=== PATIENT | male | born 1945 | race American Indian/Alaskan Native ===

== ENCOUNTER 2016-11-29 10:53 | Inpatient (IN) | payer MEDICARE, OTHER, BC ==
--- NOTE | 2016-11-29 11:44 | C.PDOC ---
History Of Present Illness 71 y/o male with chf and recently diagnosed left dvt, on coumadin, brought to ED from [facility]. pt has been there the last 4-5 days s/p discharge from [facility]. pt sts he vomited once this morning, and vomitus had drops of blood in it. denies abdominal pain, denies blood in stool. no fever or chills. Time Seen by Provider: 11/29/16 11:15 Chief Complaint (Nursing): GI Problem History Per: Patient Onset/Duration Of Symptoms: Days (4-5) Current Symptoms Are (Timing): Still Present Associated Symptoms: Vomiting Modifying Factors: None Recent travel outside of the [place]: No Past Medical History Reviewed: Historical Data, Nursing Documentation, Vital Signs Vital Signs: Last Vital Signs Temp 98.3 F 12/06/16 15:10 Pulse 65 12/06/16 16:00 Resp 18 12/06/16 15:10 BP 159/83 H 12/06/16 15:10 Pulse Ox 97 12/06/16 15:10 - Medical History PMH: Atrial Fibrillation, CHF, Deep Vein Thrombosis, HTN, Hyperlipidemia, Pulmonary Embolism Surgical History: No Surg Hx Family History: States: Unknown Family Hx - Social History Hx Alcohol Use: No Hx Substance Use: No - Immunization History Hx Tetanus Toxoid Vaccination: No Hx Influenza Vaccination: No Hx Pneumococcal Vaccination: No Review Of Systems Constitutional: Negative for: Fever, Chills Cardiovascular: Negative for: Chest Pain, Palpitations Respiratory: Negative for: Cough, Shortness of Breath Gastrointestinal: Positive for: Vomiting. Negative for: Nausea, Abdominal Pain Neurological: Negative for: Weakness, Numbness Physical Exam - Physical Exam Appears: Non-toxic, No Acute Distress Skin: Normal Color, Warm, Dry Head: Atraumatic, Normacephalic Chest: Symmetrical, No Deformity, No Tenderness Cardiovascular: Rhythm Regular, No Murmur Respiratory: No Accessory Muscle Use, Rales (right base), No Stridor, No Wheezing Gastrointestinal/Abdominal: Bowel Sounds, Soft, Tenderness (ruq), No Guarding, No Rebound Extremity: Other (left lower extremity with +1-2 pitting edema) ED Course And Treatment - Laboratory Results Result Diagrams: 12/06/16 06:44 12/06/16 06:44 O2 Sat by Pulse Oximetry: 100 - Other Rad CXR X-Ray: Viewed By Me, Read By Radiologist Interpretation: HISTORY: crackles right base. COMPARISON: No prior. FINDINGS : LUNGS: Moderate venous congestion. Patchy right basilar airspace opacity. Right hilar prominence. PLEURA: As above. CARDIOVASCULAR: Cardiomegaly. OSSEOUS STRUCTURES: No significant abnormalities. VISUALIZED UPPER ABDOMEN: Normal. OTHER FINDINGS: None. IMPRESSION: Moderate venous congestion. Patchy right basilar airspace opacity. Right hilar prominence. Medical Decision Making Medical Decision Making: discussed with Dr Guevara will admit for obs of gi bleeding and tx of pna. Disposition Discussed With : Mando Yen Doctor Will See Patient In The: Hospital - Disposition Disposition: HOSPITALIZED Disposition Time: 14:19 Condition: SERIOUS - Clinical Impression Clinical Impression: Gastrointestinal hemorrhage, Pneumonia Decision To Admit - Pt Status Changed To: Hospital Disposition Of: Inpatient - Admit Certification Admit to Inpatient:: After my assessment, the patient will require hospitalization for at least two midnights. This is because of the severity of symptoms shown, intensity of services needed, and/or the medical risk in this patient being treated as an outpatient. - InPatient: Physician Admission Certification: I certify that this patient requires 2 or more midnights of care for the following reason:: requires tx for pna - . Bed Request Type: Regular Admitting Physician: Mando Yen Patient Diagnosis: Gastrointestinal hemorrhage, Pneumonia
[2016-11-29 12:28] LABS: BASO % 0.2 % (0.0-2.0); EOS % 0.2 % (0.0-4.0); HEMATOCRIT 25.8 % (35.0-51.0); LYMPH # 0.7 K/uL (1.0-4.3); MEAN CELL VOLUME 77.7 fL (80.0-94.0); MEAN CORPUSCULAR HEMOGLOBIN 25.1 pg (27.0-31.0); MEAN CORPUSCULAR HGB CONC 32.4 g/dL (33.0-37.0); MEAN PLATELET VOLUME 8.5 fL (7.2-11.7); MONO # 0.4 K/uL (0.0-0.8); MONO % 5.9 % (0.0-10.0); WHITE BLOOD COUNT 7.1 K/uL (4.8-10.8)
[2016-11-29 12:34] LABS: CHLORIDE 104 mmol/L (98-107); INR 2.7; POTASSIUM 4.6 mmol/L (3.6-5.2); SODIUM 142 mmol/L (132-148)
[2016-11-29 12:36] LABS: ALB/GLOB RATIO 0.8 (1.0-2.1); AST/SGOT 640 U/L (17-59); BILIRUBIN,TOTAL 1.6 mg/dL (0.2-1.3); BLOOD UREA NITROGEN 24 mg/dL (9-20); CARBON DIOXIDE 27 mmol/L (22-30); GFR AFRICAN-AMERICAN > 60; TOTAL PROTEIN 7.1 g/dL (6.3-8.3)
[2016-11-29 12:37] LABS: ALKALINE PHOSPHATASE 276 U/L (38-126); ALT/SGPT 304 U/L (21-72); CALCIUM 8.8 mg/dl (8.6-10.4); GLUCOSE,RANDOM 100 mg/dL (75-110)
--- NOTE | 2016-11-29 13:29 | RAD ---
HISTORY: crackles right base COMPARISON: No prior. FINDINGS: LUNGS: Moderate venous congestion. Patchy right basilar airspace opacity. Right hilar prominence. PLEURA: As above. CARDIOVASCULAR: Cardiomegaly. OSSEOUS STRUCTURES: No significant abnormalities. VISUALIZED UPPER ABDOMEN: Normal. OTHER FINDINGS: None. IMPRESSION: Moderate venous congestion. Patchy right basilar airspace opacity. Right hilar prominence.
[2016-11-29] MEDS ORDERED: Cefepime 1 GM in Sodium Chloride 0.9% 50 ML IVPB ONE (14:16)
--- NOTE | 2016-11-29 15:25 | CT ---
PROCEDURE: CT HEAD WITHOUT CONTRAST. HISTORY: confused. on coumadin COMPARISON: None available. TECHNIQUE: Axial computed tomography images were obtained through the head/brain without intravenous contrast. Radiation dose: Total exam DLP = 1936.32 mGy-cm. This CT exam was performed using one or more of the following dose reduction techniques: Automated exposure control, adjustment of the mA and/or kV according to patient size, and/or use of iterative reconstruction technique. FINDINGS: Streak artifact obscures evaluation of the skullbase. HEMORRHAGE: No intracranial hemorrhage. BRAIN: Diffuse atrophy with prominence of the ventricles and sulci noted. No mass effect or edema. Intracranial atherosclerotic calcifications. Bilateral basal ganglia calcifications. Sub cm bilateral basal ganglia and thalamic hypodensities presumably lacunar infarctions. Scattered periventricular and subcortical white matter hypodensities, which are nonspecific, but often seen with chronic microvascular ischemic disease. Please note that MRI with diffusion imaging is more sensitive in the detection of acute ischemic event. VENTRICLES: No hydrocephalus. CALVARIUM: Unremarkable. PARANASAL SINUSES: Unremarkable as visualized. No significant inflammatory changes. MASTOID AIR CELLS: Unremarkable as visualized. No inflammatory changes. OTHER FINDINGS: None. IMPRESSION: Generalized atrophy. Nonspecific white matter changes. Sub cm bilateral basal ganglia and thalamic hypodensities presumably lacunar infarctions.
[2016-11-29] MEDS ORDERED: Cefepime IV 1 gm in Dextrose 50 ML IVPB ONE (16:00)
[2016-11-29] MEDS ORDERED: Sodium Chloride 0.9% 1,000 ML IV SCH (17:15)
[2016-11-29 17:33] LABS: RBC URINE 1 /hpf (0-3); URINE BILIRUBIN NEGATIVE (NEGATIVE); URINE BLOOD NEGATIVE (NEGATIVE); URINE COLOR Amber (YELLOW); URINE GLUCOSE (UA) NORMAL (Normal); URINE KETONE NEGATIVE (NEGATIVE); URINE LEUKOCYTE ESTERASE NEG Leu/uL (Negative); URINE PROTEIN NEGATIVE (NEGATIVE); WBC URINE 1 /hpf (0-5)
[2016-11-29] MEDS ORDERED: Albuterol-Ipratrop 3 mg / 0.5 (3 ml) UD IH PRN (18:03)
[2016-11-29] MEDS: Piperacillin/Tazobact 3.375 GM in Sodium Chloride 100 ML IVPB SCH (20:46)
[2016-11-29] MEDS: (Novolog) Insulin Aspart, Recombinant 100 u/ml 10 ml vial SC SCH (22:34)
[2016-11-30] MEDS: Sodium Chloride 0.9% 1,000 ML IV SCH ×3 (00:35→17:19)
[2016-11-30] MEDS: Piperacillin/Tazobact 3.375 GM in Sodium Chloride 100 ML IVPB SCH ×3 (01:50→19:00)
[2016-11-30 08:01] LABS: INR 3.3
[2016-11-30 08:15] LABS: BASO % 0.6 % (0.0-2.0); EOS # 0.1 K/uL (0.0-0.7); EOS % 1.3 % (0.0-4.0); HEMATOCRIT 26.4 % (35.0-51.0); LYMPH # 1.4 K/uL (1.0-4.3); LYMPH % 28.4 % (20.0-40.0); MEAN CELL VOLUME 77.5 fL (80.0-94.0); MEAN CORPUSCULAR HEMOGLOBIN 24.9 pg (27.0-31.0); MEAN CORPUSCULAR HGB CONC 32.2 g/dL (33.0-37.0); MEAN PLATELET VOLUME 8.9 fL (7.2-11.7); MONO # 0.4 K/uL (0.0-0.8); MONO % 7.8 % (0.0-10.0); NRBC % 0.1 % (0.0-2.0); RED CELL DISTRIBUTION WIDTH 15.8 % (11.5-14.5); WHITE BLOOD COUNT 4.8 K/uL (4.8-10.8)
[2016-11-30 08:25] LABS: IRON 44 ug/dL (49-181)
[2016-11-30] MEDS: (Novolog) Insulin Aspart, Recombinant 100 u/ml 10 ml vial SC SCH ×4 (08:41→22:19)
[2016-11-30 09:19] LABS: CHLORIDE 106 mmol/L (98-107)
[2016-11-30 09:20] LABS: SODIUM 148 mmol/L (132-148)
[2016-11-30 09:22] LABS: CARBON DIOXIDE 26 mmol/L (22-30); GFR AFRICAN-AMERICAN > 60
[2016-11-30 09:23] LABS: ALB/GLOB RATIO 0.8 (1.0-2.1); ALKALINE PHOSPHATASE 536 U/L (38-126); ALT/SGPT 669 U/L (21-72); BILIRUBIN,TOTAL 2.2 mg/dL (0.2-1.3); BLOOD UREA NITROGEN 17 mg/dL (9-20); CALCIUM 8.4 mg/dl (8.6-10.4); GLUCOSE,RANDOM 79 mg/dL (75-110); TOTAL PROTEIN 6.7 g/dL (6.3-8.3)
--- NOTE | 2016-11-30 09:34 | CP.PCM.CON ---
<Jackson Farr - Last Filed: 11/30/16 10:02> History of Present Illness - History of Present Illness History of Present Illness: PGY4 GI Fellow Consult Note Patient is a 71yo male with PMHx significant for systolic CHF (EF 32%), LLE DVT on coumadin, prior acute respiratory failure requiring mechanical ventilation, HTN, Dyslipidemia, osteoarthritis who presented from rehab facility with suspected hematemesis. The patient has an unclear, not formally diagnosed, cognitive disorder and is unable to recall recent events and is currently only AAOx1 (name), thus he is a poor historian. He was recently admitted to [facility] in October for SOB and chest pain and was treated for HCAP, required mechanical ventilation and had a prolonged ICU stay due to respiratory failure. Moreover, he has previously been diagnosed and treated for CHF, a wide complex tachycardia concerning for sustained VTach and a LLE DVT for which he was given coumadin. The patient developed nausea and vomiting yesterday which was witnessed by staff at rehab facility. There was concern for hematemesis and patient was transferred to our facility for further evaluation and treatment. The patient has not had any further episodes of nausea or vomiting since admission. He currently denies any complaints, in particular, no nausea, vomiting, diarrhea, hematochezia, melena, weight loss, dysphagia, dyspnea, chest pain, dizziness. It should be noted that a CT head was performed on admission which revealed lacunar infarcts which were not noted last month on either CT or MRI brain. An EEG at that time was diffusely abnormal. PMHx: See HPI PSHx: B/L cataract surgery FHx: Father - CAD; Sister - leukemia Social: Former smoker ~35yrs, Denies any EtOH or illicit drug use Endo: No documented history in our EMR, though patient believes he previously had colonoscopy *Of note, patient has a second chart in EMR under name Abimael Bill Jr. Review of Systems - Review of Systems Systems not reviewed;Unavailable: Altered Mental Status Past Patient History - Past Medical History & Family History Past Medical History?: Yes - Past Social History Smoking Status: Former Smoker - CARDIAC Hx Atrial Fibrillation: Yes Hx Congestive Heart Failure: Yes Hx Hypertension: Yes - PULMONARY Hx Pulmonary Embolism: Yes - NEUROLOGICAL Hx Neurological Disorder: No - HEENT Hx HEENT Problems: No - RENAL Hx Chronic Kidney Disease: No - ENDOCRINE/METABOLIC Hx Diabetes Mellitus Type 2: Yes - HEMATOLOGICAL/ONCOLOGICAL Hx Blood Disorders: No - INTEGUMENTARY Hx Dermatological Problems: No - MUSCULOSKELETAL/RHEUMATOLOGICAL Hx Falls: No - GASTROINTESTINAL Hx Gastrointestinal Disorders: No - GENITOURINARY/GYNECOLOGICAL Hx Incontinence: Yes - PSYCHIATRIC Hx Substance Use: No - SURGICAL HISTORY Hx Surgeries: No - ANESTHESIA Hx Anesthesia: Yes (Dental Procedure) Hx Anesthesia Reactions: No Meds Allergies/Adverse Reactions: Allergies Allergy/AdvReac Type Severity Reaction Status Date / Time No Known Allergies Allergy Verified 11/29/16 11:02 - Medications Medications: Current Medications Albuterol/Ipratropium (Duoneb 3 Mg/0.5 Mg (3 Ml) Ud) 3 ml IH RQ4 PRN PRN Reason: Wheezing Clonidine HCl (Catapres) 0.1 mg PO BID [facility] Cyanocobalamin (Vitamin B12 1000 Mcg Tab) 1,000 mcg PO DAILY [facility] Piperacillin Sod/Tazobactam (Sod 3.375 gm/ Sodium Chloride) 100 mls @ 200 mls/ hr IVPB Q8H [facility] Last Admin: 11/30/16 01:50 Dose: 200 mls/hr Sodium Chloride (Sodium Chloride 0.9%) 1,000 mls @ 60 mls/hr IV .[id number] [facility] Last Admin: 11/30/16 06:00 Dose: 60 mls/hr Insulin Aspart (Novolog) 0 unit SC ACHS [facility] PRN Reason: Protocol Last Admin: 11/30/16 08:41 Dose: Not Given Lorazepam (Ativan) 0.5 mg PO Q8 PRN PRN Reason: Agitation Pneumococcal Polyvalent Vaccine (Pneumovax 23 Vaccine) 0.5 ml IM .ONCE ONE Stop: 12/02/16 10:01 Physical Exam - Constitutional Appears: Non-toxic, No Acute Distress - Eye Exam Eye Exam: EOMI, PERRL - ENT Exam ENT Exam: Mucous Membranes Moist - Respiratory Exam Respiratory Exam: Clear to Auscultation Bilateral. absent: Rales, Rhonchi, Wheezes - Cardiovascular Exam Cardiovascular Exam: RRR, +S1, +S2 - GI/Abdominal Exam GI & Abdominal Exam: Normal Bowel Sounds, Soft. absent: Diminished Bowel Sounds , Distended, Firm, Rigid, Tenderness - Extremities Exam Extremities exam: Positive for: normal inspection. Negative for: pedal edema - Neurological Exam Neurological exam: Altered Additional comments: Oriented to name only - Psychiatric Exam Psychiatric exam: Normal Affect, Normal Mood - Skin Skin Exam: Dry, Warm Results - Vital Signs Recent Vital Signs: Last Vital Signs Temp 98.1 F 11/30/16 07:38 Pulse 80 11/30/16 07:38 Resp 20 11/30/16 07:38 BP 155/85 H 11/30/16 07:38 Pulse Ox 95 11/30/16 07:38 - Labs Result Diagrams: 11/30/16 07:52 11/30/16 07:52 Labs: Laboratory Results - last 24 hr 11/29/16 11/29/16 11/29/16 17:25 18:14 21:46 WBC RBC Hgb Hct MCV MCH MCHC RDW Plt Count MPV Neut % (Auto) Lymph % (Auto) Daggett % (Auto) Eos % (Auto) Baso % (Auto) Neut # Lymph # Daggett # Eos # Baso # PT INR APTT Sodium Potassium Chloride Carbon Dioxide Anion Gap BUN Creatinine Est GFR ( Amer) Est GFR (Non-Af Amer) POC Glucose (mg/dL) 91 91 Random Glucose Calcium Iron TIBC % Saturation Total Bilirubin Direct Bilirubin ALT Alkaline Phosphatase Total Protein Albumin Globulin Albumin/Globulin Ratio Urine Color Shirley Urine Clarity Clear Urine pH 7.0 Ur Specific [place] 1.013 Urine Protein Negative Urine Glucose (UA) Normal Urine Ketones Negative Urine Blood Negative Urine Nitrate Negative Urine Bilirubin Negative Urine Urobilinogen 4.0 Ur Leukocyte Esterase Neg Urine WBC (Auto) 1 Urine RBC (Auto) 1 11/30/16 11/30/16 11/30/16 02:58 07:21 07:52 WBC 4.8 RBC 3.41 L Hgb 8.5 L Hct 26.4 L MCV 77.5 L MCH 24.9 L MCHC 32.2 L RDW 15.8 H Plt Count 350 MPV 8.9 Neut % (Auto) 61.9 Lymph % (Auto) 28.4 Daggett % (Auto) 7.8 Eos % (Auto) 1.3 Baso % (Auto) 0.6 Neut # 3.0 Lymph # 1.4 Daggett # 0.4 Eos # 0.1 Baso # 0.0 PT 39.2 H* D INR 3.3 APTT Sodium 148 Potassium 4.0 Chloride 106 Carbon Dioxide 26 Anion Gap 19 BUN 17 Creatinine 1.1 Est GFR ( Amer) > 60 Est GFR (Non-Af Amer) > 60 POC Glucose (mg/dL) 89 92 Random Glucose 79 Calcium 8.4 L Iron 44 L TIBC 236 L % Saturation 19 L Total Bilirubin 2.2 H Direct Bilirubin 2.0 H ALT 669 H D Alkaline Phosphatase 536 H D Total Protein 6.7 Albumin 3.0 L Globulin 3.7 Albumin/Globulin Ratio 0.8 L Urine Color Urine Clarity Urine pH Ur Specific [place] Urine Protein Urine Glucose (UA) Urine Ketones Urine Blood Urine Nitrate Urine Bilirubin Urine Urobilinogen Ur Leukocyte Esterase Urine WBC (Auto) Urine RBC (Auto) 11/30/16 07:59 WBC RBC Hgb Hct MCV MCH MCHC RDW Plt Count MPV Neut % (Auto) Lymph % (Auto) Daggett % (Auto) Eos % (Auto) Baso % (Auto) Neut # Lymph # Daggett # Eos # Baso # PT INR APTT 39 H Sodium Potassium Chloride Carbon Dioxide Anion Gap BUN Creatinine Est GFR ( Amer) Est GFR (Non-Af Amer) POC Glucose (mg/dL) Random Glucose Calcium Iron TIBC % Saturation Total Bilirubin Direct Bilirubin ALT Alkaline Phosphatase Total Protein Albumin Globulin Albumin/Globulin Ratio Urine Color Urine Clarity Urine pH Ur Specific [place] Urine Protein Urine Glucose (UA) Urine Ketones Urine Blood Urine Nitrate Urine Bilirubin Urine Urobilinogen Ur Leukocyte Esterase Urine WBC (Auto) Urine RBC (Auto) Assessment & Plan - Assessment and Plan (Free Text) Assessment: Patient is a 71yo male with PMHx significant for systolic CHF (EF 32%), LLE DVT on coumadin, prior acute respiratory failure requiring mechanical ventilation, HTN, Dyslipidemia, osteoarthritis who presented from rehab facility with suspected hematemesis. -Suspected hematemesis -Abnormal LFTs with direct hyperbilirubinemia -Microcytic anemia -Questionable acute to subacute CVA with lacunar infarcts noted on this admission, not previously noted on imaging -Unspecified cognitive disorder, possibly vascular or alzheimer dementia -Recent history of sustained VTach vs other wide complex tachyarrythmia -CHF with EF 32% Plan: -No evidence of acute GI bleeding since admission, no further episodes of emesis -Does have abnormal LFTs with direct hyperbilirubinemia; awaiting U/S abdomen, may warrant MRCP pending findings -Currently on coumadin which would preclude endoscopic evaluation at this time, non-emergent at this time -Given recent head CT findings and absence of these on prior examinations, consider further evaluation - patient may require antiplatelet therapy (ASA/ Plavix) which too would preclude endoscopic evaluation -Continue Protonix 40mg IV QAMAC -Monitor CBC, CMP, INR -Check Hepatitis serologies -FERNANDO previously positive at 1:320 -Check AMA, SMA -Would benefit from iron supplementation given ongoing anemia, iron deficiency - Date & Time Date: 11/30/16 Time: 06:15 <Sue Ordonez - Last Filed: 11/30/16 17:16> Meds - Medications Medications: Current Medications Albuterol/Ipratropium (Duoneb 3 Mg/0.5 Mg (3 Ml) Ud) 3 ml IH RQ4 PRN PRN Reason: Wheezing Clonidine HCl (Catapres) 0.2 mg PO BID [facility] Cyanocobalamin (Vitamin B12 1000 Mcg Tab) 1,000 mcg PO DAILY [facility] Last Admin: 11/30/16 10:23 Dose: 1,000 mcg Piperacillin Sod/Tazobactam (Sod 3.375 gm/ Sodium Chloride) 100 mls @ 200 mls/ hr IVPB Q8H [facility] Last Admin: 11/30/16 10:26 Dose: 200 mls/hr Sodium Chloride (Sodium Chloride 0.9%) 1,000 mls @ 60 mls/hr IV .[id number] [facility] Last Admin: 11/30/16 06:00 Dose: 60 mls/hr Insulin Aspart (Novolog) 0 unit SC ACHS [facility] PRN Reason: Protocol Last Admin: 11/30/16 12:36 Dose: Not Given Lorazepam (Ativan) 0.5 mg PO Q8 PRN PRN Reason: Agitation Morphine Sulfate (Morphine) 0.5 mg IVP Q6 PRN PRN Reason: Pain, moderate (4-7) Last Admin: 11/30/16 13:22 Dose: 0.5 mg Pneumococcal Polyvalent Vaccine (Pneumovax 23 Vaccine) 0.5 ml IM .ONCE ONE Stop: 12/02/16 10:01 Results - Vital Signs Recent Vital Signs: Last Vital Signs Temp 98.3 F 11/30/16 15:42 Pulse 94 H 11/30/16 15:42 Resp 20 11/30/16 15:42 BP 160/112 H 11/30/16 15:42 Pulse Ox 95 11/30/16 15:42 - Labs Result Diagrams: 11/30/16 07:52 11/30/16 07:52 Labs: Laboratory Results - last 24 hr 11/29/16 11/29/16 11/29/16 17:25 18:14 21:46 WBC RBC Hgb Hct MCV MCH MCHC RDW Plt Count MPV Neut % (Auto) Lymph % (Auto) Daggett % (Auto) Eos % (Auto) Baso % (Auto) Neut # Lymph # Daggett # Eos # Baso # PT INR APTT Sodium Potassium Chloride Carbon Dioxide Anion Gap BUN Creatinine Est GFR ( Amer) Est GFR (Non-Af Amer) POC Glucose (mg/dL) 91 91 Random Glucose Calcium Iron TIBC % Saturation Total Bilirubin Direct Bilirubin AST ALT Alkaline Phosphatase Total Protein Albumin Globulin Albumin/Globulin Ratio Urine Color Shirley Urine Clarity Clear Urine pH 7.0 Ur Specific [place] 1.013 Urine Protein Negative Urine Glucose (UA) Normal Urine Ketones Negative Urine Blood Negative Urine Nitrate Negative Urine Bilirubin Negative Urine Urobilinogen 4.0 Ur Leukocyte Esterase Neg Urine WBC (Auto) 1 Urine RBC (Auto) 1 Hepatitis A IgM Ab Hep Bs Antigen Hep B Core IgM Ab Hepatitis C Antibody 11/30/16 11/30/16 11/30/16 02:58 07:21 07:52 WBC 4.8 RBC 3.41 L Hgb 8.5 L Hct 26.4 L MCV 77.5 L MCH 24.9 L MCHC 32.2 L RDW 15.8 H Plt Count 350 MPV 8.9 Neut % (Auto) 61.9 Lymph % (Auto) 28.4 Daggett % (Auto) 7.8 Eos % (Auto) 1.3 Baso % (Auto) 0.6 Neut # 3.0 Lymph # 1.4 Daggett # 0.4 Eos # 0.1 Baso # 0.0 PT 39.2 H* D INR 3.3 APTT Sodium 148 Potassium 4.0 Chloride 106 Carbon Dioxide 26 Anion Gap 19 BUN 17 Creatinine 1.1 Est GFR ( Amer) > 60 Est GFR (Non-Af Amer) > 60 POC Glucose (mg/dL) 89 92 Random Glucose 79 Calcium 8.4 L Iron 44 L TIBC 236 L % Saturation 19 L Total Bilirubin 2.2 H Direct Bilirubin 2.0 H AST 857 H D ALT 669 H D Alkaline Phosphatase 536 H D Total Protein 6.7 Albumin 3.0 L Globulin 3.7 Albumin/Globulin Ratio 0.8 L Urine Color Urine Clarity Urine pH Ur Specific [place] Urine Protein Urine Glucose (UA) Urine Ketones Urine Blood Urine Nitrate Urine Bilirubin Urine Urobilinogen Ur Leukocyte Esterase Urine WBC (Auto) Urine RBC (Auto) Hepatitis A IgM Ab Hep Bs Antigen Hep B Core IgM Ab Hepatitis C Antibody 11/30/16 11/30/16 11/30/16 07:59 11:55 14:23 WBC RBC Hgb Hct MCV MCH MCHC RDW Plt Count MPV Neut % (Auto) Lymph % (Auto) [place] % (Auto) Eos % (Auto) Baso % (Auto) Neut # Lymph # [place]gett # Eos # Baso # PT INR APTT 39 H Sodium Potassium Chloride Carbon Dioxide Anion Gap BUN Creatinine Est GFR ( Amer) Est GFR (Non-Af Amer) POC Glucose (mg/dL) 109 Random Glucose Calcium Iron TIBC % Saturation Total Bilirubin Direct Bilirubin AST ALT Alkaline Phosphatase Total Protein Albumin Globulin Albumin/Globulin Ratio Urine Color Urine Clarity Urine pH Ur Specific [place] Urine Protein Urine Glucose (UA) Urine Ketones Urine Blood Urine Nitrate Urine Bilirubin Urine Urobilinogen Ur Leukocyte Esterase Urine WBC (Auto) Urine RBC (Auto) Hepatitis A IgM Ab Negative Hep Bs Antigen Negative Hep B Core IgM Ab Negative Hepatitis C Antibody Negative 11/30/16 16:32 WBC RBC Hgb Hct MCV MCH MCHC RDW Plt Count MPV Neut % (Auto) Lymph % (Auto) [place] % (Auto) Eos % (Auto) Baso % (Auto) Neut # Lymph # [place]gett # Eos # Baso # PT INR APTT Sodium Potassium Chloride Carbon Dioxide Anion Gap BUN Creatinine Est GFR ( Amer) Est GFR (Non-Af Amer) POC Glucose (mg/dL) 98 Random Glucose Calcium Iron TIBC % Saturation Total Bilirubin Direct Bilirubin AST ALT Alkaline Phosphatase Total Protein Albumin Globulin Albumin/Globulin Ratio Urine Color Urine Clarity Urine pH Ur Specific [place] Urine Protein Urine Glucose (UA) Urine Ketones Urine Blood Urine Nitrate Urine Bilirubin Urine Urobilinogen Ur Leukocyte Esterase Urine WBC (Auto) Urine RBC (Auto) Hepatitis A IgM Ab Hep Bs Antigen Hep B Core IgM Ab Hepatitis C Antibody Attending/Attestation - Attestation I have personally seen and examined this patient.: Yes I have fully participated in the care of the patient.: Yes I have reviewed all pertinent clinical information: Yes Notes (Text): Patient seen and examined with GI fellow. Agree with his note as documented above with the following additions/exceptions. This is a 71yo male with PMHx significant for systolic CHF (EF 32%), LLE DVT on coumadin, HTN, recent hospitalization at [facility] for respiratory failure requiring mechanical ventilation who is admitted from rehab facility with possible episode of hematemesis. He thinks he may have had endoscopy years ago. He denies any further episodes of bleeding. No melena/hematochezia, FOBT negative. He is noted to have abnormal LFTs with ultrasound showing gallstones, +Lucia's and large abdominal aortic aneurysm. Recommend MRCP, HIDA and surgical evaluation. No urgent indication for upper endoscopy at this time, would continue daily PPI, antiemetic therapy as needed. Monitor H/H, transfuse as needed. Will continue to follow and make recommendations pending clinical course/further studies. 11/30/16 17:12
[2016-11-30 09:52] LABS: AST/SGOT 857 U/L (17-59)
--- NOTE | 2016-11-30 11:19 | US ---
HISTORY: abnormal LFTs COMPARISON: None. TECHNIQUE: Sonographic evaluation of the abdomen. FINDINGS: LIVER: Measures 18.9 cm. Patent portal vein. Portal venous flow: Hepatopetal. Variable echogenicity of the liver parenchyma. No mass. No intrahepatic bile duct dilatation. GALLBLADDER: Cholelithiasis, gallbladder wall thickening/ tumefactive sludge identified. Positive sonographic Lucia's sign. COMMON BILE DUCT: Measures 4.6 mm. No stones. No dilatation. PANCREAS: Obscured by overlying bowel gas. Non diagnostic assessment of the pancreas. RIGHT KIDNEY: Measures cm. Normal echogenicity. No calculus, mass, or hydronephrosis.Incidental finding(s): Simple cyst 1 cm LEFT KIDNEY: Measures 5.7 x 11.2cm. Normal echogenicity. No calculus, mass, or hydronephrosis.Incidental finding(s): Midpole cyst 2.1 x 2.3 cm SPLEEN: Normal in size and contour. No mass. AORTA: Abdominal aortic aneurysm. The length of the aneurysm is 9.3 cm. Diameter 4.7 x 5.9 primarily thrombus. Luminal measurements 1.8 x 3.2 cm. IVC: Unremarkable. OTHER FINDINGS: None. IMPRESSION: Presumptive evidence for acute cholecystitis inclusive in the presence of gallstones, gallbladder wall thickening and positive sonographic Lucia's sign. Abdominal aortic aneurysm.
[2016-11-30] MEDS ORDERED: Iohexol 240 (50 ml) PO ONE (14:45)
--- NOTE | 2016-11-30 17:20 | CP.PCM.CON ---
History of Present Illness - History of Present Illness History of Present Illness: Vascular Surgery Dr. Heard CC: AAA HPI: 71 y/o M w/ significant PMHx of systolic CHF (EF 32%), LLE DVT on coumadin , acute respiratory failure requiring mechanical ventilation, hypertension, and hyperlipidemia who was recently brought to the ED from [facility] [place] due to suspected hematemesis. Patient has been there for the last 4-5 days s/p discharge from [place]. Patient was found to have an AAA on abd U/S. Patient is a poor historian as he is AAOx1. Patient Hx obtained from medical record. He has not had any further episodes of nausea and vomiting since his admission. The patient denies CP and abd pain on questioning. PMHx: CHF (EF 32%), DVT on coumadin, HTN, HLD, dementia, OA Meds: reviewed in chart NKDA PSHx: B/L cataract surgery FHx: Parents - HTN, DM, CAD; Sister - leukemia SHx: Former smoker ~35yrs; denies EtOH or drug use Review of Systems - Review of Systems Systems not reviewed;Unavailable: Dementia, Altered Mental Status Past Patient History - Past Medical History & Family History Past Medical History?: Yes - Past Social History Smoking Status: Former Smoker - CARDIAC Hx Congestive Heart Failure: Yes Hx Hypercholesterolemia: Yes Hx Hypertension: Yes - PULMONARY Hx Pulmonary Embolism: Yes - NEUROLOGICAL Hx Neurological Disorder: No - HEENT Hx HEENT Problems: No - RENAL Hx Chronic Kidney Disease: No - ENDOCRINE/METABOLIC Hx Diabetes Mellitus Type 2: Yes - HEMATOLOGICAL/ONCOLOGICAL Hx Blood Disorders: No - INTEGUMENTARY Hx Dermatological Problems: No - MUSCULOSKELETAL/RHEUMATOLOGICAL Hx Falls: No - GASTROINTESTINAL Hx Gastrointestinal Disorders: No - GENITOURINARY/GYNECOLOGICAL Hx Incontinence: Yes - PSYCHIATRIC Hx Substance Use: No - SURGICAL HISTORY Hx Surgeries: No - ANESTHESIA Hx Anesthesia: Yes (Dental Procedure) Hx Anesthesia Reactions: No Meds Allergies/Adverse Reactions: Allergies Allergy/AdvReac Type Severity Reaction Status Date / Time No Known Allergies Allergy Verified 11/29/16 11:02 - Medications Medications: Current Medications Albuterol/Ipratropium (Duoneb 3 Mg/0.5 Mg (3 Ml) Ud) 3 ml IH RQ4 PRN PRN Reason: Wheezing Clonidine HCl (Catapres) 0.1 mg PO BID [facility] Last Admin: 11/30/16 10:24 Dose: 0.1 mg Cyanocobalamin (Vitamin B12 1000 Mcg Tab) 1,000 mcg PO DAILY [facility] Last Admin: 11/30/16 10:23 Dose: 1,000 mcg Piperacillin Sod/Tazobactam (Sod 3.375 gm/ Sodium Chloride) 100 mls @ 200 mls/ hr IVPB Q8H [facility] Last Admin: 11/30/16 10:26 Dose: 200 mls/hr Sodium Chloride (Sodium Chloride 0.9%) 1,000 mls @ 60 mls/hr IV .[id number] [facility] Last Admin: 11/30/16 06:00 Dose: 60 mls/hr Insulin Aspart (Novolog) 0 unit SC ACHS [facility] PRN Reason: Protocol Last Admin: 11/30/16 12:36 Dose: Not Given Lorazepam (Ativan) 0.5 mg PO Q8 PRN PRN Reason: Agitation Morphine Sulfate (Morphine) 0.5 mg IVP Q6 PRN PRN Reason: Pain, moderate (4-7) Last Admin: 11/30/16 13:22 Dose: 0.5 mg Pneumococcal Polyvalent Vaccine (Pneumovax 23 Vaccine) 0.5 ml IM .ONCE ONE Stop: 12/02/16 10:01 Physical Exam - Constitutional Appears: Non-toxic, No Acute Distress - Head Exam Head Exam: NORMAL INSPECTION - Eye Exam Eye Exam: Normal appearance - ENT Exam ENT Exam: Mucous Membranes Moist - Respiratory Exam Respiratory Exam: Clear to Auscultation Bilateral, NORMAL BREATHING PATTERN. absent: Accessory Muscle Use, Respiratory Distress - Cardiovascular Exam Cardiovascular Exam: Tachycardia, REGULAR RHYTHM, +S1, +S2. absent: Bradycardia - GI/Abdominal Exam GI & Abdominal Exam: Hypoactive Bowel Sounds, Pulsatile Mass, Soft. absent: Distended, Guarding, Tenderness - Extremities Exam Additional comments: 2+ pitting edema LLL to knee 1+ pre-tibial pitting edema - Neurological Exam Neurological exam: Alert, Altered - Psychiatric Exam Psychiatric exam: Normal Affect, Normal Mood - Skin Skin Exam: Dry, Intact, Normal Color, Warm Results - Vital Signs Recent Vital Signs: Last Vital Signs Temp 98.3 F 11/30/16 15:42 Pulse 94 H 11/30/16 15:42 Resp 20 11/30/16 15:42 BP 160/112 H 11/30/16 15:42 Pulse Ox 95 04/07/17 15:42 - Labs Result Diagrams: 11/30/16 07:52 11/30/16 07:52 Labs: Laboratory Results - last 24 hr 11/29/16 11/29/16 11/29/16 17:25 18:14 21:46 WBC RBC Hgb Hct MCV MCH MCHC RDW Plt Count MPV Neut % (Auto) Lymph % (Auto) [place] % (Auto) Eos % (Auto) Baso % (Auto) Neut # Lymph # [place] # Eos # Baso # PT INR APTT Sodium Potassium Chloride Carbon Dioxide Anion Gap BUN Creatinine Est GFR ( Amer) Est GFR (Non-Af Amer) POC Glucose (mg/dL) 91 91 Random Glucose Calcium Iron TIBC % Saturation Total Bilirubin Direct Bilirubin AST ALT Alkaline Phosphatase Total Protein Albumin Globulin Albumin/Globulin Ratio Urine Color [place] Urine Clarity Clear Urine pH 7.0 Ur Specific [place] 1.013 Urine Protein Negative Urine Glucose (UA) Normal Urine Ketones Negative Urine Blood Negative Urine Nitrate Negative Urine Bilirubin Negative Urine Urobilinogen 4.0 Ur Leukocyte Esterase Neg Urine WBC (Auto) 1 Urine RBC (Auto) 1 Hepatitis A IgM Ab Hep Bs Antigen Hep B Core IgM Ab Hepatitis C Antibody 11/30/16 11/30/16 11/30/16 02:58 07:21 07:52 WBC 4.8 RBC 3.41 L Hgb 8.5 L Hct 26.4 L MCV 77.5 L MCH 24.9 L MCHC 32.2 L RDW 15.8 H Plt Count 350 MPV 8.9 Neut % (Auto) 61.9 Lymph % (Auto) 28.4 [place] % (Auto) 7.8 Eos % (Auto) 1.3 Baso % (Auto) 0.6 Neut # 3.0 Lymph # 1.4 [place] # 0.4 Eos # 0.1 Baso # 0.0 PT 39.2 H* D INR 3.3 APTT Sodium 148 Potassium 4.0 Chloride 106 Carbon Dioxide 26 Anion Gap 19 BUN 17 Creatinine 1.1 Est GFR ( Amer) > 60 Est GFR (Non-Af Amer) > 60 POC Glucose (mg/dL) 89 92 Random Glucose 79 Calcium 8.4 L Iron 44 L TIBC 236 L % Saturation 19 L Total Bilirubin 2.2 H Direct Bilirubin 2.0 H AST 857 H D ALT 669 H D Alkaline Phosphatase 536 H D Total Protein 6.7 Albumin 3.0 L Globulin 3.7 Albumin/Globulin Ratio 0.8 L Urine Color Urine Clarity Urine pH Ur Specific [place] Urine Protein Urine Glucose (UA) Urine Ketones Urine Blood Urine Nitrate Urine Bilirubin Urine Urobilinogen Ur Leukocyte Esterase Urine WBC (Auto) Urine RBC (Auto) Hepatitis A IgM Ab Hep Bs Antigen Hep B Core IgM Ab Hepatitis C Antibody 11/30/16 11/30/16 11/30/16 07:59 11:55 14:23 WBC RBC Hgb Hct MCV MCH MCHC RDW Plt Count MPV Neut % (Auto) Lymph % (Auto) [place] % (Auto) Eos % (Auto) Baso % (Auto) Neut # Lymph # [place] # Eos # Baso # PT INR APTT 39 H Sodium Potassium Chloride Carbon Dioxide Anion Gap BUN Creatinine Est GFR ( Amer) Est GFR (Non-Af Amer) POC Glucose (mg/dL) 109 Random Glucose Calcium Iron TIBC % Saturation Total Bilirubin Direct Bilirubin AST ALT Alkaline Phosphatase Total Protein Albumin Globulin Albumin/Globulin Ratio Urine Color Urine Clarity Urine pH Ur Specific [place] Urine Protein Urine Glucose (UA) Urine Ketones Urine Blood Urine Nitrate Urine Bilirubin Urine Urobilinogen Ur Leukocyte Esterase Urine WBC (Auto) Urine RBC (Auto) Hepatitis A IgM Ab Negative Hep Bs Antigen Negative Hep B Core IgM Ab Negative Hepatitis C Antibody Negative - Imaging and Cardiology US - abdomen Status: Image reviewed by me, Report reviewed by me Assessment & Plan - Assessment and Plan (Free Text) Assessment: 71 y/o M w/ dementia, admitted for hematemesis, found to have AAA, transaminitis , hyperbilirubinemia - CTA to evaluate AAA - HIDA to r/o acute cholecystitis - blood pressure control - cont CLD - cont medical management Pt seen and discussed w/ Dr. Orquidea Graves PGY1
[2016-11-30] MEDS ORDERED: Iodixanol 320 mg/ml 150 ml Bottle IV ONE (18:19)
--- NOTE | 2016-11-30 18:33 | CP.PCM.CON ---
History of Present Illness - History of Present Illness History of Present Illness: pt seen and examined, full consult is dictated #[id number] 1.dehydration 2. pre renal azotemia 3. cardiomayopathy 4. htn 5. AAA 6. r/o acute cholecystitis 7. abnormal lft's continue ivf, change to 1/2 ns at 60 ml/hr bmp in am check urine lytes, osm, cr Past Patient History - Past Medical History & Family History Past Medical History?: Yes - Past Social History Smoking Status: Former Smoker - CARDIAC Hx Congestive Heart Failure: Yes Hx Hypercholesterolemia: Yes Hx Hypertension: Yes - PULMONARY Hx Pulmonary Embolism: Yes - NEUROLOGICAL Hx Neurological Disorder: No - HEENT Hx HEENT Problems: No - RENAL Hx Chronic Kidney Disease: No - ENDOCRINE/METABOLIC Hx Diabetes Mellitus Type 2: Yes - HEMATOLOGICAL/ONCOLOGICAL Hx Blood Disorders: No - INTEGUMENTARY Hx Dermatological Problems: No - MUSCULOSKELETAL/RHEUMATOLOGICAL Hx Falls: No - GASTROINTESTINAL Hx Gastrointestinal Disorders: No - GENITOURINARY/GYNECOLOGICAL Hx Incontinence: Yes - PSYCHIATRIC Hx Substance Use: No - SURGICAL HISTORY Hx Surgeries: No - ANESTHESIA Hx Anesthesia: Yes (Dental Procedure) Hx Anesthesia Reactions: No Meds Allergies/Adverse Reactions: Allergies Allergy/AdvReac Type Severity Reaction Status Date / Time No Known Allergies Allergy Verified 11/29/16 11:02 - Medications Medications: Current Medications Albuterol/Ipratropium (Duoneb 3 Mg/0.5 Mg (3 Ml) Ud) 3 ml IH RQ4 PRN PRN Reason: Wheezing Clonidine HCl (Catapres) 0.2 mg PO BID [facility] Last Admin: 11/30/16 17:17 Dose: 0.2 mg Cyanocobalamin (Vitamin B12 1000 Mcg Tab) 1,000 mcg PO DAILY [facility] Last Admin: 11/30/16 10:23 Dose: 1,000 mcg Piperacillin Sod/Tazobactam (Sod 3.375 gm/ Sodium Chloride) 100 mls @ 200 mls/ hr IVPB Q8H [facility] Last Admin: 11/30/16 10:26 Dose: 200 mls/hr Sodium Chloride (Sodium Chloride 0.9%) 1,000 mls @ 60 mls/hr IV .[id number] [facility] Last Admin: 11/30/16 17:19 Dose: Not Given Insulin Aspart (Novolog) 0 unit SC ACHS [facility] PRN Reason: Protocol Last Admin: 11/30/16 17:18 Dose: Not Given Lorazepam (Ativan) 0.5 mg PO Q8 PRN PRN Reason: Agitation Last Admin: 11/30/16 17:15 Dose: 0.5 mg Metoprolol Tartrate (Lopressor) 25 mg PO BID [facility] Morphine Sulfate (Morphine) 0.5 mg IVP Q6 PRN PRN Reason: Pain, moderate (4-7) Last Admin: 11/30/16 13:22 Dose: 0.5 mg Pneumococcal Polyvalent Vaccine (Pneumovax 23 Vaccine) 0.5 ml IM .ONCE ONE Stop: 12/02/16 10:01 Results - Vital Signs Recent Vital Signs: Last Vital Signs Temp 98.3 F 11/30/16 15:42 Pulse 94 H 11/30/16 15:42 Resp 20 11/30/16 15:42 BP 160/112 H 11/30/16 15:42 Pulse Ox 95 11/30/16 15:42 - Labs Result Diagrams: 11/30/16 07:52 11/30/16 07:52 Labs: Laboratory Results - last 24 hr 11/29/16 11/30/16 11/30/16 21:46 02:58 07:21 WBC RBC Hgb Hct MCV MCH MCHC RDW Plt Count MPV Neut % (Auto) Lymph % (Auto) [place] % (Auto) Eos % (Auto) Baso % (Auto) Neut # Lymph # [place] # Eos # Baso # PT INR APTT Sodium Potassium Chloride Carbon Dioxide Anion Gap BUN Creatinine Est GFR ( Amer) Est GFR (Non-Af Amer) POC Glucose (mg/dL) 91 89 92 Random Glucose Calcium Iron TIBC % Saturation Total Bilirubin Direct Bilirubin AST ALT Alkaline Phosphatase Total Protein Albumin Globulin Albumin/Globulin Ratio Hepatitis A IgM Ab Hep Bs Antigen Hep B Core IgM Ab Hepatitis C Antibody 11/30/16 11/30/16 11/30/16 07:52 07:59 11:55 WBC 4.8 RBC 3.41 L Hgb 8.5 L Hct 26.4 L MCV 77.5 L MCH 24.9 L MCHC 32.2 L RDW 15.8 H Plt Count 350 MPV 8.9 Neut % (Auto) 61.9 Lymph % (Auto) 28.4 [place] % (Auto) 7.8 Eos % (Auto) 1.3 Baso % (Auto) 0.6 Neut # 3.0 Lymph # 1.4 [place] # 0.4 Eos # 0.1 Baso # 0.0 PT 39.2 H* D INR 3.3 APTT 39 H Sodium 148 Potassium 4.0 Chloride 106 Carbon Dioxide 26 Anion Gap 19 BUN 17 Creatinine 1.1 Est GFR ( Amer) > 60 Est GFR (Non-Af Amer) > 60 POC Glucose (mg/dL) 109 Random Glucose 79 Calcium 8.4 L Iron 44 L TIBC 236 L % Saturation 19 L Total Bilirubin 2.2 H Direct Bilirubin 2.0 H AST 857 H D ALT 669 H D Alkaline Phosphatase 536 H D Total Protein 6.7 Albumin 3.0 L Globulin 3.7 Albumin/Globulin Ratio 0.8 L Hepatitis A IgM Ab Hep Bs Antigen Hep B Core IgM Ab Hepatitis C Antibody 11/30/16 11/30/16 14:23 16:32 WBC RBC Hgb Hct MCV MCH MCHC RDW Plt Count MPV Neut % (Auto) Lymph % (Auto) [place] % (Auto) Eos % (Auto) Baso % (Auto) Neut # Lymph # [place] # Eos # Baso # PT INR APTT Sodium Potassium Chloride Carbon Dioxide Anion Gap BUN Creatinine Est GFR ( Amer) Est GFR (Non-Af Amer) POC Glucose (mg/dL) 98 Random Glucose Calcium Iron TIBC % Saturation Total Bilirubin Direct Bilirubin AST ALT Alkaline Phosphatase Total Protein Albumin Globulin Albumin/Globulin Ratio Hepatitis A IgM Ab Negative Hep Bs Antigen Negative Hep B Core IgM Ab Negative Hepatitis C Antibody Negative
--- NOTE | 2016-11-30 19:00 | CP.PCM.HP ---
History of Present Illness - History of Present Illness History of Present Illness: HPI: 71 y/o M w/ significant PMHx of systolic CHF (EF 32%), LLE DVT on coumadin , acute respiratory failure requiring mechanical ventilation, hypertension, and hyperlipidemia who was recently brought to the ED from [facility] rehab facility due to suspected hematemesis. Patient has been there for the last 4-5 days s/p discharge from [place]. Patient was found to have an AAA on abd U/S. Patient is a poor historian as he is AAOx1. Patient Hx obtained from medical record. He has not had any further episodes of nausea and vomiting since his admission. The patient denies CP and abd pain on questioning. Present on Admission - Present on Admission Any Indicators Present on Admission: No Review of Systems - Review of Systems Systems not reviewed;Unavailable: Acuity of Condition - Constitutional Constitutional: Fatigue, Lethargy - EENT Eyes: absent: As Per HPI, Blind Spots, Blurred Vision, Change in Vision, Decreased Night Vision, Diplopia, Discharge, Dry Eye, Exophthalmos, Floaters, Irritation, Itchy Eyes, Loss of Peripheral Vision, Pain, Photophobia, Requires Corrective Lenses, Sees Flashes, Spots in Vision, Tunnel Vision, Other Visual Disturbances, Loss of Vision, Other Ears: absent: As Per HPI, Decreased Hearing, Ear Discharge, Ear Pain, Tinnitus, Abnormal Hearing, Disequilibrium, Dizziness, Other Nose/Mouth/Throat: absent: As Per HPI, Epistaxis, Nasal Congestion, Nasal Discharge, Nasal Obstruction, Nasal Trauma, Nose Pain, Post Nasal Drip, Sinus Pain, Sinus Pressure, Bleeding Gums, Change in Voice, Dental Pain, Dry Mouth, Dysphagia, Halitosis, Hoarsness, Lip Swelling, Mouth Lesions, Mouth Pain, Odynophagia, Sore Throat, Throat Swelling, Tongue Swelling, Facial Pain, Neck Pain, Neck Mass, Other - Cardiovascular Cardiovascular: Chest Pain, Dyspnea, Palpitations. absent: As Per HPI, Acrocyanosis, Chest Pain at Rest, Chest Pain with Activity, Claudication, Diaphoresis, Dyspnea on Exertion, Edema, Irregular Heart Rhythm, Pain Radiating to Arm/Neck/Jaw, Leg Edema, Leg Ulcers, Lightheadedness, Orthopnea, Paroxysmal Nocturnal Dyspnea, Pedal Edema, Radiating Pain, Rapid Heart Rate, Slow Heart Rate, Syncope, Other - Respiratory Respiratory: Dyspnea on Exertion - Gastrointestinal Gastrointestinal: Hematemesis, Vomiting. absent: As Per HPI, Abdominal Pain, Belching, Bloating, Change in Bowel Habits, Change in Stool Character, Coffee Ground Emesis, Constipation, Cramping, Diarrhea, Dyspepsia, Dysphagia, Early Satiety, Excessive Flatus, Fecal Incontinence, Heartburn, Hematochezia, Loose Stools, Melena, Nausea, Odynophagia, Temesmus, Other Past Patient History - Past Medical History & Family History Past Medical History?: Yes - Past Social History Smoking Status: Former Smoker - CARDIAC Hx Congestive Heart Failure: Yes Hx Hypercholesterolemia: Yes Hx Hypertension: Yes - PULMONARY Hx Pulmonary Embolism: Yes - NEUROLOGICAL Hx Neurological Disorder: No - HEENT Hx HEENT Problems: No - RENAL Hx Chronic Kidney Disease: No - ENDOCRINE/METABOLIC Hx Diabetes Mellitus Type 2: Yes - HEMATOLOGICAL/ONCOLOGICAL Hx Blood Disorders: No - INTEGUMENTARY Hx Dermatological Problems: No - MUSCULOSKELETAL/RHEUMATOLOGICAL Hx Falls: No - GASTROINTESTINAL Hx Gastrointestinal Disorders: No - GENITOURINARY/GYNECOLOGICAL Hx Incontinence: Yes - PSYCHIATRIC Hx Substance Use: No - SURGICAL HISTORY Hx Surgeries: No - ANESTHESIA Hx Anesthesia: Yes (Dental Procedure) Hx Anesthesia Reactions: No Meds Allergies/Adverse Reactions: Allergies Allergy/AdvReac Type Severity Reaction Status Date / Time No Known Allergies Allergy Verified 01/07/17 11:18 Physical Exam - Constitutional Appears: No Acute Distress - Head Exam Head Exam: ATRAUMATIC, NORMAL INSPECTION, NORMOCEPHALIC - Eye Exam Eye Exam: EOMI, Normal appearance, PERRL Pupil Exam: NORMAL ACCOMODATION, PERRL - Respiratory Exam Respiratory Exam: Clear to Auscultation Bilateral, NORMAL BREATHING PATTERN - Cardiovascular Exam Cardiovascular Exam: REGULAR RHYTHM - GI/Abdominal Exam GI & Abdominal Exam: Normal Bowel Sounds, Soft. absent: Tenderness Results - Vital Signs Recent Vital Signs: Last Vital Signs Temp 98.3 F 11/30/16 15:42 Pulse 94 H 11/30/16 15:42 Resp 20 11/30/16 15:42 BP 160/112 H 11/30/16 15:42 Pulse Ox 95 11/30/16 15:42 - Labs Result Diagrams: 12/06/16 06:44 12/06/16 06:44 Labs: Laboratory Results - last 24 hr 11/29/16 11/30/16 11/30/16 21:46 02:58 07:21 WBC RBC Hgb Hct MCV MCH MCHC RDW Plt Count MPV Neut % (Auto) Lymph % (Auto) [place] % (Auto) Eos % (Auto) Baso % (Auto) Neut # Lymph # [place] # Eos # Baso # PT INR APTT Sodium Potassium Chloride Carbon Dioxide Anion Gap BUN Creatinine Est GFR ( Amer) Est GFR (Non-Af Amer) POC Glucose (mg/dL) 91 89 92 Random Glucose Calcium Iron TIBC % Saturation Total Bilirubin Direct Bilirubin AST ALT Alkaline Phosphatase Total Protein Albumin Globulin Albumin/Globulin Ratio Hepatitis A IgM Ab Hep Bs Antigen Hep B Core IgM Ab Hepatitis C Antibody 11/30/16 11/30/16 11/30/16 07:52 07:59 11:55 WBC 4.8 RBC 3.41 L Hgb 8.5 L Hct 26.4 L MCV 77.5 L MCH 24.9 L MCHC 32.2 L RDW 15.8 H Plt Count 350 MPV 8.9 Neut % (Auto) 61.9 Lymph % (Auto) 28.4 [place] % (Auto) 7.8 Eos % (Auto) 1.3 Baso % (Auto) 0.6 Neut # 3.0 Lymph # 1.4 [place] # 0.4 Eos # 0.1 Baso # 0.0 PT 39.2 H* D INR 3.3 APTT 39 H Sodium 148 Potassium 4.0 Chloride 106 Carbon Dioxide 26 Anion Gap 19 BUN 17 Creatinine 1.1 Est GFR ( Amer) > 60 Est GFR (Non-Af Amer) > 60 POC Glucose (mg/dL) 109 Random Glucose 79 Calcium 8.4 L Iron 44 L TIBC 236 L % Saturation 19 L Total Bilirubin 2.2 H Direct Bilirubin 2.0 H AST 857 H D ALT 669 H D Alkaline Phosphatase 536 H D Total Protein 6.7 Albumin 3.0 L Globulin 3.7 Albumin/Globulin Ratio 0.8 L Hepatitis A IgM Ab Hep Bs Antigen Hep B Core IgM Ab Hepatitis C Antibody 11/30/16 11/30/16 14:23 16:32 WBC RBC Hgb Hct MCV MCH MCHC RDW Plt Count MPV Neut % (Auto) Lymph % (Auto) [place] % (Auto) Eos % (Auto) Baso % (Auto) Neut # Lymph # [place] # Eos # Baso # PT INR APTT Sodium Potassium Chloride Carbon Dioxide Anion Gap BUN Creatinine Est GFR ( Amer) Est GFR (Non-Af Amer) POC Glucose (mg/dL) 98 Random Glucose Calcium Iron TIBC % Saturation Total Bilirubin Direct Bilirubin AST ALT Alkaline Phosphatase Total Protein Albumin Globulin Albumin/Globulin Ratio Hepatitis A IgM Ab Negative Hep Bs Antigen Negative Hep B Core IgM Ab Negative Hepatitis C Antibody Negative Assessment & Plan (1) NATANAEL (acute kidney injury) Status: Acute (2) Abdominal aortic aneurysm Status: Acute - Assessment and Plan (Free Text) Plan: No melena/hematochezia, FOBT negative. He is noted to have abnormal LFTs with ultrasound showing gallstones, +Lucia's and large abdominal aortic aneurysm. Recommend MRCP, HIDA and surgical evaluation. No urgent indication for upper endoscopy at this time, would continue daily PPI, antiemetic therapy as needed. Monitor H/H, transfuse as needed. Will continue to follow and make recommendations pending clinical course/further studies.
--- NOTE | 2016-11-30 19:06 | CP.PCM.PN ---
Subjective - Date & Time of Evaluation Date of Evaluation: 11/30/16 Time of Evaluation: 10:28 - Subjective Subjective: pt seen and evaluated, no c/o nausea, vomitting, abdominal pain, hematuria, hematochezia, hematemesis, seen by GI and vascular too, pt H AND H is stable, continue to monitor, on coumadin Objective - Vital Signs/Intake and Output Vital Signs (last 24 hours): Temp Pulse Resp BP Pulse Ox 98.3 F 94 H 20 160/112 H 95 11/30/16 15:42 11/30/16 15:42 11/30/16 15:42 11/30/16 15:42 11/30/16 15:42 Intake and Output: 11/30/16 12/01/16 18:59 06:59 Intake Total 820 Output Total 500 Balance 320 - Medications Medications: Current Medications Albuterol/Ipratropium (Duoneb 3 Mg/0.5 Mg (3 Ml) Ud) 3 ml IH RQ4 PRN PRN Reason: Wheezing Clonidine HCl (Catapres) 0.2 mg PO BID [facility] Last Admin: 11/30/16 17:17 Dose: 0.2 mg Cyanocobalamin (Vitamin B12 1000 Mcg Tab) 1,000 mcg PO DAILY [facility] Last Admin: 11/30/16 10:23 Dose: 1,000 mcg Piperacillin Sod/Tazobactam (Sod 3.375 gm/ Sodium Chloride) 100 mls @ 200 mls/ hr IVPB Q8H [facility] Last Admin: 11/30/16 19:00 Dose: 200 mls/hr Sodium Chloride (Sodium Chloride 0.9%) 1,000 mls @ 60 mls/hr IV .[id number] [facility] Last Admin: 11/30/16 17:19 Dose: Not Given Insulin Aspart (Novolog) 0 unit SC ACHS [facility] PRN Reason: Protocol Last Admin: 11/30/16 17:18 Dose: Not Given Lorazepam (Ativan) 0.5 mg PO Q8 PRN PRN Reason: Agitation Last Admin: 11/30/16 17:15 Dose: 0.5 mg Metoprolol Tartrate (Lopressor) 25 mg PO BID [facility] Morphine Sulfate (Morphine) 0.5 mg IVP Q6 PRN PRN Reason: Pain, moderate (4-7) Last Admin: 11/30/16 13:22 Dose: 0.5 mg Pneumococcal Polyvalent Vaccine (Pneumovax 23 Vaccine) 0.5 ml IM .ONCE ONE Stop: 12/02/16 10:01 - Labs Labs: 11/30/16 07:52 11/30/16 07:52 PT 39.2 SECONDS (9.7-12.2) H* D 11/30/16 07:52 INR 3.3 11/30/16 07:52 APTT 39 SECONDS (21-34) H 11/30/16 07:59 - Constitutional Appears: No Acute Distress - Head Exam Head Exam: ATRAUMATIC, NORMAL INSPECTION, NORMOCEPHALIC - Eye Exam Eye Exam: EOMI, Normal appearance, PERRL Pupil Exam: NORMAL ACCOMODATION, PERRL - ENT Exam ENT Exam: Mucous Membranes Moist, Normal Exam - Respiratory Exam Respiratory Exam: Clear to Ausculation Bilateral, NORMAL BREATHING PATTERN - Cardiovascular Exam Cardiovascular Exam: REGULAR RHYTHM, +S1, +S2. absent: Murmur - GI/Abdominal Exam GI & Abdominal Exam: Soft, Normal Bowel Sounds. absent: Tenderness Assessment and Plan (1) NATANAEL (acute kidney injury) Status: Acute (2) Abdominal aortic aneurysm Status: Acute - Assessment and Plan (Free Text) Plan: No melena/hematochezia, FOBT negative. He is noted to have abnormal LFTs with ultrasound showing gallstones, +Lucia's and large abdominal aortic aneurysm. Recommend MRCP, HIDA and surgical evaluation. No urgent indication for upper endoscopy at this time, would continue daily PPI, antiemetic therapy as needed. Monitor H/H, transfuse as needed. Will continue to follow and make recommendations pending clinical course/further studies.
--- NOTE | 2016-11-30 21:33 | CON ---
DATE: 11/30/2016 ADDENDUM The other issue is the patient had a history of DVT and has been on Coumadin. The exact details of t his are not known. So our plan at present is to continue the same plan as mentioned, and we will go from there, but I had neglected these in his recent problems with his DVT, etc. Jon Heard Jr., MD cc: [id number] TT: 11/30/2016 21:32:35 Confirmation # [id number] Dictation # [id number]
--- NOTE | 2016-11-30 21:34 | CON ---
DATE: 11/30/2016 REFERRING PHYSICIAN: Dr. Yen The patient is a 71-year-old man who has some evidence of acute dementia, who was seen for evaluation of a 6 cm abdominal aortic aneurysm, discovered on evaluation for some pain in his abdomen. PAST MEDICAL HISTORY AND REVIEW OF SYSTEMS: Were difficult to obtain. He was admitted to the hospital with a diagnosis of GI bleed and pneumonia. He was found to have ane ruth also on his evaluation. Imaging, particularly a CAT scan was done, which showed a just under 6 c m aneurysm. A measurement of 9 cm was given for the length, but that is not the important measuremen t. The diameter which are just under 6 are important. He does have a history of smoking. He has fe moral pulses. No distal pulses. No signs of ischemia in the limbs. He does not have any abdominal tenderness present. LABORATORY DATA: Reviewed. IMPRESSION: The patient has 1. A 6 cm abdominal aortic aneurysm. 2. He has gallstones and may or may not have cholecystitis. 3. He has, what appears to be, acute dementia. This needs to be evaluated because of this, etc. In the end, I think he should undergo endovascular repair of the aneurysm if the anatomy is suitable on CT evaluation. Secondly, he needs to have a HIDA scan done to help us determine if he does have a cute cholecystitis. No immediate plans for surgery, but he does need an extensive evaluation prior t o any intervention. Jon Heard Jr., MD cc: 56 TT: 11/30/2016 21:34:21 Confirmation # [id number] Dictation # [id number]
[2016-12-01] MEDS: Sodium Chloride 0.45% 1,000 ML IV SCH ×2 (00:35→21:46)
[2016-12-01 01:26] LABS: GFR AFRICAN-AMERICAN > 60
[2016-12-01] MEDS: Piperacillin/Tazobact 3.375 GM in Sodium Chloride 100 ML IVPB SCH ×2 (02:30→11:05)
[2016-12-01 07:36] LABS: BASO % 0.5 % (0.0-2.0); EOS # 0.1 K/uL (0.0-0.7); EOS % 1.6 % (0.0-4.0); LYMPH % 25.8 % (20.0-40.0); MEAN CELL VOLUME 77.9 fL (80.0-94.0); MEAN CORPUSCULAR HEMOGLOBIN 25.2 pg (27.0-31.0); MEAN CORPUSCULAR HGB CONC 32.3 g/dL (33.0-37.0); MEAN PLATELET VOLUME 9.2 fL (7.2-11.7); MONO # 0.5 K/uL (0.0-0.8); MONO % 6.9 % (0.0-10.0)
[2016-12-01 07:44] LABS: WHITE BLOOD COUNT 7.7 K/uL (4.8-10.8)
[2016-12-01 07:45] LABS: CHLORIDE 107 mmol/L (98-107); SODIUM 143 mmol/L (132-148)
[2016-12-01 07:46] LABS: POTASSIUM 3.7 mmol/L (3.6-5.2)
[2016-12-01 07:48] LABS: CARBON DIOXIDE 23 mmol/L (22-30); GFR AFRICAN-AMERICAN > 60
[2016-12-01 07:49] LABS: BLOOD UREA NITROGEN 15 mg/dL (9-20); CALCIUM 8.4 mg/dl (8.6-10.4); GLUCOSE,RANDOM 78 mg/dL (75-110)
[2016-12-01] MEDS: (Novolog) Insulin Aspart, Recombinant 100 u/ml 10 ml vial SC SCH ×4 (08:00→22:00)
--- NOTE | 2016-12-01 08:55 | CON ---
DATE: 11/30/2016 The patient is located in room 670, bed A. REQUESTED BY: Dr. Mando Yen. REASON FOR RENAL CONSULTATION: Dehydration and prerenal azotemia, and for further evaluation. The patient is about a 71-year-old male with a past medical history significant for CHF, cardiomyopathy, LV function about 32%, and a left lower extremity DVT on Coumadin, status post acute respiratory failure requiring mechanical ventilation recently, and hypertension, hyperlipidemia. The patient was admitted through the ER from [facility] due to suspected hematemesis. The patient had been there for 4-5 days, and recently discharged from the [facility]. The patient was also found to have an abdominal aortic aneurysm on abdominal ultrasound. The patient is a very poor historian. Unable to get much history from the patient. Chart reviewed and history obtained from the review of the medical records. The patient is not in acute distress, following simple commands. No chest pain, no palpitations. No fever, no cough. PAST MEDICAL HISTORY: Significant for hypertension, hyperlipidemia, pulmonary embolism, DVT left side, and AFib, and CHF, and abdominal aortic aneurysm. PAST SURGICAL HISTORY: None. FAMILY HISTORY: Unknown. SOCIAL HISTORY: No smoking, no alcohol, no drugs. ALLERGIES: No known drug allergies. CURRENT MEDICATIONS: Include as follows: Ativan 0.5 mg p.o. q. 8 hours, and Catapres 0.2 mg p.o. b.i.d., metoprolol tartrate 25 mg p.o. b.i.d., insulin aspart done for sliding scale, and Zosyn 3.375 g q. 8 hours, and IV fluids, normal saline at 60 mL per hour; and vitamin B12 as 1000 mcg daily. REVIEW OF THE SYSTEMS: Significant for vomiting associated with a few drops of blood. The patient also significant for dehydration and poor skin turgor, and nausea and vomiting. All other review of systems are reviewed and are negative. VITAL SIGNS AND PHYSICAL EXAMINATION: As follows: The patient is a 71-year- old elderly male, moderately built, moderately nourished, not in any distress. VITAL SIGNS: Blood pressure 160/112, pulse 94, respirations 20, temperature 98.3. Height 6 feet 2 inches, and weight is 183 pounds. HENT/PHYSICAL EXAMINATION: Pupils normal, react to light and accommodation. Conjunctivae pink, sclerae anicteric. Tongue is dry. Trachea is midline. LUNGS: Symmetric on both sides. Bilateral breath sounds present. Clear on auscultation. CARDIOVASCULAR SYSTEM: [place] at the fifth intercostal space midclavicular line. S1 and S2 audible. No murmur or gallop. ABDOMEN: Normal in appearance. Soft, tympanic. No guarding, no rigidity, no hepatosplenomegaly. CENTRAL NERVOUS SYSTEM: The patient is awake, oriented x 1-2. Sensory and motor system is grossly within normal limits. Cranial nerves II-XII grossly intact. Sensory and motor system is within normal limits. EXTREMITIES: No cyanosis, no clubbing, no edema on the right side. The patient has swelling of the left leg. LABORATORY DATA: Include as follows as of 11/30/2016: WBC 4.8, hemoglobin 8.5 , hematocrit is 26.4, MCV 77.5, platelets 350. PT 39.2, INR 3.3, PTT 39. Sodium 148, and potassium is 4, chloride 106, and CO2 of 26, anion gap is 19, and BUN 17, creatinine 1.1, and glucose is 79, calcium 8.4. Iron is 44 and TIBC is 236, saturation %. Total bili is 2.2, direct bili is 2.0. AST 857 , ALT 669, and alkaline phosphorus 536, total protein 6.7, albumin is 3, and hepatitis A antibody IgM is negative, and core antibody IgM is negative, and hep C antibody is negative. His other laboratory data as of 11/29/2016: Chest x-ray: Moderate venous congestion, patchy right basilar airspace opacity, right hilar prominence. CT of the head as of 11/29/2016: Generalized atrophy, nonspecific white matter changes, subcentimeter bilateral basal ganglia, and thalamic hypodensities, presumably lacunar infarction. Ultrasound of the abdomen: Gallbladder cholelithiasis, gallbladder wall thickening, tumefactive sludge identified. Positive sonographic Lucia sign. CBD measures 4-4.6 mm. No stone or dilatation. IMPRESSION: Presumptive evidence for acute cholecystitis in the presence of gallstones, gallbladder wall thickening, and positive sonographic Lucia sign. U/S Abodomen: The length of the aneurysm is 9.3 cm, diameter 4.7 x 5.9, primarily thrombus. Luminal measurement 1.8 x 3.2 cm. Normal echogenicity. No calculus or mass. A simple cyst 1 cm,. left kidney measures 5.7 x 11.2 cm. Mid-pole cyst 2.1 x 2.3 cm, In summary, other laboratory data as of 11/29/2016: Sodium 142, potassium 4.6, chloride 104, CO2 of 27, BUN 24, creatinine 1.1, glucose 100, calcium 8.8. Total bilirubin 1.6. AST 640, ALT 304, and alkaline phosphatase is 276, total protein 7.1, albumin is 3.2. In summary, the patient is a 71-year-old elderly male with a history of hypertension, hyperlipidemia, CHF, AFib, DVT, and with nausea, vomiting, a few drops of blood, low H and H, and decreased p.o. intake, and increased BUN and creatinine ratio. 1. Prerenal azotemia secondary to intravascular depletion. 2. Dehydration secondary to decreased p.o. intake, most likely. 3. Anemia. Rule out iron deficiency anemia versus slow gastrointestinal loss. 4. Hypertension. 5. Cardiomyopathy. PLAN: Continue gentle IV hydration half-normal saline at 60 mL per hour, and monitor BMP daily, and increase p.o. fluid intake. Will follow with you. Thank you for allowing me to participate in your patient's care. Mago Ellis MD cc: [id number] TT: 12/01/2016 08:54:43 Confirmation # [id number] Dictation # [id number] [id number]
--- NOTE | 2016-12-01 10:07 | CP.PCM.PN ---
Subjective - Date & Time of Evaluation Date of Evaluation: 12/01/16 Time of Evaluation: 10:07 - Subjective Subjective: pt seen and examined, follow up consult is dictated #[id number] Objective - Vital Signs/Intake and Output Vital Signs (last 24 hours): Temp Pulse Resp BP Pulse Ox 98.9 F 92 H 20 185/105 H 95 12/01/16 08:39 12/01/16 08:39 12/01/16 08:39 12/01/16 08:39 12/01/16 08:39 Intake and Output: 12/01/16 12/01/16 06:59 18:59 Intake Total 2220 Output Total 1275 Balance 945 - Medications Medications: Current Medications Albuterol/Ipratropium (Duoneb 3 Mg/0.5 Mg (3 Ml) Ud) 3 ml IH RQ4 PRN PRN Reason: Wheezing Clonidine HCl (Catapres) 0.2 mg PO BID [facility] Last Admin: 11/30/16 17:17 Dose: 0.2 mg Cyanocobalamin (Vitamin B12 1000 Mcg Tab) 1,000 mcg PO DAILY [facility] Last Admin: 11/30/16 10:23 Dose: 1,000 mcg Piperacillin Sod/Tazobactam (Sod 3.375 gm/ Sodium Chloride) 100 mls @ 200 mls/ hr IVPB Q8H [facility] Last Admin: 12/01/16 02:30 Dose: 200 mls/hr Sodium Chloride (Sodium Chloride 0.45%) 1,000 mls @ 60 mls/hr IV .[id number] [facility] Last Admin: 12/01/16 00:35 Dose: 60 mls/hr Insulin Aspart (Novolog) 0 unit SC ACHS [facility] PRN Reason: Protocol Last Admin: 12/01/16 08:00 Dose: Not Given Lorazepam (Ativan) 0.5 mg PO Q8 PRN PRN Reason: Agitation Last Admin: 11/30/16 17:15 Dose: 0.5 mg Metoprolol Tartrate (Lopressor) 25 mg PO BID [facility] Last Admin: 11/30/16 19:00 Dose: 25 mg Morphine Sulfate (Morphine) 0.5 mg IVP Q6 PRN PRN Reason: Pain, moderate (4-7) Last Admin: 11/30/16 13:22 Dose: 0.5 mg Pneumococcal Polyvalent Vaccine (Pneumovax 23 Vaccine) 0.5 ml IM .ONCE ONE Stop: 12/02/16 10:01 - Labs Labs: 12/01/16 07:13 12/01/16 07:13 PT 35.6 SECONDS (9.7-12.2) H* 12/01/16 07:13 INR 3.0 12/01/16 07:13 APTT 39 SECONDS (21-34) H 11/30/16 07:59
[2016-12-01 10:16] LABS: ALB/GLOB RATIO 0.8 (1.0-2.1); BILIRUBIN,DIRECT 0.7 mg/dL (0.0-0.4); BILIRUBIN,TOTAL 0.8 mg/dL (0.2-1.3); TOTAL PROTEIN 6.4 g/dL (6.3-8.3)
--- NOTE | 2016-12-01 11:30 | PN ---
DATE: 12/01/2016 The patient is located in room 670, bed A. REQUESTING PHYSICIAN: Dr. Mando Yen. REASON FOR FOLLOWUP: Dehydration and prerenal azotemia. HISTORY OF PRESENT ILLNESS: The patient is a [id number] elderly -[place] male with a past medical history significant for hypertension, hyperlipidemia, recently diagnosed pulmonary embolism o n 11/16, left lower extremity DVT and also A-fib, CHF and with poor LV function about 32%, who was rec ently discharged from the [facility] to the [facility]. From there, the patient w as admitted with nausea and spitting of a few drops of blood. The patient was found to have a low H and H and also found to have dehydration and increased BUN and creatinine. The patient underwent CT angiogram and found to have abdominal aortic aneurysm and also from the previous CT chest report, the patient also has aortic aneurysm, about 5.1 cm ascending aortic aneurysm. The patient is more alert , awake today, not in acute distress, seen in nuclear medicine. The patient is completely his HIDA s can, not in acute distress. PHYSICAL EXAMINATION: VITAL SIGNS: Blood pressure 185/105, pulse 92, respirations 20, temperature 98.2, saturation 95%, he ight 6 feet 2 inches and weight is 183 pounds. GENERAL: The patient is a 71-year-old elderly -[place] male, well built, well nourished, not in distress. HEENT: Pupils normal, reactive to light and accommodation. Conjunctivae pink. Sclerae anicteric. Tongue is dry. NECK: Trachea is midline. LUNGS: Symmetric on both sides. Bilateral breath sounds present. Clear on auscultation. CARDIOVASCULAR: [place] in the fifth intercostal space midclavicular line. S1 and S2 audible. No murm ur or gallop. ABDOMEN: Normal in appearance, soft, tympanic. No guarding, no rigidity. No hepatosplenomegaly. CENTRAL NERVOUS SYSTEM: The patient is alert, awake, oriented x 2. Sensory and motor system is augusta sly within normal limits. EXTREMITIES: No cyanosis, no clubbing, no edema on the right side. The patient has swelling of the left leg. CURRENT MEDICATIONS: Include as follows: Ativan 0.2 mg p.o. q. 8 hours, Catapres 0.2 mg p.o. b.i.d. , DuoNeb inhaler q. 4 hours, Lopressor 25 mg p.o. b.i.d., morphine 0.5 mg q. 6 IV push p.r.n. and Zos yn 3.375 grams q. 8 hours and IV fluids half normal saline at 60 mL per hour and B12 1000 mcg daily. LABORATORY DATA: Include as follows: As of 12/01/2016, WBC 7.7, hemoglobin 8.1, hematocrit is 25, sophia telets 325. PT 35.6, INR 3.0, sodium 143, potassium 3.7, chloride 107, CO2 23, BUN 15, creatinine 1. 2, glucose 87, calcium 8.4. Total bili 0.8 and direct bili 0.7, AST 335 and ALT 426, alkaline phos i s 449, total protein 6.4, albumin is 2.9. Urine sodium is 127, urine potassium is 30. SUMMARY: The patient is a 71-year-old elderly male with a history of hypertension, atrial fibrillati on, congestive heart failure with poor left ventricular function, pulmonary embolism, left lower extr emity deep venous thrombosis recently diagnosed during his previous hospitalization in [place], on an ticoagulation and also with abnormal LFTs, ascending aortic aneurysm, in the CT angiogram, found to h ave thickening of the gallbladder wall and also abdominal aortic aneurysm. 1. Prerenal azotemia. Renal function is close to his baseline now. After reviewing the chart from the [place], his baseline creatinine was about 1-1.2. 2. Abnormal LFTs, rule out acute cholecystitis. Continue IV antibiotics. 3. Left lower extremity deep venous thrombosis. 4. Pulmonary embolism. Continue anticoagulation as per primary medical doctor. Continue IV fluids half normal saline at 60-70 mL per hour. We will follow up as needed. Thank you for allowing me to participate in your patient's care. Mago Ellis MD cc: 165 TT: 12/01/2016 11:29:44 Confirmation # [id number] Dictation # [id number]
--- NOTE | 2016-12-01 12:11 | NM ---
EXAM: NM Hepatobiliary Scan CLINICAL HISTORY: 71 years old, male; Screening exam; Additional info: Transaminitis, hyperbilirubinemia; TECHNIQUE: Frontal dynamic images of the abdomen and pelvis were obtained over 60 minutes following the intravenous administration of 6 mCi Tc99m Choletec. EXAM DATE/TIME: 11/30/2016 5:24 PM COMPARISON: No relevant prior studies available. FINDINGS: There is homogeneous hepatic uptake. Intrahepatic and extrahepatic biliary are identified within 15 minutes postinjection. Gallbladder activity is first visualized between 10 and 15 minutes. Small bowel activity is identified at 35 minutes. IMPRESSION: Normal hepatobiliary scan, with patent cystic and common bile ducts.
--- NOTE | 2016-12-01 13:27 | CP.PCM.PN ---
<Jackson Farr - Last Filed: 12/01/16 13:28> Subjective - Date & Time of Evaluation Date of Evaluation: 12/01/16 Time of Evaluation: 12:00 - Subjective Subjective: PGY4 GI Fellow Progress Note Patient could not be seen this morning as he was off the floor for testing (HIDA ). Case discussed on the floor with surgical consultation (Orquidea), IM attending and MATTRESS RENOVATOR taking care of patient. Objective - Vital Signs/Intake and Output Vital Signs (last 24 hours): Temp Pulse Resp BP Pulse Ox 98.9 F 92 H 20 180/110 H 95 12/01/16 08:39 12/01/16 08:39 12/01/16 08:39 12/01/16 10:30 12/01/16 08:39 Intake and Output: 12/01/16 12/01/16 06:59 18:59 Intake Total 2220 Output Total 1275 Balance 945 - Medications Medications: Current Medications Albuterol/Ipratropium (Duoneb 3 Mg/0.5 Mg (3 Ml) Ud) 3 ml IH RQ4 PRN PRN Reason: Wheezing Clonidine HCl (Catapres) 0.2 mg PO BID [facility] Last Admin: 12/01/16 10:30 Dose: 0.2 mg Cyanocobalamin (Vitamin B12 1000 Mcg Tab) 1,000 mcg PO DAILY [facility] Last Admin: 12/01/16 10:30 Dose: 1,000 mcg Piperacillin Sod/Tazobactam (Sod 3.375 gm/ Sodium Chloride) 100 mls @ 200 mls/ hr IVPB Q8H [facility] Last Admin: 12/01/16 11:05 Dose: 200 mls/hr Sodium Chloride (Sodium Chloride 0.45%) 1,000 mls @ 60 mls/hr IV .[id number] [facility] Last Admin: 12/01/16 00:35 Dose: 60 mls/hr Insulin Aspart (Novolog) 0 unit SC ACHS [facility] PRN Reason: Protocol Last Admin: 12/01/16 12:00 Dose: Not Given Lorazepam (Ativan) 0.5 mg PO Q8 PRN PRN Reason: Agitation Last Admin: 11/30/16 17:15 Dose: 0.5 mg Metoprolol Tartrate (Lopressor) 25 mg PO BID [facility] Last Admin: 04/08/17 10:30 Dose: 25 mg Morphine Sulfate (Morphine) 0.5 mg IVP Q6 PRN PRN Reason: Pain, moderate (4-7) Last Admin: 11/30/16 13:22 Dose: 0.5 mg Pneumococcal Polyvalent Vaccine (Pneumovax 23 Vaccine) 0.5 ml IM .ONCE ONE Stop: 12/02/16 10:01 - Labs Labs: 12/01/16 07:13 12/01/16 07:13 PT 35.6 SECONDS (9.7-12.2) H* 12/01/16 07:13 INR 3.0 12/01/16 07:13 APTT 39 SECONDS (21-34) H 11/30/16 07:59 - Additional Findings Additional findings: Patient off the floor for testing Assessment and Plan - Assessment and Plan (Free Text) Assessment: Patient is a 71yo male with PMHx significant for systolic CHF (EF 32%), LLE DVT on coumadin, prior acute respiratory failure requiring mechanical ventilation, HTN, Dyslipidemia, osteoarthritis who presented from rehab facility with suspected hematemesis. -Suspected hematemesis, unwitnessed -Abnormal LFTs with direct hyperbilirubinemia, question of acute cholecystitis -Abdominal aortic aneurysm -Microcytic anemia -Questionable acute to subacute CVA with lacunar infarcts noted on this admission, not previously noted on imaging -Unspecified cognitive disorder, possibly vascular or alzheimer dementia -Recent history of sustained VTach vs other wide complex tachyarrythmia -CHF with EF 32% Plan: -No evidence of acute GI bleeding since admission, no episodes of nausea/ vomiting/hematemesis witnessed -Direct hyperbilirubinemia noted with elevated LFTs; MRCP ordered -Avoid hepatotoxic medications -Consider Abdominal duplex to rule out thrombus -HIDA reviewed -No plan for endoscopic intervention at this time in the absence of acute GI blood loss -HGB relatively unchanged [place] [facility] [place]Await results of MRCP -Surgery - non-emergent evaluation/treatment of AAA -Anemia perhaps related to AAA -Would recommend neurology consultation and MRI brain given findings on CT scan - may need antiplatelet therapy at some point <Ileana Santos MD - Last Filed: 12/01/16 21:17> Objective - Vital Signs/Intake and Output Vital Signs (last 24 hours): Temp Pulse Resp BP Pulse Ox 97.9 F 117 H 20 158/90 H 100 12/01/16 16:13 12/01/16 16:13 12/01/16 16:13 12/01/16 19:45 12/01/16 16:13 Intake and Output: 12/01/16 12/02/16 18:59 06:59 Intake Total 650 Balance 650 - Medications Medications: Current Medications Albuterol/Ipratropium (Duoneb 3 Mg/0.5 Mg (3 Ml) Ud) 3 ml IH RQ4 PRN PRN Reason: Wheezing Clonidine HCl (Catapres) 0.1 mg PO BID [facility] Last Admin: 12/01/16 19:44 Dose: 0.1 mg Cyanocobalamin (Vitamin B12 1000 Mcg Tab) 1,000 mcg PO DAILY [facility] Last Admin: 12/01/16 10:30 Dose: 1,000 mcg Hydralazine HCl (Apresoline) 25 mg PO Q8 [facility] Last Admin: 12/01/16 15:16 Dose: 25 mg Sodium Chloride (Sodium Chloride 0.45%) 1,000 mls @ 60 mls/hr IV .[id number] [facility] Last Admin: 12/01/16 00:35 Dose: 60 mls/hr Insulin Aspart (Novolog) 0 unit SC ACHS [facility] PRN Reason: Protocol Last Admin: 12/01/16 17:00 Dose: Not Given Lorazepam (Ativan) 0.5 mg PO Q8 PRN PRN Reason: Agitation Last Admin: 11/30/16 17:15 Dose: 0.5 mg Metoprolol Tartrate (Lopressor) 25 mg PO BID [facility] Last Admin: 12/01/16 19:45 Dose: 25 mg Morphine Sulfate (Morphine) 0.5 mg IVP Q6 PRN PRN Reason: Pain, moderate (4-7) Last Admin: 11/30/16 13:22 Dose: 0.5 mg Pantoprazole Sodium (Protonix Inj) 40 mg IVP DAILY [facility] Last Admin: 12/01/16 15:18 Dose: 40 mg Pneumococcal Polyvalent Vaccine (Pneumovax 23 Vaccine) 0.5 ml IM .ONCE ONE Stop: 12/02/16 10:01 - Labs Labs: 12/01/16 07:13 12/01/16 07:13 PT 35.6 SECONDS (9.7-12.2) H* 12/01/16 07:13 INR 3.0 12/01/16 07:13 APTT 39 SECONDS (21-34) H 11/30/16 07:59 Attending/Attestation - Attestation I have personally seen and examined this patient.: Yes I have fully participated in the care of the patient.: Yes I have reviewed all pertinent clinical information, including history, physical exam and plan: Yes Notes (Text): 12/01/16 21:08 Patient seen and examined with GI fellow. This is a 71 yr old male with PMHx significant for systolic CHF (EF 32%), LLE DVT on coumadin, prior acute respiratory failure requiring mechanical ventilation, HTN, Dyslipidemia, osteoarthritis who presented from rehab facility with suspected hematemesis. No further episodes with stable H/Hct. concern for acute cholecystitis with HIDA ordered by surgery. awaiting MRCP. Discussed with vascular surgeon aortic aneurysm thrombus- no surgical intervention required. Will continue anti coagulation as risk of holding in setting of past PE, DVT outweighs benefit in absence of acute bleeding. Would recommend neurology consultation and MRI brain given findings on CT scan.
--- NOTE | 2016-12-01 14:00 | CP.PCM.PN ---
Subjective - Date & Time of Evaluation Date of Evaluation: 12/01/16 Time of Evaluation: 12:30 - Subjective Subjective: Vascular Surgery Dr. Heard Pt S&E @bedside. Family present. NAEO. AMS worsened since admission. unable to answer question. spoke to family about surgical options but explained that for now we will watch and wait for overall pt improvement. Objective - Vital Signs/Intake and Output Vital Signs (last 24 hours): Temp Pulse Resp BP Pulse Ox 98.9 F 92 H 20 180/110 H 95 12/01/16 08:39 12/01/16 08:39 12/01/16 08:39 12/01/16 10:30 12/01/16 08:39 Intake and Output: 12/01/16 12/01/16 06:59 18:59 Intake Total 2220 Output Total 1275 Balance 945 - Medications Medications: Current Medications Albuterol/Ipratropium (Duoneb 3 Mg/0.5 Mg (3 Ml) Ud) 3 ml IH RQ4 PRN PRN Reason: Wheezing Clonidine HCl (Catapres) 0.2 mg PO BID [facility] Last Admin: 12/01/16 10:30 Dose: 0.2 mg Cyanocobalamin (Vitamin B12 1000 Mcg Tab) 1,000 mcg PO DAILY [facility] Last Admin: 12/01/16 10:30 Dose: 1,000 mcg Piperacillin Sod/Tazobactam (Sod 3.375 gm/ Sodium Chloride) 100 mls @ 200 mls/ hr IVPB Q8H [facility] Last Admin: 12/01/16 11:05 Dose: 200 mls/hr Sodium Chloride (Sodium Chloride 0.45%) 1,000 mls @ 60 mls/hr IV .[id number] [facility] Last Admin: 12/01/16 00:35 Dose: 60 mls/hr Insulin Aspart (Novolog) 0 unit SC ACHS [facility] PRN Reason: Protocol Last Admin: 12/01/16 12:00 Dose: Not Given Lorazepam (Ativan) 0.5 mg PO Q8 PRN PRN Reason: Agitation Last Admin: 11/30/16 17:15 Dose: 0.5 mg Metoprolol Tartrate (Lopressor) 25 mg PO BID [facility] Last Admin: 12/01/16 10:30 Dose: 25 mg Morphine Sulfate (Morphine) 0.5 mg IVP Q6 PRN PRN Reason: Pain, moderate (4-7) Last Admin: 11/30/16 13:22 Dose: 0.5 mg Pneumococcal Polyvalent Vaccine (Pneumovax 23 Vaccine) 0.5 ml IM .ONCE ONE Stop: 12/02/16 10:01 - Labs Labs: 12/01/16 07:13 12/01/16 07:13 PT 35.6 SECONDS (9.7-12.2) H* 12/01/16 07:13 INR 3.0 12/01/16 07:13 APTT 39 SECONDS (21-34) H 11/30/16 07:59 - Constitutional Appears: Non-toxic, No Acute Distress, Older Than Stated Age, Confused - Head Exam Head Exam: NORMAL INSPECTION - Eye Exam Eye Exam: Normal appearance - ENT Exam ENT Exam: Mucous Membranes Moist - Respiratory Exam Respiratory Exam: NORMAL BREATHING PATTERN. absent: Accessory Muscle Use, Respiratory Distress - GI/Abdominal Exam GI & Abdominal Exam: Soft, Pulsatile Mass. absent: Distended, Tenderness - Extremities Exam Extremities Exam: Pedal Edema - Neurological Exam Neurological Exam: Altered. absent: Awake - Skin Skin Exam: Dry, Intact, Normal Color, Warm Assessment and Plan - Assessment and Plan (Free Text) Assessment: 71 y/o M w/ baseline dementia, admitted for hematemesis, found to have pneumonia , AAA, DVT, transaminitis, hyperbilirubinemia - CTA imaging reviewed; awaiting final report - HIDA negative for acute cholecystitis - f/u MRCP per GI - strict blood pressure control - cont CLD - cont medical management - no surgical intervention at this time due to poor patient condition Pt discussed w/ Dr. Orquidea Graves PGY1
--- NOTE | 2016-12-01 18:10 | CON ---
DATE: 12/01/2016 REASON FOR CONSULTATION: Abdominal aortic aneurysm, thoracic aneurysm as well as congestive heart fa ilure. HISTORY OF PRESENT ILLNESS: The patient is a 71-year-old -[place] male who was recently disc harged from [facility] to [facility] to be admitted because upper GI bleeding. The patient was admitted to [facility] on 11/03 with a diagnosis of left iliofemoral DVT and acute pulmonary embolus. The patient was found to have congestive heart failure with ejection fraction estimated 35 % and was also found to have ascending aortic aneurysm. The patient was discharged to subacute rehab on Coumadin therapy. The patient was admitted the day before yesterday because upper GI bleeding. INR on admission was 2.7. The patient also has been lethargic, not verbally communicating. Accordin g to the patient's , the patient was doing well until his recent admission last month to [facility]. He was practically taking care of his . There is no known prior history of stroke acc ording to the . SOCIAL HISTORY: The patient is a smoker. He is and lives with his until his recent adm ission last month to [facility]. HOME MEDICATIONS: Including Coumadin 4 mg once a day, milk of magnesia, labetalol, vitamin B12, clon idine, albuterol and Ambien. CURRENT MEDICATIONS: Ativan 0.5 mg q. 8 hours p.r.n., clonidine 0.2 mg twice a day, albuterol inhale r every 4 hours p.r.n., Lopressor 25 mg twice a day, Zosyn 3.375 intravenously q. 8 hours, vitamin B1 2 at 1 mg p.o. daily. REVIEW OF SYSTEMS: No reported seizures. No reported hypotension. No reported ventricular tachycar peyton. PHYSICAL EXAMINATION: GENERAL: The patient is an elderly male who is lethargic, does not appear to be in acute distress. VITAL SIGNS: Blood pressure 185/105, heart rate 92, temperature 98.9, respiration 20. HEENT: Pale conjunctivae. CHEST: Bilateral rhonchi. HEART: S1, S2 regular. ABDOMEN: Soft. EXTREMITIES: 2+ left leg edema. LABORATORY DATA: Hemoglobin and hematocrit 8.1 and 25.2, white count and platelet count are within n ormal limits. Today's SMA-7 is within normal limits. Calcium is below normal at 8.5. AST, ALT and alkaline phosphatase are 335, 426 and 449 respectively. Today's INR is 3.0. Hepatitis profile is ne gative. Chest x-ray revealed cardiomegaly with mild CHF. EKG revealed sinus rhythm with premature A PCs, some are ____ conducted, bifascicular block, i.e., right branch block with left anterior fascicu lar block, consider septal infarct. The recent echocardiographic study performed in 11/05 at [facility] revealed mild to moderate concentric LVH, moderately impaired systolic function, multiple wa ll motion abnormalities consistent with coronary artery disease, mild to moderate aortic insufficienc y, mild valvular aortic stenosis and mild pulmonary hypertension. Venous Doppler of lower extremity performed on 11/18 revealed extensive left iliofemoral DVT, the superior extent of the thrombus is not determined. The patient may benefit from CT scan of the abdomen and pelvis with contrast to evaluat e IVC and iliac veins. CT angio on 11/18 revealed acute pulmonary embolism in the distal right main p ulmonary artery, upper, middle and lower lobe segmental branches and distal branches in the right low er lobe, extensive consolidation in the posterior segment of the right lower lobe and small right ple ural effusion, extensive centrilobular emphysema with upper lobe predominance and extensive upper lob e paraseptal emphysema, aneurysm of the ascending aorta. Vascular evaluation by Dr. Orquidea triana ay concluded 6 cm abdominal aortic aneurysm, gallstones and acute dementia. HIDA scan is negative. Head CT scan revealed nonspecific white matter changes, subcentimeter bilateral basal ganglia and aaron lamic hypodensities, presumably lacunar infarcts. ASSESSMENT: 1. Recent acute thrombosis with acute right pulmonary embolus. 2. Ischemic cardiomyopathy. 3. Significantly elevated liver enzymes. 4. A 6 cm abdominal aortic aneurysm. 5. Gastrointestinal bleeding and anemia. 6. Consider recent lacunar cerebellar infarcts. RECOMMENDATIONS: Continue current clonidine 0.2 mg twice a day, Lopressor 25 mg once a day, IV Zosyn 3.375 grams intravenously q. 8 hours. The patient is not a suitable candidate for antiplatelet or a nticoagulation at this time. Consider an IVC filter placement for now. Case was discussed extensive ly with the patient's at the bedside. Neurology consult is recommended. Hal Tovar MD cc: [id number] TT: 12/01/2016 18:09:40 Confirmation # [id number] Dictation # [id number]
--- NOTE | 2016-12-01 20:22 | CON ---
DATE: 12/01/2016 ATTENDING PHYSICIAN: Dr. Yen. REASON FOR CONSULTATION: Abnormal CAT scan of the brain and clearance for starting the patient on an ticoagulation. HISTORY OF PRESENT ILLNESS: The patient is a 71-year-old gentleman with past medical history of CHF, DVT on Coumadin, respiratory failure, hypertension, hyperlipidemia. The patient was brought from [facility] for suspected hematemesis. The patient has been there for 4-5 days after disch arge from [facility] after having extensive workup including MRIs of the brain, CAT scans and t he patient was transferred for rehab. The patient was found to have abdominal pain and had ultrasoun d. The patient unfortunately does not give a good history. History taken from the chart. The patie nt used to have nausea and vomiting. The patient had an ultrasound of the abdomen, which was abnorma l. The patient had a CAT scan of the brain and CAT scan was consistent with 2 basal ganglia small in farct. A neuro consult was requested to clear the patient to be started on Coumadin again and I was called. The patient has 2 infarct and I have recommended to be started on anticoagulation if t here is indication for that, if there is no contraindication to be started on anticoagulation for 2 [address] lacunar infarcts. PAST MEDICAL HISTORY: As mentioned above. SOCIAL HISTORY: Nonsmoker, ethanol or drug abuser. MEDICATIONS: Hydralazine, lorazepam, clonidine, albuterol, metoprolol, morphine sulfate, insulin, pa ntoprazole, B12. REVIEW OF SYSTEMS: As per H and P and ER note, reviewed. PHYSICAL EXAMINATION: VITAL SIGNS: Blood pressure 160/112, pulse 94, respirations 20, temperature afebrile. LABORATORY DATA: White blood cells 4.8, hemoglobin 8.5, hematocrit 26, platelets 350. Sodium 148, p otassium 4, chloride 106, CO2 of 26, BUN 17, creatinine 1.1, glucose 79. MENTAL STATUS: The patient is sleepy, arousable, not cooperative with exam. Follows 1-step commands . Partially oriented to person and place, disoriented to time. Slow mental processing. The patient does not want to be bothered. CRANIAL NERVES: Pupils are 3 mm bilaterally symmetrical. No gaze preference. Corneal reflex intact . No clear facial asymmetry. NECK: Supple. MOTOR: Normal tone in upper and lower extremities. The patient is moving all his upper and lower ex tremities spontaneously and responses to noxious stimuli symmetrically. Deep tendon reflexes 1-2 in upper and lower extremities, absent at the ankles, plantar flexion both sides. SENSORY: The patient withdraws his extremities in response to noxious stimuli. IMAGING: CAT scan of the brain consistent with bilateral small basal ganglia lacunar infarct and a c alcification in bilateral basal ganglia, which is not reported in old CAT scans at [place] and at [facility]. IMPRESSION AND PLAN: After reviewing the patient's CAT scans from [facility] done in October and a CAT scan at [facility] finding hyperdensity in bilateral basal ganglia, most likely calcifica tions rather than a bleed, although if it is a bleed and whole scenario is okay, there is no contrain dication to start Coumadin after this duration, but my feeling is it is a calcification and not bleed . There are no significant changes compared to the CAT scan done a month ago, and the current CAT sc an regarding the hyperdensity. The patient will be started on anticoagulation and above also discuss ed with housestaff physician who is taking care of the patient. Neurologically, the patient had exte nsive workup at [facility], and in addition, the patient has severe anemia, probably needs og sfusion. It could be the underlying etiology for the patient's change in mental state, which that duvall s to be addressed after correcting the anemia. I will sign off the case, and if needed, Dr. Richard jeffries n be called on Saturday. Thank you for the consultation. Elio York MD cc: [id number] TT: 12/01/2016 20:21:47 Confirmation # [id number] Dictation # [id number] jose
[2016-12-02 07:21] LABS: BASO % 0.2 % (0.0-2.0); EOS # 0.1 K/uL (0.0-0.7); EOS % 0.7 % (0.0-4.0); LYMPH # 1.3 K/uL (1.0-4.3); LYMPH % 10.9 % (20.0-40.0); MEAN CELL VOLUME 77.7 fL (80.0-94.0); MEAN CORPUSCULAR HEMOGLOBIN 24.8 pg (27.0-31.0); MEAN CORPUSCULAR HGB CONC 31.9 g/dL (33.0-37.0); MONO # 0.6 K/uL (0.0-0.8); MONO % 5.4 % (0.0-10.0); WHITE BLOOD COUNT 11.5 K/uL (4.8-10.8)
[2016-12-02] MEDS: (Novolog) Insulin Aspart, Recombinant 100 u/ml 10 ml vial SC SCH ×4 (07:41→22:03)
[2016-12-02 07:45] LABS: INR 3.1
[2016-12-02 07:50] LABS: CHLORIDE 102 mmol/L (98-107); POTASSIUM 3.3 mmol/L (3.6-5.2); SODIUM 146 mmol/L (132-148)
[2016-12-02 07:53] LABS: BLOOD UREA NITROGEN 11 mg/dL (9-20); CARBON DIOXIDE 26 mmol/L (22-30); GFR AFRICAN-AMERICAN > 60
[2016-12-02 07:54] LABS: CALCIUM 8.1 mg/dl (8.6-10.4); GLUCOSE,RANDOM 75 mg/dL (75-110)
[2016-12-02 08:16] LABS: ALB/GLOB RATIO 0.8 (1.0-2.1); AST/SGOT 136 U/L (17-59); BILIRUBIN,DIRECT 0.7 mg/dL (0.0-0.4); BILIRUBIN,TOTAL 0.9 mg/dL (0.2-1.3); TOTAL PROTEIN 6.7 g/dL (6.3-8.3)
[2016-12-02 08:17] LABS: ALKALINE PHOSPHATASE 414 U/L (38-126); ALT/SGPT 287 U/L (21-72)
[2016-12-02] MEDS ORDERED: Phytonadione 2.5 MG/0.5 TAB TAB PO STA (08:35)
[2016-12-02] MEDS ORDERED: Pneumococcal 23-Valent Vaccine IM ONE (10:00)
--- NOTE | 2016-12-02 10:11 | CP.PCM.PN ---
<Jackson Farr - Last Filed: 12/02/16 13:00> Subjective - Date & Time of Evaluation Date of Evaluation: 12/02/16 Time of Evaluation: 09:40 - Subjective Subjective: PGY4 GI Fellow Progress Note Patient seen and examined bedside this morning. The patient admits to left sided flank/back pain. States he is urinating and passing BM but unable to quantify or describe. Remains confused and does not recall ever having met me. 12 system ROS limited given mentation. Objective - Vital Signs/Intake and Output Vital Signs (last 24 hours): Temp Pulse Resp BP Pulse Ox 98 F 82 17 148/86 98 12/02/16 08:29 12/02/16 08:29 12/02/16 08:29 12/02/16 09:47 12/02/16 08:29 Intake and Output: 12/02/16 12/02/16 06:59 18:59 Intake Total 680 Balance 680 - Medications Medications: Current Medications Albuterol/Ipratropium (Duoneb 3 Mg/0.5 Mg (3 Ml) Ud) 3 ml IH RQ4 PRN PRN Reason: Wheezing Clonidine HCl (Catapres) 0.1 mg PO BID [facility] Last Admin: 12/02/16 09:46 Dose: 0.1 mg Cyanocobalamin (Vitamin B12 1000 Mcg Tab) 1,000 mcg PO DAILY [facility] Last Admin: 12/02/16 09:46 Dose: 1,000 mcg Hydralazine HCl (Apresoline) 25 mg PO Q8 [facility] Last Admin: 12/02/16 06:13 Dose: 25 mg Sodium Chloride (Sodium Chloride 0.45%) 1,000 mls @ 60 mls/hr IV .[id number] [facility] Last Admin: 12/01/16 21:46 Dose: 60 mls/hr Insulin Aspart (Novolog) 0 unit SC ACHS [facility] PRN Reason: Protocol Last Admin: 12/02/16 07:41 Dose: Not Given Lorazepam (Ativan) 0.5 mg PO Q8 PRN PRN Reason: Agitation Last Admin: 11/30/16 17:15 Dose: 0.5 mg Metoprolol Tartrate (Lopressor) 25 mg PO BID [facility] Last Admin: 12/02/16 09:47 Dose: 25 mg Morphine Sulfate (Morphine) 0.5 mg IVP Q6 PRN PRN Reason: Pain, moderate (4-7) Last Admin: 12/02/16 09:47 Dose: 0.5 mg Pantoprazole Sodium (Protonix Inj) 40 mg IVP DAILY [facility] Last Admin: 12/02/16 09:49 Dose: 40 mg Phytonadione (Vitamin K Tab) 10 mg PO STAT [facility] Stop: 12/02/16 08:36 - Labs Labs: 12/02/16 07:12 12/02/16 07:12 PT 35.9 SECONDS (9.7-12.2) H* 12/02/16 07:12 INR 3.1 12/02/16 07:12 APTT 39 SECONDS (21-34) H 11/30/16 07:59 - Constitutional Appears: Non-toxic, No Acute Distress - Eye Exam Eye Exam: EOMI, PERRL - ENT Exam ENT Exam: Mucous Membranes Dry - Respiratory Exam Respiratory Exam: Clear to Ausculation Bilateral. absent: Rales, Rhonchi, Wheezes - Cardiovascular Exam Cardiovascular Exam: RRR, +S1, +S2 - GI/Abdominal Exam GI & Abdominal Exam: Soft, Tenderness (L flank and low back), Normal Bowel Sounds. absent: Firm, Guarding, Rigid, Organomegaly - Extremities Exam Extremities Exam: Normal Inspection. absent: Pedal Edema - Neurological Exam Neurological Exam: Alert, Awake. absent: Oriented x3 - Psychiatric Exam Psychiatric exam: Normal Affect, Normal Mood - Skin Skin Exam: Dry, Warm Assessment and Plan - Assessment and Plan (Free Text) Assessment: Patient is a 71yo male with PMHx significant for systolic CHF (EF 32%), LLE DVT on coumadin, prior acute respiratory failure requiring mechanical ventilation, HTN, Dyslipidemia, osteoarthritis who presented from rehab facility with suspected hematemesis. -Abnormal LFTs with direct hyperbilirubinemia, improving -Abdominal aortic aneurysm -Microcytic anemia -Neurology has evaluated patient and does not feel CT reveals acute/subacute CVA -Unspecified cognitive disorder, possibly vascular or alzheimer dementia -Recent history of sustained VTach vs other wide complex tachyarrythmia -CHF with EF 32% Plan: -No overt GI bleeding -H/H stable, unchanged -LFTs downtrending, continue to monitor -Awaiting autoimmune work up; prior FERNANDO was 1:320 -MRCP has been ordered, still not performed -Avoid hepatotoxic medications -No plan for endoscopic intervention at this time in the absence of acute GI blood loss -Surgery - non-emergent evaluation/treatment of AAA -Consider iron supplementation -Appreciate neurology consultation <Ileana Santos MD - Last Filed: 12/02/16 18:54> Objective - Vital Signs/Intake and Output Vital Signs (last 24 hours): Temp Pulse Resp BP Pulse Ox 97.9 F 74 20 175/80 H 97 12/02/16 16:00 12/02/16 16:00 12/02/16 16:00 12/02/16 18:00 12/02/16 16:00 Intake and Output: 12/02/16 12/02/16 06:59 18:59 Intake Total 680 500 Balance 680 500 - Medications Medications: Current Medications Albuterol/Ipratropium (Duoneb 3 Mg/0.5 Mg (3 Ml) Ud) 3 ml IH RQ4 PRN PRN Reason: Wheezing Clonidine HCl (Catapres) 0.1 mg PO BID [facility] Last Admin: 12/02/16 17:59 Dose: 0.1 mg Cyanocobalamin (Vitamin B12 1000 Mcg Tab) 1,000 mcg PO DAILY [facility] Last Admin: 12/02/16 09:46 Dose: 1,000 mcg Hydralazine HCl (Apresoline) 25 mg PO Q8 [facility] Last Admin: 12/02/16 13:14 Dose: 25 mg Sodium Chloride (Sodium Chloride 0.45%) 1,000 mls @ 60 mls/hr IV .[id number] [facility] Last Admin: 12/01/16 21:46 Dose: 60 mls/hr Insulin Aspart (Novolog) 0 unit SC ACHS [facility] PRN Reason: Protocol Last Admin: 12/02/16 17:13 Dose: Not Given Lorazepam (Ativan) 0.5 mg PO Q8 PRN PRN Reason: Agitation Last Admin: 11/30/16 17:15 Dose: 0.5 mg Metoprolol Tartrate (Lopressor) 25 mg PO BID [facility] Last Admin: 12/02/16 18:00 Dose: 25 mg Morphine Sulfate (Morphine) 0.5 mg IVP Q6 PRN PRN Reason: Pain, moderate (4-7) Last Admin: 12/02/16 09:47 Dose: 0.5 mg Pantoprazole Sodium (Protonix Inj) 40 mg IVP DAILY [facility] Last Admin: 12/02/16 09:49 Dose: 40 mg Spironolactone (Aldactone) 12.5 mg PO BID [facility] Last Admin: 12/02/16 17:59 Dose: 12.5 mg - Labs Labs: 12/02/16 07:12 12/02/16 07:12 PT 35.9 SECONDS (9.7-12.2) H* 12/02/16 07:12 INR 3.1 12/02/16 07:12 APTT 39 SECONDS (21-34) H 11/30/16 07:59 Attending/Attestation - Attestation I have personally seen and examined this patient.: Yes I have fully participated in the care of the patient.: Yes I have reviewed all pertinent clinical information, including history, physical exam and plan: Yes Notes (Text): 12/02/16 18:53 Patient seen and examined with GI fellow. This is a 71 yr old male with PMHx significant for systolic CHF (EF 32%), LLE DVT on coumadin, prior acute respiratory failure requiring mechanical ventilation, HTN, Dyslipidemia, osteoarthritis who presented from rehab facility with suspected hematemesis. No further episodes with stable H/Hct. Concern for acute cholecystitis with HIDA ordered by surgery which was negative. Awaiting MRCP. Discussed with vascular surgeon aortic aneurysm thrombus- no surgical intervention required. Will continue anti coagulation as risk of holding in setting of past PE, DVT outweighs benefit in absence of acute bleeding. Neurology consult noted- no concern of lacunar infarct
[2016-12-02 10:13] LABS: CHLORIDE URINE 119 mmol/L (32-290)
[2016-12-02] MEDS ORDERED: Potassium Chloride 20 mEq 100 ML IVPB ONE (12:06)
--- NOTE | 2016-12-02 12:40 | CP.PCM.PN ---
Subjective - Date & Time of Evaluation Date of Evaluation: 12/01/16 Time of Evaluation: 09:00 - Subjective Subjective: Pt seen and examined at 6T is on telemetry, he has AAA, for which he needs repair, his creatinine is 2, he is for possib;e angiogram, BUN/CREt up for which he is seen by renal, also evaluated by cardiology, AMS worsened since admission. unable to answer question. spoke to family about surgical options but explained that for now we will watch and wait for overall pt improvement Objective - Vital Signs/Intake and Output Vital Signs (last 24 hours): Temp Pulse Resp BP Pulse Ox 98 F 82 17 148/86 98 12/02/16 08:29 12/02/16 08:29 12/02/16 08:29 12/02/16 09:47 12/02/16 08:29 Intake and Output: 12/02/16 12/02/16 06:59 18:59 Intake Total 680 Balance 680 - Medications Medications: Current Medications Albuterol/Ipratropium (Duoneb 3 Mg/0.5 Mg (3 Ml) Ud) 3 ml IH RQ4 PRN PRN Reason: Wheezing Clonidine HCl (Catapres) 0.1 mg PO BID [facility] Last Admin: 12/02/16 09:46 Dose: 0.1 mg Cyanocobalamin (Vitamin B12 1000 Mcg Tab) 1,000 mcg PO DAILY [facility] Last Admin: 12/02/16 09:46 Dose: 1,000 mcg Hydralazine HCl (Apresoline) 25 mg PO Q8 [facility] Last Admin: 12/02/16 06:13 Dose: 25 mg Sodium Chloride (Sodium Chloride 0.45%) 1,000 mls @ 60 mls/hr IV .[id number] [facility] Last Admin: 12/01/16 21:46 Dose: 60 mls/hr Potassium Chloride (Potassium Chloride 20 Meq/100 Ml) 100 mls @ 50 mls/hr IVPB ONCE ONE Stop: 12/02/16 14:05 Insulin Aspart (Novolog) 0 unit SC ACHS [facility] PRN Reason: Protocol Last Admin: 12/02/16 11:10 Dose: Not Given Lorazepam (Ativan) 0.5 mg PO Q8 PRN PRN Reason: Agitation Last Admin: 11/30/16 17:15 Dose: 0.5 mg Metoprolol Tartrate (Lopressor) 25 mg PO BID [facility] Last Admin: 12/02/16 09:47 Dose: 25 mg Morphine Sulfate (Morphine) 0.5 mg IVP Q6 PRN PRN Reason: Pain, moderate (4-7) Last Admin: 12/02/16 09:47 Dose: 0.5 mg Pantoprazole Sodium (Protonix Inj) 40 mg IVP DAILY [facility] Last Admin: 12/02/16 09:49 Dose: 40 mg Phytonadione (Vitamin K Tab) 10 mg PO STAT [facility] Stop: 12/02/16 08:36 - Labs Labs: 12/02/16 07:12 12/02/16 07:12 PT 35.9 SECONDS (9.7-12.2) H* 12/02/16 07:12 INR 3.1 12/02/16 07:12 APTT 39 SECONDS (21-34) H 11/30/16 07:59 - Constitutional Appears: Confused, Chronically Ill - Eye Exam Eye Exam: EOMI, Normal appearance, PERRL - ENT Exam ENT Exam: Mucous Membranes Moist, Normal Exam - Respiratory Exam Respiratory Exam: Clear to Ausculation Bilateral, NORMAL BREATHING PATTERN - Cardiovascular Exam Cardiovascular Exam: REGULAR RHYTHM, +S1, +S2. absent: Murmur - GI/Abdominal Exam GI & Abdominal Exam: Tenderness Assessment and Plan (1) Pneumonia Status: Acute (2) NATANAEL (acute kidney injury) Status: Acute (3) Abdominal aortic aneurysm Status: Acute (4) CHF (congestive heart failure) Status: Chronic (5) Anemia Assessment & Plan: for aortogram and AAA repair Status: Acute (6) DVT (deep venous thrombosis) Status: Acute (7) Cholelithiasis Assessment & Plan: HIDA is neg for cholecystitis bile duct is patent LFT are improving not a candidate for gall bladder surgery Status: Acute - Assessment and Plan (Free Text) Plan: GI workup Aortogram
--- NOTE | 2016-12-02 15:11 | PN ---
DATE: 12/02/2016 The patient is awake, but confused. He does not appear to be in any distress. PHYSICAL EXAMINATION: VITAL SIGNS: Blood pressure 148/86, heart rate 82, temperature 98, respirations 17. HEENT: Pale conjunctivae. CHEST: Bilateral rhonchi and left basal coarse crepitations. HEART: S1, S2 regular. EXTREMITIES: 1+ left leg edema. LABORATORIES: CBC: WBC 11.5, hemoglobin 8.6, hematocrit 27, platelet count 339,000. INR is 3.1. T willam's potassium is 3.3, BUN and creatinine are 11 and 0.9. I did review the neurology consultation and according to the neurologist, review of the CAT scan done at [facility] and at [facility] revealed no difference. ASSESSMENT: 1. Ischemic cardiomyopathy. 2. Left leg deep venous thrombosis with right pulmonary embolism. 3. Hypokalemia. 4. Anemia. 5. Thoracic and abdominal aortic aneurysms. 6. Hypertension. RECOMMENDATIONS: Continue hydralazine 25 mg q. 8 hours, clonidine 0.1 mg twice a day, Lopressor 25 m g twice a day. I did order 20 mEq of KCl intravenously. Start Aldactone at 12.5 mg daily. Hal Tovar MD cc: [id number] TT: 12/02/2016 14:49:45 Confirmation # [id number] Dictation # [id number]
--- NOTE | 2016-12-02 22:58 | CP.PCM.PN ---
Subjective - Date & Time of Evaluation Date of Evaluation: 12/02/16 Time of Evaluation: 20:00 - Subjective Subjective: Patient seen and examined bedside , confused although The patient admits to left sided flank/back pain. States he is urinating and passing BM but unable to quantify or describe. Objective - Vital Signs/Intake and Output Vital Signs (last 24 hours): Temp Pulse Resp BP Pulse Ox 98.8 F 72 20 157/97 H 97 12/02/16 21:15 12/02/16 21:15 12/02/16 21:15 12/02/16 21:15 12/02/16 21:15 Intake and Output: 12/02/16 12/03/16 18:59 06:59 Intake Total 500 Balance 500 - Medications Medications: Current Medications Albuterol/Ipratropium (Duoneb 3 Mg/0.5 Mg (3 Ml) Ud) 3 ml IH RQ4 PRN PRN Reason: Wheezing Clonidine HCl (Catapres) 0.1 mg PO BID [facility] Last Admin: 12/02/16 17:59 Dose: 0.1 mg Cyanocobalamin (Vitamin B12 1000 Mcg Tab) 1,000 mcg PO DAILY [facility] Last Admin: 12/02/16 09:46 Dose: 1,000 mcg Hydralazine HCl (Apresoline) 25 mg PO Q8 [facility] Last Admin: 12/02/16 21:56 Dose: 25 mg Sodium Chloride (Sodium Chloride 0.45%) 1,000 mls @ 60 mls/hr IV .[id number] [facility] Last Admin: 12/01/16 21:46 Dose: 60 mls/hr Insulin Aspart (Novolog) 0 unit SC ACHS [facility] PRN Reason: Protocol Last Admin: 12/02/16 22:03 Dose: Not Given Lorazepam (Ativan) 0.5 mg PO Q8 PRN PRN Reason: Agitation Last Admin: 11/30/16 17:15 Dose: 0.5 mg Metoprolol Tartrate (Lopressor) 25 mg PO BID [facility] Last Admin: 12/02/16 18:00 Dose: 25 mg Morphine Sulfate (Morphine) 0.5 mg IVP Q6 PRN PRN Reason: Pain, moderate (4-7) Last Admin: 12/02/16 09:47 Dose: 0.5 mg Pantoprazole Sodium (Protonix Inj) 40 mg IVP DAILY [facility] Last Admin: 12/02/16 09:49 Dose: 40 mg Spironolactone (Aldactone) 12.5 mg PO BID [facility] Last Admin: 12/02/16 17:59 Dose: 12.5 mg - Labs Labs: 12/02/16 07:12 12/02/16 07:12 PT 35.9 SECONDS (9.7-12.2) H* 12/02/16 07:12 INR 3.1 12/02/16 07:12 APTT 39 SECONDS (21-34) H 11/30/16 07:59 - Constitutional Appears: No Acute Distress, Chronically Ill - Head Exam Head Exam: ATRAUMATIC, NORMAL INSPECTION, NORMOCEPHALIC - Eye Exam Eye Exam: EOMI, Normal appearance, PERRL Pupil Exam: NORMAL ACCOMODATION, PERRL - Respiratory Exam Respiratory Exam: Clear to Ausculation Bilateral, NORMAL BREATHING PATTERN - Cardiovascular Exam Cardiovascular Exam: REGULAR RHYTHM, +S1, +S2. absent: Murmur - GI/Abdominal Exam GI & Abdominal Exam: Soft, Normal Bowel Sounds. absent: Tenderness Assessment and Plan (1) Pneumonia Status: Acute (2) NATANAEL (acute kidney injury) Status: Acute (3) Abdominal aortic aneurysm Status: Acute (4) CHF (congestive heart failure) Status: Chronic (5) Anemia Status: Acute (6) DVT (deep venous thrombosis) Status: Acute (7) Cholelithiasis Status: Acute
[2016-12-03 07:55] LABS: CHLORIDE 102 mmol/L (98-107); POTASSIUM 3.2 mmol/L (3.6-5.2); SODIUM 141 mmol/L (132-148)
[2016-12-03 07:56] LABS: ALB/GLOB RATIO 0.8 (1.0-2.1); BILIRUBIN,DIRECT 0.6 mg/dL (0.0-0.4); BILIRUBIN,TOTAL 0.8 mg/dL (0.2-1.3); TOTAL PROTEIN 6.7 g/dL (6.3-8.3)
[2016-12-03 07:57] LABS: AST/SGOT 61 U/L (17-59); BILIRUBIN,TOTAL 0.7 mg/dL (0.2-1.3); CARBON DIOXIDE 24 mmol/L (22-30); GFR AFRICAN-AMERICAN > 60
[2016-12-03 07:58] LABS: ALB/GLOB RATIO 0.8 (1.0-2.1); ALKALINE PHOSPHATASE 310 U/L (38-126); ALT/SGPT 183 U/L (21-72); BLOOD UREA NITROGEN 11 mg/dL (9-20); CALCIUM 8.2 mg/dl (8.6-10.4); GLUCOSE,RANDOM 88 mg/dL (75-110); TOTAL PROTEIN 6.7 g/dL (6.3-8.3)
[2016-12-03] MEDS: (Novolog) Insulin Aspart, Recombinant 100 u/ml 10 ml vial SC SCH ×2 (08:25→11:30)
--- NOTE | 2016-12-03 08:54 | CP.PCM.PN ---
<Jackson Farr - Last Filed: 12/03/16 08:51> Subjective - Date & Time of Evaluation Date of Evaluation: 12/03/16 Time of Evaluation: 07:45 - Subjective Subjective: PGY4 GI Fellow Progress Note Patient seen and examined bedside this morning. The patient is less talkative today, frustrated by evaluation. Admits to some persistent left sided flank/ back pain; otherwise no complaints. 12 system ROS limited given mentation. Objective - Vital Signs/Intake and Output Vital Signs (last 24 hours): Temp Pulse Resp BP Pulse Ox 98.3 F 72 20 145/85 98 12/02/16 23:00 12/02/16 23:57 12/02/16 23:00 12/02/16 23:00 12/02/16 23:00 Intake and Output: 12/03/16 12/03/16 06:59 18:59 Intake Total 1080 Output Total 400 Balance 680 - Medications Medications: Current Medications Albuterol/Ipratropium (Duoneb 3 Mg/0.5 Mg (3 Ml) Ud) 3 ml IH RQ4 PRN PRN Reason: Wheezing Clonidine HCl (Catapres) 0.1 mg PO BID [facility] Last Admin: 12/02/16 17:59 Dose: 0.1 mg Cyanocobalamin (Vitamin B12 1000 Mcg Tab) 1,000 mcg PO DAILY [facility] Last Admin: 12/02/16 09:46 Dose: 1,000 mcg Hydralazine HCl (Apresoline) 25 mg PO Q8 [facility] Last Admin: 12/03/16 06:20 Dose: 25 mg Sodium Chloride (Sodium Chloride 0.45%) 1,000 mls @ 60 mls/hr IV .[id number] [facility] Last Admin: 12/01/16 21:46 Dose: 60 mls/hr Potassium Chloride (Potassium Chloride 20 Meq/100 Ml) 100 mls @ 50 mls/hr IVPB Q2 [facility] Stop: 12/03/16 13:59 Insulin Aspart (Novolog) 0 unit SC ACHS MIKE PRN Reason: Protocol Last Admin: 12/03/16 08:25 Dose: Not Given Lorazepam (Ativan) 0.5 mg PO Q8 PRN PRN Reason: Agitation Last Admin: 11/30/16 17:15 Dose: 0.5 mg Metoprolol Tartrate (Lopressor) 25 mg PO BID [facility] Last Admin: 12/02/16 18:00 Dose: 25 mg Morphine Sulfate (Morphine) 0.5 mg IVP Q6 PRN PRN Reason: Pain, moderate (4-7) Last Admin: 12/02/16 09:47 Dose: 0.5 mg Pantoprazole Sodium (Protonix Inj) 40 mg IVP DAILY [facility] Last Admin: 12/02/16 09:49 Dose: 40 mg Spironolactone (Aldactone) 12.5 mg PO BID [facility] Last Admin: 12/02/16 17:59 Dose: 12.5 mg - Labs Labs: 12/02/16 07:12 12/03/16 07:30 PT 35.9 SECONDS (9.7-12.2) H* 12/02/16 07:12 INR 3.1 12/02/16 07:12 APTT 39 SECONDS (21-34) H 11/30/16 07:59 - Constitutional Appears: Non-toxic, No Acute Distress - Eye Exam Eye Exam: EOMI, PERRL - ENT Exam ENT Exam: Mucous Membranes Dry - Respiratory Exam Respiratory Exam: Clear to Ausculation Bilateral. absent: Rales, Rhonchi, Wheezes - Cardiovascular Exam Cardiovascular Exam: RRR, +S1, +S2 - GI/Abdominal Exam GI & Abdominal Exam: Soft, Tenderness (left flank), Normal Bowel Sounds. absent : Distended, Firm, Guarding, Rigid, Organomegaly - Extremities Exam Extremities Exam: Normal Inspection. absent: Pedal Edema - Neurological Exam Neurological Exam: Alert, Awake. absent: Oriented x3 - Psychiatric Exam Psychiatric exam: Agitated - Skin Skin Exam: Dry, Warm Assessment and Plan - Assessment and Plan (Free Text) Assessment: Patient is a 71yo male with PMHx significant for systolic CHF (EF 32%), LLE DVT on coumadin, prior acute respiratory failure requiring mechanical ventilation, HTN, Dyslipidemia, osteoarthritis who presented from rehab facility with suspected hematemesis. -Abnormal LFTs with direct hyperbilirubinemia -Abdominal aortic aneurysm -Microcytic anemia -Unspecified cognitive disorder, possibly alzheimer dementia -CHF with EF 32% Plan: -LFTs relatively unchanged, elevated - awaiting autoimmune work up - prior FERNANDO positive at 1:320 -U/S reviewed; no obstructive process or thrombus noted - parenchymal changes can be seen in setting of fatty liver -Hepatitis serologies negative -MRCP ordered -Avoid hepatotoxic medications -Surgery - non-emergent intervention for AAA, medical therapy for now <Ileana Santos MD - Last Filed: 12/03/16 12:16> Objective - Vital Signs/Intake and Output Vital Signs (last 24 hours): Temp Pulse Resp BP Pulse Ox 98.3 F 72 20 116/70 98 12/02/16 23:00 12/02/16 23:57 12/02/16 23:00 12/03/16 10:11 12/02/16 23:00 Intake and Output: 12/03/16 12/03/16 06:59 18:59 Intake Total 1080 Output Total 400 Balance 680 - Medications Medications: Current Medications Albuterol/Ipratropium (Duoneb 3 Mg/0.5 Mg (3 Ml) Ud) 3 ml IH RQ4 PRN PRN Reason: Wheezing Clonidine HCl (Catapres) 0.1 mg PO BID [facility] Last Admin: 12/03/16 10:11 Dose: 0.1 mg Cyanocobalamin (Vitamin B12 1000 Mcg Tab) 1,000 mcg PO DAILY [facility] Last Admin: 12/03/16 10:59 Dose: 1,000 mcg Hydralazine HCl (Apresoline) 25 mg PO Q8 [facility] Last Admin: 12/03/16 06:20 Dose: 25 mg Sodium Chloride (Sodium Chloride 0.45%) 1,000 mls @ 60 mls/hr IV .[id number] [facility] Last Admin: 12/01/16 21:46 Dose: 60 mls/hr Potassium Chloride (Potassium Chloride 20 Meq/100 Ml) 100 mls @ 50 mls/hr IVPB Q2 [facility] Stop: 12/03/16 13:59 Last Admin: 12/03/16 09:49 Dose: 50 mls/hr Insulin Aspart (Novolog) 0 unit SC ACHS MIKE PRN Reason: Protocol Last Admin: 12/03/16 08:25 Dose: Not Given Lorazepam (Ativan) 0.5 mg PO Q8 PRN PRN Reason: Agitation Last Admin: 11/30/16 17:15 Dose: 0.5 mg Metoprolol Tartrate (Lopressor) 25 mg PO BID [facility] Last Admin: 12/03/16 10:11 Dose: 25 mg Morphine Sulfate (Morphine) 0.5 mg IVP Q6 PRN PRN Reason: Pain, moderate (4-7) Last Admin: 12/02/16 09:47 Dose: 0.5 mg Pantoprazole Sodium (Protonix Inj) 40 mg IVP DAILY [facility] Last Admin: 12/03/16 10:09 Dose: 40 mg Spironolactone (Aldactone) 12.5 mg PO BID [facility] Last Admin: 12/03/16 10:10 Dose: 12.5 mg - Labs Labs: 12/03/16 11:20 12/03/16 07:30 PT 17.7 SECONDS (9.7-12.2) H D 12/03/16 11:20 INR 1.5 D 12/03/16 11:20 APTT 39 SECONDS (21-34) H 11/30/16 07:59 Attending/Attestation - Attestation I have personally seen and examined this patient.: Yes I have fully participated in the care of the patient.: Yes I have reviewed all pertinent clinical information, including history, physical exam and plan: Yes Notes (Text): 12/03/16 12:15 Patient seen and examined with GI fellow. This is a 71 yr old male with PMHx significant for systolic CHF (EF 32%), LLE DVT on coumadin, prior acute respiratory failure requiring mechanical ventilation, HTN, Dyslipidemia, osteoarthritis who presented from rehab facility with suspected hematemesis. No further episodes with stable H/Hct. Concern for acute cholecystitis with HIDA ordered by surgery which was negative. Awaiting MRCP. Vascular surgeon note appreciated- planned for stent in AAA. Will continue anti coagulation as risk of holding in setting of past PE, DVT outweighs benefit in absence of acute bleeding. Neurology consult noted- no concern of lacunar infarct. Will follow LFt and MRCP
[2016-12-03] MEDS: Potassium Chloride 20 mEq 100 ML IVPB SCH ×2 (09:49→14:28)
[2016-12-03] MEDS ORDERED: Potassium Chloride 10 mEq 100 ML IVPB SCH (10:00)
--- NOTE | 2016-12-03 10:51 | CP.PCM.PN ---
Subjective - Date & Time of Evaluation Date of Evaluation: 12/03/16 Time of Evaluation: 10:49 - Subjective Subjective: we should set up date for stent repair of aaa before dc recommend ivcf due to multiplw issues Objective - Vital Signs/Intake and Output Vital Signs (last 24 hours): Temp Pulse Resp BP Pulse Ox 98.3 F 72 20 116/70 98 12/02/16 23:00 12/02/16 23:57 12/02/16 23:00 12/03/16 10:11 12/02/16 23:00 Intake and Output: 12/03/16 12/03/16 06:59 18:59 Intake Total 1080 Output Total 400 Balance 680 - Medications Medications: Current Medications Albuterol/Ipratropium (Duoneb 3 Mg/0.5 Mg (3 Ml) Ud) 3 ml IH RQ4 PRN PRN Reason: Wheezing Clonidine HCl (Catapres) 0.1 mg PO BID [facility] Last Admin: 12/03/16 10:11 Dose: 0.1 mg Cyanocobalamin (Vitamin B12 1000 Mcg Tab) 1,000 mcg PO DAILY [facility] Last Admin: 12/02/16 09:46 Dose: 1,000 mcg Hydralazine HCl (Apresoline) 25 mg PO Q8 [facility] Last Admin: 12/03/16 06:20 Dose: 25 mg Sodium Chloride (Sodium Chloride 0.45%) 1,000 mls @ 60 mls/hr IV .[id number] [facility] Last Admin: 12/01/16 21:46 Dose: 60 mls/hr Potassium Chloride (Potassium Chloride 20 Meq/100 Ml) 100 mls @ 50 mls/hr IVPB Q2 [facility] Stop: 12/03/16 13:59 Last Admin: 12/03/16 09:49 Dose: 50 mls/hr Insulin Aspart (Novolog) 0 unit SC ACHS [facility] PRN Reason: Protocol Last Admin: 12/03/16 08:25 Dose: Not Given Lorazepam (Ativan) 0.5 mg PO Q8 PRN PRN Reason: Agitation Last Admin: 11/30/16 17:15 Dose: 0.5 mg Metoprolol Tartrate (Lopressor) 25 mg PO BID [facility] Last Admin: 12/03/16 10:11 Dose: 25 mg Morphine Sulfate (Morphine) 0.5 mg IVP Q6 PRN PRN Reason: Pain, moderate (4-7) Last Admin: 12/02/16 09:47 Dose: 0.5 mg Pantoprazole Sodium (Protonix Inj) 40 mg IVP DAILY [facility] Last Admin: 12/03/16 10:09 Dose: 40 mg Spironolactone (Aldactone) 12.5 mg PO BID [facility] Last Admin: 12/03/16 10:10 Dose: 12.5 mg - Labs Labs: 12/02/16 07:12 12/03/16 07:30 PT 35.9 SECONDS (9.7-12.2) H* 12/02/16 07:12 INR 3.1 12/02/16 07:12 APTT 39 SECONDS (21-34) H 11/30/16 07:59
[2016-12-03 11:36] LABS: BASO % 0.2 % (0.0-2.0); EOS # 0.1 K/uL (0.0-0.7); EOS % 0.4 % (0.0-4.0); HEMATOCRIT 29.5 % (35.0-51.0); LYMPH # 1.5 K/uL (1.0-4.3); LYMPH % 10.3 % (20.0-40.0); MEAN CELL VOLUME 78.7 fL (80.0-94.0); MEAN CORPUSCULAR HEMOGLOBIN 24.8 pg (27.0-31.0); MEAN CORPUSCULAR HGB CONC 31.5 g/dL (33.0-37.0); MEAN PLATELET VOLUME 9.5 fL (7.2-11.7); MONO # 0.7 K/uL (0.0-0.8); MONO % 4.9 % (0.0-10.0); RED CELL DISTRIBUTION WIDTH 16.3 % (11.5-14.5); WHITE BLOOD COUNT 14.3 K/uL (4.8-10.8)
[2016-12-03 11:37] LABS: INR 1.5
--- NOTE | 2016-12-03 12:32 | CARD ---
APPROVED REPORT EKG Measurement Heart [id number] <Conclusion> Sinus rhythm with premature atrial complexes with aberrant conduction Right bundle branch block Left anterior fascicular block Bifascicular block Septal infarct, age undetermined Abnormal ECG
--- NOTE | 2016-12-03 15:52 | PN ---
DATE: 12/03/2016 The patient is confused and lethargic. No reported ventricular arrhythmia. PHYSICAL EXAMINATION: VITAL SIGNS: Blood pressure 116/70, heart rate 72, temperature 98.3, respirations 20. HEENT: Pale conjunctivae. CHEST: Bibasilar rhonchi. HEART: S1, S2 regular. EXTREMITIES: Left leg edema. LABORATORIES: Today's hemoglobin and hematocrit 9.3 and 29.5, white count is 14.3, platelet count 35 9,000. Today's potassium level is 3.2. Liver enzymes are still elevated. MRCP was performed, but the report is still pending. ASSESSMENT: 1. Ischemic cardiomyopathy. 2. Left leg deep venous thrombosis and pulmonary embolism. 3. Abdominal aortic aneurysm. 4. Status post gastrointestinal bleeding. RECOMMENDATIONS: Continue current Aldactone at 12.5 mg twice a day, hydralazine 25 mg q. 8 hours, cl onidine at 0.1 mg twice a day, Lopressor 25 mg twice a day. Regarding the clearance for abdominal ao rtic aneurysm repair, endovascular procedures carry acceptable risk. However, surgical intervention carries high mortality risk and coronary angiography is indicated prior to that once the patient's cl inical condition stabilizes and once the patient is also cleared from the gastrointestinal point of v iew because of his recent gastrointestinal bleeding. Hal Tovar MD cc: [id number] TT: 12/03/2016 15:51:39 Confirmation # [id number] Dictation # [id number]
--- NOTE | 2016-12-03 16:36 | MRI ---
PROCEDURE: Magnetic Resonance Cholangiopancreatography HISTORY: COMPARISON: Abdominal ultrasound 11/30/2016. TECHNIQUE: Multiplanar, multisequence MR images of the abdomen were obtained, including heavily T2 weighted MRCP images of the biliary system. Rotating maximum intensity projection images of the biliary system were generated. FINDINGS: MRCP: Common bile duct is normal in caliber. It measures approximately 6 mm in diameter. There is no evidence of choledocholithiasis. LIVER: Normal size, contour and signal intensity. No focal mass. No intrahepatic biliary ductal dilatation. GALLBLADDER: The gallbladder is significant for dependent sludge or calculi. The gallbladder wall does not appear thickened. There is no pericholecystic fluid or inflammatory change noted. SPLEEN: Unremarkable. PANCREAS: No mass. No pancreatic ductal dilatation. No peripancreatic fluid or edema. ADRENALS: Unremarkable. KIDNEYS: 3.0 cm left lower pole renal cyst. 9 mm mid right renal cyst. No hydronephrosis. AORTA: 6.2 cm infrarenal abdominal aortic aneurysm. Extensive mural thrombus. ASCITES: None. OTHER FINDINGS: None. IMPRESSION: Cholelithiasis or sludge within gallbladder. No evidence of choledocholithiasis. No evidence of biliary obstruction. No evidence of cholecystitis. 6.2 cm infrarenal abdominal aortic aneurysm. Additional minor findings as above.
[2016-12-03] MEDS: Sodium Chloride 0.45% 1,000 ML IV SCH (19:46)
--- NOTE | 2016-12-03 22:19 | CP.PCM.PN ---
Subjective - Date & Time of Evaluation Date of Evaluation: 12/03/16 Time of Evaluation: 20:40 - Subjective Subjective: Pt seen and evalauted , labs and charts reviewed, pt LFTs are trending down seems he had CBD stone whih passed out, MRCP is neg, pt is for placement of IVC filter by Dr.Macgovern med[place], pt is more alert today. afebrile, he will also need some intervention on AAA later. Objective - Vital Signs/Intake and Output Vital Signs (last 24 hours): Temp Pulse Resp BP Pulse Ox 97.8 F 73 20 153/87 H 96 12/03/16 17:12 12/03/16 17:12 12/03/16 17:12 12/03/16 17:40 12/03/16 17:12 Intake and Output: 12/03/16 12/04/16 18:59 06:59 Intake Total 580 Balance 580 - Medications Medications: Current Medications Albuterol/Ipratropium (Duoneb 3 Mg/0.5 Mg (3 Ml) Ud) 3 ml IH RQ4 PRN PRN Reason: Wheezing Clonidine HCl (Catapres) 0.1 mg PO BID [facility] Last Admin: 12/03/16 17:40 Dose: 0.1 mg Cyanocobalamin (Vitamin B12 1000 Mcg Tab) 1,000 mcg PO DAILY [facility] Last Admin: 12/03/16 10:59 Dose: 1,000 mcg Hydralazine HCl (Apresoline) 25 mg PO Q8 [facility] Last Admin: 12/03/16 21:51 Dose: 25 mg Sodium Chloride (Sodium Chloride 0.45%) 1,000 mls @ 60 mls/hr IV .[id number] [facility] Last Admin: 12/03/16 19:46 Dose: 60 mls/hr Lorazepam (Ativan) 0.5 mg PO Q8 PRN PRN Reason: Agitation Last Admin: 11/30/16 17:15 Dose: 0.5 mg Metoprolol Tartrate (Lopressor) 25 mg PO BID [facility] Last Admin: 12/03/16 17:40 Dose: 25 mg Morphine Sulfate (Morphine) 0.5 mg IVP Q6 PRN PRN Reason: Pain, moderate (4-7) Last Admin: 12/02/16 09:47 Dose: 0.5 mg Pantoprazole Sodium (Protonix Inj) 40 mg IVP DAILY [facility] Last Admin: 12/03/16 10:09 Dose: 40 mg Spironolactone (Aldactone) 12.5 mg PO BID [facility] Last Admin: 12/03/16 17:40 Dose: 12.5 mg - Labs Labs: 12/03/16 11:20 12/03/16 07:30 PT 17.7 SECONDS (9.7-12.2) H D 12/03/16 11:20 INR 1.5 D 12/03/16 11:20 APTT 39 SECONDS (21-34) H 11/30/16 07:59 - Constitutional Appears: No Acute Distress - Head Exam Head Exam: ATRAUMATIC, NORMAL INSPECTION, NORMOCEPHALIC - Eye Exam Eye Exam: EOMI, Normal appearance, PERRL Pupil Exam: NORMAL ACCOMODATION, PERRL - Respiratory Exam Respiratory Exam: Clear to Ausculation Bilateral, NORMAL BREATHING PATTERN - Cardiovascular Exam Cardiovascular Exam: REGULAR RHYTHM, +S1, +S2. absent: Murmur - GI/Abdominal Exam GI & Abdominal Exam: Soft, Normal Bowel Sounds. absent: Tenderness Assessment and Plan (1) Pneumonia Status: Acute (2) [place] (acute kidney injury) Status: Acute (3) Abdominal aortic aneurysm Status: Acute (4) CHF (congestive heart failure) Status: Chronic (5) Anemia Status: Acute (6) Cholelithiasis Assessment & Plan: choledocholithiasis resolved Status: Acute (7) DVT (deep venous thrombosis) Assessment & Plan: for IVC filter placement tommorow resume coumadin after the procedure Status: Acute
[2016-12-04 06:39] LABS: CHLORIDE 103 mmol/L (98-107)
[2016-12-04 06:40] LABS: POTASSIUM 3.4 mmol/L (3.6-5.2); SODIUM 144 mmol/L (132-148)
[2016-12-04 06:42] LABS: ALB/GLOB RATIO 0.8 (1.0-2.1); ALKALINE PHOSPHATASE 290 U/L (38-126); ALT/SGPT 137 U/L (21-72); AST/SGOT 47 U/L (17-59); BILIRUBIN,TOTAL 0.7 mg/dL (0.2-1.3); BLOOD UREA NITROGEN 12 mg/dL (9-20); CARBON DIOXIDE 24 mmol/L (22-30); GFR AFRICAN-AMERICAN > 60; TOTAL PROTEIN 6.6 g/dL (6.3-8.3)
[2016-12-04 06:43] LABS: CALCIUM 8.1 mg/dl (8.6-10.4); GLUCOSE,RANDOM 80 mg/dL (75-110)
--- NOTE | 2016-12-04 08:26 | CP.PCM.PN ---
<BibihenriettamykeJackson - Last Filed: 12/04/16 08:22> Subjective - Date & Time of Evaluation Date of Evaluation: 12/04/16 Time of Evaluation: 06:10 - Subjective Subjective: PGY4 GI Fellow Progress Note Patient seen and examined bedside this morning. He admits to persistent left lower flank/back pain as well as loose/watery stool today. Denies any nausea, vomiting, fever, chills. 12 system ROS limited given mentation Objective - Vital Signs/Intake and Output Vital Signs (last 24 hours): Temp Pulse Resp BP Pulse Ox 98.7 F 77 20 156/90 H 97 12/04/16 07:10 12/04/16 07:10 12/04/16 07:10 12/04/16 07:10 12/04/16 07:10 Intake and Output: 12/04/16 12/04/16 06:59 18:59 Intake Total 730 Output Total 350 Balance 380 - Medications Medications: Current Medications Albuterol/Ipratropium (Duoneb 3 Mg/0.5 Mg (3 Ml) Ud) 3 ml IH RQ4 PRN PRN Reason: Wheezing Clonidine HCl (Catapres) 0.1 mg PO BID [facility] Last Admin: 12/03/16 17:40 Dose: 0.1 mg Cyanocobalamin (Vitamin B12 1000 Mcg Tab) 1,000 mcg PO DAILY [facility] Last Admin: 12/03/16 10:59 Dose: 1,000 mcg Hydralazine HCl (Apresoline) 25 mg PO Q8 [facility] Last Admin: 12/04/16 05:27 Dose: 25 mg Lorazepam (Ativan) 0.5 mg PO Q8 PRN PRN Reason: Agitation Last Admin: 11/30/16 17:15 Dose: 0.5 mg Metoprolol Tartrate (Lopressor) 25 mg PO BID [facility] Last Admin: 12/03/16 17:40 Dose: 25 mg Morphine Sulfate (Morphine) 0.5 mg IVP Q6 PRN PRN Reason: Pain, moderate (4-7) Last Admin: 12/02/16 09:47 Dose: 0.5 mg Pantoprazole Sodium (Protonix Inj) 40 mg IVP DAILY [facility] Last Admin: 12/03/16 10:09 Dose: 40 mg Spironolactone (Aldactone) 12.5 mg PO BID [facility] Last Admin: 12/03/16 17:40 Dose: 12.5 mg - Labs Labs: 12/03/16 11:20 12/04/16 06:07 PT 17.7 SECONDS (9.7-12.2) H D 12/03/16 11:20 INR 1.5 D 12/03/16 11:20 APTT 39 SECONDS (21-34) H 11/30/16 07:59 - Constitutional Appears: Non-toxic, No Acute Distress - Eye Exam Eye Exam: EOMI, PERRL - ENT Exam ENT Exam: Mucous Membranes Dry - Respiratory Exam Respiratory Exam: Clear to Ausculation Bilateral. absent: Rales, Rhonchi, Wheezes - Cardiovascular Exam Cardiovascular Exam: RRR, +S1, +S2 - GI/Abdominal Exam GI & Abdominal Exam: Soft, Tenderness (left flank/back), Normal Bowel Sounds. absent: Distended, Firm, Guarding, Rigid, Organomegaly - Extremities Exam Extremities Exam: Normal Inspection. absent: Pedal Edema - Neurological Exam Neurological Exam: Alert, Awake. absent: Oriented x3 - Psychiatric Exam Psychiatric exam: Normal Affect, Normal Mood - Skin Skin Exam: Dry, Warm Assessment and Plan - Assessment and Plan (Free Text) Assessment: Patient is a 71yo male with PMHx significant for systolic CHF (EF 32%), LLE DVT on coumadin, prior acute respiratory failure requiring mechanical ventilation, HTN, Dyslipidemia, osteoarthritis who presented from rehab facility with suspected hematemesis. -Abnormal LFTs with direct hyperbilirubinemia -Abdominal aortic aneurysm -Microcytic anemia -Unspecified cognitive disorder, suspect alzheimer dementia -CHF with EF 32% Plan: -LFTs continue to downtrend -Check Stool C diff and culture given diarrhea/flank pain -Awaiting autoimmune work up - prior FERNANDO positive at 1:320 -Plan for IVC filter placement tomorrow -AAA repair at a future date per surgery -Hepatitis serologies negative -MRCP unremarkable -Avoid hepatotoxic medications <Guerrero Ash - Last Filed: 12/04/16 08:42> Objective - Vital Signs/Intake and Output Vital Signs (last 24 hours): Temp Pulse Resp BP Pulse Ox 98.7 F 77 20 156/90 H 97 12/04/16 07:10 12/04/16 07:10 12/04/16 07:10 12/04/16 07:10 12/04/16 07:10 Intake and Output: 12/04/16 12/04/16 06:59 18:59 Intake Total 730 Output Total 350 Balance 380 - Medications Medications: Current Medications Albuterol/Ipratropium (Duoneb 3 Mg/0.5 Mg (3 Ml) Ud) 3 ml IH RQ4 PRN PRN Reason: Wheezing Clonidine HCl (Catapres) 0.1 mg PO BID [facility] Last Admin: 12/03/16 17:40 Dose: 0.1 mg Cyanocobalamin (Vitamin B12 1000 Mcg Tab) 1,000 mcg PO DAILY [facility] Last Admin: 12/03/16 10:59 Dose: 1,000 mcg Hydralazine HCl (Apresoline) 25 mg PO Q8 [facility] Last Admin: 12/04/16 05:27 Dose: 25 mg Lorazepam (Ativan) 0.5 mg PO Q8 PRN PRN Reason: Agitation Last Admin: 11/30/16 17:15 Dose: 0.5 mg Metoprolol Tartrate (Lopressor) 25 mg PO BID [facility] Last Admin: 12/03/16 17:40 Dose: 25 mg Morphine Sulfate (Morphine) 0.5 mg IVP Q6 PRN PRN Reason: Pain, moderate (4-7) Last Admin: 12/02/16 09:47 Dose: 0.5 mg Pantoprazole Sodium (Protonix Inj) 40 mg IVP DAILY [facility] Last Admin: 12/03/16 10:09 Dose: 40 mg Spironolactone (Aldactone) 12.5 mg PO BID [facility] Last Admin: 12/03/16 17:40 Dose: 12.5 mg - Labs Labs: 12/03/16 11:20 12/04/16 06:07 PT 17.7 SECONDS (9.7-12.2) H D 12/03/16 11:20 INR 1.5 D 12/03/16 11:20 APTT 39 SECONDS (21-34) H 11/30/16 07:59 Attending/Attestation - Attestation I have personally seen and examined this patient.: Yes I have fully participated in the care of the patient.: Yes I have reviewed all pertinent clinical information, including history, physical exam and plan: Yes Notes (Text): 12/04/16 08:38 I have seen and examined patient with GI fellow. Patient is seen lying in bed, appears weak and complains of two loose bowel movements overnight. He also endorses LLQ abdominal pain but denies nausea, vomiting, fever/chills. Review of vitals from today shows elevated BP. CHF DVT on Coumadin AAA Abdominal pain, diarrhea Transaminitis - MRCP reviewed by me showing no presence of biliary dilation, + GB sludge and cholelithiasis - Liquid diet as tolerated - Obtain stool studies (culture, c-difficile) - Would consider empiric therapy with PO Vancomycin given worsening leukocytosis and abdominal pain - If abdominal pain not improved by tomorrow, would suggest CT imaging for further evaluation - LFTs trending down, continue to monitor. Awaiting autoimmune panel. - Patient planned for IVC filter placement tomorrow as per surgical team - Will continue to monitor patient clinical course
[2016-12-04] MEDS ORDERED: Potassium Chloride 20 mEq/15 ml LIQ UD PO ONE (11:00)
--- NOTE | 2016-12-04 11:35 | CP.PCM.PN ---
Subjective - Date & Time of Evaluation Date of Evaluation: 12/04/16 Time of Evaluation: 11:31 - Subjective Subjective: Vascular Surgery Dr. Heard Pt S&E @bedside. NAEO. oriented to self only. family at bedside. discussed the risks and benefits of an IVC filter. Consent obtained from . Objective - Vital Signs/Intake and Output Vital Signs (last 24 hours): Temp Pulse Resp BP Pulse Ox 98.7 F 77 20 156/82 H 97 12/04/16 07:10 12/04/16 10:40 12/04/16 07:10 12/04/16 10:40 12/04/16 07:10 Intake and Output: 12/04/16 12/04/16 06:59 18:59 Intake Total 730 Output Total 350 Balance 380 - Medications Medications: Current Medications Albuterol/Ipratropium (Duoneb 3 Mg/0.5 Mg (3 Ml) Ud) 3 ml IH RQ4 PRN PRN Reason: Wheezing Clonidine HCl (Catapres) 0.1 mg PO BID [facility] Last Admin: 12/04/16 10:21 Dose: 0.1 mg Cyanocobalamin (Vitamin B12 1000 Mcg Tab) 1,000 mcg PO DAILY [facility] Last Admin: 12/04/16 10:33 Dose: 1,000 mcg Hydralazine HCl (Apresoline) 25 mg PO Q8 [facility] Last Admin: 12/04/16 05:27 Dose: 25 mg Lorazepam (Ativan) 0.5 mg PO Q8 PRN PRN Reason: Agitation Last Admin: 11/30/16 17:15 Dose: 0.5 mg Metoprolol Tartrate (Lopressor) 25 mg PO BID [facility] Last Admin: 12/04/16 10:22 Dose: 25 mg Morphine Sulfate (Morphine) 0.5 mg IVP Q6 PRN PRN Reason: Pain, moderate (4-7) Last Admin: 12/02/16 09:47 Dose: 0.5 mg Pantoprazole Sodium (Protonix Inj) 40 mg IVP DAILY [facility] Last Admin: 12/04/16 10:22 Dose: 40 mg Spironolactone (Aldactone) 12.5 mg PO BID [facility] Last Admin: 12/04/16 10:32 Dose: 12.5 mg - Labs Labs: 12/03/16 11:20 12/04/16 06:07 PT 17.7 SECONDS (9.7-12.2) H D 12/03/16 11:20 INR 1.5 D 12/03/16 11:20 APTT 39 SECONDS (21-34) H 11/30/16 07:59 - Constitutional Appears: Non-toxic, No Acute Distress, Confused - Head Exam Head Exam: NORMAL INSPECTION - Eye Exam Eye Exam: Normal appearance - ENT Exam ENT Exam: Mucous Membranes Moist - Respiratory Exam Respiratory Exam: Clear to Ausculation Bilateral, NORMAL BREATHING PATTERN. absent: Accessory Muscle Use, Respiratory Distress - Cardiovascular Exam Cardiovascular Exam: REGULAR RHYTHM. absent: Bradycardia, Tachycardia - GI/Abdominal Exam GI & Abdominal Exam: Soft. absent: Distended, Tenderness - Extremities Exam Extremities Exam: absent: Pedal Edema, Tenderness - Neurological Exam Neurological Exam: Awake. absent: Oriented x3 (oriented x1) - Skin Skin Exam: Dry, Intact, Normal Color, Warm Assessment and Plan - Assessment and Plan (Free Text) Assessment: 71 y/o M w/ baseline dementia, admitted for hematemesis, found to have pneumonia , AAA, DVT, transaminitis, hyperbilirubinemia - strict blood pressure control - CLD - cont medical management - IVC filter to be placed tomorrow Pt discussed w/ Dr. Orquidea Graves PGY1
[2016-12-04] MEDS ORDERED: Iohexol 240 (50 ml) PO ONE (15:15)
--- NOTE | 2016-12-04 18:26 | PN ---
DATE: 12/04/2016 The patient is lethargic and confused. He is not in any apparent respiratory distress. No reported significant arrhythmia. PHYSICAL EXAMINATION: VITAL SIGNS: Blood pressure 139/71, heart rate 83, temperature 98.9, respirations 20. HEENT: Pale conjunctivae. CHEST: Diminished breath sounds at the bases. HEART: S1, S2 regular. EXTREMITIES: Left leg edema. LABORATORIES: Hemoglobin and hematocrit 9.3 and 29.5. White count is 14.3, platelet count 259,000. Today's SMA-7 is within normal limits except for potassium of 3.4, alkaline phosphorus 290, ALT is 1 37. MRCP findings are consistent with cholelithiasis or sludge within the gallbladder, no evidence o f choledocholithiasis, no evidence of biliary obstruction or cholecystitis, 6.2 cm abdominal aortic a neurysm. Abdomen and pelvis CT scan was performed, but the report is still pending. ASSESSMENT: 1. A 6.2 cm abdominal aortic aneurysm. 2. Thoracic aortic aneurysm. 3. Ischemic cardiomyopathy. 4. Consider cholestasis and cholelithiasis. 5. Anemia. 6. Hypokalemia. 7. Deep venous thrombosis and pulmonary embolism. RECOMMENDATIONS: Case was discussed with the THORACIC SURGEON. The patient received 40 mEq of oral potassium rep lacement today. Continue Aldactone at 12.5 mg twice a day, hydralazine 25 mg q.8 hours, clonidine 0. 1 mg twice a day, subcutaneous heparin 5000 units q.8 hours, Lopressor 25 mg twice a day. I will obt ain stat ammonia level. Blood cultures are negative after 5 days. Hal Tovar MD cc: [id number] TT: 12/04/2016 18:26:29 Confirmation # [id number] Dictation # [id number] sn
--- NOTE | 2016-12-04 18:28 | CT ---
PROCEDURE: CT Abdomen and Pelvis without intravenous contrast HISTORY: [facility] abdominal/back pain COMPARISON: 11/30/2016. TECHNIQUE: Oral contrast only. Radiation dose: Total exam DLP = 691.28 mGy-cm. This CT exam was performed using one or more of the following dose reduction techniques: Automated exposure control, adjustment of the mA and/or kV according to patient size, and/or use of iterative reconstruction technique. FINDINGS: LOWER THORAX: Bilateral lower lobe infiltrates unchanged compared to the prior study. LIVER: Unremarkable. No gross lesion or ductal dilatation. GALLBLADDER AND BILE DUCTS: Unremarkable. PANCREAS: Unremarkable. No gross lesion or ductal dilatation. SPLEEN: Unremarkable. ADRENALS: Unremarkable. No mass. KIDNEYS AND URETERS: Unremarkable. No hydronephrosis. No solid mass. Incidental finding(s): Bilateral simple renal cysts better seen on the prior contrast-enhanced examination. VASCULATURE: Stable aneurysmal dilatation. The aneurysm distally measures 7 x 6 cm. Extension into both common iliac arteries. Documentation of the aneurysm including thrombus and luminal caliber better delineated on prior CT angiogram of the abdomen pelvis. BOWEL: Acute colitis. The entire colon is affected. The findings are moderate -severe. These represent acute findings common not seen on the prior CT scan of the abdomen and pelvis. Underlying diverticular disease primarily in the left hemicolon. APPENDIX: Unremarkable. Normal appendix. PERITONEUM: Unremarkable. No free fluid. No free air. LYMPH NODES: Unremarkable. No enlarged lymph nodes. BLADDER: Unremarkable. REPRODUCTIVE: Stable prostatic enlargement. BONES: Severe degenerative disc disease L4-5 with endplate sclerosis and vacuum disc phenomenon. OTHER FINDINGS: None. IMPRESSION: Diffuse colitis moderate -severe in degree. No associated adverse findings. No free air, loculated air, drainable collection. This represents an acute findings/change compared the prior CT 11/30/2016. Additional benign and/or incidental findings described above. Known of abdominal aortic aneurysm extending into the common iliacs. Underlying diverticular disease.
--- NOTE | 2016-12-04 21:25 | CP.PCM.PN ---
Subjective - Date & Time of Evaluation Date of Evaluation: 12/04/16 Time of Evaluation: 20:45 - Subjective Subjective: Pt seen and evaluated at bedside, pt had C.diff positive, i started him on flagyl, pt is for IVC filter tomorrow morning Objective - Vital Signs/Intake and Output Vital Signs (last 24 hours): Temp Pulse Resp BP Pulse Ox 98.9 F 83 20 139/71 98 12/04/16 16:48 12/04/16 16:48 12/04/16 16:48 12/04/16 18:25 12/04/16 16:48 Intake and Output: 12/04/16 12/05/16 18:59 06:59 Intake Total 430 Output Total 200 Balance 430 -200 - Medications Medications: Current Medications Albuterol/Ipratropium (Duoneb 3 Mg/0.5 Mg (3 Ml) Ud) 3 ml IH RQ4 PRN PRN Reason: Wheezing Clonidine HCl (Catapres) 0.1 mg PO BID [facility] Last Admin: 12/04/16 18:25 Dose: 0.1 mg Cyanocobalamin (Vitamin B12 1000 Mcg Tab) 1,000 mcg PO DAILY [facility] Last Admin: 12/04/16 10:33 Dose: 1,000 mcg Heparin Sodium (Porcine) (Heparin) 5,000 units SC Q8 [facility] Last Admin: 12/04/16 14:24 Dose: 5,000 units Hydralazine HCl (Apresoline) 25 mg PO Q8 [facility] Last Admin: 12/04/16 14:23 Dose: 25 mg Lorazepam (Ativan) 0.5 mg PO Q8 PRN PRN Reason: Agitation Last Admin: 11/30/16 17:15 Dose: 0.5 mg Metoprolol Tartrate (Lopressor) 25 mg PO BID [facility] Last Admin: 12/04/16 18:25 Dose: 25 mg Metronidazole (Flagyl) 500 mg PO Q8 [facility] Morphine Sulfate (Morphine) 0.5 mg IVP Q6 PRN PRN Reason: Pain, moderate (4-7) Last Admin: 12/02/16 09:47 Dose: 0.5 mg Pantoprazole Sodium (Protonix Susp) 40 mg PO DAILY [facility] Spironolactone (Aldactone) 12.5 mg PO BID [facility] Last Admin: 12/04/16 18:24 Dose: 12.5 mg - Labs Labs: 12/03/16 11:20 12/04/16 06:07 PT 17.7 SECONDS (9.7-12.2) H D 12/03/16 11:20 INR 1.5 D 12/03/16 11:20 APTT 39 SECONDS (21-34) H 11/30/16 07:59 - Constitutional Appears: No Acute Distress - Head Exam Head Exam: ATRAUMATIC, NORMAL INSPECTION, NORMOCEPHALIC - Eye Exam Eye Exam: EOMI, Normal appearance, PERRL Pupil Exam: NORMAL ACCOMODATION, PERRL - Respiratory Exam Respiratory Exam: Clear to Ausculation Bilateral, NORMAL BREATHING PATTERN - Cardiovascular Exam Cardiovascular Exam: REGULAR RHYTHM, +S1, +S2. absent: Murmur - GI/Abdominal Exam GI & Abdominal Exam: Soft, Normal Bowel Sounds. absent: Tenderness Assessment and Plan (1) Pneumonia Status: Acute (2) [place] (acute kidney injury) Status: Acute (3) Abdominal aortic aneurysm Status: Acute (4) CHF (congestive heart failure) Status: Chronic (5) Anemia Status: Acute (6) Cholelithiasis Status: Acute (7) DVT (deep venous thrombosis) Status: Acute
[2016-12-05] MEDS ORDERED: Bacitracin 50,000 UNIT in Sodium Chloride 0.9% Irrig 1,000 ML IR SCH (08:49)
[2016-12-05] MEDS: Vancomycin 125 MG/5 ML SOLN (ORAL/RECTAL) PO SCH ×4 (09:00→22:00)
[2016-12-05] MEDS ORDERED: ceFAZolin IV 2 gm in Dextrose 50 ML IVPB ONE (09:00)
[2016-12-05] MEDS: Pantoprazole 40 mg Susp UD PO SCH (09:00)
--- NOTE | 2016-12-05 09:42 | CP.PCM.PN ---
<Jackson Farr - Last Filed: 12/05/16 09:36> Subjective - Date & Time of Evaluation Date of Evaluation: 12/05/16 Time of Evaluation: 06:45 - Subjective Subjective: PGY4 GI Fellow Progress Note Patient seen and examined bedside this morning. Patient continues to complain of left flank and abdominal pain and states he is having watery diarrhea. Also c /o left ankle discomfort. No other issues overnight. Currently NPO for IVC filter placement. 12 system ROS performed and negative except where stated. Objective - Vital Signs/Intake and Output Vital Signs (last 24 hours): Temp Pulse Resp BP Pulse Ox 98.6 F 67 18 155/81 H 96 12/05/16 07:35 12/05/16 07:35 12/05/16 07:35 12/05/16 07:35 12/05/16 07:35 Intake and Output: 12/05/16 12/05/16 06:59 18:59 Intake Total 150 Output Total 200 Balance -50 - Medications Medications: Current Medications Albuterol/Ipratropium (Duoneb 3 Mg/0.5 Mg (3 Ml) Ud) 3 ml IH RQ4 PRN PRN Reason: Wheezing Clonidine HCl (Catapres) 0.1 mg PO BID [facility] Last Admin: 12/04/16 18:25 Dose: 0.1 mg Cyanocobalamin (Vitamin B12 1000 Mcg Tab) 1,000 mcg PO DAILY [facility] Last Admin: 12/04/16 10:33 Dose: 1,000 mcg Heparin Sodium (Porcine) (Heparin) 5,000 units SC Q8 [facility] Last Admin: 12/05/16 06:02 Dose: Not Given Hydralazine HCl (Apresoline) 25 mg PO Q8 [facility] Last Admin: 12/05/16 06:03 Dose: 25 mg Bacitracin 50,000 unit/ Sodium (Chloride) 1,000 mls @ 1,000 mls/hr IR .Q1H [facility] Stop: 12/05/16 09:48 Lorazepam (Ativan) 0.5 mg PO Q8 PRN PRN Reason: Agitation Last Admin: 11/30/16 17:15 Dose: 0.5 mg Metoprolol Tartrate (Lopressor) 25 mg PO BID [facility] Last Admin: 12/04/16 18:25 Dose: 25 mg Metronidazole (Flagyl) 500 mg PO Q8 [facility] Last Admin: 12/05/16 06:02 Dose: Not Given Morphine Sulfate (Morphine) 0.5 mg IVP Q6 PRN PRN Reason: Pain, moderate (4-7) Last Admin: 12/02/16 09:47 Dose: 0.5 mg Pantoprazole Sodium (Protonix Susp) 40 mg PO DAILY [facility] Spironolactone (Aldactone) 12.5 mg PO BID [facility] Last Admin: 12/04/16 18:24 Dose: 12.5 mg - Labs Labs: 12/03/16 11:20 12/04/16 06:07 PT 17.7 SECONDS (9.7-12.2) H D 12/03/16 11:20 INR 1.5 D 12/03/16 11:20 APTT 39 SECONDS (21-34) H 11/30/16 07:59 - Constitutional Appears: Non-toxic, No Acute Distress - Eye Exam Eye Exam: EOMI, PERRL - ENT Exam ENT Exam: Mucous Membranes Moist - Respiratory Exam Respiratory Exam: Clear to Ausculation Bilateral. absent: Rales, Rhonchi, Wheezes - Cardiovascular Exam Cardiovascular Exam: RRR, +S1, +S2 - GI/Abdominal Exam GI & Abdominal Exam: Soft, Tenderness (left flank/abdomen), Normal Bowel Sounds. absent: Distended, Firm, Guarding, Rigid - Extremities Exam Extremities Exam: Normal Inspection. absent: Pedal Edema - Neurological Exam Neurological Exam: Alert, Awake. absent: Oriented x3 - Psychiatric Exam Psychiatric exam: Normal Affect, Normal Mood - Skin Skin Exam: Dry, Warm Assessment and Plan - Assessment and Plan (Free Text) Assessment: Patient is a 71yo male with PMHx significant for systolic CHF (EF 32%), LLE DVT on coumadin, prior acute respiratory failure requiring mechanical ventilation, HTN, Dyslipidemia, osteoarthritis who presented from rehab facility with suspected hematemesis. -Moderate to severe colitis - noted on recent CT with PO contrast -C diff colitis -Abnormal LFTs with direct hyperbilirubinemia, possibly 2/2 colitis -Abdominal aortic aneurysm -PE/DVT on Coumadin [employer] ENGINEER -Microcytic anemia -Unspecified cognitive disorder, suspect alzheimer dementia -CHF with EF 32% Plan: -Started on Flagyl 500mg PO TID, add Vancomycin 125mg PO QID -Awaiting CMP -PT NPO for IVC filter today -Autoimmune w/u unremarkable -AAA repair at a future date per surgery -Hepatitis serologies negative -MRCP unremarkable -Avoid hepatotoxic medications <Sue Ordonez - Last Filed: 12/05/16 09:54> Objective - Vital Signs/Intake and Output Vital Signs (last 24 hours): Temp Pulse Resp BP Pulse Ox 98.6 F 67 18 155/81 H 96 12/05/16 07:35 12/05/16 07:35 12/05/16 07:35 12/05/16 07:35 12/05/16 07:35 Intake and Output: 12/05/16 12/05/16 06:59 18:59 Intake Total 150 Output Total 200 Balance -50 - Medications Medications: Current Medications Albuterol/Ipratropium (Duoneb 3 Mg/0.5 Mg (3 Ml) Ud) 3 ml IH RQ4 PRN PRN Reason: Wheezing Clonidine HCl (Catapres) 0.1 mg PO BID [facility] Last Admin: 12/04/16 18:25 Dose: 0.1 mg Cyanocobalamin (Vitamin B12 1000 Mcg Tab) 1,000 mcg PO DAILY [facility] Last Admin: 12/04/16 10:33 Dose: 1,000 mcg Heparin Sodium (Porcine) (Heparin) 5,000 units SC Q8 [facility] Last Admin: 12/05/16 06:02 Dose: Not Given Hydralazine HCl (Apresoline) 25 mg PO Q8 [facility] Last Admin: 12/05/16 06:03 Dose: 25 mg Lorazepam (Ativan) 0.5 mg PO Q8 PRN PRN Reason: Agitation Last Admin: 11/30/16 17:15 Dose: 0.5 mg Metoprolol Tartrate (Lopressor) 25 mg PO BID [facility] Last Admin: 12/04/16 18:25 Dose: 25 mg Metronidazole (Flagyl) 500 mg PO Q8 [facility] Last Admin: 12/05/16 06:02 Dose: Not Given Morphine Sulfate (Morphine) 0.5 mg IVP Q6 PRN PRN Reason: Pain, moderate (4-7) Last Admin: 12/02/16 09:47 Dose: 0.5 mg Pantoprazole Sodium (Protonix Susp) 40 mg PO DAILY [facility] Spironolactone (Aldactone) 12.5 mg PO BID [facility] Last Admin: 12/04/16 18:24 Dose: 12.5 mg Vancomycin HCl (Vancocin (Oral Or Rectal Use)) 125 mg PO QID [facility] - Labs Labs: 12/03/16 11:20 12/04/16 06:07 PT 17.7 SECONDS (9.7-12.2) H D 12/03/16 11:20 INR 1.5 D 12/03/16 11:20 APTT 39 SECONDS (21-34) H 11/30/16 07:59 Attending/Attestation - Attestation I have personally seen and examined this patient.: Yes I have fully participated in the care of the patient.: Yes I have reviewed all pertinent clinical information, including history, physical exam and plan: Yes Notes (Text): Patient seen and examined with GI fellow. Agree with his note as documented above with the following additions/exceptions. This is a 71yo male with PMHx significant for systolic CHF (EF 32%), LLE DVT on coumadin, HTN, recent hospitalization at [facility] for respiratory failure requiring mechanical ventilation who is admitted from rehab facility with possible episode of hematemesis. He is found to have cholelithiasis without choledocholithiasis, large abdominal aortic aneurysm with thrombus, vascular surgery following. CT with PO contrast yesterday shows moderate pancolitis with cdiff positive stool. Will treat with PO vancomycin/flagyl therapy. He is planned for IVC filter today. Monitor LFTs , currently downtrending. Continue supportive care. 12/05/16 09:51
[2016-12-05] MEDS ORDERED: HEPARIN-NS 5,000 UNITS/500 ML 500 ML IV ONE (09:55)
[2016-12-05] MEDS ORDERED: ceFAZolin 1 gm FROZEN Premix 0 ML IVPB ONE (09:58)
[2016-12-05] MEDS ORDERED: Iodixanol 320 MG/ML 200 ML BOTTLE IV ONE (09:58)
[2016-12-05] MEDS ORDERED: Etomidate 20 mg/10ml Inj IV ONE (10:34)
[2016-12-05] MEDS ORDERED: metroNIDAZOLE IV 500 mg/100 ml 100 ML ONE (11:05)
--- NOTE | 2016-12-05 11:35 | CT ---
PROCEDURE: CT Angiography Abdomen, Pelvis and Lower Extremity with Contrast HISTORY: measurements for potential AAA stent COMPARISON: None. TECHNIQUE: Technique: CT angiography of the abdomen, pelvis and bilateral lower extremities performed in the arterial phase of enhancement. Coronal and sagittal reformats, and well as rotating MIP images of the vessels generated at the workstation. Intravenous contrast dose: 150 milliliters Visipaque 320 Radiation dose: Total exam DLP = 2520.54 MGy-cm. This CT exam was performed using one or more of the following dose reduction techniques: Automated exposure control, adjustment of the mA and/or kV according to patient size, and/or use of iterative reconstruction technique. FINDINGS: CT ANGIOGRAPHY: ABDOMINAL AORTA:: Suprarenal aorta measures 3.3 centimeter. Large infrarenal abdominal aortic aneurysm beginning 3 centimeters from the takeoff of the left renal artery and extending into both the right common iliac arteries. There is significant thrombus throughout the abdominal aorta with significant narrowing of the patent segment. The abdominal aorta aneurysm begins 3 centimeters from the renal artery and extends to both right and left common iliac artery terminating proximal to the hypogastric takeoff. The abdominal aorta measures 3.3 centimeter below renal artery. The aneurysm is very tortuous. The the distal AAA measures 7.2 centimeters (Trans) x 6 centimeter (AP). The proximal right common iliac artery measures 5 centimeters. The distal right common iliac artery measures 2.9 centimeters. The proximal left common iliac artery measures 4.4 centimeters. Distal left common iliac artery measures 2.9 centimeters. MAJOR AORTIC BRANCHES: Celiac [place]: Unremarkable. Superior mesenteric artery: Unremarkable. Inferior mesenteric artery: Non-opacified Renal arteries: Unremarkable. PELVIC ARTERIES: Right Common Iliac: Large aneurysm at the outlined above Right External Iliac: Unremarkable. Right Internal Iliac: Unremarkable. Left Common Iliac: Large aneurysm as outlined above Left External Iliac: Unremarkable. Left Internal Iliac: Unremarkable. RIGHT LOWER EXTREMITY ARTERIES: Right Common Femoral: Unremarkable. Right Superficial Femoral: Occluded SFA with no reconstitution Right Profunda Femoris: Unremarkable. Right Popliteal:Occluded popliteal artery Right Anterior Tibial: Occluded Right Tibioperoneal Trunk: Occluded Right Posterior Tibial: Fills via collateral and is otherwise Unremarkable. Right Peroneal: Fills via collateral and is otherwise Unremarkable. Right dorsalis pedis : Unremarkable. LEFT LOWER EXTREMITY ARTERIES: Left Common Femoral: Unremarkable. Left Superficial Femoral: Occluded with no reconstitution Left Profunda Femoris: Unremarkable. Left Popliteal: Occluded Left Anterior Tibial: Occluded Left Tibioperoneal Trunk: Unrem occluded Left Posterior Tibial: Fills via collateral and is otherwise Unremarkable Left Peroneal: .Occluded Left Dorsalis pedis: Unremarkable. NON-ANGIOGRAPHIC ASPECT OF THE EXAM: LOWER THORAX: Patchy atelectasis right and left lower lobes. LIVER: Unremarkable. No gross lesion or ductal dilatation. GALLBLADDER AND BILE DUCTS: Unremarkable. PANCREAS: Unremarkable. No gross lesion or ductal dilatation. SPLEEN: Unremarkable. ADRENALS: Unremarkable. No mass. KIDNEYS AND URETERS: Unremarkable. No hydronephrosis. No solid mass. STOMACH AND BOWEL: Unremarkable. No obstruction. No gross mural thickening. APPENDIX: Normal appendix. PERITONEUM: Unremarkable. No free fluid. No free air. LYMPH NODES: Unremarkable. No enlarged lymph nodes. BLADDER: Unremarkable. REPRODUCTIVE: Prostate measures 7 centimeters transverse dimension. BONES: Degenerate changes lumbar spine. No fractures. OTHER FINDINGS: None. IMPRESSION: Large infrarenal abdominal aortic aneurysm beginning 3 centimeters mid takeoff of the left renal artery. The aorta just beyond the renal artery measures 3.3 centimeters. The aneurysm is very tortuous and extends into both right common iliac arteries. The aneurysm measured is 7.1 centimeter (AP) by 6 centimeters ( transverse.) The proximal right common iliac artery measures 5 centimeters on the proximal left common iliac artery measures 4.[address] ANGIOGRAM RIGHT LOWER EXTREMITY: 1. Common femoral artery profunda femoral artery patent. 2. Occlusion of the SFA with no reconstitution. Occlusion popliteal artery. 3. Right runoff shows a patent peroneal artery and posterior tibial artery pole filling via collaterals. . CT ANGIOGRAM LEFT LOWER EXTREMITY: 1. Occluded superficial femoral artery with no reconstitution. Occluded popliteal artery. 2. Runoff shows a patent posterior tibial artery which fills via collaterals. The anterior tibial artery and peroneal artery occluded. 3. Common femoral artery profunda femoral artery is patent MTDD
--- NOTE | 2016-12-05 11:39 | PCM.SURG1 ---
Surgeon's Initial Post Op Note - Surgeon's Notes Surgeon: Dr. Heard Lock Operator: Dr. Silva, Student Doctor Jimena Type of Anesthesia: IV Sedation, Local Pre-Operative Diagnosis: DVT Operative Findings: dark venous blood, appropriate deployed IVC filter Post-Operative Diagnosis: DVT Operation Performed: insertion of inferior vena cava filter through right groin puncture site Specimen/Specimens Removed: none Estimated Blood Loss: EBL {In ML}: 15 Blood Products Given: N/A Drains Used: No Drains Post-Op Condition: Good Date of Surgery/Procedure: 12/05/16 Time of Surgery/Procedure: 11:39
[2016-12-05] MEDS ORDERED: HYDROmorphone 0.5 mg/0.5 ml ISec IVP PRN (11:59)
--- NOTE | 2016-12-05 12:57 | OP ---
PROCEDURE DATE: 12/05/2016 PREOPERATIVE DIAGNOSES: Deep vein thrombosis, pulmonary embolism, abdominal aortic aneurysm, gastroi ntestinal bleeding. PROCEDURE CARRIED OUT: Placement of a [employer] [place] removable filter via right femoral vein with C-arm fluoroscopy, ultrasound-guided puncture and venacavogram. SURGEON: Dr. Heard REAL ESTATE BROKER ASSOCIATE: Dr. Silva ANESTHESIOLOGIST: ____ INDICATIONS: The patient is an elderly man admitted to the hospital with GI bleeding on anticoagulat ion for deep vein thrombosis and pulmonary embolism. He has been anticoagulated for over 3 weeks. OPERATIVE FINDINGS: Filter was deployed successfully at the level of the renal veins and above the c onfluence of the iliac veins. It was a Bard [place] removable filter. PROCEDURE: The patient was given local anesthesia. Using ultrasound guidance, the right common femo ral vein was punctured using micropuncture technique in a longitudinal fashion. Under fluoroscopic c ontrol, the guidewire was advanced centrally. This was exchanged for an Amplatz wire. The filter wa s then deployed at the level of the renal veins in an upright position. The patient tolerated proced ure uneventfully. Blood loss was minimal, less than 10 mL. OPERATION CARRIED OUT: Placement of Bard Adele removable filter via right femoral vein with C-arm f luoroscopy and ultrasound-guided puncture, micropuncture technique. Ultrasound ____ of the groin silvina wed the vein was approximately 13 mm, normal compression and no evidence of intraluminal thrombosis. Jon Heard Jr., MD cc: [id number] TT: 12/05/2016 12:56:54 sn
--- NOTE | 2016-12-05 13:26 | CP.PCM.PN ---
Subjective - Date & Time of Evaluation Date of Evaluation: 12/05/16 Time of Evaluation: 13:25 - Subjective Subjective: Pt s/p IVC filter today by Dr. Zimmerman, Coumadin 4 mg PO started as per Dr. Yen. Objective - Vital Signs/Intake and Output Vital Signs (last 24 hours): Temp Pulse Resp BP Pulse Ox 97.6 F 53 L 12 145/78 98 12/05/16 12:25 12/05/16 12:25 12/05/16 12:25 12/05/16 12:25 12/05/16 12:25 Intake and Output: 12/05/16 12/05/16 06:59 18:59 Intake Total 150 100 Output Total 200 100 Balance -50 0 - Medications Medications: Current Medications Albuterol/Ipratropium (Duoneb 3 Mg/0.5 Mg (3 Ml) Ud) 3 ml IH RQ4 PRN PRN Reason: Wheezing Clonidine HCl (Catapres) 0.1 mg PO BID [facility] Last Admin: 12/05/16 10:01 Dose: 0.1 mg Cyanocobalamin (Vitamin B12 1000 Mcg Tab) 1,000 mcg PO DAILY [facility] Last Admin: 12/05/16 09:00 Dose: Not Given Heparin Sodium (Porcine) (Heparin) 5,000 units SC Q8 [facility] Last Admin: 12/05/16 06:02 Dose: Not Given Hydralazine HCl (Apresoline) 25 mg PO Q8 [facility] Last Admin: 12/05/16 06:03 Dose: 25 mg Hydromorphone HCl (Dilaudid) 0.5 mg IVP Q5M PRN PRN Reason: Pain, Mild (1-3) Stop: 12/05/16 13:59 Lorazepam (Ativan) 0.5 mg PO Q8 PRN PRN Reason: Agitation Last Admin: 11/30/16 17:15 Dose: 0.5 mg Metoprolol Tartrate (Lopressor) 25 mg PO BID [facility] Last Admin: 12/05/16 10:01 Dose: 25 mg Metronidazole (Flagyl) 500 mg PO Q8 [facility] Last Admin: 12/05/16 06:02 Dose: Not Given Morphine Sulfate (Morphine) 0.5 mg IVP Q6 PRN PRN Reason: Pain, moderate (4-7) Last Admin: 12/02/16 09:47 Dose: 0.5 mg Morphine Sulfate (Morphine) 1 mg IVP Q10M PRN PRN Reason: Pain, Mild (1-3) Stop: 12/05/16 14:00 Ondansetron HCl (Zofran Inj) 4 mg IVP ONCE PRN PRN Reason: Nausea/Vomiting Stop: 12/05/16 14:00 Pantoprazole Sodium (Protonix Susp) 40 mg PO DAILY [facility] Last Admin: 12/05/16 09:00 Dose: Not Given Spironolactone (Aldactone) 12.5 mg PO BID [facility] Last Admin: 12/05/16 09:00 Dose: Not Given Vancomycin HCl (Vancocin (Oral Or Rectal Use)) 125 mg PO QID [facility] Last Admin: 12/05/16 09:00 Dose: Not Given Warfarin Sodium (Coumadin) 4 mg PO 1800 [facility] Stop: 12/05/16 18:01 - Labs Labs: 12/03/16 11:20 12/04/16 06:07 PT 17.7 SECONDS (9.7-12.2) H D 12/03/16 11:20 INR 1.5 D 12/03/16 11:20 APTT 39 SECONDS (21-34) H 11/30/16 07:59
--- NOTE | 2016-12-05 14:20 | PN ---
DATE: 12/05/2016 The patient underwent IVC filter placement. He does not appear to be in any distress. He is eating, being fed by his sister. However, he is confused. PHYSICAL EXAMINATION: VITAL SIGNS: Blood pressure 145/78, heart rate 63, temperature 97.6, respiration 12. HEENT: Pale conjunctivae. CHEST: Diminished breath sounds over the bases. HEART: S1, S2 regular. EXTREMITIES: Left leg edema. LABORATORIES: Blood sugar today is 77. ASSESSMENT: 1. Ischemic cardiomyopathy. 2. Left leg deep venous thrombosis and right pulmonary embolism. 3. History of old cerebrovascular accident. 4. Anemia and recent gastrointestinal bleeding. 5. A 6.2 cm abdominal aortic aneurysm. 6. Cholelithiasis. RECOMMENDATIONS: Continue Aldactone at 12.5 mg twice a day, hydralazine at 25 mg once a day, clonidi ne 0.1 mg twice a day. Continue oral Flagyl 500 mg q. 8 hours and oral vancomycin at 25 mg q.i.d. C ontinue Lopressor 25 mg once a day, subcutaneous heparin 5000 q. 8 hours. I agree with initiating Co umadin at 4 mg today. Hal Tovar MD cc: [id number] TT: 12/05/2016 14:19:59 Confirmation # [id number] Dictation # [id number] en
[2016-12-05 14:46] LABS: CHLORIDE 109 mmol/L (98-107); SODIUM 143 mmol/L (132-148)
[2016-12-05 14:47] LABS: POTASSIUM 3.5 mmol/L (3.6-5.2)
[2016-12-05 14:48] LABS: GFR AFRICAN-AMERICAN > 60
[2016-12-05 14:49] LABS: ALB/GLOB RATIO 0.8 (1.0-2.1); ALKALINE PHOSPHATASE 255 U/L (38-126); ALT/SGPT 97 U/L (21-72); AST/SGOT 33 U/L (17-59); BILIRUBIN,TOTAL 0.3 mg/dL (0.2-1.3); BLOOD UREA NITROGEN 12 mg/dL (9-20); CARBON DIOXIDE 20 mmol/L (22-30); GLUCOSE,RANDOM 98 mg/dL (75-110); TOTAL PROTEIN 6.9 g/dL (6.3-8.3)
[2016-12-05 14:50] LABS: CALCIUM 8.7 mg/dl (8.6-10.4)
[2016-12-05 18:05] LABS: INR 1.3
[2016-12-05] MEDS: Sodium Chloride 0.45% 1,000 ML IV SCH (18:47)
--- NOTE | 2016-12-05 23:10 | CP.PCM.PN ---
Subjective - Date & Time of Evaluation Date of Evaluation: 12/05/16 Time of Evaluation: 20:00 - Subjective Subjective: Pt seen and evaluated at bedside, no acute complains, s/p IVC filter today by Dr. Zimmerman, Coumadin 4 mg PO started Objective - Vital Signs/Intake and Output Vital Signs (last 24 hours): Temp Pulse Resp BP Pulse Ox 98.1 F 78 20 112/56 L 95 12/05/16 16:29 12/05/16 16:29 12/05/16 16:29 12/05/16 16:29 12/05/16 16:29 Intake and Output: 12/05/16 12/06/16 18:59 06:59 Intake Total 100 Output Total 100 Balance 0 - Medications Medications: Current Medications Albuterol/Ipratropium (Duoneb 3 Mg/0.5 Mg (3 Ml) Ud) 3 ml IH RQ4 PRN PRN Reason: Wheezing Clonidine HCl (Catapres) 0.1 mg PO BID [facility] Last Admin: 12/05/16 18:00 Dose: Not Given Cyanocobalamin (Vitamin B12 1000 Mcg Tab) 1,000 mcg PO DAILY [facility] Last Admin: 12/05/16 09:00 Dose: Not Given Heparin Sodium (Porcine) (Heparin) 5,000 units SC Q8 [facility] Last Admin: 12/05/16 21:56 Dose: Not Given Hydralazine HCl (Apresoline) 25 mg PO Q8 [facility] Last Admin: 12/05/16 21:59 Dose: 25 mg Sodium Chloride (Sodium Chloride 0.45%) 1,000 mls @ 60 mls/hr IV .[id number] [facility] Last Admin: 12/05/16 18:47 Dose: 60 mls/hr Lorazepam (Ativan) 0.5 mg PO Q8 PRN PRN Reason: Agitation Last Admin: 11/30/16 17:15 Dose: 0.5 mg Metoprolol Tartrate (Lopressor) 25 mg PO BID [facility] Last Admin: 12/05/16 10:01 Dose: 25 mg Metronidazole (Flagyl) 500 mg PO Q8 [facility] Last Admin: 12/05/16 21:59 Dose: 500 mg Morphine Sulfate (Morphine) 0.5 mg IVP Q6 PRN PRN Reason: Pain, moderate (4-7) Last Admin: 12/02/16 09:47 Dose: 0.5 mg Pantoprazole Sodium (Protonix Susp) 40 mg PO DAILY [facility] Last Admin: 12/05/16 09:00 Dose: Not Given Spironolactone (Aldactone) 12.5 mg PO BID [facility] Last Admin: 12/05/16 09:00 Dose: Not Given Vancomycin HCl (Vancocin (Oral Or Rectal Use)) 125 mg PO QID [facility] Last Admin: 12/05/16 22:00 Dose: 125 mg - Labs Labs: 12/03/16 11:20 12/05/16 14:24 PT 14.8 SECONDS (9.7-12.2) H 12/05/16 17:33 INR 1.3 12/05/16 17:33 APTT 29 SECONDS (21-34) 12/05/16 14:24 - Constitutional Appears: No Acute Distress, Chronically Ill - Head Exam Head Exam: ATRAUMATIC, NORMAL INSPECTION, NORMOCEPHALIC - Eye Exam Eye Exam: EOMI, Normal appearance, PERRL Pupil Exam: NORMAL ACCOMODATION, PERRL - Respiratory Exam Respiratory Exam: Clear to Ausculation Bilateral, NORMAL BREATHING PATTERN - Cardiovascular Exam Cardiovascular Exam: REGULAR RHYTHM, +S1, +S2. absent: Murmur - GI/Abdominal Exam GI & Abdominal Exam: Soft, Normal Bowel Sounds. absent: Tenderness Assessment and Plan (1) Pneumonia Status: Acute (2) [place] (acute kidney injury) Status: Acute (3) Abdominal aortic aneurysm Status: Acute (4) CHF (congestive heart failure) Status: Chronic (5) Anemia Status: Acute (6) Cholelithiasis Status: Acute (7) DVT (deep venous thrombosis) Status: Acute
[2016-12-06 00:58] LABS: CHLORIDE 106 mmol/L (98-107); SODIUM 145 mmol/L (132-148)
[2016-12-06 00:59] LABS: POTASSIUM 3.7 mmol/L (3.6-5.2)
[2016-12-06 01:00] LABS: BILIRUBIN,TOTAL 0.7 mg/dL (0.2-1.3); CARBON DIOXIDE 22 mmol/L (22-30); GFR AFRICAN-AMERICAN > 60
[2016-12-06 01:01] LABS: ALB/GLOB RATIO 0.8 (1.0-2.1); ALKALINE PHOSPHATASE 246 U/L (38-126); ALT/SGPT 85 U/L (21-72); AST/SGOT 27 U/L (17-59); BLOOD UREA NITROGEN 14 mg/dL (9-20); GLUCOSE,RANDOM 86 mg/dL (75-110); PHOSPHOROUS 3.2 mg/dL (2.5-4.5); TOTAL PROTEIN 6.7 g/dL (6.3-8.3)
[2016-12-06 01:02] LABS: CALCIUM 8.4 mg/dl (8.6-10.4); MAGNESIUM 1.7 mg/dL (1.6-2.3)
[2016-12-06 07:01] LABS: MEAN CELL VOLUME 77.2 fL (80.0-94.0); MEAN CORPUSCULAR HGB CONC 32.3 g/dL (33.0-37.0); MEAN PLATELET VOLUME 9.3 fL (7.2-11.7); RED CELL DISTRIBUTION WIDTH 16.3 % (11.5-14.5)
[2016-12-06 07:42] LABS: CHLORIDE 110 mmol/L (98-107); POTASSIUM 3.3 mmol/L (3.6-5.2); SODIUM 143 mmol/L (132-148)
[2016-12-06 07:44] LABS: AST/SGOT 28 U/L (17-59); BILIRUBIN,TOTAL 0.4 mg/dL (0.2-1.3); CARBON DIOXIDE 21 mmol/L (22-30); GFR AFRICAN-AMERICAN > 60
[2016-12-06 07:45] LABS: ALB/GLOB RATIO 0.8 (1.0-2.1); ALKALINE PHOSPHATASE 234 U/L (38-126); ALT/SGPT 81 U/L (21-72); BLOOD UREA NITROGEN 12 mg/dL (9-20); CALCIUM 8.4 mg/dl (8.6-10.4); GLUCOSE,RANDOM 87 mg/dL (75-110); TOTAL PROTEIN 6.6 g/dL (6.3-8.3)
[2016-12-06 08:07] VITALS: RESP 18
--- NOTE | 2016-12-06 08:17 | CP.PCM.PN ---
<Jackson Farr - Last Filed: 12/06/16 08:14> Subjective - Date & Time of Evaluation Date of Evaluation: 12/06/16 Time of Evaluation: 06:35 - Subjective Subjective: PGY4 GI Fellow Progress Note Patient seen and examined bedside this morning. The patient is rather confused today, stating that he needs to go home and get some money to purchase items. Does not know where he is at present. Still having left sided abdominal pain and diarrhea, less frequent. 12 system ROS performed and negative except where stated. Objective - Vital Signs/Intake and Output Vital Signs (last 24 hours): Temp Pulse Resp BP Pulse Ox 98.4 F 73 18 172/86 H 98 12/06/16 07:30 12/06/16 07:30 12/06/16 07:30 12/06/16 07:30 12/06/16 07:30 Intake and Output: 12/06/16 12/06/16 06:59 18:59 Intake Total 580 Balance 580 - Medications Medications: Current Medications Albuterol/Ipratropium (Duoneb 3 Mg/0.5 Mg (3 Ml) Ud) 3 ml IH RQ4 PRN PRN Reason: Wheezing Clonidine HCl (Catapres) 0.1 mg PO BID [facility] Last Admin: 12/05/16 18:00 Dose: Not Given Cyanocobalamin (Vitamin B12 1000 Mcg Tab) 1,000 mcg PO DAILY [facility] Last Admin: 12/05/16 09:00 Dose: Not Given Heparin Sodium (Porcine) (Heparin) 5,000 units SC Q8 [facility] Last Admin: 12/06/16 05:19 Dose: Not Given Hydralazine HCl (Apresoline) 25 mg PO Q8 [facility] Last Admin: 12/06/16 05:19 Dose: 25 mg Sodium Chloride (Sodium Chloride 0.45%) 1,000 mls @ 60 mls/hr IV .[id number] [facility] Last Admin: 12/05/16 18:47 Dose: 60 mls/hr Lorazepam (Ativan) 0.5 mg PO Q8 PRN PRN Reason: Agitation Last Admin: 11/30/16 17:15 Dose: 0.5 mg Metoprolol Tartrate (Lopressor) 25 mg PO BID [facility] Last Admin: 12/05/16 18:00 Dose: Not Given Morphine Sulfate (Morphine) 0.5 mg IVP Q6 PRN PRN Reason: Pain, moderate (4-7) Last Admin: 12/02/16 09:47 Dose: 0.5 mg Pantoprazole Sodium (Protonix Susp) 40 mg PO DAILY [facility] Last Admin: 12/05/16 09:00 Dose: Not Given Spironolactone (Aldactone) 12.5 mg PO BID [facility] Last Admin: 12/05/16 18:00 Dose: Not Given Vancomycin HCl (Vancocin (Oral Or Rectal Use)) 125 mg PO QID [facility] Last Admin: 12/05/16 22:00 Dose: 125 mg - Labs Labs: 12/06/16 06:44 12/06/16 06:44 PT 14.8 SECONDS (9.7-12.2) H 12/05/16 17:33 INR 1.3 12/05/16 17:33 APTT 29 SECONDS (21-34) 12/05/16 14:24 - Constitutional Appears: Non-toxic, No Acute Distress - Eye Exam Eye Exam: EOMI, PERRL - ENT Exam ENT Exam: Mucous Membranes Moist - Respiratory Exam Respiratory Exam: Clear to Ausculation Bilateral. absent: Rales, Rhonchi, Wheezes - Cardiovascular Exam Cardiovascular Exam: RRR, +S1, +S2 - GI/Abdominal Exam GI & Abdominal Exam: Soft, Tenderness (LLQ), Normal Bowel Sounds. absent: Distended, Firm, Guarding, Rigid, Organomegaly - Extremities Exam Extremities Exam: Normal Inspection. absent: Pedal Edema - Neurological Exam Neurological Exam: Altered. absent: Oriented x3 - Psychiatric Exam Psychiatric exam: Normal Affect, Normal Mood - Skin Skin Exam: Dry, Warm Assessment and Plan - Assessment and Plan (Free Text) Assessment: Patient is a 71yo male with PMHx significant for systolic CHF (EF 32%), LLE DVT on coumadin, prior acute respiratory failure requiring mechanical ventilation, HTN, Dyslipidemia, osteoarthritis who presented from rehab facility with suspected hematemesis. -C difficile colitis -Abnormal LFTs with direct hyperbilirubinemia, possibly 2/2 colitis -Abdominal aortic aneurysm -PE/DVT on Coumadin [employer] -Microcytic anemia -Unspecified cognitive disorder, suspect alzheimer dementia -CHF with EF 32% Plan: -D/C Flagyl 500mg PO TID, continue Vancomycin 125mg PO QID -S/P IVC filter placement yesterday -AAA repair at a future date per surgery -Hepatitis serologies negative -LFTs improved -Recommend endoscopic evaluation for work up of chronic iron deficiency anemia once acute colitis has resolved; no overt bleeding noted <Guerrero Ash - Last Filed: 12/06/16 12:48> Objective - Vital Signs/Intake and Output Vital Signs (last 24 hours): Temp Pulse Resp BP Pulse Ox 98.4 F 73 18 136/74 98 12/06/16 07:30 12/06/16 07:30 12/06/16 07:30 12/06/16 10:10 12/06/16 07:30 Intake and Output: 12/06/16 12/06/16 06:59 18:59 Intake Total 580 Balance 580 - Medications Medications: Current Medications Albuterol/Ipratropium (Duoneb 3 Mg/0.5 Mg (3 Ml) Ud) 3 ml IH RQ4 PRN PRN Reason: Wheezing Clonidine HCl (Catapres) 0.1 mg PO BID [facility] Last Admin: 12/06/16 10:06 Dose: 0.1 mg Cyanocobalamin (Vitamin B12 1000 Mcg Tab) 1,000 mcg PO DAILY [facility] Last Admin: 12/06/16 10:07 Dose: 1,000 mcg Heparin Sodium (Porcine) (Heparin) 5,000 units SC Q8 [facility] Last Admin: 12/06/16 05:19 Dose: Not Given Hydralazine HCl (Apresoline) 25 mg PO Q8 [facility] Last Admin: 12/06/16 05:19 Dose: 25 mg Sodium Chloride (Sodium Chloride 0.45%) 1,000 mls @ 60 mls/hr IV .[id number] [facility] Last Admin: 12/06/16 11:10 Dose: 60 mls/hr Potassium Chloride (Potassium Chloride 20 Meq/100 Ml) 100 mls @ 50 mls/hr IVPB ONCE ONE Stop: 12/06/16 13:14 Lorazepam (Ativan) 0.5 mg PO Q8 PRN PRN Reason: Agitation Last Admin: 11/30/16 17:15 Dose: 0.5 mg Metoprolol Tartrate (Lopressor) 50 mg PO BID [facility] Morphine Sulfate (Morphine) 0.5 mg IVP Q6 PRN PRN Reason: Pain, moderate (4-7) Last Admin: 12/02/16 09:47 Dose: 0.5 mg Pantoprazole Sodium (Protonix Susp) 40 mg PO DAILY [facility] Last Admin: 12/06/16 10:09 Dose: 40 mg Potassium Chloride (Klor-Con 10) 10 meq PO BRK [facility] Spironolactone (Aldactone) 12.5 mg PO BID [facility] Last Admin: 12/06/16 10:06 Dose: 12.5 mg Vancomycin HCl (Vancocin (Oral Or Rectal Use)) 125 mg PO QID [facility] Last Admin: 12/06/16 10:08 Dose: 125 mg - Labs Labs: 12/06/16 06:44 12/06/16 06:44 PT 15.6 SECONDS (9.7-12.2) H 12/06/16 11:16 INR 1.4 12/06/16 11:16 APTT 29 SECONDS (21-34) 12/05/16 14:24 Attending/Attestation - Attestation I have personally seen and examined this patient.: Yes I have fully participated in the care of the patient.: Yes I have reviewed all pertinent clinical information, including history, physical exam and plan: Yes Notes (Text): 12/06/16 12:44 I have seen and examined patient with GI fellow. No acute events overnight. He is seen resting in bed, appears comfortable. He claims to continue having loose bowel movements, though decreased in frequency. He continues to endorse LLQ abdominal pain, improved compared to yesterday. Tolerating PO diet without difficulty. Review of vitals from today shows elevated BP. CHF DVT on coumadin AAA Iron deficiency anemia Clostridium difficile colitis - Continue with PO Vancomycin therapy for treatment of c-difficile associated colitis - s/p IVC filter yesterday, follow up surgical recommendations - LFTs trending down, continue to monitor and avoid hepatotoxic therapy - Patient would benefit from endoscopic evaluation of chronic microcytic iron deficiency anemia following resolution of acute colitis. Patient with only previous questionable colonoscopy, though is unable to provide details. - Will continue to monitor patient clinical course
[2016-12-06] MEDS: Vancomycin 125 MG/5 ML SOLN (ORAL/RECTAL) PO SCH ×2 (10:08→17:30)
[2016-12-06] MEDS: Pantoprazole 40 mg Susp UD PO SCH (10:09)
[2016-12-06] MEDS ORDERED: Potassium Chloride 20 mEq/15 ml LIQ UD PO ONE (11:00)
[2016-12-06] MEDS: Sodium Chloride 0.45% 1,000 ML IV SCH (11:10)
[2016-12-06] MEDS ORDERED: Potassium Chloride 20 mEq 100 ML IVPB ONE (11:15)
[2016-12-06 11:25] LABS: INR 1.4
--- NOTE | 2016-12-06 11:34 | RAD ---
PROCEDURE: All Fluoroscopy up to 1 hr. HISTORY: DVT LOWER LEG COMPARISON: None TECHNIQUE: Standard protocol for this study/examination. Total fluoroscopic time (continuous mode) utilized during the procedure: 114.8 seconds. FINDINGS: Submitted images from the current procedure: 4.0 IMPRESSION: Less than 1 hr fluoroscopic time utilized during performance of the procedure.
[2016-12-06] MEDS ORDERED: Potassium Chloride 10 mEq ER Tab PO SCH (12:15)
--- NOTE | 2016-12-06 12:18 | PN ---
DATE: 12/06/2016 The patient is currently lethargic and poorly communicating. The patient was reported to have runs o f nonsustained ventricular tachycardia overnight. The patient was awakened and was asked if he has a ny chest pain, abdominal pain or back pain. He denied all the 3. PHYSICAL EXAMINATION: VITAL SIGNS: Blood pressure 136/74, heart rate 73, temperature 98.4, respirations 18. HEENT: Pale conjunctivae. CHEST: Diminished breath sounds over the bases. HEART: S1, S2 regular. EXTREMITIES: 1+ left leg edema. LABORATORIES: Today's hemoglobin and hematocrit 8.4 and 26.0, white count and platelet count are wit hin normal limits. Today's potassium is 3.3, BUN and creatinine are within normal limit. EKG revealed sinus rhythm, bifascicular block, i.e., right bundle branch block with left anterior fas cicular block, consider lateral ischemia, PVCs were noted, consider old anteroseptal TX, heart rate w as 84. ASSESSMENT: 1. Ischemic cardiomyopathy. 2. Nonsustained ventricular tachycardia. 3. Hypokalemia. 4. Abdominal aortic aneurysm. 5. Deep venous thrombosis with pulmonary embolism. RECOMMENDATIONS: I did order KCl 20 mEq intravenously to be started now. Continue Aldactone at 12.5 mg twice a day, hydralazine 25 mg q. 8 hours. Increase Lopressor to 50 mg twice a day. Start K-Dur at 10 mEq daily. However, close monitoring of serum potassium as the patient is already on Aldacton e should be followed in the subacute rehab where the patient will be discharged to. Hal Tovar MD cc: [id number] TT: 12/06/2016 12:17:52 Confirmation # [id number] Dictation # [id number] en
--- NOTE | 2016-12-06 14:19 | CP.PCM.PN ---
Subjective - Date & Time of Evaluation Date of Evaluation: 12/06/16 Time of Evaluation: 09:20 - Subjective Subjective: Vascular Surgery Dr. Heard Pt S&E @bedside. IVC filter placed yesterday. Pt tolerated the procedure well w/ o complications. Pt had Vtach overnight on the monitor however pt was asymptomatic. Pt has dementia, ROS limited. Objective - Vital Signs/Intake and Output Vital Signs (last 24 hours): Temp Pulse Resp BP Pulse Ox 98.4 F 73 18 136/74 98 12/06/16 07:30 12/06/16 07:30 12/06/16 07:30 12/06/16 10:10 12/06/16 07:30 Intake and Output: 12/06/16 12/06/16 06:59 18:59 Intake Total 580 Balance 580 - Medications Medications: Current Medications Albuterol/Ipratropium (Duoneb 3 Mg/0.5 Mg (3 Ml) Ud) 3 ml IH RQ4 PRN PRN Reason: Wheezing Clonidine HCl (Catapres) 0.1 mg PO BID [facility] Last Admin: 12/06/16 10:06 Dose: 0.1 mg Cyanocobalamin (Vitamin B12 1000 Mcg Tab) 1,000 mcg PO DAILY [facility] Last Admin: 12/06/16 10:07 Dose: 1,000 mcg Heparin Sodium (Porcine) (Heparin) 5,000 units SC Q8 [facility] Last Admin: 12/06/16 05:19 Dose: Not Given Hydralazine HCl (Apresoline) 25 mg PO Q8 [facility] Last Admin: 12/06/16 05:19 Dose: 25 mg Sodium Chloride (Sodium Chloride 0.45%) 1,000 mls @ 60 mls/hr IV .[id number] [facility] Last Admin: 12/06/16 11:10 Dose: 60 mls/hr Lorazepam (Ativan) 0.5 mg PO Q8 PRN PRN Reason: Agitation Last Admin: 11/30/16 17:15 Dose: 0.5 mg Metoprolol Tartrate (Lopressor) 50 mg PO BID [facility] Morphine Sulfate (Morphine) 0.5 mg IVP Q6 PRN PRN Reason: Pain, moderate (4-7) Last Admin: 12/02/16 09:47 Dose: 0.5 mg Pantoprazole Sodium (Protonix Susp) 40 mg PO DAILY [facility] Last Admin: 12/06/16 10:09 Dose: 40 mg Potassium Chloride (Klor-Con 10) 10 meq PO DAILY@0800 [facility] Last Admin: 12/06/16 13:35 Dose: Not Given Spironolactone (Aldactone) 12.5 mg PO BID [facility] Last Admin: 12/06/16 10:06 Dose: 12.5 mg Vancomycin HCl (Vancocin (Oral Or Rectal Use)) 125 mg PO QID [facility] Last Admin: 12/06/16 10:08 Dose: 125 mg - Labs Labs: 12/06/16 06:44 12/06/16 06:44 PT 15.6 SECONDS (9.7-12.2) H 12/06/16 11:16 INR 1.4 12/06/16 11:16 APTT 29 SECONDS (21-34) 12/05/16 14:24 - Constitutional Appears: Non-toxic, No Acute Distress - Eye Exam Eye Exam: Normal appearance - ENT Exam ENT Exam: Mucous Membranes Moist - Respiratory Exam Respiratory Exam: absent: Accessory Muscle Use, Respiratory Distress, NORMAL BREATHING PATTERN - GI/Abdominal Exam GI & Abdominal Exam: Soft. absent: Distended, Tenderness Additional comments: groin dressing c/d/i - Neurological Exam Neurological Exam: Alert, Awake. absent: Altered - Skin Skin Exam: Dry, Intact, Warm Assessment and Plan - Assessment and Plan (Free Text) Assessment: 71 y/o M w/ baseline dementia, admitted for hematemesis, found to have pneumonia , AAA, DVT, transaminitis, hyperbilirubinemia POD#1 s/p IVC filter - strict blood pressure control - CLD - cont medical management - no further surgical intervention at this time. Pt discussed w/ Dr. Orquidea Graves PGY1
[2016-12-06 16:03] VITALS: BP 159/83; PULSE 65; TEMP 98.3
--- NOTE | 2016-12-06 16:40 | PCM.HF ---
Heart Failure Core Measure - Heart Failure Left Ventricular Function to be assessed after discharge: Yes DIANNE Inhibitor Prescribed: Yes Beta-Manjinder Prescribed: Metoprolol Succinate Angiotensin II Receptor Manjinder Prescribed: No Contraindication/Reason for not providing: ON DIANNE AnticoagulationTherapy for Atrial Fibrillation/Atrialflutter: Yes Aldosterone Antagonist Prescribed: Yes Hydralazine Nitrate Prescribed: Yes Implantable Cardioverter Defibrillator Therapy: No Contraindication/Reason for not providing: not indicated Cardiac Resynchronization Therapy Prescribed: No Contraindication/Reason for not providing: not indicated - Follow up Will be discharged to: Custodial Facility ([facility]
--- NOTE | 2016-12-06 16:45 | CP.PCM.PN ---
Subjective - Date & Time of Evaluation Date of Evaluation: 12/06/16 Time of Evaluation: 16:46 - Subjective Subjective: Awake , responsive, no sob or chest pains, heart rate stable now. Objective - Vital Signs/Intake and Output Vital Signs (last 24 hours): Temp Pulse Resp BP Pulse Ox 98.3 F 65 18 159/83 H 97 12/06/16 15:10 12/06/16 15:10 12/06/16 15:10 12/06/16 15:10 12/06/16 15:10 Intake and Output: 12/06/16 12/06/16 06:59 18:59 Intake Total 580 Balance 580 - Medications Medications: Current Medications Albuterol/Ipratropium (Duoneb 3 Mg/0.5 Mg (3 Ml) Ud) 3 ml IH RQ4 PRN PRN Reason: Wheezing Clonidine HCl (Catapres) 0.1 mg PO BID [facility] Last Admin: 12/06/16 10:06 Dose: 0.1 mg Cyanocobalamin (Vitamin B12 1000 Mcg Tab) 1,000 mcg PO DAILY [facility] Last Admin: 12/06/16 10:07 Dose: 1,000 mcg Heparin Sodium (Porcine) (Heparin) 5,000 units SC Q8 [facility] Last Admin: 12/06/16 05:19 Dose: Not Given Hydralazine HCl (Apresoline) 25 mg PO Q8 [facility] Last Admin: 12/06/16 05:19 Dose: 25 mg Sodium Chloride (Sodium Chloride 0.45%) 1,000 mls @ 60 mls/hr IV .[id number] [facility] Last Admin: 12/06/16 11:10 Dose: 60 mls/hr Lorazepam (Ativan) 0.5 mg PO Q8 PRN PRN Reason: Agitation Last Admin: 11/30/16 17:15 Dose: 0.5 mg Metoprolol Tartrate (Lopressor) 50 mg PO BID [facility] Morphine Sulfate (Morphine) 0.5 mg IVP Q6 PRN PRN Reason: Pain, moderate (4-7) Last Admin: 12/02/16 09:47 Dose: 0.5 mg Pantoprazole Sodium (Protonix Susp) 40 mg PO DAILY [facility] Last Admin: 12/06/16 10:09 Dose: 40 mg Spironolactone (Aldactone) 12.5 mg PO BID [facility] Last Admin: 12/06/16 10:06 Dose: 12.5 mg Vancomycin HCl (Vancocin (Oral Or Rectal Use)) 125 mg PO QID [facility] Last Admin: 12/06/16 10:08 Dose: 125 mg Warfarin Sodium (Coumadin) 4 mg PO 1800 [facility] Stop: 12/06/16 18:01 - Labs Labs: 12/06/16 06:44 12/06/16 06:44 PT 15.6 SECONDS (9.7-12.2) H 12/06/16 11:16 INR 1.4 12/06/16 11:16 APTT 29 SECONDS (21-34) 12/05/16 14:24 Assessment and Plan - Assessment and Plan (Free Text) Assessment: Patient is seen and examined. Awake, responsive, demented. Denies chest pain, no sob, no acute distress. D/W DR Yen, discharge plan back to [facility] today. Will continue coumadin, follow up potassium and INR on saturday. S/P IVC filter yesterday , cleared by surgery , to monitor closely in the rehab.
[2016-12-07 03:32] VITALS: O2SAT 100
--- NOTE | 2016-12-07 18:33 | CP.PCM.DIS ---
Provider - Provider Date of Admission: 11/29/16 14:15 Attending physician: Mando Yen MD Time Spent in preparation of Discharge (in minutes): 45 Diagnosis - Discharge Diagnosis (1) Pneumonia Status: Acute (2) NATANAEL (acute kidney injury) Status: Acute (3) Abdominal aortic aneurysm Status: Acute (4) CHF (congestive heart failure) Status: Chronic (5) Anemia Status: Acute (6) Cholelithiasis Status: Acute (7) DVT (deep venous thrombosis) Status: Acute Hospital Course - Lab Results Lab Results: Micro Results 12/04/16 13:57 Stool Stool Culture - Final NO SALMONELLA, SHIGELLA OR CAMPYLOBACTER ISOLATED. 11/29/16 17:00 Blood-Venous Blood Culture - Final NO GROWTH AFTER 5 DAYS 11/29/16 17:00 Blood-Venous Gram Stain - Final TEST NOT PERFORMED 11/29/16 17:00 Blood-Venous Blood Culture - Final NO GROWTH AFTER 5 DAYS 11/29/16 17:00 Blood-Venous Gram Stain - Final TEST NOT PERFORMED Most Recent Lab Values WBC 8.0 K/uL (4.8-10.8) 12/06/16 06:44 RBC 3.37 Mil/uL (4.40-5.90) L 12/06/16 06:44 Hgb 8.4 g/dL (12.0-18.0) L 12/06/16 06:44 Hct 26.0 % (35.0-51.0) L 12/06/16 06:44 MCV 77.2 fL (80.0-94.0) L 12/06/16 06:44 MCH 25.0 pg (27.0-31.0) L 12/06/16 06:44 MCHC 32.3 g/dL (33.0-37.0) L 12/06/16 06:44 RDW 16.3 % (11.5-14.5) H 12/06/16 06:44 Plt Count 305 K/uL (130-400) 12/06/16 06:44 MPV 9.3 fL (7.2-11.7) 12/06/16 06:44 Neut % (Auto) 84.2 % (50.0-75.0) H 12/03/16 11:20 Lymph % (Auto) 10.3 % (20.0-40.0) L 12/03/16 11:20 [place] % (Auto) 4.9 % (0.0-10.0) 12/03/16 11:20 Eos % (Auto) 0.4 % (0.0-4.0) 12/03/16 11:20 Baso % (Auto) 0.2 % (0.0-2.0) 12/03/16 11:20 Neut # 12.0 K/uL (1.8-7.0) H 12/03/16 11:20 Lymph # 1.5 K/uL (1.0-4.3) 12/03/16 11:20 [place] # 0.7 K/uL (0.0-0.8) 12/03/16 11:20 Eos # 0.1 K/uL (0.0-0.7) 12/03/16 11:20 Baso # 0.0 K/uL (0.0-0.2) 12/03/16 11:20 PT 15.6 SECONDS (9.7-12.2) H 12/06/16 11:16 INR 1.4 12/06/16 11:16 APTT 29 SECONDS (21-34) 12/05/16 14:24 Sodium 143 mmol/L (132-148) 12/06/16 06:44 Potassium 3.3 mmol/L (3.6-5.2) L 12/06/16 06:44 Chloride 110 mmol/L (98-107) H 12/06/16 06:44 Carbon Dioxide 21 mmol/L (22-30) L 12/06/16 06:44 Anion Gap 15 (10-20) 12/06/16 06:44 BUN 12 mg/dL (9-20) 12/06/16 06:44 Creatinine 0.9 MG/DL (0.8-1.5) 12/06/16 06:44 Est GFR ( Amer) > 60 12/06/16 06:44 Est GFR (Non-Af Amer) > 60 12/06/16 06:44 POC Glucose (mg/dL) 88 mg/dL (65-110) 12/06/16 16:24 Random Glucose 87 mg/dL (75-110) 12/06/16 06:44 Calcium 8.4 mg/dl (8.6-10.4) L 12/06/16 06:44 Phosphorus 3.2 mg/dL (2.5-4.5) 12/06/16 00:47 Magnesium 1.7 mg/dL (1.6-2.3) 12/06/16 00:47 Iron 44 ug/dL (49-181) L 11/30/16 07:52 TIBC 236 ug/dL (250-450) L 11/30/16 07:52 % Saturation 19 (20-55) L 11/30/16 07:52 Total Bilirubin 0.4 mg/dL (0.2-1.3) 12/06/16 06:44 Direct Bilirubin 0.6 mg/dL (0.0-0.4) H 12/03/16 07:30 AST 28 U/L (17-59) 12/06/16 06:44 ALT 81 U/L (21-72) H 12/06/16 06:44 Alkaline Phosphatase 234 U/L (38-126) H 12/06/16 06:44 Ammonia < 9 umol/L (9-33) L 12/04/16 19:30 Total Creatine Kinase 40 U/L (55-170) L 12/06/16 00:47 CK-MB (Mass) 1.53 ng/mL (0.0-3.38) 12/06/16 00:47 Troponin I, Quant < 0.0120 ng/mL (0.00-0.120) 12/06/16 00:47 Total Protein 6.6 g/dL (6.3-8.3) 12/06/16 06:44 Albumin 2.9 g/dL (3.5-5.0) L 12/06/16 06:44 Globulin 3.7 gm/dL (2.2-3.9) 12/06/16 06:44 Albumin/Globulin Ratio 0.8 (1.0-2.1) L 12/06/16 06:44 Urine Color Shirley (YELLOW) 11/29/16 17:25 Urine Clarity Clear (Clear) 11/29/16 17:25 Urine pH 7.0 (5.0-8.0) 11/29/16 17:25 Ur Specific [place] 1.013 (1.003-1.030) 11/29/16 17:25 Urine Protein Negative mg/dL (NEGATIVE) 11/29/16 17:25 Urine Glucose (UA) Normal mg/dL (Normal) 11/29/16 17:25 Urine Ketones Negative mg/dL (NEGATIVE) 11/29/16 17:25 Urine Blood Negative (NEGATIVE) 11/29/16 17:25 Urine Nitrate Negative (NEGATIVE) 11/29/16 17:25 Urine Bilirubin Negative (NEGATIVE) 11/29/16 17:25 Urine Urobilinogen 4.0 mg/dL (0.2-1.0) 11/29/16 17:25 Ur Leukocyte Esterase Neg Red/uL (Negative) 11/29/16 17:25 Urine WBC (Auto) 1 /hpf (0-5) 11/29/16 17:25 Urine RBC (Auto) 1 /hpf (0-3) 11/29/16 17:25 Ur Random Sodium 127 mmol/L 12/01/16 01:05 Ur Random Potassium 30.0 mmol/L 12/01/16 01:05 Urine Chloride 119 mmol/L (32-290) 12/01/16 01:05 Stool Occult Blood Negative (NEGATIVE) 11/29/16 13:06 Anti-Mitochondrial Ab Negative (Negative) 11/30/16 14:23 Anti-Smooth Muscle Ab Negative (Negative) 11/30/16 14:23 C. difficile Ag & Toxin Positive toxin (NEGATIVE) 12/04/16 13:57 Hepatitis A IgM Ab Negative (NEGATIVE) 11/30/16 14:23 Hep Bs Antigen Negative (NEGATIVE) 11/30/16 14:23 Hep B Core IgM Ab Negative (NEGATIVE) 11/30/16 14:23 Hepatitis C Antibody Negative (NEGATIVE) 11/30/16 14:23 Blood Type O POSITIVE 11/29/16 12:19 Antibody Screen Negative 11/29/16 12:19 - Hospital Course Hospital Course: Pt seen and examined, Awake , responsive, no sob or chest pains, heart rate stable now.is for discharge to rehab Discharge Exam - Head Exam Head Exam: ATRAUMATIC, NORMAL INSPECTION, NORMOCEPHALIC - Eye Exam Eye Exam: EOMI, Normal appearance, PERRL Pupil Exam: NORMAL ACCOMODATION, PERRL - Respiratory Exam Respiratory Exam: Clear to PA & Lateral, NORMAL BREATHING PATTERN - Cardiovascular Exam Cardiovascular Exam: REGULAR RHYTHM, +S1, +S2 - GI/Abdominal Exam GI & Abdominal Exam: Normal Bowel Sounds Discharge Plan - Follow Up Plan Condition: SERIOUS Disposition: REHAB FACILITY/REHAB UNIT
--- NOTE | 2016-12-08 15:16 | CARD ---
APPROVED REPORT EKG Measurement Heart [id number] <Conclusion> Sinus rhythm with occasional and consecutive premature ventricular complexes and premature atrial complexes Right bundle branch block Left anterior fascicular block Bifascicular block Anteroseptal infarct, age undetermined T wave abnormality, consider lateral ischemia Abnormal ECG
== END 2016-12-06 21:10 | DRG 356 ==
LOC: C.ER 10:53 → MERGE 14:15 → C.9E 14:15 → C.3T 16:28 → C.9E 16:35 → C.3T 18:10 → C.6T 11-30 22:03
PROVIDERS: ADMIT Internal Medicine; ATTEND Internal Medicine
PROC: 06H03DZ Insertion of Intraluminal Device into Inferior Vena Cava, Percutaneous Approach (ICD-10-PCS; principal; 2016-12-05 10:00)
DX: K92.0 Hematemesis (principal); J18.9 Pneumonia, unspecified organism; I26.99 Other pulmonary embolism without acute cor pulmonale; N17.9 Acute kidney failure, unspecified; I11.0 Hypertensive heart disease with heart failure; I50.22 Chronic systolic (congestive) heart failure; F03.90 Unspecified dementia, unspecified severity, without behavioral disturbance, psychotic disturbance, mood disturbance, and anxiety; I82.4Z2 Acute embolism and thrombosis of unspecified deep veins of left distal lower extremity; I71.4 Abdominal aortic aneurysm, without rupture; E78.5 Hyperlipidemia, unspecified; M19.90 Unspecified osteoarthritis, unspecified site; I25.5 Ischemic cardiomyopathy; E86.0 Dehydration; D64.9 Anemia, unspecified; E87.6 Hypokalemia; K80.20 Calculus of gallbladder without cholecystitis without obstruction; Z79.01 Long term (current) use of anticoagulants

== ENCOUNTER 2017-01-07 11:07 | Inpatient (IN) | payer MEDICARE, OTHER ==
[2017-01-07 11:08] VITALS: PULSE 120; BMI 24.4
[2017-01-07] MEDS ORDERED: Sodium Chloride 0.9% 1,000 ML IV ONE (11:37)
[2017-01-07 12:06] LABS: BASO % 0.4 % (0.0-2.0); EOS # 0.1 K/uL (0.0-0.7); EOS % 0.7 % (0.0-4.0); HEMATOCRIT 33.3 % (35.0-51.0); LYMPH # 3.2 K/uL (1.0-4.3); LYMPH % 38.1 % (20.0-40.0); MEAN CELL VOLUME 77.8 fL (80.0-94.0); MEAN CORPUSCULAR HEMOGLOBIN 24.9 pg (27.0-31.0); MONO # 0.5 K/uL (0.0-0.8); MONO % 6.4 % (0.0-10.0); WHITE BLOOD COUNT 8.3 K/uL (4.8-10.8)
[2017-01-07 12:08] LABS: CHLORIDE 100 mmol/L (98-107); SODIUM 139 mmol/L (132-148)
[2017-01-07 12:09] LABS: POTASSIUM 4.2 mmol/L (3.6-5.2)
[2017-01-07 12:11] LABS: ALB/GLOB RATIO 0.9 (1.0-2.1); ALKALINE PHOSPHATASE 114 U/L (38-126); ALT/SGPT 22 U/L (21-72); AST/SGOT 28 U/L (17-59); BILIRUBIN,TOTAL 0.6 mg/dL (0.2-1.3); BLOOD UREA NITROGEN 16 mg/dL (9-20); CALCIUM 9.7 mg/dl (8.6-10.4); CARBON DIOXIDE 29 mmol/L (22-30); GFR AFRICAN-AMERICAN > 60; GLUCOSE,RANDOM 81 mg/dL (75-110); TOTAL PROTEIN 8.8 g/dL (6.3-8.3)
--- NOTE | 2017-01-07 12:40 | C.PDOC ---
History Of Present Illness A 71 y/o male presents who was sent from [facility] for an aortic aneurysm repair. Pt currently denies abdominal pain, chest pain, Shortness of breath, fever, chills, or any other complaints. Time Seen by Provider: 01/07/17 11:15 Chief Complaint (Nursing): Medical Clearance History Per: Patient History/Exam Limitations: no limitations Onset/Duration Of Symptoms: Days Current Symptoms Are (Timing): Still Present Severity: Mild Recent travel outside of the [place]: No Additional History Per: Patient Past Medical History Reviewed: Historical Data, Nursing Documentation, Vital Signs Vital Signs: Last Vital Signs Temp 97.9 F 01/07/17 11:18 Pulse 53 L 01/07/17 12:13 Resp 20 01/07/17 12:13 BP 158/74 H 01/07/17 12:13 Pulse Ox 97 01/07/17 13:27 - Medical History PMH: Anxiety, Arthritis, Atrial Fibrillation, Cardiac Aneurysm, CHF, Deep Vein Thrombosis, HTN, Hypercholesterolemia, Hyperlipidemia, Pulmonary Embolism Denies: COPD, Hypothyroidism, Pneumonia, Chronic Kidney Disease, Rheumatoid Arthritis - [facility] Procedures DRAINAGE OF BLADDER WITH DRAINAGE DEVICE, VIA OPENING (11/03/16) EXCISION OF TOE NAIL, EXTERNAL APPROACH (11/03/16) FLUOROSCOPY L UP EXTREM VEIN W L OSM CONTRAST, GUIDANCE (11/03/16) INSERTION OF ENDOTRACHEAL AIRWAY INTO TRACHEA, VIA OPENING (11/03/16) INSERTION OF INFUSION DEV INTO SUP VENA CAVA, PERC APPROACH (11/03/16) INSERTION OF INTRALUM DEV INTO INF VENA CAVA, PERC APPROACH (11/29/16) RESPIRATORY VENTILATION, GREATER THAN 96 CONSECUTIVE HOURS (11/03/16) ULTRASONOGRAPHY OF LEFT UPPER EXTREMITY VEINS, GUIDANCE (11/03/16) Family History: States: Unknown Family Hx - Social History Hx Alcohol Use: No Hx Substance Use: No - Immunization History Hx Tetanus Toxoid Vaccination: No Hx Influenza Vaccination: Yes Hx Pneumococcal Vaccination: Yes Review Of Systems Except As Marked, All Systems Reviewed And Found Negative. Constitutional: Positive for: Other (Aortic anueurysm repair). Negative for: Fever, Chills Cardiovascular: Negative for: Chest Pain Respiratory: Negative for: Shortness of Breath Gastrointestinal: Negative for: Abdominal Pain Physical Exam - Physical Exam Appears: Well, Non-toxic, No Acute Distress (sleeping, easily awoken) Skin: Normal Color, Warm, Dry, Other (healing to anterior to the anterior ankle) Head: Atraumatic, Normacephalic Eye(s): bilateral: Normal Inspection Nose: Normal Oral Mucosa: Moist Chest: Symmetrical Cardiovascular: Rhythm Regular, No Murmur Respiratory: Normal Breath Sounds, No Accessory Muscle Use, Other (Speaking in full sentences) Gastrointestinal/Abdominal: Soft, No Tenderness Extremity: No Pedal Edema, Capillary Refill (<2secs), No Deformity, No Swelling Neurological/Psych: Normal Speech, Other (No focal deficit) ED Course And Treatment - Laboratory Results Result Diagrams: 01/07/17 11:55 01/07/17 11:55 O2 Sat by Pulse Oximetry: 97 (RA) Pulse Ox Interpretation: Normal - CT Scan/US CT Abdomen and Pelvis w/o contrast done 12/04 Other Rad Studies (CT/US): Interpreted By Me, Read By Radiologist CT/US Interpretation: Report Date : 12/04/2016 18:23:02. PROCEDURE: CT Abdomen and Pelvis without intravenous contrast. HISTORY: LLQ abdominal/back pain. COMPARISON: 11/30/2016. TECHNIQUE: Oral contrast only. Radiation dose : Total exam DLP = 691.28 mGy-cm. This CT exam was performed using one or more of the following dose reduction techniques: Automated exposure control, adjustment of the mA and/or kV according to patient size, and/or use of iterative reconstruction technique. FINDINGS: LOWER THORAX: Bilateral lower lobe infiltrates unchanged compared to the prior study. LIVER: Unremarkable. No gross lesion or ductal dilatation. GALLBLADDER AND BILE DUCTS: Unremarkable. PANCREAS: Unremarkable. No gross lesion or ductal dilatation. SPLEEN: Unremarkable. ADRENALS: Unremarkable. No mass. KIDNEYS AND URETERS: Unremarkable. No hydronephrosis. No solid mass. Incidental finding(s): Bilateral simple renal cysts better seen on the prior contrast-enhanced examination. VASCULATURE: Stable aneurysmal dilatation. The aneurysm distally measures 7 x 6 cm. Extension into both common iliac arteries. Documentation of the aneurysm including thrombus and luminal caliber better delineated on prior CT angiogram of the abdomen pelvis. BOWEL: Acute colitis. The entire colon is affected. The findings are moderate -severe. These represent acute findings common not seen on the prior CT scan of the abdomen and pelvis. Underlying diverticular disease primarily in the left hemicolon. APPENDIX: Unremarkable. Normal appendix. PERITONEUM: Unremarkable. No free fluid. No free air. LYMPH NODES: Unremarkable. No enlarged lymph nodes. BLADDER: Unremarkable. REPRODUCTIVE: Stable prostatic enlargement. BONES: Severe degenerative disc disease L4-5 with endplate sclerosis and vacuum disc phenomenon. OTHER FINDINGS: None. IMPRESSION: Diffuse colitis moderate - severe in degree. No associated adverse findings. No free air, loculated air, drainable collection. This represents an acute findings/change compared the prior CT 11/30/2016. Additional benign and/or incidental findings described above. Known of abdominal aortic aneurysm extending into the common iliacs. Underlying diverticular disease. Progress Note: Impression: 71 y/o sent for an aortic aneurysm repair. Plans: EKG, CXR, IV fluids, UA. Case discussed with Dr. Napier and he agreeds upon plan and admission. Disposition - Disposition Disposition: HOSPITALIZED Disposition Time: 12:00 Condition: STABLE - Clinical Impression Clinical Impression: Abdominal aortic aneurysm - Scribe Statement The provider has reviewed the documentation as recorded by the Scribe Ward peralta All medical record entries made by the Scribe were at my direction and personally dictated by me. I have reviewed the chart and agree that the record accurately reflects my personal performance of the history, physical exam, medical decision making, and the department course for this patient. I have also personally directed, reviewed, and agree with the discharge instructions and disposition.
[2017-01-07 12:57] LABS: INR 1.1
[2017-01-07] MEDS ORDERED: Magnesium Hydroxide Susp 30 ml UD PO PRN (13:46)
--- NOTE | 2017-01-07 14:33 | RAD ---
PROCEDURE: CHEST RADIOGRAPH, 1 VIEW HISTORY: Pre Op COMPARISON: 11/29/2016 FINDINGS: LUNGS: The interval improvement previously noted mild central venous congestion. Mild bibasilar atelectasis right greater than left PLEURA: No pneumothorax or pleural fluid seen. CARDIOVASCULAR: Cardiomegaly. Aorta is ectatic and uncoiled. Prominent right hilum OSSEOUS STRUCTURES: No significant abnormalities. VISUALIZED UPPER ABDOMEN: Normal. OTHER FINDINGS: Mild degenerative changes both shoulder girdles IMPRESSION: The interval improvement previously noted mild central venous congestion. Mild bibasilar atelectasis right greater than left. Cardiomegaly. Prominent right hilum
--- NOTE | 2017-01-07 14:53 | CP.PCM.PN ---
Subjective - Date & Time of Evaluation Date of Evaluation: 01/07/17 Time of Evaluation: 14:52 - Subjective Subjective: plan stent repair of aaa Saturday allowing for perioperative correction of anticoagulation Objective - Vital Signs/Intake and Output Vital Signs (last 24 hours): Temp Pulse Resp BP Pulse Ox 97.9 F 53 L 20 158/74 H 97 01/07/17 11:18 01/07/17 12:13 01/07/17 12:13 01/07/17 12:13 01/07/17 14:14 - Medications Medications: Current Medications Albuterol/Ipratropium (Duoneb 3 Mg/0.5 Mg (3 Ml) Ud) 3 ml IH PRN PRN PRN Reason: Shortness of Breath Cyanocobalamin (Vitamin B12 1000 Mcg Tab) 1,000 mcg PO DAILY MIKE Enoxaparin Sodium (Lovenox) 80 mg SC HS MIKE Gabapentin (Neurontin) 300 mg PO HS MIKE Hydralazine HCl (Apresoline) 25 mg PO DAILY [facility] Sodium Chloride (Sodium Chloride 0.9%) 1,000 mls @ 100 mls/hr IV .Q10H ONE Stop: 01/07/17 21:36 Last Admin: 01/07/17 12:09 Dose: 100 mls/hr Lisinopril (Zestril) 2.5 mg PO DAILY MIKE Magnesium Hydroxide (Milk Of Magnesia) 30 ml PO DAILY PRN PRN Reason: Constipation Metoprolol Tartrate (Lopressor) 25 mg PO DAILY MIKE Spironolactone (Aldactone) 12.5 mg PO DAILY MIKE - Labs Labs: 01/07/17 11:55 01/07/17 11:55 PT 12.8 SECONDS (9.7-12.2) H 01/07/17 12:43 INR 1.1 01/07/17 12:43 APTT 31 SECONDS (21-34) 01/07/17 12:43
[2017-01-07] MEDS ORDERED: Albuterol-Ipratrop 3 mg / 0.5 (3 ml) UD IH PRN (15:42)
[2017-01-07] MEDS: Sodium Chloride 0.9% 1,000 ML IV SCH (16:56)
[2017-01-07] MEDS ORDERED: Enoxaparin 80 mg Syringe SC SCH (22:00)
[2017-01-08] MEDS: Sodium Chloride 0.9% 1,000 ML IV SCH ×2 (00:18→05:00)
[2017-01-08 08:15] LABS: RBC URINE 1 /hpf (0-3); URINE BILIRUBIN NEGATIVE (NEGATIVE); URINE BLOOD NEGATIVE (NEGATIVE); URINE COLOR Straw (YELLOW); URINE GLUCOSE (UA) NORMAL (Normal); URINE KETONE NEGATIVE (NEGATIVE); URINE LEUKOCYTE ESTERASE NEG Leu/uL (Negative); URINE PROTEIN NEGATIVE (NEGATIVE); URINE UROBILINOGEN NORMAL mg/dL (0.2-1.0); WBC URINE 1 /hpf (0-5)
--- NOTE | 2017-01-08 10:20 | CP.PCM.PN ---
Subjective - Date & Time of Evaluation Date of Evaluation: 01/08/17 Time of Evaluation: 10:19 - Subjective Subjective: Surgery: Dr. Heard Patient donig well. Eating regular diet this am. He reports feeling fine. Per nursing no acute events overnight. Objective - Vital Signs/Intake and Output Vital Signs (last 24 hours): Temp Pulse Resp BP Pulse Ox 98.1 F 84 20 161/87 H 98 01/08/17 08:18 01/08/17 08:18 01/08/17 08:18 01/08/17 08:18 01/08/17 00:00 Intake and Output: 01/08/17 01/08/17 06:59 18:59 Intake Total 1080 880 Balance 1080 880 - Medications Medications: Current Medications Albuterol/Ipratropium (Duoneb 3 Mg/0.5 Mg (3 Ml) Ud) 3 ml IH RQ6 PRN PRN Reason: Shortness of Breath Cyanocobalamin (Vitamin B12 1000 Mcg Tab) 1,000 mcg PO DAILY [facility] Enoxaparin Sodium (Lovenox) 80 mg SC HS [facility] Last Admin: 01/07/17 21:37 Dose: 80 mg Gabapentin (Neurontin) 300 mg PO HS [facility] Last Admin: 01/07/17 21:46 Dose: 300 mg Hydralazine HCl (Apresoline) 25 mg PO QID [facility] Last Admin: 01/07/17 23:00 Dose: 25 mg Sodium Chloride (Sodium Chloride 0.9%) 1,000 mls @ 80 mls/hr IV .[id number] [facility] Last Admin: 01/08/17 05:00 Dose: Not Given Lisinopril (Zestril) 2.5 mg PO DAILY [facility] Magnesium Hydroxide (Milk Of Magnesia) 30 ml PO DAILY PRN PRN Reason: Constipation Metoprolol Tartrate (Lopressor) 25 mg PO DAILY@1600 [facility] Last Admin: 01/07/17 16:53 Dose: 25 mg Spironolactone (Aldactone) 12.5 mg PO DAILY@1600 [facility] Last Admin: 01/07/17 16:50 Dose: 12.5 mg - Labs Labs: 01/07/17 11:55 01/07/17 11:55 PT 12.8 SECONDS (9.7-12.2) H 01/07/17 12:43 INR 1.1 01/07/17 12:43 APTT 31 SECONDS (21-34) 01/07/17 12:43 - Constitutional Appears: Non-toxic, No Acute Distress, Chronically Ill - Head Exam Head Exam: ATRAUMATIC, NORMOCEPHALIC - Eye Exam Eye Exam: EOMI, Normal appearance - ENT Exam ENT Exam: Mucous Membranes Moist - Respiratory Exam Respiratory Exam: NORMAL BREATHING PATTERN. absent: Respiratory Distress - Cardiovascular Exam Cardiovascular Exam: REGULAR RHYTHM. absent: Tachycardia - GI/Abdominal Exam GI & Abdominal Exam: Soft. absent: Distended, Tenderness Assessment and Plan - Assessment and Plan (Free Text) Assessment: 71 y/o male for AAA stent repair Saturday Plan: -NPO past MN -hold anticoagulation -am labs -d/w Dr. Orquidea Shelton PGY1
--- NOTE | 2017-01-08 10:28 | CP.PCM.HP ---
History of Present Illness - History of Present Illness History of Present Illness: A 71 y/o male presents who was sent from [facility] for an aortic aneurysm repair. Pt currently denies abdominal pain, chest pain, Shortness of breath, fever, chills, or any other complaints. Present on Admission - Present on Admission Any Indicators Present on Admission: Yes History of DVT/PE: Yes History of Uncontrolled Diabetes: Yes Review of Systems - Review of Systems Systems not reviewed;Unavailable: Acuity of Condition - Constitutional Constitutional: Fatigue, Lethargy - EENT Eyes: absent: As Per HPI, Blind Spots, Blurred Vision, Change in Vision, Decreased Night Vision, Diplopia, Discharge, Dry Eye, Exophthalmos, Floaters, Irritation, Itchy Eyes, Loss of Peripheral Vision, Pain, Photophobia, Requires Corrective Lenses, Sees Flashes, Spots in Vision, Tunnel Vision, Other Visual Disturbances, Loss of Vision, Other Nose/Mouth/Throat: absent: As Per HPI, Epistaxis, Nasal Congestion, Nasal Discharge, Nasal Obstruction, Nasal Trauma, Nose Pain, Post Nasal Drip, Sinus Pain, Sinus Pressure, Bleeding Gums, Change in Voice, Dental Pain, Dry Mouth, Dysphagia, Halitosis, Hoarsness, Lip Swelling, Mouth Lesions, Mouth Pain, Odynophagia, Sore Throat, Throat Swelling, Tongue Swelling, Facial Pain, Neck Pain, Neck Mass, Other - Cardiovascular Cardiovascular: Dyspnea on Exertion. absent: As Per HPI, Acrocyanosis, Chest Pain, Chest Pain at Rest, Chest Pain with Activity, Claudication, Diaphoresis, Dyspnea, Edema, Irregular Heart Rhythm, Pain Radiating to Arm/Neck/Jaw, Leg Edema, Leg Ulcers, Lightheadedness, Orthopnea, Palpitations, Paroxysmal Nocturnal Dyspnea, Pedal Edema, Radiating Pain, Rapid Heart Rate, Slow Heart Rate, Syncope, Other - Respiratory Respiratory: absent: As Per HPI, Cough, Dyspnea, Hemoptysis, Dyspnea on Exertion , Wheezing, Snoring, Stridor, Pain on Inspiration, Chest Congestion, Excessive Mucous Production, Change in Mucous Color, Pain with Coughing, Other - Gastrointestinal Gastrointestinal: absent: As Per HPI, Abdominal Pain, Belching, Bloating, Change in Bowel Habits, Change in Stool Character, Coffee Ground Emesis, Constipation, Cramping, Diarrhea, Dyspepsia, Dysphagia, Early Satiety, Excessive Flatus, Fecal Incontinence, Heartburn, Hematemesis, Hematochezia, Loose Stools, Melena, Nausea, Odynophagia, Temesmus, Vomiting, Other Past Patient History - Past Medical History & Family History Past Medical History?: Yes - Past Social History Smoking Status: Former Smoker - CARDIAC Hx Atrial Fibrillation: Yes Hx Congestive Heart Failure: Yes Hx Hypercholesterolemia: Yes Hx Hypertension: Yes - PULMONARY Hx Chronic Obstructive Pulmonary Disease (COPD): No Hx Pneumonia: No Hx Pulmonary Embolism: Yes - NEUROLOGICAL Hx Neurological Disorder: No - HEENT Hx HEENT Problems: No - RENAL Hx Chronic Kidney Disease: No - ENDOCRINE/METABOLIC Hx Hypothyroidism: No - HEMATOLOGICAL/ONCOLOGICAL Hx Blood Disorders: No - INTEGUMENTARY Hx Dermatological Problems: No - MUSCULOSKELETAL/RHEUMATOLOGICAL Hx Arthritis: Yes Hx Falls: No Hx Rheumatoid Arthritis: No - GASTROINTESTINAL Hx Gastrointestinal Disorders: No - GENITOURINARY/GYNECOLOGICAL Hx Incontinence: Yes - PSYCHIATRIC Hx Anxiety: Yes Hx Substance Use: No - SURGICAL HISTORY Hx Surgeries: No - ANESTHESIA Hx Anesthesia: Yes (Dental Procedure) Hx Anesthesia Reactions: No Meds Home Medications: Home Medication List Medication Instructions Recorded Confirmed Type Clotrimazole 1% Cream [Lotrimin 1%] 1 % TOP BID #2 01/11/17 Rx Cyanocobalamin [Vitamin B12 1000 1,000 mcg PO DAILY #30 tab 01/11/17 Rx mcg Tab] Famotidine [Pepcid] 20 mg PO DAILY #30 tab 01/11/17 Rx Gabapentin [Neurontin] 300 mg PO HS #30 cap 01/11/17 Rx Spironolactone [Aldactone] 12.5 mg PO DAILY@1600 #30 tab 01/11/17 Rx Warfarin [Coumadin] 4 mg PO 1800 #7 tab 01/11/17 Rx amLODIPine [Norvasc] 10 mg PO DAILY #30 tab 01/11/17 Rx hydrALAZINE [Apresoline] 25 mg PO QID #120 tab 01/11/17 Rx Allergies/Adverse Reactions: Allergies Allergy/AdvReac Type Severity Reaction Status Date / Time No Known Allergies Allergy Verified 01/07/17 11:18 Physical Exam - Constitutional Appears: No Acute Distress - Head Exam Head Exam: ATRAUMATIC, NORMAL INSPECTION, NORMOCEPHALIC - Eye Exam Eye Exam: EOMI, Normal appearance, PERRL Pupil Exam: NORMAL ACCOMODATION, PERRL - Respiratory Exam Respiratory Exam: Clear to Auscultation Bilateral, NORMAL BREATHING PATTERN - Cardiovascular Exam Cardiovascular Exam: REGULAR RHYTHM - GI/Abdominal Exam GI & Abdominal Exam: Normal Bowel Sounds, Soft. absent: Tenderness Results - Vital Signs Recent Vital Signs: Last Vital Signs Temp 98.1 F 01/08/17 08:18 Pulse 84 01/08/17 08:18 Resp 20 01/08/17 08:18 BP 161/87 H 01/08/17 08:18 Pulse Ox 98 01/08/17 00:00 - Labs Result Diagrams: 01/11/17 06:04 01/11/17 06:04 Labs: Laboratory Results - last 24 hr 01/07/17 01/07/17 01/07/17 11:55 11:55 11:55 WBC 8.3 RBC 4.28 L Hgb 10.7 L D Hct 33.3 L MCV 77.8 L MCH 24.9 L MCHC 32.0 L RDW 18.0 H Plt Count 280 MPV 9.0 Neut % (Auto) 54.4 Lymph % (Auto) 38.1 [place] % (Auto) 6.4 Eos % (Auto) 0.7 Baso % (Auto) 0.4 Neut # 4.5 Lymph # 3.2 [place] # 0.5 Eos # 0.1 Baso # 0.0 PT INR APTT Sodium 139 Potassium 4.2 Chloride 100 Carbon Dioxide 29 Anion Gap 14 BUN 16 Creatinine 1.0 Est GFR ( Amer) > 60 Est GFR (Non-Af Amer) > 60 Random Glucose 81 Calcium 9.7 Total Bilirubin 0.6 AST 28 ALT 22 Alkaline Phosphatase 114 Total Protein 8.8 H Albumin 4.0 Globulin 4.7 H Albumin/Globulin Ratio 0.9 L Urine Color Urine Clarity Urine pH Ur Specific [place] Urine Protein Urine Glucose (UA) Urine Ketones Urine Blood Urine Nitrate Urine Bilirubin Urine Urobilinogen Ur Leukocyte Esterase Urine WBC (Auto) Urine RBC (Auto) Ur Squamous Epith Cells Blood Type O POSITIVE Antibody Screen Negative 01/07/17 01/08/17 01/08/17 12:43 04:00 07:54 WBC RBC Hgb Hct MCV MCH MCHC RDW Plt Count MPV Neut % (Auto) Lymph % (Auto) [place] % (Auto) Eos % (Auto) Baso % (Auto) Neut # Lymph # [place] # Eos # Baso # PT 12.8 H INR 1.1 APTT 31 Sodium Potassium Chloride Carbon Dioxide Anion Gap BUN Creatinine Est GFR ( Amer) Est GFR (Non-Af Amer) Random Glucose Calcium Total Bilirubin AST ALT Alkaline Phosphatase Total Protein Albumin Globulin Albumin/Globulin Ratio Urine Color Straw Urine Clarity Clear Urine pH 7.0 Ur Specific [place] 1.011 Urine Protein Negative Urine Glucose (UA) Normal Urine Ketones Negative Urine Blood Negative Urine Nitrate Negative Urine Bilirubin Negative Urine Urobilinogen Normal Ur Leukocyte Esterase Neg Urine WBC (Auto) 1 Urine RBC (Auto) 1 Ur Squamous Epith Cells < 1 Blood Type O POSITIVE Antibody Screen Negative Assessment & Plan (1) Abdominal aortic aneurysm Assessment and Plan: for OR Status: Acute (2) CHF (congestive heart failure) Status: Chronic (3) Cholelithiasis Status: Acute
--- NOTE | 2017-01-08 18:39 | CARD ---
APPROVED REPORT EKG Measurement Heart [id number] <Conclusion> Sinus bradycardia with premature supraventricular complexes and with occasional premature ventricular complexes Right bundle branch block Left anterior fascicular block Bifascicular block Septal infarct, age undetermined Abnormal ECG
[2017-01-09] MEDS ORDERED: ceFAZolin IV 1 gm in Dextrose 1 GM/50 ML BAG IVPB ONE (07:31)
[2017-01-09] MEDS ORDERED: Papaverine Hydrochloride 30 mg/ml (2ml) ONE (07:31)
[2017-01-09] MEDS ORDERED: Iodixanol 320 MG/ML 200 ML BOTTLE IV ONE (07:32)
--- NOTE | 2017-01-09 07:53 | CON ---
DATE: 01/08/2017 REASON FOR CONSULTATION: Cardiomyopathy and bifascicular block, as well as abdominal aortic aneurysm . HISTORY OF PRESENT ILLNESS: The patient is a 71-year-old male who has multiple medi isabel problems, including a 6 cm abdominal aortic aneurysm, history of recent iliofemoral artery DVT, a nd pulmonary embolus, ischemic cardiomyopathy, recent gastrointestinal bleeding, recent cerebellar in farnj. The patient was admitted this time for endovascular intervention of the abdominal aortic aneu rysm. In the past, case was discussed with Dr. Heard and the patient was considered a very poor s urgical candidate for any surgical intervention for his aneurysm except for endovascular procedures. The patient at this time denies any chest pain or shortness of breath. MEDICATIONS: The patient's medications include Aldactone 12.5 mg once a day, hydralazine 25 mg t.i.d ., Lopressor 25 mg once a day, Lovenox 80 mg subcutaneous twice a day, and Zestril 2.5 mg once a day. Those medications are listed for the admission in November. So far, patient was not started on medica tions yet. REVIEW OF SYSTEMS: The patient denies any fever or chills. No recurrence of hematemesis or melena, and no substernal chest pain. PHYSICAL EXAMINATION: GENERAL: The patient is an elderly male who is disoriented to place, does not appear to be in acute distress. VITAL SIGNS: Blood pressure is 161/87, heart rate 84, temperature 98.1, respirations 20. HEENT: Pale conjunctivae. CHEST: Bilateral rhonchi. HEART: S1, S2, regular. ABDOMEN: Benign. EXTREMITIES: 1+ pitting edema. LABORATORY DATA: Yesterday's hemoglobin and hematocrit 10.7 and 33.3, white count and platelet count are within normal limits. Yesterday's SMA-7 is within normal limits. INR is 1.1 and PTT 31. EKG d one yesterday revealed sinus bradycardia with APCs, bifascicular block, i.e., right bundle branch blo ck, with left anterior fascicular block. Septal infarct of indeterminate age. Echocardiograph study performed in October of this year in [facility] revealed moderately dilated left ventricle with mild to moderate concentric LVH and moderately impaired left ventricular systolic function with segme ntal wall motion abnormality. Mild aortic stenosis and mild mitral insufficiency. ASSESSMENT: 1. A 6 cm abdominal aortic aneurysm. 2. History of recent left iliofemoral deep vein thrombosis and pulmonary embolus. 3. Ischemic cardiomyopathy. 4. Abnormal EKG with evidence of bifascicular block, i.e., right bundle branch block with left anter ior fascicular block. 5. History of nonsustained ventricular tachycardia. RECOMMENDATIONS: I discussed the case with the [facility] [employer]. All the most recent labs and x-rays were review ed and the x-ray revealed significant cardiomegaly with mild to moderate CHF. The patient will be tr ansferred to telemetry and will be restarted Aldactone at 12.5 mg once a day, hydralazine 25 mg , Lopressor 25 mg daily, and Zestril 2.5 mg once a day. The patient can undergo endovascular interve ntion from the cardiac point of view, but he is a poor candidate for any otherwise surgical intervent ion. Hal Tovar MD cc: [id number] TT: 01/08/2017 16:00:14 Confirmation # [id number] Dictation # [id number] dn
[2017-01-09] MEDS ORDERED: HEPARIN-NS 5,000 UNITS/500 ML 0 UNIT/0 ML BAG IV ONE (08:55)
[2017-01-09] MEDS ORDERED: Lactated Ringer's 1,000 ML IV ONE ×2 (08:55→09:00)
[2017-01-09] MEDS ORDERED: Midazolam 2 MG/2 ML VIAL ONE ×2 (08:57→10:21)
[2017-01-09] MEDS ORDERED: HEPARIN-NS 5,000 UNITS/500 ML 5,000 UNIT/500 ML BAG IV ONE ×3 (08:58→10:45)
[2017-01-09] MEDS ORDERED: Etomidate 20 mg/10ml Inj IV ONE ×2 (09:02→11:00)
[2017-01-09] MEDS ORDERED: Dexmedetomidine Hydrochloride 100 mcg/ml (2ML) ONE (09:02)
--- NOTE | 2017-01-09 09:38 | CP.PCM.PN ---
Subjective - Date & Time of Evaluation Date of Evaluation: 01/08/17 Time of Evaluation: 20:00 - Subjective Subjective: Pt seen & evaluated, is stable is for OR tommrow Objective - Vital Signs/Intake and Output Vital Signs (last 24 hours): Temp Pulse Resp BP Pulse Ox 98.0 F 108 H 20 143/84 96 01/09/17 08:59 01/09/17 08:59 01/09/17 08:59 01/09/17 08:59 01/09/17 08:59 Intake and Output: 01/09/17 01/09/17 06:59 18:59 Intake Total 200 Balance 200 - Medications Medications: Current Medications Albuterol/Ipratropium (Duoneb 3 Mg/0.5 Mg (3 Ml) Ud) 3 ml IH RQ6 PRN PRN Reason: Shortness of Breath Cyanocobalamin (Vitamin B12 1000 Mcg Tab) 1,000 mcg PO DAILY [facility] Last Admin: 01/08/17 11:00 Dose: 1,000 mcg Enoxaparin Sodium (Lovenox) 80 mg SC [facility] Last Admin: 01/07/17 21:37 Dose: 80 mg Gabapentin (Neurontin) 300 mg PO [facility] Last Admin: 01/08/17 21:54 Dose: 300 mg Hydralazine HCl (Apresoline) 25 mg PO QID [facility] Last Admin: 01/08/17 21:54 Dose: 25 mg Lisinopril (Zestril) 2.5 mg PO DAILY [facility] Last Admin: 01/08/17 11:00 Dose: 2.5 mg Magnesium Hydroxide (Milk Of Magnesia) 30 ml PO DAILY PRN PRN Reason: Constipation Metoprolol Tartrate (Lopressor) 25 mg PO DAILY@1600 [facility] Last Admin: 01/08/17 16:00 Dose: 25 mg Spironolactone (Aldactone) 12.5 mg PO DAILY@1600 [facility] Last Admin: 01/08/17 14:00 Dose: 12.5 mg - Labs Labs: 01/07/17 11:55 01/07/17 11:55 PT 12.8 SECONDS (9.7-12.2) H 01/07/17 12:43 INR 1.1 01/07/17 12:43 APTT 31 SECONDS (21-34) 01/07/17 12:43 - Constitutional Appears: Well - Head Exam Head Exam: ATRAUMATIC, NORMAL INSPECTION, NORMOCEPHALIC - Eye Exam Eye Exam: EOMI, Normal appearance, PERRL Pupil Exam: NORMAL ACCOMODATION, PERRL - ENT Exam ENT Exam: Mucous Membranes Moist, Normal Exam - Respiratory Exam Respiratory Exam: Clear to Ausculation Bilateral, NORMAL BREATHING PATTERN - Cardiovascular Exam Cardiovascular Exam: REGULAR RHYTHM, +S1, +S2. absent: Murmur - GI/Abdominal Exam GI & Abdominal Exam: Soft, Normal Bowel Sounds. absent: Tenderness Assessment and Plan (1) Abdominal aortic aneurysm Status: Acute (2) CHF (congestive heart failure) Status: Chronic (3) Cholelithiasis Status: Acute
[2017-01-09] MEDS ORDERED: Lidocaine 1% Inj (20ml) ONE (09:41)
[2017-01-09] MEDS ORDERED: HEPARIN-NS 5,000 UNITS/500 ML 10,000 UNIT/1,000 ML BAG IV ONE (11:57)
[2017-01-09] MEDS ORDERED: Morphine 4 MG/ML VIAL IV PRN (12:51)
[2017-01-09] MEDS ORDERED: Oxycodone/Acetaminophen 5/325 mg Tab PO PRN (13:02)
--- NOTE | 2017-01-09 13:07 | PCM.SURG1 ---
Surgeon's Initial Post Op Note - Surgeon's Notes Surgeon: kinza Causey [employer] Inspector: Dr james Type of Anesthesia: IV Sedation Anesthesia Administered By: myranda Pre-Operative Diagnosis: AAA and iliac aneurysms Operative Findings: successful deployment of Ovation graft with multiple extensions. No endoleak , right internal iliac excluded , left patent. perclose both groins Post-Operative Diagnosis: same Operation Performed: PEVAR. percutaneous endovascular aneurysm repair with Ovation stent graft Specimen/Specimens Removed: 0 Estimated Blood Loss: EBL {In ML}: 200 Blood Products Given: N/A Drains Used: No Drains Post-Op Condition: Good Date of Surgery/Procedure: 01/09/17 Time of Surgery/Procedure: 13:07
[2017-01-09] MEDS: Sodium Chloride 0.9% 1,000 ML IV SCH (15:00)
--- NOTE | 2017-01-09 15:05 | RAD ---
PROCEDURE: Intraoperative fluoroscopy HISTORY: AAA COMPARISON: Not available TECHNIQUE: Intraoperative fluoroscopy was provided for placement of aortic stent. Total time of fluoroscopy was 2825.7 seconds. FINDINGS: Multiple fluoroscopic spot films were obtained. Films are on file for review. IMPRESSION: Fluoroscopy provided.
[2017-01-09 16:06] LABS: HEMATOCRIT 26.5 % (35.0-51.0); MEAN CELL VOLUME 77.7 fL (80.0-94.0); MEAN CORPUSCULAR HEMOGLOBIN 24.9 pg (27.0-31.0); MEAN PLATELET VOLUME 8.1 fL (7.2-11.7); RED CELL DISTRIBUTION WIDTH 17.9 % (11.5-14.5); WHITE BLOOD COUNT 6.8 K/uL (4.8-10.8)
[2017-01-09 16:20] LABS: CHLORIDE 104 mmol/L (98-107); SODIUM 136 mmol/L (132-148)
[2017-01-09 16:21] LABS: POTASSIUM 4.1 mmol/L (3.6-5.2)
--- NOTE | 2017-01-09 16:21 | PN ---
DATE: 01/09/2017 SUBJECTIVE: The patient underwent endovascular stenting of the abdominal aortic aneurysm under local anesthesia. No reported arrhythmia except for mild sinus bradycardia. The patient is awake. He de nies any chest pain. PHYSICAL EXAMINATION: VITAL SIGNS: Blood pressure 122/83, heart rate 55, respiration 14. HEENT: Pale conjunctivae. CHEST: Clear. HEART: S1, S2 regular. EXTREMITIES: No pedal edema and no reported groin bleeding. ASSESSMENT: 1. Status post endovascular stenting for abdominal aortic aneurysm. 2. Congestive heart failure. 3. Mild sinus bradycardia. 4. History of deep venous thrombosis and pulmonary embolus. 5. Mild anemia. RECOMMENDATIONS: The patient will be transferred to ICU. Resume Aldactone at 12.5 mg once a day, hy dralazine 25 mg q.i.d. Coumadin therapy was cleared by Dr. Carroll. Resume Lopressor 25 mg daily, Zestril at 2.5 mg once a day. Obtain 12-lead EKG. The case was discussed with Dr. Heard. Hal Tovar MD cc: [id number] TT: 01/09/2017 16:21:22 Confirmation # [id number] Dictation # [id number] jose
[2017-01-09 16:23] LABS: BLOOD UREA NITROGEN 13 mg/dL (9-20); CARBON DIOXIDE 24 mmol/L (22-30); GFR AFRICAN-AMERICAN > 60
[2017-01-09 16:24] LABS: CALCIUM 8.5 mg/dl (8.6-10.4); GLUCOSE,RANDOM 83 mg/dL (75-110)
--- NOTE | 2017-01-09 16:27 | CP.PCM.CON ---
<Luis Alfredo Mancilla - Last Filed: 01/09/17 16:22> History of Present Illness - History of Present Illness History of Present Illness: PGY-1 ICU consult note 71 y/o M w/ significant PMHx of AAA, systolic CHF (EF 32%), LLE DVT on coumadin , acute respiratory failure requiring mechanical ventilation, hypertension, and hyperlipidemia that presents to the ICU s/p successful percutaneous endovascular aneurysm repair with Ovation stent graft. No complications reported with the procedure. Pt still drowsy from procedure and unable to offer any further history or ROS. PMHx: CHF (EF 32%), DVT on coumadin, HTN, HLD, dementia, OA Meds: reviewed in chart NKDA PSHx: B/L cataract surgery FHx: Parents - HTN, DM, CAD; Sister - leukemia SHx: Former smoker ~35yrs; denies EtOH or drug use Review of Systems - Review of Systems Systems not reviewed;Unavailable: Altered Mental Status (residual from sedation) Past Patient History - Past Medical History & Family History Past Medical History?: Yes - Past Social History Smoking Status: Former Smoker - CARDIAC Hx Congestive Heart Failure: Yes Hx Hypercholesterolemia: Yes Hx Hypertension: Yes - PULMONARY Hx Chronic Obstructive Pulmonary Disease (COPD): No - NEUROLOGICAL Hx Neurological Disorder: No - HEENT Hx HEENT Problems: No - RENAL Hx Chronic Kidney Disease: No - ENDOCRINE/METABOLIC Hx Hypothyroidism: No - HEMATOLOGICAL/ONCOLOGICAL Hx Blood Disorders: No - INTEGUMENTARY Hx Dermatological Problems: No - MUSCULOSKELETAL/RHEUMATOLOGICAL Hx Arthritis: Yes Hx Rheumatoid Arthritis: No - GASTROINTESTINAL Hx Gastrointestinal Disorders: No - GENITOURINARY/GYNECOLOGICAL Hx Incontinence: Yes - PSYCHIATRIC Hx Anxiety: Yes Hx Substance Use: No - SURGICAL HISTORY Hx Surgeries: No - ANESTHESIA Hx Anesthesia: Yes (Dental Procedure) Hx Anesthesia Reactions: No Meds Allergies/Adverse Reactions: Allergies Allergy/AdvReac Type Severity Reaction Status Date / Time No Known Allergies Allergy Verified 01/07/17 11:18 - Medications Medications: Current Medications Albuterol/Ipratropium (Duoneb 3 Mg/0.5 Mg (3 Ml) Ud) 3 ml IH RQ6 PRN PRN Reason: Shortness of Breath Cyanocobalamin (Vitamin B12 1000 Mcg Tab) 1,000 mcg PO DAILY [facility] Last Admin: 01/08/17 11:00 Dose: 1,000 mcg Docusate Sodium (Colace) 100 mg PO BID [facility] Enoxaparin Sodium (Lovenox) 80 mg SC [facility] Last Admin: 01/07/17 21:37 Dose: 80 mg Gabapentin (Neurontin) 300 mg PO [facility] Last Admin: 01/08/17 21:54 Dose: 300 mg Hydralazine HCl (Apresoline) 25 mg PO QID [facility] Last Admin: 01/08/17 21:54 Dose: 25 mg Sodium Chloride (Sodium Chloride 0.9%) 1,000 mls @ 100 mls/hr IV .Q10H [facility] Cefazolin Sodium (Ancef) 1 gm in 50 mls @ 100 mls/hr IVPB Q8H [facility] Stop: 01/10/17 09:29 Lisinopril (Zestril) 2.5 mg PO DAILY [facility] Last Admin: 01/08/17 11:00 Dose: 2.5 mg Magnesium Hydroxide (Milk Of Magnesia) 30 ml PO DAILY PRN PRN Reason: Constipation Metoprolol Tartrate (Lopressor) 25 mg PO DAILY@1600 [facility] Last Admin: 01/08/17 16:00 Dose: 25 mg Morphine Sulfate (Morphine) 4 mg IV Q4 PRN PRN Reason: Pain, severe (8-10) Oxycodone/Acetaminophen (Percocet 5/325 Mg Tab) 1 tab PO Q4H PRN PRN Reason: Pain, moderate (4-7) Stop: 01/12/17 13:03 Spironolactone (Aldactone) 12.5 mg PO DAILY@1600 [facility] Last Admin: 01/08/17 14:00 Dose: 12.5 mg Warfarin Sodium (Coumadin) 4 mg PO 1800 [facility] Stop: 01/09/17 18:01 Physical Exam - Constitutional Appears: Non-toxic, No Acute Distress, Other (drowsy from sedation/procedure) - Head Exam Head Exam: ATRAUMATIC, NORMOCEPHALIC - Eye Exam Eye Exam: Normal appearance Pupil Exam: PERRL - ENT Exam ENT Exam: Mucous Membranes Moist - Respiratory Exam Respiratory Exam: Clear to Auscultation Bilateral, NORMAL BREATHING PATTERN - Cardiovascular Exam Cardiovascular Exam: +S1, +S2 - GI/Abdominal Exam GI & Abdominal Exam: Normal Bowel Sounds, Soft. absent: Distended - Extremities Exam Extremities exam: Positive for: normal capillary refill - Neurological Exam Neurological exam: Alert, Oriented x3 - Skin Skin Exam: Dry, Warm Results - Vital Signs Recent Vital Signs: Last Vital Signs Temp 97.6 F 01/09/17 15:00 Pulse 56 L 01/09/17 15:00 Resp 16 01/09/17 15:00 BP 169/84 H 01/09/17 15:00 Pulse Ox 98 01/09/17 15:00 - Labs Result Diagrams: 01/09/17 16:02 01/07/17 11:55 Labs: Laboratory Results - last 24 hr 01/09/17 16:02 WBC 6.8 RBC 3.41 L Hgb 8.5 L D Hct 26.5 L MCV 77.7 L MCH 24.9 L MCHC 32.0 L RDW 17.9 H Plt Count 205 MPV 8.1 Assessment & Plan - Assessment and Plan (Free Text) Assessment: 71 yo M with multiple medical problems s/p percutaneous endovascular aneurysm repair with Ovation stent graft POD#0. Plan: Neuro: Arousable and able to follow directions Drowsy from procedure Cont to monitor Cardiovascular: Hemodynamically stable A-line Cont current HTN medications Cont to monitor Pulmonary: No resp distress Saturating well Maintain SpO2 > 90% Gastrointestinal: Liquid diet No acute issues Hematology: Continue coumadin starting tonight Assess for bleeding or hematoma formation Endocrine: No acute issues Renal: IVF monitor labs/intake and output No acute issues Genitourinary: Watkins for strict I/O Infectious Disease: Ancef per surgery GI Prophylaxis: Pepcid DVT Prophylaxis: On hold, restart per surgery <Stephen Yung S - Last Filed: 01/09/17 17:25> Meds - Medications Medications: Current Medications Albuterol/Ipratropium (Duoneb 3 Mg/0.5 Mg (3 Ml) Ud) 3 ml IH RQ6 PRN PRN Reason: Shortness of Breath Cyanocobalamin (Vitamin B12 1000 Mcg Tab) 1,000 mcg PO DAILY [facility] Last Admin: 01/08/17 11:00 Dose: 1,000 mcg Docusate Sodium (Colace) 100 mg PO BID [facility] Enoxaparin Sodium (Lovenox) 80 mg SC HS [facility] Last Admin: 01/07/17 21:37 Dose: 80 mg Famotidine (Pepcid) 20 mg PO BID [facility] Gabapentin (Neurontin) 300 mg PO HS [facility] Last Admin: 01/08/17 21:54 Dose: 300 mg Hydralazine HCl (Apresoline) 25 mg PO QID [facility] Last Admin: 01/08/17 21:54 Dose: 25 mg Sodium Chloride (Sodium Chloride 0.9%) 1,000 mls @ 100 mls/hr IV .Q10H [facility] Last Admin: 01/09/17 15:00 Dose: 100 mls/hr Cefazolin Sodium (Ancef) 1 gm in 50 mls @ 100 mls/hr IVPB Q8H [facility] Stop: 01/10/17 09:29 Last Admin: 01/09/17 17:18 Dose: 100 mls/hr Lisinopril (Zestril) 2.5 mg PO DAILY [facility] Last Admin: 01/08/17 11:00 Dose: 2.5 mg Magnesium Hydroxide (Milk Of Magnesia) 30 ml PO DAILY PRN PRN Reason: Constipation Metoprolol Tartrate (Lopressor) 25 mg PO DAILY@1600 [facility] Last Admin: 01/08/17 16:00 Dose: 25 mg Morphine Sulfate (Morphine) 4 mg IV Q4 PRN PRN Reason: Pain, severe (8-10) Oxycodone/Acetaminophen (Percocet 5/325 Mg Tab) 1 tab PO Q4H PRN PRN Reason: Pain, moderate (4-7) Stop: 01/12/17 13:03 Spironolactone (Aldactone) 12.5 mg PO DAILY@1600 [facility] Last Admin: 01/08/17 14:00 Dose: 12.5 mg Warfarin Sodium (Coumadin) 4 mg PO 1800 [facility] Stop: 01/09/17 18:01 Results - Vital Signs Recent Vital Signs: Last Vital Signs Temp 97.6 F 01/09/17 15:00 Pulse 56 L 01/09/17 15:00 Resp 16 01/09/17 15:00 BP 169/84 H 01/09/17 15:00 Pulse Ox 98 01/09/17 15:00 - Labs Result Diagrams: 01/09/17 16:02 01/09/17 16:02 Labs: Laboratory Results - last 24 hr 01/09/17 01/09/17 16:02 16:02 WBC 6.8 RBC 3.41 L Hgb 8.5 L D Hct 26.5 L MCV 77.7 L MCH 24.9 L MCHC 32.0 L RDW 17.9 H Plt Count 205 MPV 8.1 Sodium 136 Potassium 4.1 Chloride 104 Carbon Dioxide 24 Anion Gap 12 BUN 13 Creatinine 0.7 L Est GFR ( Amer) > 60 Est GFR (Non-Af Amer) > 60 Random Glucose 83 Calcium 8.5 L Attending/Attestation - Attestation I have personally seen and examined this patient.: Yes I have fully participated in the care of the patient.: Yes I have reviewed all pertinent clinical information: Yes Notes (Text): 01/09/17 17:23 patient seen and examined in the intensive care unit. Case discussed with staff in the morning rounds. s/p successful percutaneous endovascular AAA aneurysm repair with Ovation stent graft overnight ICU monitoring Continue present treatment
[2017-01-09] MEDS: ceFAZolin 1 gm FROZEN Premix 1 GM/50 ML ML IVPB SCH (17:18)
--- NOTE | 2017-01-09 18:13 | OP ---
PROCEDURE DATE: 01/09/2017 PREOPERATIVE DIAGNOSIS: Abdominal aortic aneurysm, bilateral iliac artery aneurysm. PROCEDURE CARRIED OUT: Percutaneous endovascular aneurysm repair, PEVAR, using Ovation stent graft. SURGEON: Jon Heard MD COSURGEON: Dr. Laurent Causey, interventional radiology. BOTANY TECHNICIAN: Dr. Silva, resident. INDICATIONS: The patient is a 71-year-old man who has a history of multiple medical problems who pre sents with a large over 6 cm aneurysm. OPERATIVE FINDINGS: One initial plan had been to embolize the right internal iliac artery. Despite multiple attempts with a variety of catheters and a variety of devices, this was unable to be accompl ished. We then deployed a 28 x 45 mm stent to cover the orifice of the internal iliac artery on the right side. Subsequent to this, we then deployed an Ovation stent graft and just below the level of the renal arteries down to the external iliac artery on the right side and to the common iliac artery on the left side. There was no sign of an endoleak either at the type 1, type 2 or type 3 at the en d of the procedure. DESCRIPTION OF PROCEDURE: The patient was given local anesthesia, intravenous antibiotics. Using ul trasound guidance, both groins were punctured. Under fluoroscopic control, the guidewire was advance d centrally. Perclose devices were deployed in both groins after we had attempted to embolize the [facility] internal iliac artery, which was unable to be carried out. We then deployed a covered stent in t his region and then we deployed the Ovation stent graft, which was a 34 mm device in its proximal nec k in the standard fashion the renal arteries. We had previously placed catheters and wires up both vessels. After this had been done, we deployed this in the appropriate location. We used polym er to fill the graft and then we simply used a variety of devices, 2 devices, after we cannulated the left limb and brought this over in a cross-like fashion on the right side. We deployed 2 long devic es to bring it all the way down to the external iliac, 2 pieces and then 1 piece on the left side, wh ich brought us down to the proper location. There was excellent seal. Completion angiograms confirm ed the presence of an excellent seal. The actual data of the exact measurements and size of the comp onents is listed on a separate sheath. Perclose devices that had previously been deployed were then tied in both groins and the procedure was terminated. Blood loss of procedure was perhaps 200 mL. T he patient tolerated the procedure well. The operation carried out is PEVAR, percutaneous endovascul ar aneurysm repair using Ovation stent graft. In addition, a separate stent graft was placed to incl ude the origin of the internal iliac on the right side. Heparin was given during the procedure and w as not reversed at the end. Jon Heard Jr., MD cc: [phone] TT: 01/09/2017 18:11:49 jose
--- NOTE | 2017-01-09 22:22 | CP.PCM.PN ---
Subjective - Date & Time of Evaluation Date of Evaluation: 01/09/17 Time of Evaluation: 20:00 - Subjective Subjective: Pt seen and examined in ICU, s/p OR AAA repair, B.P is stable Objective - Vital Signs/Intake and Output Vital Signs (last 24 hours): Temp Pulse Resp BP Pulse Ox 96.5 F L 56 L 18 134/50 L 100 01/09/17 18:00 01/09/17 19:00 01/09/17 19:00 01/09/17 19:00 01/09/17 19:00 Intake and Output: 01/09/17 01/10/17 18:59 06:59 Intake Total 460 100 Output Total 378 100 Balance 82 0 - Medications Medications: Current Medications Albuterol/Ipratropium (Duoneb 3 Mg/0.5 Mg (3 Ml) Ud) 3 ml IH RQ6 PRN PRN Reason: Shortness of Breath Cyanocobalamin (Vitamin B12 1000 Mcg Tab) 1,000 mcg PO DAILY [facility] Last Admin: 01/08/17 11:00 Dose: 1,000 mcg Docusate Sodium (Colace) 100 mg PO BID [facility] Last Admin: 01/09/17 17:26 Dose: 100 mg Enoxaparin Sodium (Lovenox) 80 mg SC DAILY [facility] Famotidine (Pepcid) 20 mg PO BID [facility] Last Admin: 01/09/17 18:30 Dose: 20 mg Gabapentin (Neurontin) 300 mg PO HS [facility] Last Admin: 01/09/17 22:15 Dose: 300 mg Hydralazine HCl (Apresoline) 25 mg PO QID [facility] Last Admin: 01/09/17 22:15 Dose: 25 mg Sodium Chloride (Sodium Chloride 0.9%) 1,000 mls @ 100 mls/hr IV .Q10H [facility] Last Admin: 01/09/17 15:00 Dose: 100 mls/hr Cefazolin Sodium (Ancef) 1 gm in 50 mls @ 100 mls/hr IVPB Q8H [facility] Stop: 01/10/17 09:29 Last Admin: 01/09/17 17:18 Dose: 100 mls/hr Lisinopril (Zestril) 2.5 mg PO DAILY [facility] Last Admin: 01/08/17 11:00 Dose: 2.5 mg Magnesium Hydroxide (Milk Of Magnesia) 30 ml PO DAILY PRN PRN Reason: Constipation Metoprolol Tartrate (Lopressor) 25 mg PO DAILY@1600 [facility] Last Admin: 01/09/17 18:27 Dose: Not Given Morphine Sulfate (Morphine) 4 mg IV Q4 PRN PRN Reason: Pain, severe (8-10) Oxycodone/Acetaminophen (Percocet 5/325 Mg Tab) 1 tab PO Q4H PRN PRN Reason: Pain, moderate (4-7) Stop: 01/12/17 13:03 Last Admin: 01/09/17 22:15 Dose: 1 tab Spironolactone (Aldactone) 12.5 mg PO DAILY@1600 [facility] Last Admin: 01/09/17 18:27 Dose: Not Given - Labs Labs: 01/09/17 16:02 01/09/17 16:02 PT 12.8 SECONDS (9.7-12.2) H 01/07/17 12:43 INR 1.1 01/07/17 12:43 APTT 31 SECONDS (21-34) 01/07/17 12:43 - Constitutional Appears: No Acute Distress - Head Exam Head Exam: ATRAUMATIC, NORMAL INSPECTION, NORMOCEPHALIC - Eye Exam Eye Exam: EOMI, Normal appearance, PERRL Pupil Exam: NORMAL ACCOMODATION, PERRL - ENT Exam ENT Exam: Mucous Membranes Moist - Neck Exam Neck Exam: Full ROM, Normal Inspection. absent: Lymphadenopathy - Respiratory Exam Respiratory Exam: Clear to Ausculation Bilateral, NORMAL BREATHING PATTERN - Cardiovascular Exam Cardiovascular Exam: REGULAR RHYTHM, +S1, +S2. absent: Murmur Assessment and Plan (1) Abdominal aortic aneurysm Assessment & Plan: post Op care once pt is stable start coumadin Status: Acute (2) CHF (congestive heart failure) Status: Chronic (3) Cholelithiasis Status: Acute
[2017-01-10] MEDS: ceFAZolin 1 gm FROZEN Premix 1 GM/50 ML ML IVPB SCH (01:45)
[2017-01-10] MEDS: Sodium Chloride 0.9% 1,000 ML IV SCH ×2 (02:18→21:17)
[2017-01-10] MEDS ORDERED: Enoxaparin 80 mg Syringe SC SCH (10:00)
[2017-01-10] MEDS ORDERED: Magnesium Sulfate 1 gm in D5W 2 GM/200 ML BAG IVPB ONE (10:10)
[2017-01-10] MEDS ORDERED: Potassium Chloride 20 mEq ER Tab PO ONE (10:10)
--- NOTE | 2017-01-10 23:07 | CP.PCM.PN ---
Subjective - Date & Time of Evaluation Date of Evaluation: 01/10/17 Time of Evaluation: 20:00 - Subjective Subjective: Pt is post op, AAA repair, does not have any chest pain, shortness of breath, doing well, afebrile Objective - Vital Signs/Intake and Output Vital Signs (last 24 hours): Temp Pulse Resp BP Pulse Ox 97.5 F L 64 17 131/84 99 01/09/17 20:00 01/09/17 23:00 01/09/17 23:00 01/09/17 23:00 01/09/17 23:00 - Medications Medications: Current Medications Albuterol/Ipratropium (Duoneb 3 Mg/0.5 Mg (3 Ml) Ud) 3 ml IH RQ6 PRN PRN Reason: Shortness of Breath Cyanocobalamin (Vitamin B12 1000 Mcg Tab) 1,000 mcg PO DAILY [facility] Last Admin: 01/08/17 11:00 Dose: 1,000 mcg Docusate Sodium (Colace) 100 mg PO BID [facility] Last Admin: 01/09/17 17:26 Dose: 100 mg Enoxaparin Sodium (Lovenox) 80 mg SC DAILY [facility] Famotidine (Pepcid) 20 mg PO BID [facility] Last Admin: 01/09/17 18:30 Dose: 20 mg Gabapentin (Neurontin) 300 mg PO HS [facility] Last Admin: 01/10/17 21:27 Dose: 300 mg Hydralazine HCl (Apresoline) 25 mg PO QID [facility] Last Admin: 01/10/17 21:20 Dose: 25 mg Lisinopril (Zestril) 2.5 mg PO DAILY [facility] Last Admin: 01/08/17 11:00 Dose: 2.5 mg Magnesium Hydroxide (Milk Of Magnesia) 30 ml PO DAILY PRN PRN Reason: Constipation Metoprolol Tartrate (Lopressor) 25 mg PO DAILY@1600 [facility] Last Admin: 01/09/17 18:27 Dose: Not Given Morphine Sulfate (Morphine) 4 mg IV Q4 PRN PRN Reason: Pain, severe (8-10) Oxycodone/Acetaminophen (Percocet 5/325 Mg Tab) 1 tab PO Q4H PRN PRN Reason: Pain, moderate (4-7) Stop: 01/12/17 13:03 Last Admin: 01/09/17 22:15 Dose: 1 tab Spironolactone (Aldactone) 12.5 mg PO DAILY@1600 [facility] Last Admin: 01/09/17 18:27 Dose: Not Given Warfarin Sodium (Coumadin) 10 mg PO 1800 [facility] Stop: 01/11/17 18:01 - Labs Labs: 01/09/17 16:02 01/09/17 16:02 PT 11.7 SECONDS (9.7-12.2) 01/10/17 06:00 INR 1.0 01/10/17 06:00 APTT 30 SECONDS (21-34) 01/10/17 06:00 - Constitutional Appears: No Acute Distress - Head Exam Head Exam: ATRAUMATIC, NORMAL INSPECTION, NORMOCEPHALIC - Eye Exam Eye Exam: EOMI, Normal appearance, PERRL Pupil Exam: NORMAL ACCOMODATION, PERRL - Respiratory Exam Respiratory Exam: Clear to Ausculation Bilateral, NORMAL BREATHING PATTERN - Cardiovascular Exam Cardiovascular Exam: REGULAR RHYTHM, +S1, +S2. absent: Murmur - GI/Abdominal Exam GI & Abdominal Exam: Soft, Normal Bowel Sounds. absent: Tenderness Assessment and Plan (1) Abdominal aortic aneurysm Status: Acute (2) CHF (congestive heart failure) Status: Chronic (3) Cholelithiasis Status: Acute
[2017-01-10 23:47] LABS: ALB/GLOB RATIO 0.7 (1.0-2.1); ALKALINE PHOSPHATASE 95 U/L (38-126); ALT/SGPT 22 U/L (21-72); AST/SGOT 24 U/L (17-59); BILIRUBIN,TOTAL 0.6 mg/dL (0.2-1.3); BLOOD UREA NITROGEN 12 mg/dL (9-20); CALCIUM 8.6 mg/dl (8.6-10.4); CARBON DIOXIDE 25 mmol/L (22-30); CHLORIDE 103 mmol/L (98-107); GFR AFRICAN-AMERICAN > 60; GLUCOSE,RANDOM 87 mg/dL (75-110); MAGNESIUM 1.4 mg/dL (1.6-2.3); POTASSIUM 3.8 mmol/L (3.6-5.2); SODIUM 136 mmol/L (132-148); TOTAL PROTEIN 6.7 g/dL (6.3-8.3)
[2017-01-11 00:11] VITALS: O2SAT 95
[2017-01-11 06:24] LABS: BASO % 0.3 % (0.0-2.0); EOS # 0.1 K/uL (0.0-0.7); HEMATOCRIT 25.2 % (35.0-51.0); INR 1.1; LYMPH # 2.6 K/uL (1.0-4.3); LYMPH % 29.9 % (20.0-40.0); MEAN CELL VOLUME 77.2 fL (80.0-94.0); MEAN CORPUSCULAR HEMOGLOBIN 25.1 pg (27.0-31.0); MEAN CORPUSCULAR HGB CONC 32.5 g/dL (33.0-37.0); MEAN PLATELET VOLUME 9.6 fL (7.2-11.7); MONO # 0.8 K/uL (0.0-0.8); MONO % 9.9 % (0.0-10.0); RED CELL DISTRIBUTION WIDTH 17.4 % (11.5-14.5); WHITE BLOOD COUNT 8.6 K/uL (4.8-10.8)
[2017-01-11 06:28] LABS: CHLORIDE 102 mmol/L (98-107)
[2017-01-11 06:29] LABS: POTASSIUM 3.7 mmol/L (3.6-5.2); SODIUM 137 mmol/L (132-148)
[2017-01-11 06:31] LABS: ALB/GLOB RATIO 0.9 (1.0-2.1); ALKALINE PHOSPHATASE 97 U/L (38-126); ALT/SGPT 19 U/L (21-72); AST/SGOT 24 U/L (17-59); BILIRUBIN,TOTAL 0.6 mg/dL (0.2-1.3); BLOOD UREA NITROGEN 14 mg/dL (9-20); CARBON DIOXIDE 25 mmol/L (22-30); GFR AFRICAN-AMERICAN > 60; TOTAL PROTEIN 6.9 g/dL (6.3-8.3)
[2017-01-11 06:32] LABS: CALCIUM 8.6 mg/dl (8.6-10.4); GLUCOSE,RANDOM 76 mg/dL (75-110); MAGNESIUM 1.8 mg/dL (1.6-2.3); PHOSPHOROUS 3.2 mg/dL (2.5-4.5)
--- NOTE | 2017-01-11 07:47 | CP.PCM.PN ---
Subjective - Date & Time of Evaluation Date of Evaluation: 01/11/17 Time of Evaluation: 07:46 - Subjective Subjective: doing well dc home when anticoagulantion issues resolved Objective - Vital Signs/Intake and Output Vital Signs (last 24 hours): Temp Pulse Resp BP Pulse Ox 97.9 F 69 14 142/71 95 01/11/17 00:00 01/11/17 00:00 01/11/17 00:00 01/11/17 00:00 01/11/17 00:00 Intake and Output: 01/11/17 01/11/17 06:59 18:59 Intake Total 275 Output Total 825 Balance -550 - Medications Medications: Current Medications Albuterol/Ipratropium (Duoneb 3 Mg/0.5 Mg (3 Ml) Ud) 3 ml IH RQ6 PRN PRN Reason: Shortness of Breath Amlodipine Besylate (Norvasc) 10 mg PO DAILY [facility] Cyanocobalamin (Vitamin B12 1000 Mcg Tab) 1,000 mcg PO DAILY [facility] Last Admin: 01/08/17 11:00 Dose: 1,000 mcg Docusate Sodium (Colace) 100 mg PO BID [facility] Last Admin: 01/09/17 17:26 Dose: 100 mg Enoxaparin Sodium (Lovenox) 80 mg SC DAILY [facility] Famotidine (Pepcid) 20 mg PO BID [facility] Last Admin: 01/09/17 18:30 Dose: 20 mg Gabapentin (Neurontin) 300 mg PO HS [facility] Last Admin: 01/10/17 21:27 Dose: 300 mg Hydralazine HCl (Apresoline) 25 mg PO QID [facility] Last Admin: 01/10/17 21:20 Dose: 25 mg Magnesium Hydroxide (Milk Of Magnesia) 30 ml PO DAILY PRN PRN Reason: Constipation Metoprolol Tartrate (Lopressor) 25 mg PO DAILY@1600 [facility] Last Admin: 01/09/17 18:27 Dose: Not Given Morphine Sulfate (Morphine) 4 mg IV Q4 PRN PRN Reason: Pain, severe (8-10) Oxycodone/Acetaminophen (Percocet 5/325 Mg Tab) 1 tab PO Q4H PRN PRN Reason: Pain, moderate (4-7) Stop: 01/12/17 13:03 Last Admin: 01/09/17 22:15 Dose: 1 tab Spironolactone (Aldactone) 12.5 mg PO DAILY@1600 [facility] Last Admin: 01/09/17 18:27 Dose: Not Given Warfarin Sodium (Coumadin) 10 mg PO 1800 [facility] Stop: 01/11/17 18:01 - Labs Labs: 01/11/17 06:04 01/11/17 06:04 PT 12.4 SECONDS (9.7-12.2) H 01/11/17 06:04 INR 1.1 01/11/17 06:04 APTT 30 SECONDS (21-34) 01/10/17 06:00
--- NOTE | 2017-01-11 08:18 | PN ---
DATE: 01/10/2017 SUBJECTIVE: The patient is ____. No reported ventricular arrhythmia. He is in mild sinus bradycard ia and uncontrolled hypertension. He denies any chest pain. PHYSICAL EXAMINATION: VITAL SIGNS: Blood pressure 157/67, heart rate 84, temperature 98.1. HEENT: Normocephalic. NECK: No JVD. CHEST: Clear. HEART: S1, S2 regular. EXTREMITIES: No groin bleeding and no edema. LABORATORIES: EKG today revealed sinus rhythm at a rate of 60, left bundle branch block. ASSESSMENT: 1. Status post endovascular stent graft to the ____ abdominal aortic aneurysm. 2. Cardiomyopathy. 3. History of cerebrovascular accident. 4. History of ____ tachycardia. 5. History of deep venous thrombosis and pulmonary embolus. 6. Uncontrolled hypertension. RECOMMENDATIONS: Start Norvasc 10 mg once a day, reduce Lopressor to 25 mg daily. Coumadin 4 mg was ordered today. Hal Tovar MD cc: [id number] TT: 01/10/2017 16:44:10 Confirmation # [id number] Dictation # [id number] sn
[2017-01-11 08:28] LABS: BASO % 0.3 % (0.0-2.0); EOS % 0.4 % (0.0-4.0); HEMATOCRIT 25.5 % (35.0-51.0); LYMPH # 1.9 K/uL (1.0-4.3); LYMPH % 21.6 % (20.0-40.0); MEAN CORPUSCULAR HEMOGLOBIN 24.7 pg (27.0-31.0); MEAN CORPUSCULAR HGB CONC 31.6 g/dL (33.0-37.0); MEAN PLATELET VOLUME 9.2 fL (7.2-11.7); MONO # 0.5 K/uL (0.0-0.8); MONO % 6.1 % (0.0-10.0); NRBC % 0.1 % (0.0-2.0); RED CELL DISTRIBUTION WIDTH 17.8 % (11.5-14.5)
[2017-01-11 11:18] VITALS: RESP 16
--- NOTE | 2017-01-11 12:13 | CP.PCM.PN ---
Subjective - Date & Time of Evaluation Date of Evaluation: 01/11/17 Time of Evaluation: 21:45 - Subjective Subjective: Pt seen & evaluated, is feeling better Objective - Vital Signs/Intake and Output Vital Signs (last 24 hours): Temp Pulse Resp BP Pulse Ox 97.8 F 64 16 132/67 95 01/11/17 08:00 01/11/17 08:00 01/11/17 08:00 01/11/17 08:00 01/11/17 00:00 Intake and Output: 01/11/17 01/11/17 06:59 18:59 Intake Total 275 Output Total 825 Balance -550 - Medications Medications: Current Medications Albuterol/Ipratropium (Duoneb 3 Mg/0.5 Mg (3 Ml) Ud) 3 ml IH RQ6 PRN PRN Reason: Shortness of Breath Amlodipine Besylate (Norvasc) 10 mg PO DAILY [facility] Last Admin: 01/11/17 10:36 Dose: 10 mg Cyanocobalamin (Vitamin B12 1000 Mcg Tab) 1,000 mcg PO DAILY [facility] Last Admin: 01/11/17 10:35 Dose: 1,000 mcg Docusate Sodium (Colace) 100 mg PO BID [facility] Last Admin: 01/11/17 10:36 Dose: 100 mg Enoxaparin Sodium (Lovenox) 80 mg SC DAILY [facility] Last Admin: 01/11/17 10:35 Dose: 80 mg Famotidine (Pepcid) 20 mg PO BID [facility] Last Admin: 01/11/17 10:36 Dose: 20 mg Gabapentin (Neurontin) 300 mg PO HS [facility] Last Admin: 01/10/17 21:27 Dose: 300 mg Hydralazine HCl (Apresoline) 25 mg PO QID [facility] Last Admin: 01/11/17 10:37 Dose: 25 mg Magnesium Hydroxide (Milk Of Magnesia) 30 ml PO DAILY PRN PRN Reason: Constipation Metoprolol Tartrate (Lopressor) 25 mg PO DAILY@1600 [facility] Last Admin: 01/09/17 18:27 Dose: Not Given Morphine Sulfate (Morphine) 4 mg IV Q4 PRN PRN Reason: Pain, severe (8-10) Oxycodone/Acetaminophen (Percocet 5/325 Mg Tab) 1 tab PO Q4H PRN PRN Reason: Pain, moderate (4-7) Stop: 01/12/17 13:03 Last Admin: 01/09/17 22:15 Dose: 1 tab Spironolactone (Aldactone) 12.5 mg PO DAILY@1600 [facility] Last Admin: 01/09/17 18:27 Dose: Not Given Warfarin Sodium (Coumadin) 10 mg PO 1800 [facility] Stop: 01/11/17 18:01 - Labs Labs: 01/11/17 06:04 01/11/17 06:04 PT 12.4 SECONDS (9.7-12.2) H 01/11/17 06:04 INR 1.1 01/11/17 06:04 APTT 30 SECONDS (21-34) 01/10/17 06:00 Assessment and Plan (1) Abdominal aortic aneurysm Status: Acute (2) CHF (congestive heart failure) Status: Chronic (3) Cholelithiasis Status: Acute
--- NOTE | 2017-01-11 14:04 | PN ---
DATE: 01/11/2017 The patient denies any chest pain. No reported ventricular arrhythmia. PHYSICAL EXAMINATION: VITAL SIGNS: Blood pressure 142/71, heart rate 69, temperature 97.9, respirations 14. HEENT: Pale conjunctivae. CHEST: Clear. HEART: S1, S2 regular. EXTREMITIES: No groin hematoma and no pedal edema. LABORATORIES: Hemoglobin and hematocrit 8.1 and 25.2. White count and platelet count are within nor mal limits. Today's SMA-7 is within normal limits. ASSESSMENT: 1. Status post stent grafting to 6.2 cm abdominal aortic aneurysm. 2. History of deep venous thrombosis and pulmonary embolism. 3. Congestive heart failure. 4. History of cerebrovascular accident. 5. Hypertension. RECOMMENDATIONS: Continue Aldactone at 12.5 mg once a day, hydralazine 25 mg q.i.d., Lopressor 25 mg once a day, Lovenox 80 mg subcutaneously daily, Norvasc 10 mg once a day. The patient will receive Coumadin 10 mg today. His INR is 1.1. Hal Tovar MD cc: [id number] TT: 01/11/2017 14:03:23 Confirmation # [id number] Dictation # [id number] annette
--- NOTE | 2017-01-11 14:24 | CP.PCM.CON ---
History of Present Illness - History of Present Illness History of Present Illness: This is a 71 y/o male who was seen and evaluated at bedside this afternoon after request for podiatry consultation. Patient was resting comfortably in bed , in NAD. He states that he would like to have his toenails trimmed today. He also complains of dryness associated with both feet. Currently denies any pain, itching, burning or tingling in his feet. No other pedal complaints reported at this time. Past Patient History - Past Medical History & Family History Past Medical History?: Yes - Past Social History Smoking Status: Former Smoker - CARDIAC Hx Congestive Heart Failure: Yes Hx Hypercholesterolemia: Yes Hx Hypertension: Yes - PULMONARY Hx Chronic Obstructive Pulmonary Disease (COPD): No - NEUROLOGICAL Hx Neurological Disorder: No - HEENT Hx HEENT Problems: No - RENAL Hx Chronic Kidney Disease: No - ENDOCRINE/METABOLIC Hx Hypothyroidism: No - HEMATOLOGICAL/ONCOLOGICAL Hx Blood Disorders: No - INTEGUMENTARY Hx Dermatological Problems: No - MUSCULOSKELETAL/RHEUMATOLOGICAL Hx Arthritis: Yes Hx Rheumatoid Arthritis: No - GASTROINTESTINAL Hx Gastrointestinal Disorders: No - GENITOURINARY/GYNECOLOGICAL Hx Incontinence: Yes - PSYCHIATRIC Hx Anxiety: Yes Hx Substance Use: No - SURGICAL HISTORY Hx Surgeries: No - ANESTHESIA Hx Anesthesia: Yes (Dental Procedure) Hx Anesthesia Reactions: No Meds Allergies/Adverse Reactions: Allergies Allergy/AdvReac Type Severity Reaction Status Date / Time No Known Allergies Allergy Verified 01/07/17 11:18 - Medications Medications: Current Medications Albuterol/Ipratropium (Duoneb 3 Mg/0.5 Mg (3 Ml) Ud) 3 ml IH RQ6 PRN PRN Reason: Shortness of Breath Amlodipine Besylate (Norvasc) 10 mg PO DAILY [facility] Last Admin: 01/11/17 10:36 Dose: 10 mg Cyanocobalamin (Vitamin B12 1000 Mcg Tab) 1,000 mcg PO DAILY [facility] Last Admin: 01/11/17 10:35 Dose: 1,000 mcg Docusate Sodium (Colace) 100 mg PO BID [facility] Last Admin: 01/11/17 10:36 Dose: 100 mg Enoxaparin Sodium (Lovenox) 80 mg SC DAILY [facility] Last Admin: 01/11/17 10:35 Dose: 80 mg Famotidine (Pepcid) 20 mg PO BID [facility] Last Admin: 01/11/17 10:36 Dose: 20 mg Gabapentin (Neurontin) 300 mg PO HS [facility] Last Admin: 01/10/17 21:27 Dose: 300 mg Hydralazine HCl (Apresoline) 25 mg PO QID [facility] Last Admin: 01/11/17 13:46 Dose: 25 mg Magnesium Hydroxide (Milk Of Magnesia) 30 ml PO DAILY PRN PRN Reason: Constipation Metoprolol Tartrate (Lopressor) 25 mg PO DAILY@1600 [facility] Last Admin: 01/09/17 18:27 Dose: Not Given Morphine Sulfate (Morphine) 4 mg IV Q4 PRN PRN Reason: Pain, severe (8-10) Oxycodone/Acetaminophen (Percocet 5/325 Mg Tab) 1 tab PO Q4H PRN PRN Reason: Pain, moderate (4-7) Stop: 01/12/17 13:03 Last Admin: 01/09/17 22:15 Dose: 1 tab Spironolactone (Aldactone) 12.5 mg PO DAILY@1600 [facility] Last Admin: 01/09/17 18:27 Dose: Not Given Warfarin Sodium (Coumadin) 10 mg PO 1800 [facility] Stop: 01/11/17 18:01 Physical Exam - Constitutional Appears: Non-toxic, No Acute Distress - Neurological Exam Neurological exam: Alert, Oriented x3 - Psychiatric Exam Psychiatric exam: Normal Affect, Normal Mood - Skin Skin Exam: Dry, Normal Color, Warm - Additional Findings Additional findings: Bilateral foot exam: Vascular: DP 1/4; PT non-palpable; CFT < 3 sec x10; normal temperature gradient noted Neuro: light touch sensation grossly intact bilaterally Derm: patchy xerosis noted bilaterally with annular scaling at plantar aspects of both feet, consistent with tinea pedis. Toenails are thickened and elongated x 10 with subungual debris associated with all toenails of the Left foot. No open wounds noted at this time. No erythema, no edema Results - Vital Signs Recent Vital Signs: Last Vital Signs Temp 97.8 F 01/11/17 08:00 Pulse 64 01/11/17 08:00 Resp 16 01/11/17 08:00 BP 132/67 01/11/17 08:00 Pulse Ox 95 01/11/17 00:00 - Labs Result Diagrams: 01/11/17 06:04 01/11/17 06:04 Labs: Laboratory Results - last 24 hr 01/10/17 01/10/1717 06:00 06:00 06:00 WBC 9.0 RBC 3.27 L Hgb 8.1 L Hct 25.5 L MCV 78.0 L MCH 24.7 L MCHC 31.6 L RDW 17.8 H Plt Count 185 MPV 9.2 Neut % (Auto) 71.6 Lymph % (Auto) 21.6 Bryan % (Auto) 6.1 Eos % (Auto) 0.4 Baso % (Auto) 0.3 Neut # 6.4 Lymph # 1.9 Bryan # 0.5 Eos # 0.0 Baso # 0.0 PT 11.7 INR 1.0 APTT 30 Sodium 136 Potassium 3.8 Chloride 103 Carbon Dioxide 25 Anion Gap 12 BUN 12 Creatinine 0.7 L Est GFR ( Amer) > 60 Est GFR (Non-Af Amer) > 60 Random Glucose 87 Calcium 8.6 Phosphorus 4.0 Magnesium 1.4 L Total Bilirubin 0.6 AST 24 ALT 22 Alkaline Phosphatase 95 Total Protein 6.7 Albumin 2.8 L D Globulin 3.9 Albumin/Globulin Ratio 0.7 L 01/11/17 01/11/17 01/11/17 06:04 06:04 06:04 WBC 8.6 RBC 3.26 L Hgb 8.2 L Hct 25.2 L MCV 77.2 L MCH 25.1 L MCHC 32.5 L RDW 17.4 H Plt Count 193 MPV 9.6 Neut % (Auto) 58.9 Lymph % (Auto) 29.9 Bryan % (Auto) 9.9 Eos % (Auto) 1.0 Baso % (Auto) 0.3 Neut # 5.0 Lymph # 2.6 Bryan # 0.8 Eos # 0.1 Baso # 0.0 PT 12.4 H INR 1.1 APTT Sodium 137 Potassium 3.7 Chloride 102 Carbon Dioxide 25 Anion Gap 13 BUN 14 Creatinine 0.9 Est GFR ( Amer) > 60 Est GFR (Non-Af Amer) > 60 Random Glucose 76 Calcium 8.6 Phosphorus 3.2 Magnesium 1.8 Total Bilirubin 0.6 AST 24 ALT 19 L Alkaline Phosphatase 97 Total Protein 6.9 Albumin 3.3 L Globulin 3.6 Albumin/Globulin Ratio 0.9 L Assessment & Plan - Assessment and Plan (Free Text) Assessment: 71 y/o male with onychomycosis and tinea pedis bilaterally Plan: Patient seen and evaluated Performed aseptic debridement of elongated toenails with small sterile nippers x10 Patient tolerated procedure well and with no complications Ordered Clotrimazole 1% Cream, to be applied topically BID to both feet for treatment of tinea pedis Discussed patient with attending, Dr. Tyler Patient is stable from podiatric perspective. Thank you for the consult; podiatry can be re-consulted as needed.
[2017-01-11 16:19] VITALS: BP 145/90
--- NOTE | 2017-01-11 16:25 | CP.PCM.PN ---
Subjective - Date & Time of Evaluation Date of Evaluation: 01/11/17 Time of Evaluation: 11:45 - Subjective Subjective: Pt seen and examined today , comfortable alert, confused at times , denies any abdominal pain , N/V No overnight events reported by RN S/P percutaneous endovascular aneurysm repair with Ovation stent graft DAY # 3 Objective - Vital Signs/Intake and Output Vital Signs (last 24 hours): Temp Pulse Resp BP Pulse Ox 97.8 F 64 16 145/90 95 01/11/17 08:00 01/11/17 08:00 01/11/17 08:00 01/11/17 16:17 01/11/17 00:00 Intake and Output: 01/11/17 01/11/17 06:59 18:59 Intake Total 275 Output Total 825 Balance -550 - Medications Medications: Current Medications Albuterol/Ipratropium (Duoneb 3 Mg/0.5 Mg (3 Ml) Ud) 3 ml IH RQ6 PRN PRN Reason: Shortness of Breath Amlodipine Besylate (Norvasc) 10 mg PO DAILY [facility] Last Admin: 01/11/17 10:36 Dose: 10 mg Clotrimazole (Lotrimin 1%) 0 gm TOP BID [facility] Cyanocobalamin (Vitamin B12 1000 Mcg Tab) 1,000 mcg PO DAILY [facility] Last Admin: 01/11/17 10:35 Dose: 1,000 mcg Docusate Sodium (Colace) 100 mg PO BID [facility] Last Admin: 01/11/17 10:36 Dose: 100 mg Enoxaparin Sodium (Lovenox) 80 mg SC DAILY [facility] Last Admin: 01/11/17 10:35 Dose: 80 mg Famotidine (Pepcid) 20 mg PO BID [facility] Last Admin: 01/11/17 10:36 Dose: 20 mg Gabapentin (Neurontin) 300 mg PO HS [facility] Last Admin: 01/10/17 21:27 Dose: 300 mg Hydralazine HCl (Apresoline) 25 mg PO QID [facility] Last Admin: 01/11/17 13:46 Dose: 25 mg Magnesium Hydroxide (Milk Of Magnesia) 30 ml PO DAILY PRN PRN Reason: Constipation Metoprolol Tartrate (Lopressor) 25 mg PO DAILY@1600 [facility] Last Admin: 01/11/17 16:17 Dose: 25 mg Morphine Sulfate (Morphine) 4 mg IV Q4 PRN PRN Reason: Pain, severe (8-10) Oxycodone/Acetaminophen (Percocet 5/325 Mg Tab) 1 tab PO Q4H PRN PRN Reason: Pain, moderate (4-7) Stop: 01/12/17 13:03 Last Admin: 01/09/17 22:15 Dose: 1 tab Spironolactone (Aldactone) 12.5 mg PO DAILY@1600 [facility] Last Admin: 01/11/17 16:14 Dose: 12.5 mg Warfarin Sodium (Coumadin) 10 mg PO 1800 [facility] Stop: 01/11/17 18:01 - Labs Labs: 01/11/17 06:04 01/11/17 06:04 PT 12.4 SECONDS (9.7-12.2) H 01/11/17 06:04 INR 1.1 01/11/17 06:04 APTT 30 SECONDS (21-34) 01/10/17 06:00 Assessment and Plan - Assessment and Plan (Free Text) Assessment: a/p 71 yr old male admitted for AAA repair s/p INR 1.1 today and recived 10 mg of coumadin cleared fro discharge home from surgical standpoint As per pt family wants to take patient home D/w with Dr. Yen, cleared for discharge home today and f/u with Dr. Yen office in 1 week [facility] service arranged for Home care, and PT/inr check by [facility]
--- NOTE | 2017-01-11 16:25 | PCM.HF ---
<Mayda Walker S - Last Filed: 01/11/17 17:03> Heart Failure Core Measure - Heart Failure Ejection Fraction: Less Than 40 % (EF <40%) DIANNE Inhibitor Prescribed: No Beta-Manjinder Prescribed: Metoprolol Succinate AnticoagulationTherapy for Atrial Fibrillation/Atrialflutter: Yes Aldosterone Antagonist Prescribed: Yes Hydralazine Nitrate Prescribed: Yes <Christa Torres S - Last Filed: 01/23/17 08:18> Heart Failure Core Measure - Heart Failure Ejection Fraction: Less Than 40 % DIANNE Inhibitor Prescribed: No Contraindication/Reason for not providing: d/c secondary to ARF Beta-Manjinder Prescribed: Metoprolol Succinate Angiotensin II Receptor Manjinder Prescribed: No Contraindication/Reason for not providing: d/c secondary to ARF AnticoagulationTherapy for Atrial Fibrillation/Atrialflutter: Yes Aldosterone Antagonist Prescribed: Yes Hydralazine Nitrate Prescribed: Yes Implantable Cardioverter Defibrillator Therapy: No Contraindication/Reason for not providing: out pt / not a suitable candidate secondary to multiple comorbidities Cardiac Resynchronization Therapy Prescribed: No Contraindication/Reason for not providing: out pt when stable - Follow up Will be discharged to: Home Follow Up Date (must be within 7 days from discharge): 01/14/17 Follow Up Time: 09:00
[2017-01-11 16:37] VITALS: PULSE 87; TEMP 98
[2017-01-11] MEDS ORDERED: Clotrimazole 1% Cream 15 GM TUBE TOP SCH (18:00)
--- NOTE | 2017-01-12 21:38 | CP.PCM.DIS ---
Provider - Provider Date of Admission: 01/07/17 11:40 Attending physician: Mando Yen MD Time Spent in preparation of Discharge (in minutes): 30 Diagnosis - Discharge Diagnosis (1) Abdominal aortic aneurysm Status: Acute (2) CHF (congestive heart failure) Status: Acute (3) Cholelithiasis Status: Acute Hospital Course - Lab Results Lab Results: Micro Results 01/09/17 Unknown Naris MRSA Culture (Admit) - Final MRSA DETECTED Most Recent Lab Values WBC 8.6 K/uL (4.8-10.8) 01/11/17 06:04 RBC 3.26 Mil/uL (4.40-5.90) L 01/11/17 06:04 Hgb 8.2 g/dL (12.0-18.0) L 01/11/17 06:04 Hct 25.2 % (35.0-51.0) L 01/11/17 06:04 MCV 77.2 fL (80.0-94.0) L 01/11/17 06:04 MCH 25.1 pg (27.0-31.0) L 01/11/17 06:04 MCHC 32.5 g/dL (33.0-37.0) L 01/11/17 06:04 RDW 17.4 % (11.5-14.5) H 01/11/17 06:04 Plt Count 193 K/uL (130-400) 01/11/17 06:04 MPV 9.6 fL (7.2-11.7) 01/11/17 06:04 Neut % (Auto) 58.9 % (50.0-75.0) 01/11/17 06:04 Lymph % (Auto) 29.9 % (20.0-40.0) 01/11/17 06:04 [place] % (Auto) 9.9 % (0.0-10.0) 01/11/17 06:04 Eos % (Auto) 1.0 % (0.0-4.0) 01/11/17 06:04 Baso % (Auto) 0.3 % (0.0-2.0) 01/11/17 06:04 Neut # 5.0 K/uL (1.8-7.0) 01/11/17 06:04 Lymph # 2.6 K/uL (1.0-4.3) 01/11/17 06:04 [place] # 0.8 K/uL (0.0-0.8) 01/11/17 06:04 Eos # 0.1 K/uL (0.0-0.7) 01/11/17 06:04 Baso # 0.0 K/uL (0.0-0.2) 01/11/17 06:04 PT 12.4 SECONDS (9.7-12.2) H 01/11/17 06:04 INR 1.1 01/11/17 06:04 APTT 30 SECONDS (21-34) 01/10/17 06:00 Sodium 137 mmol/L (132-148) 01/11/17 06:04 Potassium 3.7 mmol/L (3.6-5.2) 01/11/17 06:04 Chloride 102 mmol/L (98-107) 01/11/17 06:04 Carbon Dioxide 25 mmol/L (22-30) 01/11/17 06:04 Anion Gap 13 (10-20) 01/11/17 06:04 BUN 14 mg/dL (9-20) 01/11/17 06:04 Creatinine 0.9 MG/DL (0.8-1.5) 01/11/17 06:04 Est GFR ( Amer) > 60 01/11/17 06:04 Est GFR (Non-Af Amer) > 60 01/11/17 06:04 Random Glucose 76 mg/dL (75-110) 01/11/17 06:04 Calcium 8.6 mg/dl (8.6-10.4) 01/11/17 06:04 Phosphorus 3.2 mg/dL (2.5-4.5) 01/11/17 06:04 Magnesium 1.8 mg/dL (1.6-2.3) 01/11/17 06:04 Total Bilirubin 0.6 mg/dL (0.2-1.3) 01/11/17 06:04 AST 24 U/L (17-59) 01/11/17 06:04 ALT 19 U/L (21-72) L 01/11/17 06:04 Alkaline Phosphatase 97 U/L (38-126) 01/11/17 06:04 Total Protein 6.9 g/dL (6.3-8.3) 01/11/17 06:04 Albumin 3.3 g/dL (3.5-5.0) L 01/11/17 06:04 Globulin 3.6 gm/dL (2.2-3.9) 01/11/17 06:04 Albumin/Globulin Ratio 0.9 (1.0-2.1) L 01/11/17 06:04 Urine Color Straw (YELLOW) 01/08/17 07:54 Urine Clarity Clear (Clear) 01/08/17 07:54 Urine pH 7.0 (5.0-8.0) 01/08/17 07:54 Ur Specific [place] 1.011 (1.003-1.030) 01/08/17 07:54 Urine Protein Negative mg/dL (NEGATIVE) 01/08/17 07:54 Urine Glucose (UA) Normal mg/dL (Normal) 01/08/17 07:54 Urine Ketones Negative mg/dL (NEGATIVE) 01/08/17 07:54 Urine Blood Negative (NEGATIVE) 01/08/17 07:54 Urine Nitrate Negative (NEGATIVE) 01/08/17 07:54 Urine Bilirubin Negative (NEGATIVE) 01/08/17 07:54 Urine Urobilinogen Normal mg/dL (0.2-1.0) 01/08/17 07:54 Ur Leukocyte Esterase Neg Red/uL (Negative) 01/08/17 07:54 Urine WBC (Auto) 1 /hpf (0-5) 01/08/17 07:54 Urine RBC (Auto) 1 /hpf (0-3) 01/08/17 07:54 Ur Squamous Epith Cells < 1 /hpf (0-5) 01/08/17 07:54 Blood Type O POSITIVE 01/08/17 04:00 Antibody Screen Negative 01/08/17 04:00 - Hospital Course Hospital Course: Pt seen and examined today , comfortable alert, confused at times , denies any abdominal pain , N/V No overnight events reported by RN S/P percutaneous endovascular aneurysm repair with Ovation stent graft DAY # 3 INR 1.1 today and recived 10 mg of coumadin cleared fro discharge home from surgical standpoint As per YARIEL pt family wants to take patient home cleared for discharge home today f/u with me in office in 1 week VNA service arranged for Home care, and PT/inr check by Discharge Exam - Head Exam Head Exam: ATRAUMATIC, NORMAL INSPECTION, NORMOCEPHALIC - Eye Exam Eye Exam: EOMI, Normal appearance, PERRL Pupil Exam: NORMAL ACCOMODATION, PERRL - ENT Exam ENT Exam: Mucous Membranes Moist - Respiratory Exam Respiratory Exam: Clear to PA & Lateral, NORMAL BREATHING PATTERN - Cardiovascular Exam Cardiovascular Exam: REGULAR RHYTHM, +S1, +S2 - GI/Abdominal Exam GI & Abdominal Exam: Normal Bowel Sounds - Neurological Exam Neurological exam: Alert, CN II-XII Intact, Normal Gait, Oriented x3, Reflexes Normal Discharge Plan - Discharge Medications Prescriptions: Spironolactone [Aldactone] 12.5 mg PO DAILY@1600 #30 tab hydrALAZINE [Apresoline] 25 mg PO QID #120 tab Warfarin [Coumadin] 4 mg PO 1800 #7 tab Metoprolol Tartrate [Lopressor] 25 mg PO DAILY@1600 #30 tab Clotrimazole 1% Cream [Lotrimin 1%] 1 % TOP BID #2 Gabapentin [Neurontin] 300 mg PO HS #30 cap amLODIPine [Norvasc] 10 mg PO DAILY #30 tab Famotidine [Pepcid] 20 mg PO DAILY #30 tab Cyanocobalamin [Vitamin B12 1000 mcg Tab] 1,000 mcg PO DAILY #30 tab - Follow Up Plan Condition: STABLE Disposition: HOME/ ROUTINE Instructions: Metoprolol (By mouth), Spironolactone (By mouth), Famotidine (By mouth), Betamethasone/Clotrimazole (On the skin), Warfarin (By mouth), Gabapentin (By mouth), Hydralazine (By mouth), Amlodipine (By mouth), Vitamin B- 12 (Cyanocobalamin) (By mouth), Heart Failure (DC), Heart Healthy Diet (DC), Abdominal Aortic Aneurysm Repair (DC), Vitamin K in Foods (DC) Additional Instructions: Please f/u with Dr. Yen office in 1 week VNA service for home PT , home care , for coumadin management continue medication as per Med. Rec. Referrals: Mando Yen MD [Staff Provider] - 1 Week Jon Heard Jr., MD [Staff Provider] - (Call Dr. Heard's office for follow-up appt.)
--- NOTE | 2017-01-16 13:15 | CARD ---
APPROVED REPORT EKG Measurement Heart [id number] <Conclusion> Normal sinus rhythm Right bundle branch block Left anterior fascicular block Bifascicular block Left ventricular hypertrophy with repolarization abnormality Cannot rule out Septal infarct, age undetermined Abnormal ECG
== END 2017-01-11 19:15 | disposition home or self-care (01) | DRG 270 ==
LOC: C.ER 11:07 → C.9E 11:40 → C.3T 11:57 → C.5T 01-08 19:43 → C.9I 01-09 14:38
PROVIDERS: ADMIT Internal Medicine; ATTEND Internal Medicine
PROC: 04VE3DZ Restriction of Right Internal Iliac Artery with Intraluminal Device, Percutaneous Approach (ICD-10-PCS; principal; 2017-01-09 09:00)
PROC: 0HBRXZZ Excision of Toe Nail, External Approach (ICD-10-PCS; 2017-01-11)
PROC: 0HBRXZZ Excision of Toe Nail, External Approach (ICD-10-PCS; 2017-01-11)
PROC: 0HBRXZZ Excision of Toe Nail, External Approach (ICD-10-PCS; 2017-01-11)
PROC: 0HBRXZZ Excision of Toe Nail, External Approach (ICD-10-PCS; 2017-01-11)
PROC: 0HBRXZZ Excision of Toe Nail, External Approach (ICD-10-PCS; 2017-01-11)
PROC: 0HBRXZZ Excision of Toe Nail, External Approach (ICD-10-PCS; 2017-01-11)
PROC: 0HBRXZZ Excision of Toe Nail, External Approach (ICD-10-PCS; 2017-01-11)
PROC: 0HBRXZZ Excision of Toe Nail, External Approach (ICD-10-PCS; 2017-01-11)
PROC: 0HBRXZZ Excision of Toe Nail, External Approach (ICD-10-PCS; 2017-01-11)
PROC: 0HBRXZZ Excision of Toe Nail, External Approach (ICD-10-PCS; 2017-01-11)
DX: I72.3 Aneurysm of iliac artery (principal); I50.23 Acute on chronic systolic (congestive) heart failure; I47.2 Ventricular tachycardia; I71.4 Abdominal aortic aneurysm, without rupture; R00.1 Bradycardia, unspecified; I48.91 Unspecified atrial fibrillation; B35.1 Tinea unguium; B35.3 Tinea pedis; D64.9 Anemia, unspecified; E78.5 Hyperlipidemia, unspecified; I25.5 Ischemic cardiomyopathy; I11.0 Hypertensive heart disease with heart failure; I45.19 Other right bundle-branch block; E78.00 Pure hypercholesterolemia, unspecified; Z86.711 Personal history of pulmonary embolism; Z87.891 Personal history of nicotine dependence; K80.20 Calculus of gallbladder without cholecystitis without obstruction; Z86.73 Personal history of transient ischemic attack (TIA), and cerebral infarction without residual deficits; Z79.01 Long term (current) use of anticoagulants

== ENCOUNTER 2017-02-19 13:22 | Inpatient (IN) | payer MEDICARE, OTHER ==
[2017-02-19 13:23] VITALS: PULSE 120; BMI 24.4
[2017-02-19 14:16] LABS: BASO # 0.1 K/uL (0.0-0.2); BASO % 0.7 % (0.0-2.0); EOS # 0.1 K/uL (0.0-0.7); EOS % 1.3 % (0.0-4.0); HEMATOCRIT 31.4 % (35.0-51.0); LYMPH # 3.2 K/uL (1.0-4.3); LYMPH % 40.5 % (20.0-40.0); MEAN CELL VOLUME 76.7 fL (80.0-94.0); MEAN CORPUSCULAR HEMOGLOBIN 24.4 pg (27.0-31.0); MEAN CORPUSCULAR HGB CONC 31.8 g/dL (33.0-37.0); MEAN PLATELET VOLUME 8.9 fL (7.2-11.7); MONO # 0.5 K/uL (0.0-0.8); MONO % 6.1 % (0.0-10.0); NRBC % 0.1 % (0.0-2.0); RED CELL DISTRIBUTION WIDTH 17.3 % (11.5-14.5); WHITE BLOOD COUNT 7.8 K/uL (4.8-10.8)
[2017-02-19 14:22] LABS: INR 1.4
[2017-02-19 14:35] LABS: CHLORIDE 101 mmol/L (98-107); POTASSIUM 3.4 mmol/L (3.6-5.2); SODIUM 141 mmol/L (132-148)
[2017-02-19 14:37] LABS: AST/SGOT 34 U/L (17-59); BILIRUBIN,TOTAL 0.6 mg/dL (0.2-1.3); CARBON DIOXIDE 28 mmol/L (22-30); GFR AFRICAN-AMERICAN > 60
[2017-02-19 14:38] LABS: ALB/GLOB RATIO 0.7 (1.0-2.1); ALKALINE PHOSPHATASE 122 U/L (38-126); ALT/SGPT 16 U/L (21-72); BLOOD UREA NITROGEN 15 mg/dL (9-20); CALCIUM 9.3 mg/dl (8.6-10.4); GLUCOSE,RANDOM 81 mg/dL (75-110); MAGNESIUM 1.7 mg/dL (1.6-2.3)
[2017-02-19] MEDS ORDERED: Potassium Chloride 20 mEq ER Tab PO STA (14:54)
--- NOTE | 2017-02-19 15:03 | C.PDOC ---
History Of Present Illness Pt was sent in by his PMD due to bradycardia. Time Seen by Provider: 02/19/17 13:41 Chief Complaint (Nursing): Medical Clearance History Per: Patient Onset/Duration Of Symptoms: Days Current Symptoms Are (Timing): Still Present Associated Symptoms: Other (Malaise. ) Severity: Moderate Exacerbating Factor(s): Pos: None Additional History Per: Prior Records Past Medical History Reviewed: Historical Data, Nursing Documentation, Vital Signs Vital Signs: Last Vital Signs Temp 97.8 F 02/19/17 13:34 Pulse 58 L 02/19/17 13:34 Resp 16 02/19/17 13:34 BP 153/77 H 02/19/17 13:34 Pulse Ox 100 02/19/17 13:34 - Medical History PMH: Anxiety, Arthritis, Atrial Fibrillation, Cardiac Aneurysm, CHF, Deep Vein Thrombosis, HTN, Hypercholesterolemia, Hyperlipidemia, Pulmonary Embolism - [facility] Procedures DRAINAGE OF BLADDER WITH DRAINAGE DEVICE, VIA OPENING (11/03/16) EXCISION OF TOE NAIL, EXTERNAL APPROACH (01/07/17) FLUOROSCOPY L UP EXTREM VEIN W L OSM CONTRAST, GUIDANCE (11/03/16) INSERTION OF ENDOTRACHEAL AIRWAY INTO TRACHEA, VIA OPENING (11/03/16) INSERTION OF INFUSION DEV INTO SUP VENA CAVA, PERC APPROACH (11/03/16) INSERTION OF INTRALUM DEV INTO INF VENA CAVA, PERC APPROACH (11/29/16) RESPIRATORY VENTILATION, GREATER THAN 96 CONSECUTIVE HOURS (11/03/16) RESTRICT OF R INT ILIAC ART WITH INTRALUM DEV, PERC APPROACH (01/07/17) ULTRASONOGRAPHY OF LEFT UPPER EXTREMITY VEINS, GUIDANCE (11/03/16) Family History: States: Unknown Family Hx - Social History Hx Alcohol Use: No Hx Substance Use: No - Immunization History Hx Tetanus Toxoid Vaccination: No Hx Influenza Vaccination: Yes Hx Pneumococcal Vaccination: Yes Review Of Systems Except As Marked, All Systems Reviewed And Found Negative. Constitutional: Positive for: Malaise. Negative for: Fever Cardiovascular: Negative for: Chest Pain Respiratory: Positive for: SOB with Excertion. Negative for: Hemoptysis Gastrointestinal: Negative for: Vomiting, Abdominal Pain Genitourinary: Positive for: Frequency Musculoskeletal: Negative for: Neck Pain Neurological: Negative for: Weakness, Numbness, Seizures Physical Exam - Physical Exam Appears: No Acute Distress, Chronically Ill Skin: Normal Color, Warm, Dry Head: Atraumatic, Normacephalic Eye(s): bilateral: PERRL, EOMI Neck: Normal ROM, Supple Cardiovascular: Rhythm Regular Respiratory: Normal Breath Sounds, No Accessory Muscle Use Gastrointestinal/Abdominal: Soft, No Tenderness Extremity: Normal ROM Neurological/Psych: Oriented x3, Normal Motor, Normal Sensation ED Course And Treatment - Laboratory Results Result Diagrams: 02/19/17 14:08 02/19/17 14:08 ECG: Interpreted By Me, Viewed By Me ECG Rhythm: Sinus Bradycardia, R BBB, Nonspecific Changes ECG Interpretation: Abnormal Interpretation Of ECG: Bifascicular block. Rate From EC O2 Sat by Pulse Oximetry: 100 Pulse Ox Interpretation: Normal Disposition Discussed With DrYulia: Mando Yen Comment: He wants pt to be admitted on his service in order to evaluate for pacemaker. Doctor Will See Patient In The: Hospital Counseled Patient/Family Regarding: Studies Performed, Diagnosis - Disposition Disposition: HOSPITALIZED Disposition Time: 15:04 Condition: GUARDED - Clinical Impression Clinical Impression: Sinus bradycardia, Bifascicular block
[2017-02-19] MEDS ORDERED: Potassium Chloride 20 mEq ER Tab PO ONE (15:14)
[2017-02-19 15:47] LABS: RBC URINE < 1 /hpf (0-3); URINE BILIRUBIN NEGATIVE (NEGATIVE); URINE BLOOD NEGATIVE (NEGATIVE); URINE COLOR Colorless (YELLOW); URINE GLUCOSE (UA) NORMAL (Normal); URINE KETONE NEGATIVE (NEGATIVE); URINE LEUKOCYTE ESTERASE NEG Leu/uL (Negative); URINE PROTEIN NEGATIVE (NEGATIVE); URINE UROBILINOGEN NORMAL mg/dL (0.2-1.0); WBC URINE < 1 /hpf (0-5)
[2017-02-19] MEDS ORDERED: Albuterol-Ipratrop 3 mg / 0.5 (3 ml) UD IH PRN (20:15)
[2017-02-20 01:41] VITALS: RESP 20
[2017-02-20] MEDS: Enoxaparin 40 mg Syringe SC SCH (10:16)
--- NOTE | 2017-02-20 11:29 | CARD ---
APPROVED REPORT EKG Measurement Heart [id number] <Conclusion> Sinus bradycardia with premature atrial complexes with aberrant conduction Right bundle branch block Left anterior fascicular block Bifascicular block Anterior infarct, age undetermined Abnormal ECG
--- NOTE | 2017-02-20 12:16 | CP.PCM.CON ---
History of Present Illness - History of Present Illness History of Present Illness: 71 years old gentleman with prior history of hypertension, mixed hyperlipidemia. He has history of ischemic cardiomyopathy with heart failure, depressed ejection fraction to about 35% as documented by an echocardiogram few weeks ago. Reportedly, at [facility], had prior supraventricular arrhythmia on a baseline of right bundle branch block with acute renal failure. Since then he is off DIANNE inhibitor still on beta angelito. Then he was confused with sepsis, recently, in December 2014 he underwent a percutaneous intervention for an abdominal aortic aneurysm. Currently he is still with bradycardia, on beta angelito, with elevated blood pressure. However, his creatinine is back to 0.7 with no shortness of breath. DIANNE inhibitor was added and the beta angelito was stopped. At this time there is no need for pacemaker since his heart rate had improved and the blood pressure is stable. The patient is in sinus rhythm. His prior history of cholecystectomy and cataract surgery. Currently a resident of a long-term. Had prior vein thrombosis was placed on Coumadin, also inferior vena cava filter and his INR today is 1.4. Review of Systems - Constitutional Constitutional: Anorexia - EENT Eyes: absent: Discharge Ears: absent: Ear Discharge Nose/Mouth/Throat: absent: Epistaxis - Cardiovascular Cardiovascular: absent: Acrocyanosis, Chest Pain, Diaphoresis, Palpitations, Syncope - Respiratory Respiratory: absent: Cough, Dyspnea, Hemoptysis - Gastrointestinal Gastrointestinal: absent: Abdominal Pain, Diarrhea, Melena, Vomiting - Genitourinary Genitourinary: absent: Change in Urinary Stream Past Patient History - Infectious Disease Hx of Infectious Diseases: None - Past Medical History & Family History Past Medical History?: Yes - Past Social History Smoking Status: Never Smoked - CARDIAC Hx Atrial Fibrillation: Yes Hx Congestive Heart Failure: Yes Hx Hypercholesterolemia: Yes Hx Hypertension: Yes - PULMONARY Hx Respiratory Disorders: Yes Hx Pulmonary Embolism: Yes - NEUROLOGICAL Hx Neurological Disorder: No - HEENT Hx HEENT Problems: No - RENAL Hx Chronic Kidney Disease: No - ENDOCRINE/METABOLIC Hx Diabetes Mellitus Type 2: Yes - HEMATOLOGICAL/ONCOLOGICAL Hx Blood Disorders: No - INTEGUMENTARY Hx Dermatological Problems: No - MUSCULOSKELETAL/RHEUMATOLOGICAL Hx Musculoskeletal Disorders: Yes Hx Arthritis: Yes Hx Falls: No - GASTROINTESTINAL Hx Gastrointestinal Disorders: No - GENITOURINARY/GYNECOLOGICAL Hx Genitourinary Disorders: Yes Hx Incontinence: Yes - PSYCHIATRIC Hx Substance Use: No - SURGICAL HISTORY Hx Surgeries: Yes Other/Comment: stent placement - ANESTHESIA Hx Anesthesia: Yes (Dental Procedure) Hx Anesthesia Reactions: No Meds Allergies/Adverse Reactions: Allergies Allergy/AdvReac Type Severity Reaction Status Date / Time No Known Allergies Allergy Verified 01/07/17 11:18 - Medications Medications: Current Medications Acetaminophen (Tylenol 325mg Tab) 325 mg PO Q4 PRN PRN Reason: Fever >100.4 F Albuterol/Ipratropium (Duoneb 3 Mg/0.5 Mg (3 Ml) Ud) 3 ml IH RQ6 PRN PRN Reason: Shortness of Breath Amlodipine Besylate (Norvasc) 10 mg PO DAILY [facility] Last Admin: 02/20/17 10:16 Dose: 10 mg Cyanocobalamin (Vitamin B12 1000 Mcg Tab) 1,000 mcg PO DAILY [facility] Last Admin: 02/20/17 10:16 Dose: 1,000 mcg Enoxaparin Sodium (Lovenox) 40 mg SC DAILY [facility] Last Admin: 02/20/17 10:16 Dose: 40 mg Famotidine (Pepcid) 20 mg PO DAILY [facility] Last Admin: 02/20/17 10:16 Dose: 20 mg Gabapentin (Neurontin) 300 mg PO HS [facility] Last Admin: 02/19/17 22:22 Dose: 300 mg Hydralazine HCl (Apresoline) 25 mg PO Q8 [facility] Last Admin: 02/20/17 05:40 Dose: 25 mg Lisinopril (Zestril) 10 mg PO DAILY [facility] Pneumococcal Polyvalent Vaccine (Pneumovax 23 Vaccine) 0.5 ml IM .ONCE ONE Stop: 02/21/17 10:01 Spironolactone (Aldactone) 12.5 mg PO DAILY@1600 [facility] Physical Exam - Constitutional Appears: Non-toxic - Head Exam Head Exam: ATRAUMATIC - Eye Exam Eye Exam: EOMI - ENT Exam ENT Exam: Mucous Membranes Moist - Neck Exam Neck exam: Negative for: Lymphadenopathy, Thyromegaly - Respiratory Exam Respiratory Exam: Clear to Auscultation Bilateral. absent: Rales - Cardiovascular Exam Cardiovascular Exam: REGULAR RHYTHM, Systolic Murmur - GI/Abdominal Exam GI & Abdominal Exam: Normal Bowel Sounds. absent: Organomegaly - Rectal Exam Rectal Exam: Deferred - Extremities Exam Extremities exam: Positive for: normal capillary refill. Negative for: calf tenderness - Neurological Exam Neurological exam: Alert, Oriented x3 - Psychiatric Exam Psychiatric exam: Normal Mood - Skin Skin Exam: Dry Results - Vital Signs Recent Vital Signs: Last Vital Signs Temp 98.4 F 02/20/17 07:35 Pulse 55 L 02/20/17 07:35 Resp 20 02/20/17 07:35 BP 118/74 02/20/17 07:35 Pulse Ox 98 02/20/17 07:35 - Labs Result Diagrams: 02/19/17 14:08 02/19/17 14:08 Labs: Laboratory Results - last 24 hr 02/19/17 02/19/17 15:31 22:52 Total Creatine Kinase 41 L CK-MB (Mass) 0.40 Troponin I, Quant < 0.0120 Urine Color Colorless Urine Clarity Clear Urine pH 7.0 Ur Specific [place] 1.005 Urine Protein Negative Urine Glucose (UA) Normal Urine Ketones Negative Urine Blood Negative Urine Nitrate Negative Urine Bilirubin Negative Urine Urobilinogen Normal Ur Leukocyte Esterase Neg Urine WBC (Auto) < 1 Urine RBC (Auto) < 1 Assessment & Plan (1) Sinus bradycardia Status: Acute Comment: Stable hemodynamically on beta angelito, no need for pacemaker, was stopped beta angelito and observe (2) CHF (congestive heart failure) Status: Chronic Comment: Chronic systolic left ventricular failure on DIANNE inhibitor now, also on hydralazine, observe blood pressure and off beta angelito because of significant bradycardia (3) HTN (hypertension) Status: Acute
[2017-02-20 15:24] LABS: INR 1.3
[2017-02-20] MEDS: Ferric Sodium Gluconat Complex 62.5 mg/5 ml Vial IVPB SCH (18:13)
--- NOTE | 2017-02-20 21:30 | CP.PCM.PN ---
Subjective - Date & Time of Evaluation Date of Evaluation: 02/20/17 Time of Evaluation: 20:00 - Subjective Subjective: Pt seen and evaluated Objective - Vital Signs/Intake and Output Vital Signs (last 24 hours): Temp Pulse Resp BP Pulse Ox 98.2 F 54 L 20 136/75 96 02/20/17 15:14 02/20/17 15:14 02/20/17 15:14 02/20/17 15:14 02/20/17 15:14 Intake and Output: 02/20/17 02/21/17 18:59 06:59 Intake Total 450 Balance 450 - Medications Medications: Current Medications Acetaminophen (Tylenol 325mg Tab) 325 mg PO Q4 PRN PRN Reason: Fever >100.4 F Albuterol/Ipratropium (Duoneb 3 Mg/0.5 Mg (3 Ml) Ud) 3 ml IH RQ6 PRN PRN Reason: Shortness of Breath Amlodipine Besylate (Norvasc) 10 mg PO DAILY [facility] Last Admin: 02/20/17 10:16 Dose: 10 mg Cyanocobalamin (Vitamin B12 1000 Mcg Tab) 1,000 mcg PO DAILY COUNT INCLUDES [facility] Last Admin: 02/20/17 10:16 Dose: 1,000 mcg Enoxaparin Sodium (Lovenox) 40 mg SC DAILY [facility]CLUD[facility] Last Admin: 02/20/17 10:16 Dose: 40 mg Famotidine (Pepcid) 20 mg PO DAILY COUNT [facility]CLUD[facility] Last Admin: 02/20/17 10:16 Dose: 20 mg Ferric Sodium Gluconate Complex (Ferrlecit) 125 mg IVPB DAILY [facility]CLUDES [facility] Stop: 02/28/17 16:01 Last Admin: 02/20/17 18:13 Dose: 125 mg Gabapentin (Neurontin) 300 mg PO HS [facility] Last Admin: 02/19/17 22:22 Dose: 300 mg Hydralazine HCl (Apresoline) 25 mg PO Q8 [facility] Last Admin: 02/20/17 13:41 Dose: 25 mg Lisinopril (Zestril) 10 mg PO DAILY COUNT [facility]CLUD[facility] Last Admin: 02/20/17 11:59 Dose: Not Given Pneumococcal Polyvalent Vaccine (Pneumovax 23 Vaccine) 0.5 ml IM .ONCE ONE Stop: 02/21/17 10:01 Spironolactone (Aldactone) 12.5 mg PO DAILY@1600 COUNT [facility]CLUDES [facility] Last Admin: 02/20/17 17:20 Dose: 12.5 mg - Labs Labs: PT 15.0 SECONDS (9.7-12.2) H 02/20/17 15:08 INR 1.3 02/20/17 15:08 APTT 23 SECONDS (21-34) 02/19/17 14:08 Assessment and Plan (1) Congestive heart failure (CHF) Status: Acute (2) HTN (hypertension) Status: Acute (3) Sinus bradycardia Status: Acute - Assessment and Plan (Free Text) Assessment: Assessment & Plan (1) Sinus bradycardia Status: Acute Comment: Stable hemodynamically on beta angelito, no need for pacemaker, was stopped beta angelito and observe (2) CHF (congestive heart failure) Status: Chronic Comment: Chronic systolic left ventricular failure on DIANNE inhibitor now, also on hydralazine, observe blood pressure and off beta angelito because of significant bradycardia (3) HTN (hypertension) Status: Acute
--- NOTE | 2017-02-20 21:30 | CP.PCM.HP ---
Past Patient History - Infectious Disease Hx of Infectious Diseases: None - Past Medical History & Family History Past Medical History?: Yes - Past Social History Smoking Status: Never Smoked - CARDIAC Hx Atrial Fibrillation: Yes Hx Congestive Heart Failure: Yes Hx Hypercholesterolemia: Yes Hx Hypertension: Yes - PULMONARY Hx Respiratory Disorders: Yes Hx Pulmonary Embolism: Yes - NEUROLOGICAL Hx Neurological Disorder: No - HEENT Hx HEENT Problems: No - RENAL Hx Chronic Kidney Disease: No - ENDOCRINE/METABOLIC Hx Diabetes Mellitus Type 2: Yes - HEMATOLOGICAL/ONCOLOGICAL Hx Blood Disorders: No - INTEGUMENTARY Hx Dermatological Problems: No - MUSCULOSKELETAL/RHEUMATOLOGICAL Hx Musculoskeletal Disorders: Yes Hx Arthritis: Yes Hx Falls: No - GASTROINTESTINAL Hx Gastrointestinal Disorders: No - GENITOURINARY/GYNECOLOGICAL Hx Genitourinary Disorders: Yes Hx Incontinence: Yes - PSYCHIATRIC Hx Substance Use: No - SURGICAL HISTORY Hx Surgeries: Yes Other/Comment: stent placement - ANESTHESIA Hx Anesthesia: Yes (Dental Procedure) Hx Anesthesia Reactions: No Meds Allergies/Adverse Reactions: Allergies Allergy/AdvReac Type Severity Reaction Status Date / Time No Known Allergies Allergy Verified 01/07/17 11:18 Results - Vital Signs Recent Vital Signs: Last Vital Signs Temp 98.2 F 02/20/17 15:14 Pulse 54 L 02/20/17 15:14 Resp 20 02/20/17 15:14 BP 136/75 02/20/17 15:14 Pulse Ox 96 02/20/17 15:14 - Labs Result Diagrams: 02/19/17 14:08 02/19/17 14:08 Labs: Laboratory Results - last 24 hr 02/19/17 02/20/17 22:52 15:08 PT 15.0 H INR 1.3 Total Creatine Kinase 41 L CK-MB (Mass) 0.40 Troponin I, Quant < 0.0120
[2017-02-21 08:21] LABS: INR 1.3
[2017-02-21 08:47] VITALS: TEMP 98.3; O2SAT 97
[2017-02-21] MEDS ORDERED: Pneumococcal 23-Valent Vaccine IM ONE (10:00)
--- NOTE | 2017-02-21 10:19 | CP.PCM.PN ---
Subjective - Date & Time of Evaluation Date of Evaluation: 02/21/17 Time of Evaluation: 08:40 Objective - Vital Signs/Intake and Output Vital Signs (last 24 hours): Temp Pulse Resp BP Pulse Ox 98.3 F 59 L 20 123/72 97 02/21/17 08:45 02/21/17 08:45 02/21/17 08:45 02/21/17 08:45 02/21/17 08:45 - Medications Medications: Current Medications Acetaminophen (Tylenol 325mg Tab) 325 mg PO Q4 PRN PRN Reason: Fever >100.4 F Albuterol/Ipratropium (Duoneb 3 Mg/0.5 Mg (3 Ml) Ud) 3 ml IH RQ6 PRN PRN Reason: Shortness of Breath Amlodipine Besylate (Norvasc) 10 mg PO DAILY [facility] Last Admin: 02/20/17 10:16 Dose: 10 mg Cyanocobalamin (Vitamin B12 1000 Mcg Tab) 1,000 mcg PO DAILY [facility] Last Admin: 02/20/17 10:16 Dose: 1,000 mcg Enoxaparin Sodium (Lovenox) 40 mg SC DAILY [facility] Last Admin: 02/20/17 10:16 Dose: 40 mg Famotidine (Pepcid) 20 mg PO DAILY [facility] Last Admin: 02/20/17 10:16 Dose: 20 mg Ferric Sodium Gluconate Complex (Ferrlecit) 125 mg IVPB DAILY [facility] Stop: 02/28/17 16:01 Last Admin: 02/20/17 18:13 Dose: 125 mg Gabapentin (Neurontin) 300 mg PO HS [facility] Last Admin: 02/20/17 22:38 Dose: 300 mg Hydralazine HCl (Apresoline) 25 mg PO Q8 [facility] Last Admin: 02/21/17 05:28 Dose: 25 mg Lisinopril (Zestril) 10 mg PO DAILY [facility] Last Admin: 02/20/17 11:59 Dose: Not Given Spironolactone (Aldactone) 12.5 mg PO DAILY@1600 [facility] Last Admin: 02/20/17 17:20 Dose: 12.5 mg - Labs Labs: PT 15.1 SECONDS (9.7-12.2) H 02/21/17 08:08 INR 1.3 02/21/17 08:08 APTT 23 SECONDS (21-34) 02/19/17 14:08
[2017-02-21] MEDS: Enoxaparin 40 mg Syringe SC SCH (11:00)
[2017-02-21] MEDS: Ferric Sodium Gluconat Complex 62.5 mg/5 ml Vial IVPB SCH (11:00)
[2017-02-21 12:36] LABS: CHLORIDE 103 mmol/L (98-107); SODIUM 142 mmol/L (132-148)
[2017-02-21 12:39] LABS: BLOOD UREA NITROGEN 19 mg/dL (9-20); CARBON DIOXIDE 28 mmol/L (22-30); GFR AFRICAN-AMERICAN > 60
[2017-02-21 12:40] LABS: CALCIUM 9.7 mg/dl (8.6-10.4); GLUCOSE,RANDOM 102 mg/dL (75-110)
[2017-02-21 13:06] VITALS: BP 123/79
[2017-02-21] MEDS ORDERED: Potassium Chloride 20 mEq ER Tab PO STA (13:24)
--- NOTE | 2017-02-21 13:28 | PCM.HF ---
Heart Failure Core Measure - Heart Failure Ejection Fraction: Less Than 40 % DIANNE Inhibitor Prescribed: Yes Beta-Manjinder Prescribed: None Contraindication/Reason for not providing: bradycardia Angiotensin II Receptor Manjinder Prescribed: No Contraindication/Reason for not providing: on dianne AnticoagulationTherapy for Atrial Fibrillation/Atrialflutter: Yes Aldosterone Antagonist Prescribed: Yes Hydralazine Nitrate Prescribed: Yes Implantable Cardioverter Defibrillator Therapy: No Contraindication/Reason for not providing: medical therapy as per shipping lead person Cardiac Resynchronization Therapy Prescribed: No Contraindication/Reason for not providing: medical therapy as per shipping lead person - Follow up Will be discharged to: Home Follow Up Date (must be within 7 days from discharge): 02/25/17 Follow Up Time: 09:00
--- NOTE | 2017-02-21 14:20 | CP.PCM.PN ---
Subjective - Date & Time of Evaluation Date of Evaluation: 02/21/17 Time of Evaluation: 14:00 - Subjective Subjective: No sob, stable CHF on medical treatment, stable hemodynamically, HR upper 50's, observe, needs ICD as outpt Objective - Vital Signs/Intake and Output Vital Signs (last 24 hours): Temp Pulse Resp BP Pulse Ox 98.3 F 59 L 20 123/79 97 02/21/17 08:45 02/21/17 08:45 02/21/17 08:45 02/21/17 13:05 02/21/17 08:45 - Medications Medications: Current Medications Acetaminophen (Tylenol 325mg Tab) 325 mg PO Q4 PRN PRN Reason: Fever >100.4 F Albuterol/Ipratropium (Duoneb 3 Mg/0.5 Mg (3 Ml) Ud) 3 ml IH RQ6 PRN PRN Reason: Shortness of Breath Amlodipine Besylate (Norvasc) 10 mg PO DAILY [facility] Last Admin: 02/21/17 11:00 Dose: 10 mg Cyanocobalamin (Vitamin B12 1000 Mcg Tab) 1,000 mcg PO DAILY [facility] Last Admin: 02/21/17 11:00 Dose: 1,000 mcg Enoxaparin Sodium (Lovenox) 40 mg SC DAILY [facility] Last Admin: 02/21/17 11:00 Dose: 40 mg Famotidine (Pepcid) 20 mg PO DAILY [facility] Last Admin: 02/21/17 11:00 Dose: 20 mg Ferric Sodium Gluconate Complex (Ferrlecit) 125 mg IVPB DAILY [facility] Stop: 02/28/17 16:01 Last Admin: 02/21/17 11:00 Dose: 125 mg Gabapentin (Neurontin) 300 mg PO HS [facility] Last Admin: 02/20/17 22:38 Dose: 300 mg Hydralazine HCl (Apresoline) 25 mg PO Q8 [facility] Last Admin: 02/21/17 13:02 Dose: 25 mg Lisinopril (Zestril) 10 mg PO DAILY [facility] Last Admin: 02/21/17 11:00 Dose: 10 mg Spironolactone (Aldactone) 12.5 mg PO DAILY@1600 [facility] Last Admin: 02/20/17 17:20 Dose: 12.5 mg Warfarin Sodium (Coumadin) 7.5 mg PO 1800 [facility] Stop: 02/21/17 18:01 - Labs Labs: 06/29/17 11:55 PT 15.1 SECONDS (9.7-12.2) H 02/21/17 08:08 INR 1.3 02/21/17 08:08 APTT 23 SECONDS (21-34) 02/19/17 14:08 - Constitutional Appears: Non-toxic - Head Exam Head Exam: ATRAUMATIC - Eye Exam Eye Exam: EOMI - ENT Exam ENT Exam: Mucous Membranes Moist - Neck Exam Neck Exam: absent: Lymphadenopathy, Thyromegaly - Respiratory Exam Respiratory Exam: Clear to Ausculation Bilateral. absent: Rales - Cardiovascular Exam Cardiovascular Exam: REGULAR RHYTHM, Murmur - GI/Abdominal Exam GI & Abdominal Exam: Normal Bowel Sounds. absent: Organomegaly - Rectal Exam Rectal Exam: Deferred - Extremities Exam Extremities Exam: Normal Capillary Refill. absent: Calf Tenderness - Neurological Exam Neurological Exam: Alert, Oriented x3 - Psychiatric Exam Psychiatric exam: Normal Mood - Skin Skin Exam: Dry Assessment and Plan (1) Sinus bradycardia Status: Acute (2) CHF (congestive heart failure) Status: Chronic (3) HTN (hypertension) Status: Acute
[2017-02-21 14:26] VITALS: PULSE 53
--- NOTE | 2017-02-22 01:58 | CP.PCM.DIS ---
Provider - Provider Date of Admission: 02/19/17 15:05 Attending physician: Mando Yen MD Time Spent in preparation of Discharge (in minutes): 41 Hospital Course - Lab Results Lab Results: Most Recent Lab Values WBC 7.8 K/uL (4.8-10.8) 02/19/17 14:08 RBC 4.10 Mil/uL (4.40-5.90) L 02/19/17 14:08 Hgb 10.0 g/dL (12.0-18.0) L 02/19/17 14:08 Hct 31.4 % (35.0-51.0) L 02/19/17 14:08 MCV 76.7 fL (80.0-94.0) L 02/19/17 14:08 MCH 24.4 pg (27.0-31.0) L 02/19/17 14:08 MCHC 31.8 g/dL (33.0-37.0) L 02/19/17 14:08 RDW 17.3 % (11.5-14.5) H 02/19/17 14:08 Plt Count 252 K/uL (130-400) 02/19/17 14:08 MPV 8.9 fL (7.2-11.7) 02/19/17 14:08 Neut % (Auto) 51.4 % (50.0-75.0) 02/19/17 14:08 Lymph % (Auto) 40.5 % (20.0-40.0) H 02/19/17 14:08 [place] % (Auto) 6.1 % (0.0-10.0) 02/19/17 14:08 Eos % (Auto) 1.3 % (0.0-4.0) 02/19/17 14:08 Baso % (Auto) 0.7 % (0.0-2.0) 02/19/17 14:08 Neut # 4.0 K/uL (1.8-7.0) 02/19/17 14:08 Lymph # 3.2 K/uL (1.0-4.3) 02/19/17 14:08 [place] # 0.5 K/uL (0.0-0.8) 02/19/17 14:08 Eos # 0.1 K/uL (0.0-0.7) 02/19/17 14:08 Baso # 0.1 K/uL (0.0-0.2) 02/19/17 14:08 PT 15.1 SECONDS (9.7-12.2) H 02/21/17 08:08 INR 1.3 02/21/17 08:08 APTT 23 SECONDS (21-34) 02/19/17 14:08 Sodium 142 mmol/L (132-148) 02/21/17 11:55 Potassium 3.0 mmol/L (3.6-5.2) L 02/21/17 11:55 Chloride 103 mmol/L (98-107) 02/21/17 11:55 Carbon Dioxide 28 mmol/L (22-30) 02/21/17 11:55 Anion Gap 14 (10-20) 02/21/17 11:55 BUN 19 mg/dL (9-20) 02/21/17 11:55 Creatinine 1.1 MG/DL (0.8-1.5) 02/21/17 11:55 Est GFR ( Amer) > 60 02/21/17 11:55 Est GFR (Non-Af Amer) > 60 02/21/17 11:55 Random Glucose 102 mg/dL (75-110) 02/21/17 11:55 Calcium 9.7 mg/dl (8.6-10.4) 02/21/17 11:55 Magnesium 1.7 mg/dL (1.6-2.3) 02/19/17 14:08 Total Bilirubin 0.6 mg/dL (0.2-1.3) 02/19/17 14:08 AST 34 U/L (17-59) 02/19/17 14:08 ALT 16 U/L (21-72) L 02/19/17 14:08 Alkaline Phosphatase 122 U/L (38-126) 02/19/17 14:08 Total Creatine Kinase 41 U/L (55-170) L 02/19/17 22:52 CK-MB (Mass) 0.40 ng/mL (0.0-3.38) 02/19/17 22:52 Troponin I < 0.0120 ng/mL (0.00-0.120) 02/19/17 14:08 Troponin I, Quant < 0.0120 ng/mL (0.00-0.120) 02/19/17 22:52 NT-Pro-B Natriuret Pep 1040 pg/mL (0-900) H 02/19/17 14:08 Total Protein 9.0 g/dL (6.3-8.3) H 02/19/17 14:08 Albumin 3.8 g/dL (3.5-5.0) 02/19/17 14:08 Globulin 5.2 gm/dL (2.2-3.9) H 02/19/17 14:08 Albumin/Globulin Ratio 0.7 (1.0-2.1) L 02/19/17 14:08 Urine Color Colorless (YELLOW) 02/19/17 15:31 Urine Clarity Clear (Clear) 02/19/17 15:31 Urine pH 7.0 (5.0-8.0) 02/19/17 15:31 Ur Specific [place] 1.005 (1.003-1.030) 02/19/17 15:31 Urine Protein Negative mg/dL (NEGATIVE) 02/19/17 15:31 Urine Glucose (UA) Normal mg/dL (Normal) 02/19/17 15:31 Urine Ketones Negative mg/dL (NEGATIVE) 02/19/17 15:31 Urine Blood Negative (NEGATIVE) 02/19/17 15:31 Urine Nitrate Negative (NEGATIVE) 02/19/17 15:31 Urine Bilirubin Negative (NEGATIVE) 02/19/17 15:31 Urine Urobilinogen Normal mg/dL (0.2-1.0) 02/19/17 15:31 Ur Leukocyte Esterase Neg Red/uL (Negative) 02/19/17 15:31 Urine WBC (Auto) < 1 /hpf (0-5) 02/19/17 15:31 Urine RBC (Auto) < 1 /hpf (0-3) 02/19/17 15:31 - Hospital Course Hospital Course: Pt seen and examined, No sob, stable CHF on medical treatment, stable hemodynamically, HR upper 50's, observe, needs ICD as outpt Discharge Exam - Head Exam Head Exam: ATRAUMATIC - Eye Exam Eye Exam: EOMI, Normal appearance, PERRL Pupil Exam: NORMAL ACCOMODATION, PERRL - Respiratory Exam Respiratory Exam: Clear to PA & Lateral, NORMAL BREATHING PATTERN - Cardiovascular Exam Cardiovascular Exam: REGULAR RHYTHM, +S1, +S2 - GI/Abdominal Exam GI & Abdominal Exam: Normal Bowel Sounds Discharge Plan - Follow Up Plan Condition: GUARDED Disposition: HOME/ ROUTINE Instructions: Warfarin (By mouth), Heart Failure (DC), Heart Healthy Diet (DC) , Bradycardia (DC) Additional Instructions: FOLLOW UP WITH DR YEN IN THE OFFICE IN ONE WEEK Referrals: Mando Yen MD [Staff Provider] - Freddy Cho MD [Staff Provider] -
== END 2017-02-21 14:19 | disposition home or self-care (01) | DRG 309 ==
LOC: C.ER 13:22 → C.9E 15:05 → C.6T 19:58
PROVIDERS: ADMIT Internal Medicine; ATTEND Internal Medicine
DX: R00.1 Bradycardia, unspecified (principal); I50.22 Chronic systolic (congestive) heart failure; I11.0 Hypertensive heart disease with heart failure; E11.9 Type 2 diabetes mellitus without complications; I45.2 Bifascicular block; E78.2 Mixed hyperlipidemia; I25.5 Ischemic cardiomyopathy; I48.91 Unspecified atrial fibrillation; Z86.711 Personal history of pulmonary embolism

== ENCOUNTER 2017-06-24 21:53 | Inpatient (IN) | payer MEDICARE ==
[2017-06-24 21:53] VITALS: PULSE 120; BMI 24.4
[2017-06-24] MEDS ORDERED: Albuterol-Ipratrop 3 mg / 0.5 (3 ml) UD IH STA (22:44)
[2017-06-24 23:02] LABS: BASO % 0.3 % (0.0-2.0); EOS # 0.1 K/uL (0.0-0.7); HEMATOCRIT 37.3 % (35.0-51.0); LYMPH # 2.3 K/uL (1.0-4.3); LYMPH % 37.5 % (20.0-40.0); MEAN CELL VOLUME 77.5 fL (80.0-94.0); MEAN CORPUSCULAR HEMOGLOBIN 25.5 pg (27.0-31.0); MEAN CORPUSCULAR HGB CONC 32.9 g/dL (33.0-37.0); MEAN PLATELET VOLUME 8.7 fL (7.2-11.7); MONO # 0.4 K/uL (0.0-0.8); MONO % 6.9 % (0.0-10.0); NRBC % 0.1 % (0.0-2.0); RED CELL DISTRIBUTION WIDTH 17.9 % (11.5-14.5); WHITE BLOOD COUNT 6.2 K/uL (4.8-10.8)
[2017-06-24 23:09] LABS: INR 1.1
[2017-06-24 23:11] LABS: CHLORIDE 102 mmol/L (98-107); POTASSIUM 3.6 mmol/L (3.6-5.2); SODIUM 138 mmol/L (132-148)
[2017-06-24 23:13] LABS: AST/SGOT 20 U/L (17-59); BILIRUBIN,TOTAL 0.5 mg/dL (0.2-1.3); CARBON DIOXIDE 25 mmol/L (22-30); GFR AFRICAN-AMERICAN > 60
[2017-06-24 23:14] LABS: ALKALINE PHOSPHATASE 105 U/L (38-126); ALT/SGPT 27 U/L (21-72); BLOOD UREA NITROGEN 20 mg/dL (9-20); CALCIUM 9.2 mg/dl (8.6-10.4); GLUCOSE,RANDOM 83 mg/dL (75-110); MAGNESIUM 1.7 mg/dL (1.6-2.3); TOTAL PROTEIN 8.2 g/dL (6.3-8.3)
[2017-06-24 23:15] LABS: ALB/GLOB RATIO 1.1 (1.0-2.1)
[2017-06-24] MEDS ORDERED: Albuterol-Ipratrop 3 mg / 0.5 (3 ml) UD ONE (23:22)
--- NOTE | 2017-06-25 00:04 | C.PDOC ---
Time Seen by Provider: 06/24/17 22:15 Chief Complaint (Nursing): Dizziness/Lightheaded History Per: Patient, Family Onset/Duration Of Symptoms: Days (about 1 week) Current Symptoms Are (Timing): Still Present Current Symptoms: Generalized weakness. SOB. Associated Symptoms Preceding Syncopal Episode: Other (Shortness of breath) Fall Associated With With Symptoms: No Severity: Moderate Additional History Per: Prior Records - Symptoms Of CVA Recent Head Trauma: No Past Medical History Reviewed: Historical Data, Nursing Documentation, Vital Signs Vital Signs: Last Vital Signs Temp 97.6 F 06/24/17 22:05 Pulse 58 L 06/24/17 22:05 Resp 12 06/24/17 22:42 BP 118/54 L 06/24/17 22:05 Pulse Ox 98 06/24/17 22:05 - Medical History PMH: Anxiety, Arthritis, Atrial Fibrillation, Cardiac Aneurysm, CHF, Deep Vein Thrombosis, HTN, Hypercholesterolemia, Hyperlipidemia, Pulmonary Embolism - [facility] Procedures DRAINAGE OF BLADDER WITH DRAINAGE DEVICE, VIA OPENING (11/03/16) EXCISION OF TOE NAIL, EXTERNAL APPROACH (01/07/17) FLUOROSCOPY L UP EXTREM VEIN W L OSM CONTRAST, GUIDANCE (11/03/16) INSERTION OF ENDOTRACHEAL AIRWAY INTO TRACHEA, VIA OPENING (11/03/16) INSERTION OF INFUSION DEV INTO SUP VENA CAVA, PERC APPROACH (11/03/16) INSERTION OF INTRALUM DEV INTO INF VENA CAVA, PERC APPROACH (11/29/16) RESPIRATORY VENTILATION, GREATER THAN 96 CONSECUTIVE HOURS (11/03/16) RESTRICT OF R INT ILIAC ART WITH INTRALUM DEV, PERC APPROACH (01/07/17) ULTRASONOGRAPHY OF LEFT UPPER EXTREMITY VEINS, GUIDANCE (11/03/16) Family History: States: Unknown Family Hx - Social History Hx Alcohol Use: No Hx Substance Use: No - Immunization History Hx Tetanus Toxoid Vaccination: No Hx Influenza Vaccination: Yes Hx Pneumococcal Vaccination: Yes Review Of Systems Except As Marked, All Systems Reviewed And Found Negative. Constitutional: Positive for: Weakness, Malaise. Negative for: Fever Cardiovascular: Negative for: Chest Pain Respiratory: Positive for: Shortness of Breath. Negative for: Hemoptysis Gastrointestinal: Negative for: Vomiting, Abdominal Pain, Diarrhea Musculoskeletal: Negative for: Neck Pain Neurological: Negative for: Weakness, Numbness Physical Exam - Physical Exam Appears: No Acute Distress, Chronically Ill Skin: Normal Color, Warm, Dry, No Rash Head: Atraumatic, Normacephalic Eye(s): bilateral: PERRL Neck: Normal ROM, Supple Cardiovascular: Rhythm Irregular Respiratory: Normal Breath Sounds, No Accessory Muscle Use Gastrointestinal/Abdominal: Soft, No Tenderness Back: No CVA Tenderness Extremity: Normal ROM, No Pedal Edema, No Calf Tenderness Neurological/Psych: Oriented x3, Normal Motor, Normal Sensation ED Course And Treatment - Laboratory Results Result Diagrams: 06/24/17 22:58 06/24/17 22:58 Lab Interpretation: No Acute Changes ECG: Interpreted By Me, Viewed By Me ECG Rhythm: Sinus Rhythm, 1st Degree HB, R BBB, PVC, Nonspecific Changes ECG Interpretation: Abnormal Interpretation Of ECG: Bifascicular block Rate From EC O2 Sat by Pulse Oximetry: 98 Pulse Ox Interpretation: Normal - Radiology CXR: Interpreted by Me, Viewed By Me CXR Interpretation: Yes: No Acute Disease Progress Note: Pt has an irregular heart rate on the cardiac surgeon. HR drops to the 40's at times. Disposition Discussed With : Mando Yen Comment: He accepted pt on his service. Doctor Will See Patient In The: Hospital Counseled Patient/Family Regarding: Studies Performed, Diagnosis - Disposition Disposition: HOSPITALIZED Disposition Time: 00:05 Condition: GUARDED - Clinical Impression Clinical Impression: Shortness of breath, Symptomatic bradycardia
[2017-06-25] MEDS ORDERED: Albuterol-Ipratrop 3 mg / 0.5 (3 ml) UD IH PRN (00:56)
[2017-06-25] MEDS ORDERED: Magnesium Hydroxide Susp 30 ml UD PO PRN (00:56)
[2017-06-25 02:20] LABS: THYROID STIMULATING HORMONE 0.47 mIU/L (0.46-4.68)
--- NOTE | 2017-06-25 08:16 | RAD ---
PROCEDURE: CHEST RADIOGRAPH, 1 VIEW HISTORY: Shortness of breath COMPARISON: 01/07/2017 FINDINGS: LUNGS: Mild venous congestion. Right hilar prominence. Diffuse increased interstitial lung markings. PLEURA: No pneumothorax or pleural fluid seen. CARDIOVASCULAR: Tortuous ectatic aorta. Mild cardiomegaly. OSSEOUS STRUCTURES: Degenerative changes in the spine and shoulders. VISUALIZED UPPER ABDOMEN: Normal. OTHER FINDINGS: None. IMPRESSION: Mild venous congestion. Right hilar prominence. Diffuse increased interstitial lung markings.
[2017-06-25 12:09] LABS: INR 1.2
--- NOTE | 2017-06-25 21:01 | CP.PCM.HP ---
History of Present Illness - History of Present Illness History of Present Illness: CC: Dizziness, weakness HPI: Pt is a 72 yr old male with h/o hypertensive heart disease and enlarged heart, s/p repair if abd aortic aneurysm, compalint with his diet and medications.he started having onand off dizziness, chest pain not associated with diaphoresis, not associated with trauma, fall,LOCsince few days. he came in because of persistant dizziness and difficuly carrdying out ADL Present on Admission - Present on Admission Any Indicators Present on Admission: Yes Review of Systems - Review of Systems Systems not reviewed;Unavailable: Acuity of Condition - Constitutional Constitutional: Fatigue, Lethargy, Weakness - EENT Eyes: absent: As Per HPI, Blind Spots, Blurred Vision, Change in Vision, Decreased Night Vision, Diplopia, Discharge, Dry Eye, Exophthalmos, Floaters, Irritation, Itchy Eyes, Loss of Peripheral Vision, Pain, Photophobia, Requires Corrective Lenses, Sees Flashes, Spots in Vision, Tunnel Vision, Other Visual Disturbances, Loss of Vision, Other - Cardiovascular Cardiovascular: Chest Pain - Respiratory Respiratory: absent: As Per HPI, Cough, Dyspnea, Hemoptysis, Dyspnea on Exertion , Wheezing, Snoring, Stridor, Pain on Inspiration, Chest Congestion, Excessive Mucous Production, Change in Mucous Color, Pain with Coughing, Other - Gastrointestinal Gastrointestinal: absent: As Per HPI, Abdominal Pain, Bloating, Change in Bowel Habits, Change in Stool Character, Coffee Ground Emesis, Constipation, Cramping , Diarrhea, Dyspepsia, Dysphagia, Early Satiety, Excessive Flatus, Fecal Incontinence, Heartburn, Hematemesis, Hematochezia, Loose Stools, Melena, Nausea , Odynophagia, Temesmus, Vomiting, Other - Musculoskeletal Musculoskeletal: absent: As Per HPI, Abnormal Gait, Arthralgias, Atrophy, Back Pain, Deformity, Joint Swelling, Limited Range of Motion, Loss of Height, Muscle Cramps, Muscle Weakness, Myalgias, Neck Pain, Numbness, Radiating Pain into Limb, Stiffness, Tingling, Other - Integumentary Integumentary: absent: As Per HPI, Acne, Alopecia, Bleeding Lesions, Change in Hair, Change in Nails, Change in Pigmentation, Changing Lesions, Dry Skin, Erythema, Furuncle, Hirsutism, Lesions, New Lesions, Non-Healing Lesions, Photosensitivity, Pruritus, Rash, Skin Pain, Skin Ulcer, Sores, Striae, Swelling , Unusual Bruising, Wounds, Jaundice, Other - Neurological Neurological: Dizziness, Numbness Past Patient History - Infectious Disease Hx of Infectious Diseases: None - Past Medical History & Family History Past Medical History?: Yes - Past Social History Smoking Status: Never Smoked - CARDIAC Hx Atrial Fibrillation: Yes Hx Congestive Heart Failure: Yes Hx Hypercholesterolemia: Yes Hx Hypertension: Yes - PULMONARY Hx Pulmonary Embolism: Yes - NEUROLOGICAL Hx Neurological Disorder: No - HEENT Hx HEENT Problems: No - RENAL Hx Chronic Kidney Disease: No - ENDOCRINE/METABOLIC Hx Diabetes Mellitus Type 2: Yes - HEMATOLOGICAL/ONCOLOGICAL Hx Blood Disorders: No - INTEGUMENTARY Hx Dermatological Problems: No - MUSCULOSKELETAL/RHEUMATOLOGICAL Hx Arthritis: Yes Hx Falls: No - GASTROINTESTINAL Hx Gastrointestinal Disorders: No - GENITOURINARY/GYNECOLOGICAL Hx Genitourinary Disorders: Yes Hx Incontinence: Yes - PSYCHIATRIC Hx Anxiety: Yes Hx Substance Use: No - SURGICAL HISTORY Hx Surgeries: Yes Other/Comment: stent placement - ANESTHESIA Hx Anesthesia: Yes (Dental Procedure) Hx Anesthesia Reactions: No Meds Allergies/Adverse Reactions: Allergies Allergy/AdvReac Type Severity Reaction Status Date / Time No Known Allergies Allergy Verified 06/24/17 22:12 Physical Exam - Constitutional Appears: No Acute Distress - Head Exam Head Exam: ATRAUMATIC, NORMAL INSPECTION, NORMOCEPHALIC - Eye Exam Eye Exam: EOMI, Normal appearance, PERRL Pupil Exam: NORMAL ACCOMODATION, PERRL - Respiratory Exam Respiratory Exam: Decreased Breath Sounds, Rales, Rhonchi - Cardiovascular Exam Cardiovascular Exam: Bradycardia, +S1, +S2 - GI/Abdominal Exam GI & Abdominal Exam: Normal Bowel Sounds, Soft. absent: Tenderness - Rectal Exam Additional comments: enlarged prostrate - Neurological Exam Neurological exam: Alert, Oriented x3 Additional comments: unable to acess Gait due to dizziness Results - Vital Signs Recent Vital Signs: Last Vital Signs Temp 97.5 F L 06/25/17 19:12 Pulse 63 06/25/17 19:12 Resp 18 06/25/17 19:12 BP 127/70 06/25/17 19:12 Pulse Ox 96 06/25/17 15:01 - Labs Result Diagrams: 06/24/17 22:58 06/24/17 22:58 Labs: Laboratory Results - last 24 hr 06/24/17 06/24/17 06/24/17 22:58 22:58 22:58 WBC 6.2 RBC 4.81 Hgb 12.3 D Hct 37.3 MCV 77.5 L MCH 25.5 L MCHC 32.9 L RDW 17.9 H Plt Count 214 MPV 8.7 Neut % (Auto) 54.3 Lymph % (Auto) 37.5 [place] % (Auto) 6.9 Eos % (Auto) 1.0 Baso % (Auto) 0.3 Neut # 3.4 Lymph # 2.3 [place] # 0.4 Eos # 0.1 Baso # 0.0 PT 11.9 INR 1.1 APTT 33 Sodium 138 Potassium 3.6 Chloride 102 Carbon Dioxide 25 Anion Gap 15 BUN 20 Creatinine 1.2 Est GFR ( Amer) > 60 Est GFR (Non-Af Amer) 59 Random Glucose 83 Calcium 9.2 Magnesium 1.7 Total Bilirubin 0.5 AST 20 ALT 27 Alkaline Phosphatase 105 Total Creatine Kinase CK-MB (Mass) Troponin I < 0.0120 Troponin I, Quant NT-Pro-B Natriuret Pep 245 Total Protein 8.2 Albumin 4.2 Globulin 4.0 H Albumin/Globulin Ratio 1.1 TSH 3rd Generation 06/25/17 06/25/17 06/25/17 01:49 06:32 11:49 WBC RBC Hgb Hct MCV MCH MCHC RDW Plt Count MPV Neut % (Auto) Lymph % (Auto) [place] % (Auto) Eos % (Auto) Baso % (Auto) Neut # Lymph # [place] # Eos # Baso # PT 13.8 H INR 1.2 APTT Sodium Potassium Chloride Carbon Dioxide Anion Gap BUN Creatinine Est GFR ( Amer) Est GFR (Non-Af Amer) Random Glucose Calcium Magnesium Total Bilirubin AST ALT Alkaline Phosphatase Total Creatine Kinase 55 72 CK-MB (Mass) 0.47 0.83 Troponin I Troponin I, Quant < 0.0120 NT-Pro-B Natriuret Pep Total Protein Albumin Globulin Albumin/Globulin Ratio TSH 3rd Generation 0.47 Assessment & Plan (1) Symptomatic bradycardia Assessment and Plan: rule out heart block, sick sinus syndrome, cerebral atherescleoris pt will need permanent pace maker if ischemia is ruled out cardiology eval Status: Acute (2) Abdominal aortic aneurysm Status: Acute (3) Congestive heart failure (CHF) Status: Acute
--- NOTE | 2017-06-25 23:12 | CON ---
CARDIOLOGY CONSULTATION DATE: REASON FOR CONSULTATION: Symptomatic bradycardia. 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 The patient was admitted because of symptomatic bradycardia. The patient did report dizziness and his heart rate revealed sinus bradycardia at the rate of 40. The patient has an underlying bifascicular block, right bundle-branch block with left anterior fascicular block. The patient complains of shortness of breath, but denies any chest pain. SOCIAL HISTORY: Former smoker. REVIEW OF SYSTEMS: The patient denies any vomiting or diarrhea. The patient denies any recent rectal bleeding. The patient denies any falling recently. The patient denies any productive cough or retrosternal chest pain. PAST MEDICAL HISTORY: Endovascular repair of abdominal aortic aneurysm, cardiomyopathy, cerebellar infarct, GI bleeding, DVT and pulmonary embolus. PHYSICAL EXAMINATION: GENERAL: The patient is an elderly male who does not appear to be in acute distress. VITAL SIGNS: Blood pressure 143/83, heart rate 59, respirations 20, temperature 97.6. HEENT: Normocephalic. CHEST: Bilateral rhonchi. HEART: S1 and S2 regular. ABDOMEN: Soft. EXTREMITIES: No edema. LABORATORY DATA: SMA-7: Sodium 138, potassium 3.6, chloride 102, CO2 of 25, glucose 83, BUN 20, creatinine 1.2. Two sets of troponins are negative. TSH levels are within normal limit. INR is 1.2. CBC: WBC is 6.2, hemoglobin and hematocrit 12.3 and 37.3, platelet count 214,000. EKG revealed sinus rhythm at the rate of 61, occasional PVCs and occasional APCs, bifascicular block, right bundle-branch block with left anterior fascicular block. Chest x-ray was unremarkable except for prominent central_ vasculature. Echocardiograph study performed in 10/2016 revealed [id number] concentric LVH with moderately impaired ejection fraction despite EF 32%, mild valvular aortic stenosis, mild pulmonary hypertension, [id number] aortic insufficiency. ASSESSMENT: 1. Symptomatic bradycardia. 2. Bifascicular block, i.e. right bundle-branch block with left anterior fascicular block. 3. Congestive heart failure with significantly impaired systolic function. 4. History of endovascular repair of abdominal aortic aneurysm. 5. History of deep venous thrombosis and pulmonary embolus. 6. History of gastrointestinal bleeding. CONDITIONS: Continue Aldactone 12.5 mg once a day, hydralazine 25 mg q.i.d., Crestor 5 mg once a day, subcutaneous heparin 5000 units q. 8 hours, discontinue Norvasc, start Coreg at 3.125 mg twice a day. The case was discussed with Dr. Mando Yen and I will request Electrophysiology consult by Dr. Pina for evaluation for possible pacemaker placement. Hal Tovar MD MTDD
[2017-06-26 08:45] LABS: INR 1.2
--- NOTE | 2017-06-26 12:41 | CARD ---
APPROVED REPORT EKG Measurement Heart [id number] <Conclusion> Sinus rhythm with 1st degree AV block with occasional premature ventricular complexes and premature atrial complexes Right bundle branch block Left anterior fascicular block Bifascicular block Abnormal ECG
--- NOTE | 2017-06-26 18:26 | PN ---
DATE: SUBJECTIVE: The patient is experiencing palpitation. He is not dizzy while in bed. PHYSICAL EXAMINATION: VITAL SIGNS: Blood pressure 144/82, heart rate 64, temperature 97.5 and respirations 20. HEENT: Normocephalic. CHEST: Clear. HEART: S1 and S2 regular. EXTREMITIES: No edema. LABORATORY DATA: Today's INR is 1.2. ASSESSMENT: 1. Symptomatic bradycardia. 2. First-degree arteriovenous block with bifascicular block, i.e., right bundle-branch block and left anterior fascicular block. 3. Congestive heart failure with significantly impaired systolic function. 4. History of endovascular repair of abdominal aortic aneurysm. 5. History of deep venous thrombosis and pulmonary embolus. 6. History of gastrointestinal bleeding in the past. The patient's hemoglobin and hematocrit are within normal limits. RECOMMENDATIONS: Continue Aldactone 12.5 mg once a day, hydralazine 25 mg q.i.d., Coreg 3.125 mg twice a day, Crestor 5 mg once a day, subcutaneous heparin at 5000 units q. 8 hours and vitamin B12 at 1 mg orally daily. Awaiting Dr. Pina's, imaging services director, evaluation for possible need for pacemaker placement and for that reason, Coumadin will be on hold. Hal Tovar MD
--- NOTE | 2017-06-26 21:46 | CP.PCM.CON ---
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[employer] Past Patient History - Infectious Disease Hx of Infectious Diseases: None - Past Medical History & Family History Past Medical History?: Yes - Past Social History Smoking Status: Never Smoked - CARDIAC Hx Atrial Fibrillation: Yes Hx Congestive Heart Failure: Yes Hx Hypercholesterolemia: Yes Hx Hypertension: Yes - PULMONARY Hx Pulmonary Embolism: Yes - NEUROLOGICAL Hx Neurological Disorder: No - HEENT Hx HEENT Problems: No - RENAL Hx Chronic Kidney Disease: No - ENDOCRINE/METABOLIC Hx Diabetes Mellitus Type 2: Yes - HEMATOLOGICAL/ONCOLOGICAL Hx Blood Disorders: No - INTEGUMENTARY Hx Dermatological Problems: No - MUSCULOSKELETAL/RHEUMATOLOGICAL Hx Arthritis: Yes Hx Falls: No - GASTROINTESTINAL Hx Gastrointestinal Disorders: No - GENITOURINARY/GYNECOLOGICAL Hx Genitourinary Disorders: Yes Hx Incontinence: Yes - PSYCHIATRIC Hx Anxiety: Yes Hx Substance Use: No - SURGICAL HISTORY Hx Surgeries: Yes Other/Comment: stent placement - ANESTHESIA Hx Anesthesia: Yes (Dental Procedure) Hx Anesthesia Reactions: No Meds Allergies/Adverse Reactions: Allergies Allergy/AdvReac Type Severity Reaction Status Date / Time No Known Allergies Allergy Verified 06/24/17 22:12 - Medications Medications: Current Medications Acetaminophen (Tylenol 325mg Tab) 325 mg PO Q4 PRN PRN Reason: Fever >100.4 F Albuterol/Ipratropium (Duoneb 3 Mg/0.5 Mg (3 Ml) Ud) 3 ml IH PRN PRN PRN Reason: Shortness of Breath Last Admin: 06/25/17 07:42 Dose: 3 ml Carvedilol (Coreg) 3.125 mg PO BID REPLACED BY [facility] Last Admin: 06/26/17 18:07 Dose: Not Given Cyanocobalamin (Vitamin B12 1000 Mcg Tab) 1,000 mcg PO DAILY REPLACED BY [facility] Last Admin: 06/26/17 10:03 Dose: 1,000 mcg Famotidine (Pepcid) 20 mg PO DAILY REPLACED BY [facility] Last Admin: 06/26/17 10:02 Dose: 20 mg Gabapentin (Neurontin) 300 mg PO HS REPLACED BY [facility] Last Admin: 06/26/17 21:15 Dose: 300 mg Heparin Sodium (Porcine) (Heparin) 5,000 units SC Q8 REPLACED BY [facility] Last Admin: 06/26/17 21:17 Dose: 5,000 units Hydralazine HCl (Apresoline) 25 mg PO QID REPLACED BY [facility] Last Admin: 06/26/17 21:15 Dose: 25 mg Magnesium Hydroxide (Milk Of Magnesia) 30 ml PO DAILY PRN PRN Reason: Constipation Rosuvastatin Calcium (Crestor) 5 mg PO DIN REPLACED BY [facility] Spironolactone (Aldactone) 12.5 mg PO DAILY@1600 REPLACED BY [facility] Last Admin: 06/26/17 16:00 Dose: Not Given Physical Exam - Additional Findings Additional findings: No distress Normal venous pressures Normal carotids No goiter Clear lungs Soft heart sounds PMI ? No murmurs No edema DP ? Alert disoriented in place and time No focal deficit Results - Vital Signs Recent Vital Signs: Last Vital Signs Temp 97.7 F 06/26/17 15:20 Pulse 61 06/26/17 16:00 Resp 20 06/26/17 15:20 BP 148/79 06/26/17 15:20 Pulse Ox 97 06/26/17 15:20 - Labs Result Diagrams: 06/24/17 22:58 06/24/17 22:58 Labs: Laboratory Results - last 24 hr 06/26/17 06/26/17 03:22 08:27 PT 13.1 H INR 1.2 Total Creatine Kinase 82 CK-MB (Mass) 0.71 Troponin I, Quant < 0.0120 Assessment & Plan - Assessment and Plan (Free Text) Assessment: Mr. Bill presented with shortness of breath and dizziness and syncope per the chart which the patient denies; of note significant overlay of cognitive dysfunction. Exam was unrevealing (pertinent); EKG telemetry showed a bi and trifascicular block. Assuming syncope and further more a hemodynamic event (Cf. seizures hypoglycemia ) its plausible that a bradyarrhythmia undergirds the syncope; however its difficult to definitively correlate Options include eliminating other causes of fall and syncope (mechanical fall, tilt tble neuro input) and then consider either an event or loop recorder versus a permanent pacemaker implant. Alternatively obtain advance directives and institute fall precautions In the interim would avoid beta blockers Plan: As outlined
--- NOTE | 2017-06-26 22:12 | CP.PCM.PN ---
Subjective - Date & Time of Evaluation Date of Evaluation: 06/26/17 Time of Evaluation: 09:00 - Subjective Subjective: PT SEEN AND EXAINED BY ME TODAY, Objective - Vital Signs/Intake and Output Vital Signs (last 24 hours): Temp Pulse Resp BP Pulse Ox 97.7 F 61 20 148/79 97 06/26/17 15:20 06/26/17 16:00 06/26/17 15:20 06/26/17 15:20 06/26/17 15:20 Intake and Output: 06/26/17 06/27/17 18:59 06:59 Intake Total 400 Output Total 500 Balance -100 - Medications Medications: Current Medications Acetaminophen (Tylenol 325mg Tab) 325 mg PO Q4 PRN PRN Reason: Fever >100.4 F Albuterol/Ipratropium (Duoneb 3 Mg/0.5 Mg (3 Ml) Ud) 3 ml IH PRN PRN PRN Reason: Shortness of Breath Last Admin: 06/25/17 07:42 Dose: 3 ml Carvedilol (Coreg) 3.125 mg PO BID [facility] Last Admin: 06/26/17 18:07 Dose: Not Given Cyanocobalamin (Vitamin B12 1000 Mcg Tab) 1,000 mcg PO DAILY [facility] Last Admin: 06/26/17 10:03 Dose: 1,000 mcg Famotidine (Pepcid) 20 mg PO DAILY [facility] Last Admin: 06/26/17 10:02 Dose: 20 mg Gabapentin (Neurontin) 300 mg PO HS [facility] Last Admin: 06/26/17 21:15 Dose: 300 mg Heparin Sodium (Porcine) (Heparin) 5,000 units SC Q8 [facility] Last Admin: 06/26/17 21:17 Dose: 5,000 units Hydralazine HCl (Apresoline) 25 mg PO QID [facility] Last Admin: 06/26/17 21:15 Dose: 25 mg Magnesium Hydroxide (Milk Of Magnesia) 30 ml PO DAILY PRN PRN Reason: Constipation Rosuvastatin Calcium (Crestor) 5 mg PO DIN [facility] Spironolactone (Aldactone) 12.5 mg PO DAILY@1600 [facility] Last Admin: 06/26/17 16:00 Dose: Not Given - Labs Labs: 06/24/17 22:58 06/24/17 22:58 PT 13.1 SECONDS (9.7-12.2) H 06/26/17 08:27 INR 1.2 06/26/17 08:27 APTT 33 SECONDS (21-34) 06/24/17 22:58 Assessment and Plan (1) Symptomatic bradycardia Status: Acute (2) Abdominal aortic aneurysm Status: Acute (3) Congestive heart failure (CHF) Status: Acute
[2017-06-27 11:32] LABS: BASO % 0.3 % (0.0-2.0); EOS # 0.1 K/uL (0.0-0.7); EOS % 1.7 % (0.0-4.0); HEMATOCRIT 32.8 % (35.0-51.0); LYMPH # 2.5 K/uL (1.0-4.3); LYMPH % 39.5 % (20.0-40.0); MEAN CELL VOLUME 78.2 fL (80.0-94.0); MEAN CORPUSCULAR HEMOGLOBIN 25.7 pg (27.0-31.0); MEAN CORPUSCULAR HGB CONC 32.9 g/dL (33.0-37.0); MEAN PLATELET VOLUME 8.7 fL (7.2-11.7); MONO # 0.5 K/uL (0.0-0.8); MONO % 7.4 % (0.0-10.0); RED CELL DISTRIBUTION WIDTH 17.8 % (11.5-14.5); WHITE BLOOD COUNT 6.3 K/uL (4.8-10.8)
[2017-06-27 11:52] LABS: CHLORIDE 103 mmol/L (98-107); POTASSIUM 3.3 mmol/L (3.6-5.2); SODIUM 139 mmol/L (132-148)
[2017-06-27 11:54] LABS: GFR AFRICAN-AMERICAN > 60
[2017-06-27 11:55] LABS: BLOOD UREA NITROGEN 18 mg/dL (9-20); CALCIUM 9.2 mg/dl (8.6-10.4); CARBON DIOXIDE 26 mmol/L (22-30); GLUCOSE,RANDOM 87 mg/dL (75-110)
--- NOTE | 2017-06-27 13:26 | PN ---
DATE: SUBJECTIVE: The patient denies dizziness, chest pain, or shortness of breath. PHYSICAL EXAMINATION: VITAL SIGNS: Blood pressure 135/82, heart rate 63, temperature 97.9, and respirations 20. HEENT: Pale conjunctivae. CHEST: Clear. HEART: S1 and S2 regular. EXTREMITIES: No edema. LABORATORY DATA: Hemoglobin and hematocrit 10.8 and 32.8. ASSESSMENT: 1. Symptomatic bradycardia on admission. 2. History of endovascular repair of an abdominal aortic aneurysm . 3. Bifascicular block, i.e., right bundle-branch block with left anterior fascicular block. 4. Anemia. 5. History of deep venous thrombosis and pulmonary embolus. 6. Congestive heart failure. RECOMMENDATIONS: Continue Aldactone 12.5 mg once a day, hydralazine 25 mg q.i.d., Crestor 5 mg once a day, and subcutaneous heparin at 5000 units q. 8 hours. Case was discussed with Dr. Pina who suggested a loop recorder placement; however, he will further discuss the patient with Dr. Mando Yen, the primary physician, as the patient himself is not very informative and this is the second admission for symptomatic bradycardia. Holter was placed yesterday and would be removed today and hopefully the report will be available tomorrow. In the meantime, I recommend reinitiating Coumadin therapy for now. Hal Tovar MD
[2017-06-27] MEDS ORDERED: Potassium Chloride 20 mEq ER Tab PO ONE (14:15)
--- NOTE | 2017-06-27 15:37 | CP.PCM.PN ---
Subjective - Date & Time of Evaluation Date of Evaluation: 06/27/17 Time of Evaluation: 10:20 - Subjective Subjective: Patient seen and examined today, states feels better, denies any chest pain, sob , dizziness no overnight events recorded on monitor HR - between 50 -60 Objective - Vital Signs/Intake and Output Vital Signs (last 24 hours): Temp Pulse Resp BP Pulse Ox 97.9 F 58 L 20 135/82 96 06/27/17 07:20 06/27/17 08:00 06/27/17 07:20 06/27/17 07:20 06/27/17 07:20 Intake and Output: 06/27/17 06/27/17 06:59 18:59 Intake Total 400 Output Total 500 Balance -100 - Medications Medications: Current Medications Acetaminophen (Tylenol 325mg Tab) 325 mg PO Q4 PRN PRN Reason: Fever >100.4 F Albuterol/Ipratropium (Duoneb 3 Mg/0.5 Mg (3 Ml) Ud) 3 ml IH PRN PRN PRN Reason: Shortness of Breath Last Admin: 06/25/17 07:42 Dose: 3 ml Cyanocobalamin (Vitamin B12 1000 Mcg Tab) 1,000 mcg PO DAILY [facility] Last Admin: 06/27/17 09:11 Dose: 1,000 mcg Famotidine (Pepcid) 20 mg PO DAILY [facility] Last Admin: 06/27/17 09:11 Dose: 20 mg Gabapentin (Neurontin) 300 mg PO HS [facility] Last Admin: 06/26/17 21:15 Dose: 300 mg Heparin Sodium (Porcine) (Heparin) 5,000 units SC Q8 [facility] Last Admin: 06/27/17 14:26 Dose: 5,000 units Hydralazine HCl (Apresoline) 25 mg PO QID [facility] Last Admin: 06/27/17 14:26 Dose: 25 mg Magnesium Hydroxide (Milk Of Magnesia) 30 ml PO DAILY PRN PRN Reason: Constipation Rosuvastatin Calcium (Crestor) 5 mg PO DIN [facility] Spironolactone (Aldactone) 12.5 mg PO DAILY@1600 [facility] Last Admin: 06/26/17 16:00 Dose: Not Given Warfarin Sodium (Coumadin) 10 mg PO 1600 [facility] Stop: 06/27/17 16:01 - Labs Labs: 06/27/17 11:21 06/27/17 11:21 PT 13.1 SECONDS (9.7-12.2) H 06/26/17 08:27 INR 1.2 06/26/17 08:27 APTT 33 SECONDS (21-34) 06/24/17 22:58 - Constitutional Appears: Well, No Acute Distress - Respiratory Exam Respiratory Exam: Clear to Ausculation Bilateral, NORMAL BREATHING PATTERN - Cardiovascular Exam Cardiovascular Exam: Bradycardia, REGULAR RHYTHM, +S1, +S2 - Neurological Exam Neurological Exam: Alert, Awake, Oriented x3 Assessment and Plan - Assessment and Plan (Free Text) Assessment: A/P 72 yr old mal e admitted for SOB/ dizziness / Symptomatic bradycardia HR - 50-60 troponin x 3 - negative EKG- Bifascicular block, BBB holter monitor placed yesterday and will be removed today seen by Dr. Pina for bradycardia and bifacicular block D/w Dr. Pina, patient can be discharged home today from EPS standpoint and f/u with his office for event recorder D/w Dr. Yen, stable for discharge home today and f/u with his office in 1 week Discharge plan discussed with patient , who understands and agrees with plan
--- NOTE | 2017-06-27 16:11 | PCM.HF ---
Heart Failure Core Measure - Heart Failure Ejection Fraction: Less Than 40 % DIANNE Inhibitor Prescribed: No Contraindication/Reason for not providing: HR IS ON 50'S Beta-Manjinder Prescribed: None Contraindication/Reason for not providing: PATIENT IS BRADYCARDIA Angiotensin II Receptor Manjinder Prescribed: No Contraindication/Reason for not providing: HR IS ON 50'S AnticoagulationTherapy for Atrial Fibrillation/Atrialflutter: Yes Contraindication/Reason for not providing: PATIENT IS WARFARIN Aldosterone Antagonist Prescribed: Yes Hydralazine Nitrate Prescribed: Yes Implantable Cardioverter Defibrillator Therapy: No Contraindication/Reason for not providing: SCHEDULE TO DO IT OUT PATIENT NEXT WEEK ( DR NDIAYE) Cardiac Resynchronization Therapy Prescribed: No Contraindication/Reason for not providing: PLAN FOR LOOP RECORDER IN DR NDIAYE'S OFFICE - Follow up Will be discharged to: Home Follow Up Date (must be within 7 days from discharge): 07/01/17 Follow Up Time: 09:00
[2017-06-27 16:48] VITALS: BP 134/85; PULSE 66; RESP 18; TEMP 97.9; O2SAT 97
[2017-06-27] MEDS ORDERED: Influenza Vaccine 60 mcg/0.5 mL SYR (4YR UP) IM ONE (16:49)
--- NOTE | 2017-06-27 22:49 | CP.PCM.DIS ---
Provider - Provider Date of Admission: 06/25/17 00:06 Attending physician: Mando Yen MD Time Spent in preparation of Discharge (in minutes): 56 Diagnosis - Discharge Diagnosis (1) Symptomatic bradycardia Status: Acute (2) Abdominal aortic aneurysm Status: Acute (3) Congestive heart failure (CHF) Status: Acute Hospital Course - Lab Results Lab Results: Most Recent Lab Values WBC 6.3 K/uL (4.8-10.8) 06/27/17 11:21 RBC 4.20 Mil/uL (4.40-5.90) L 06/27/17 11:21 Hgb 10.8 g/dL (12.0-18.0) L 06/27/17 11:21 Hct 32.8 % (35.0-51.0) L 06/27/17 11:21 MCV 78.2 fL (80.0-94.0) L 06/27/17 11:21 MCH 25.7 pg (27.0-31.0) L 06/27/17 11:21 MCHC 32.9 g/dL (33.0-37.0) L 06/27/17 11:21 RDW 17.8 % (11.5-14.5) H 06/27/17 11:21 Plt Count 221 K/uL (130-400) 06/27/17 11:21 MPV 8.7 fL (7.2-11.7) 06/27/17 11:21 Neut % (Auto) 51.1 % (50.0-75.0) 06/27/17 11:21 Lymph % (Auto) 39.5 % (20.0-40.0) 06/27/17 11:21 [place] % (Auto) 7.4 % (0.0-10.0) 06/27/17 11:21 Eos % (Auto) 1.7 % (0.0-4.0) 06/27/17 11:21 Baso % (Auto) 0.3 % (0.0-2.0) 06/27/17 11:21 Neut # 3.2 K/uL (1.8-7.0) 06/27/17 11:21 Lymph # 2.5 K/uL (1.0-4.3) 06/27/17 11:21 [place] # 0.5 K/uL (0.0-0.8) 06/27/17 11:21 Eos # 0.1 K/uL (0.0-0.7) 06/27/17 11:21 Baso # 0.0 K/uL (0.0-0.2) 06/27/17 11:21 PT 13.1 SECONDS (9.7-12.2) H 06/26/17 08:27 INR 1.2 06/26/17 08:27 APTT 33 SECONDS (21-34) 06/24/17 22:58 Sodium 139 mmol/L (132-148) 06/27/17 11:21 Potassium 3.3 mmol/L (3.6-5.2) L 06/27/17 11:21 Chloride 103 mmol/L (98-107) 06/27/17 11:21 Carbon Dioxide 26 mmol/L (22-30) 06/27/17 11:21 Anion Gap 13 (10-20) 06/27/17 11:21 BUN 18 mg/dL (9-20) 06/27/17 11:21 Creatinine 1.1 mg/dL (0.8-1.5) 06/27/17 11:21 Est GFR ( Amer) > 60 06/27/17 11:21 Est GFR (Non-Af Amer) > 60 06/27/17 11:21 Random Glucose 87 mg/dL (75-110) 06/27/17 11:21 Calcium 9.2 mg/dl (8.6-10.4) 06/27/17 11:21 Magnesium 1.7 mg/dL (1.6-2.3) 06/24/17 22:58 Total Bilirubin 0.5 mg/dL (0.2-1.3) 06/24/17 22:58 AST 20 U/L (17-59) 06/24/17 22:58 ALT 27 U/L (21-72) 06/24/17 22:58 Alkaline Phosphatase 105 U/L (38-126) 06/24/17 22:58 Total Creatine Kinase 73 U/L (55-170) 06/27/17 11:21 CK-MB (Mass) 0.65 ng/mL (0.0-3.38) 06/27/17 11:21 Troponin I < 0.0120 ng/mL (0.00-0.120) 06/24/17 22:58 Troponin I, Quant < 0.0120 ng/mL (0.00-0.120) 06/27/17 11:21 NT-Pro-B Natriuret Pep 245 pg/mL (0-900) 06/24/17 22:58 Total Protein 8.2 g/dL (6.3-8.3) 06/24/17 22:58 Albumin 4.2 g/dL (3.5-5.0) 06/24/17 22:58 Globulin 4.0 gm/dL (2.2-3.9) H 06/24/17 22:58 Albumin/Globulin Ratio 1.1 (1.0-2.1) 06/24/17 22:58 TSH 3rd Generation 0.47 mIU/L (0.46-4.68) 06/25/17 01:49 - Hospital Course Hospital Course: A/P 72 yr old mal e admitted for SOB/ dizziness / Symptomatic bradycardia HR - 50-60 troponin x 3 - negative EKG- Bifacicular block, BBB holter monitor placed yesterday seen by Dr. Ndiaye for bradycardia and bifacicular block D/w Dr. Ndiaye, patient can be discharged home today from EPS standpoint and f/u with his office for event recorder Pt is stable for discharge home today and f/u with me in office in 1 week Discharge plan discussed with patient , who understands and agrees with plan Discharge Exam - Head Exam Head Exam: ATRAUMATIC, NORMAL INSPECTION, NORMOCEPHALIC - Eye Exam Eye Exam: EOMI, Normal appearance, PERRL Pupil Exam: NORMAL ACCOMODATION, PERRL - ENT Exam ENT Exam: Mucous Membranes Moist - Respiratory Exam Respiratory Exam: Decreased Breath Sounds, Rales, Rhonchi - Cardiovascular Exam Cardiovascular Exam: REGULAR RHYTHM, +S1, +S2 - GI/Abdominal Exam GI & Abdominal Exam: Normal Bowel Sounds Discharge Plan - Follow Up Plan Condition: GUARDED Disposition: HOME/ ROUTINE Instructions: Heart Failure (DC), Heart Failure (GEN), Pacemaker (DC), Pacemaker (GEN), Pulmonary Edema (DC), Pulmonary Edema (GEN), Bradycardia (DC), Ascites (DC), Ascites (GEN), Dyspnea (GEN) Additional Instructions: Please f/u with Dr. Ndiaye office for event recorder - call and make appointment Please f/u with Dr. yen office in 1 week continue all home medications ( No betablocker) DR. NDIAYE PHONE NUMBER- [phone] Referrals: Suman Ndiaye MD [Staff Provider] - Mando Yen MD [Staff Provider] -
== END 2017-06-27 16:56 | disposition home or self-care (01) | DRG 309 ==
LOC: C.ER 21:53 → C.9E 06-25 00:06 → C.5S 06-25 00:59 → C.9E 06-25 00:59 → C.5S 06-25 05:25
PROVIDERS: ADMIT Internal Medicine; ATTEND Internal Medicine
DX: I45.3 Trifascicular block (principal); I50.20 Unspecified systolic (congestive) heart failure; I42.9 Cardiomyopathy, unspecified; I11.0 Hypertensive heart disease with heart failure; E11.649 Type 2 diabetes mellitus with hypoglycemia without coma; I44.0 Atrioventricular block, first degree; I48.91 Unspecified atrial fibrillation; I71.4 Abdominal aortic aneurysm, without rupture; R56.9 Unspecified convulsions; D64.9 Anemia, unspecified; E78.00 Pure hypercholesterolemia, unspecified; Z79.899 Other long term (current) drug therapy; Z86.711 Personal history of pulmonary embolism; Z86.718 Personal history of other venous thrombosis and embolism; Z86.73 Personal history of transient ischemic attack (TIA), and cerebral infarction without residual deficits; Z87.891 Personal history of nicotine dependence

== ENCOUNTER 2017-10-21 22:41 | Inpatient (IN) | payer MEDICARE, BC ==
[2017-10-21 22:41] VITALS: PULSE 120; BMI 24.4
[2017-10-22 01:17] LABS: BASO % 0.7 % (0.0-2.0); EOS % 0.5 % (0.0-4.0); HEMOGLOBIN 11.5 g/dL (12.0-18.0); LYMPH % 28.4 % (20.0-40.0); MEAN CELL VOLUME 78.3 fL (80.0-94.0); MEAN CORPUSCULAR HEMOGLOBIN 26.1 pg (27.0-31.0); MEAN CORPUSCULAR HGB CONC 33.3 g/dL (33.0-37.0); MEAN PLATELET VOLUME 8.8 fL (7.2-11.7); MONO # 0.4 K/uL (0.0-0.8); MONO % 5.9 % (0.0-10.0); NEUT # 4.6 K/uL (1.8-7.0); NEUT % 64.5 % (50.0-75.0); RBC 4.42 Mil/uL (4.40-5.90); RED CELL DISTRIBUTION WIDTH 16.5 % (11.5-14.5); WHITE BLOOD COUNT 7.2 K/uL (4.8-10.8)
--- NOTE | 2017-10-22 01:17 | C.PDOC ---
History Of Present Illness 72yo male with long standing history of CHF, followed by Dr. Yen, and has been wearing a life vest for the past 2 months. Patient states this evening while he was asleep in bed, the vest sounded an alarm and the patient experienced a shock delivery by the vest. He denies any anteceding chest pain, shortness of breath, nausea or vomiting. Patient states he was asleep at the onset of his symptoms and currently has no acute complaints. Time Seen by Provider: 10/21/17 23:57 Chief Complaint (Nursing): Pacemaker Problem History Per: Patient History/Exam Limitations: no limitations Onset/Duration Of Symptoms: Hrs Associated Symptoms: denies: Nausea, Diaphoresis Past Medical History Reviewed: Historical Data, Nursing Documentation, Vital Signs Vital Signs: Last Vital Signs Temp Pulse 58 L 10/22/17 03:00 Resp 16 10/22/17 03:00 BP 157/77 H 10/22/17 03:00 Pulse Ox 100 10/22/17 03:00 - Medical History PMH: Anxiety, Arthritis, Atrial Fibrillation, Cardiac Aneurysm, CHF, Deep Vein Thrombosis, HTN, Hypercholesterolemia, Hyperlipidemia, Pulmonary Embolism Denies: Chronic Kidney Disease - [facility] Procedures DRAINAGE OF BLADDER WITH DRAINAGE DEVICE, VIA OPENING (11/03/16) EXCISION OF TOE NAIL, EXTERNAL APPROACH (01/07/17) FLUOROSCOPY L UP EXTREM VEIN W L OSM CONTRAST, GUIDANCE (11/03/16) INSERTION OF ENDOTRACHEAL AIRWAY INTO TRACHEA, VIA OPENING (11/03/16) INSERTION OF INFUSION DEV INTO SUP VENA CAVA, PERC APPROACH (11/03/16) INSERTION OF INTRALUM DEV INTO INF VENA CAVA, PERC APPROACH (11/29/16) RESPIRATORY VENTILATION, GREATER THAN 96 CONSECUTIVE HOURS (11/03/16) RESTRICT OF R INT ILIAC ART WITH INTRALUM DEV, PERC APPROACH (01/07/17) ULTRASONOGRAPHY OF LEFT UPPER EXTREMITY VEINS, GUIDANCE (11/03/16) Family History: States: Unknown Family Hx - Social History Hx Alcohol Use: No Hx Substance Use: No - Immunization History Hx Tetanus Toxoid Vaccination: No Hx Influenza Vaccination: Yes Hx Pneumococcal Vaccination: Yes Review Of Systems Except As Marked, All Systems Reviewed And Found Negative. Cardiovascular: Positive for: Other (shock by life vest, prompting ER visit). Negative for: Chest Pain Respiratory: Negative for: Shortness of Breath Gastrointestinal: Negative for: Nausea, Vomiting Physical Exam - Physical Exam Appears: Non-toxic, No Acute Distress Skin: Normal Color, Warm, Dry Head: Atraumatic, Normacephalic Eye(s): bilateral: Normal Inspection, PERRL, EOMI Nose: Normal Oral Mucosa: Moist Neck: Normal ROM, Supple, No Other (JVD) Chest: Symmetrical Cardiovascular: Rhythm Irregular, Other (on monitor, sinus rhythm with frequent PVC) Respiratory: Normal Breath Sounds, No Wheezing Gastrointestinal/Abdominal: Normal Exam, Soft, No Tenderness Neurological/Psych: Oriented x3, Normal Speech, Normal Cognition ED Course And Treatment - Laboratory Results Result Diagrams: 10/22/17 01:08 10/22/17 01:08 O2 Sat by Pulse Oximetry: 100 (RA) Pulse Ox Interpretation: Normal Medical Decision Making Medical Decision Making: Impression: Arrhythmia Plan: -- EKG -- Labs -- CXR Patient admitted for observation; cardio consult interrogation of life vest. Disposition - Disposition Disposition: HOSPITALIZED Disposition Time: 04:07 Condition: FAIR - Clinical Impression Clinical Impression: Arrhythmia - Scribe Statement The provider has reviewed the documentation as recorded by the Scribe (Ashley Mendez) Provider Attestation: All medical record entries made by the Scribe were at my direction and personally dictated by me. I have reviewed the chart and agree that the record accurately reflects my personal performance of the history, physical exam, medical decision making, and the department course for this patient. I have also personally directed, reviewed, and agree with the discharge instructions and disposition.
[2017-10-22 01:33] LABS: ALB/GLOB RATIO 0.9 (1.0-2.1); ALBUMIN 3.9 g/dL (3.5-5.0); ALT/SGPT 25 U/L (21-72); AST/SGOT 26 U/L (17-59); BLOOD UREA NITROGEN 19 mg/dL (9-20); CALCIUM 9.1 mg/dl (8.6-10.4); GFR AFRICAN-AMERICAN 48; GFR NON-AFRICAN AMERICAN 40
[2017-10-22 01:46] LABS: INR 1.4; PROTHROMBIN TIME 15.5 SECONDS (9.7-12.2)
[2017-10-22 02:18] LABS: CK-MB 1.02 ng/mL (0.0-3.38)
[2017-10-22 07:58] LABS: CK-MB 1.12 ng/mL (0.0-3.38)
[2017-10-22 08:08] LABS: INR 1.4; PROTHROMBIN TIME 16.2 SECONDS (9.7-12.2)
--- NOTE | 2017-10-22 09:07 | RAD ---
PROCEDURE: CHEST RADIOGRAPH, 1 VIEW HISTORY: Palpations COMPARISON: 06/24/2017. FINDINGS: LUNGS: The lungs are well inflated and clear. PLEURA: No pneumothorax or pleural fluid seen. CARDIOVASCULAR: There is moderate cardiomegaly. OSSEOUS STRUCTURES: No significant abnormalities. VISUALIZED UPPER ABDOMEN: Normal. OTHER FINDINGS: None. IMPRESSION: No active pulmonary disease. Persistent moderate cardiomegaly.
[2017-10-22 14:53] LABS: CK-MB 1.07 ng/mL (0.0-3.38)
[2017-10-22] MEDS ORDERED: Pneumococcal 23-Valent Vaccine IM ONE (16:30)
[2017-10-22] MEDS ORDERED: Influenza Vaccine 60 mcg/0.5 mL SYR (4YR UP) IM ONE (16:31)
--- NOTE | 2017-10-22 23:17 | CP.PCM.HP ---
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 He denies any anteceding chest pain, shortness of breath, nausea or vomiting, pt also felt increasingly fatigues, tired and generalzied weakness. Patient states he was asleep at the onset of his symptoms and currently has no acute complaints. Present on Admission - Present on Admission Any Indicators Present on Admission: Yes Review of Systems - Review of Systems Systems not reviewed;Unavailable: Acuity of Condition - Constitutional Constitutional: Fatigue, Lethargy, Weakness - EENT Eyes: absent: As Per HPI, Blind Spots, Blurred Vision, Change in Vision, Decreased Night Vision, Diplopia, Discharge, Dry Eye, Exophthalmos, Floaters, Irritation, Itchy Eyes, Loss of Peripheral Vision, Pain, Photophobia, Requires Corrective Lenses, Sees Flashes, Spots in Vision, Tunnel Vision, Other Visual Disturbances, Loss of Vision, Other Ears: absent: As Per HPI, Decreased Hearing, Ear Discharge, Ear Pain, Tinnitus, Abnormal Hearing, Disequilibrium, Dizziness, Other Nose/Mouth/Throat: absent: As Per HPI, Epistaxis, Nasal Congestion, Nasal Discharge, Nasal Obstruction, Nasal Trauma, Nose Pain, Post Nasal Drip, Sinus Pain, Sinus Pressure, Bleeding Gums, Change in Voice, Dental Pain, Dry Mouth, Dysphagia, Halitosis, Hoarsness, Lip Swelling, Mouth Lesions, Mouth Pain, Odynophagia, Sore Throat, Throat Swelling, Tongue Swelling, Facial Pain, Neck Pain, Neck Mass, Other - Cardiovascular Cardiovascular: Chest Pain, Dyspnea, Dyspnea on Exertion, Palpitations - Respiratory Respiratory: Dyspnea - Gastrointestinal Gastrointestinal: absent: As Per HPI, Abdominal Pain, Belching, Bloating, Change in Bowel Habits, Change in Stool Character, Coffee Ground Emesis, Constipation, Cramping, Diarrhea, Dyspepsia, Dysphagia, Early Satiety, Excessive Flatus, Fecal Incontinence, Heartburn, Hematemesis, Hematochezia, Loose Stools, Melena, Nausea, Odynophagia, Temesmus, Vomiting, Other - Genitourinary Genitourinary: absent: As Per HPI, Change in Urinary Stream, Difficulty Urinating, Dysuria, Flank Pain, Hematuria, Pyuria, Nocturia, Urinary Incontinence, Urinary Frequency, Urinary Hesitance, Urinary Urgency, Voiding Freq/Small Amts, Freq UTI, Hx Renal/Bladder Calculi, Hx /Renal Surgery, Bladder Distension, Other Past Patient History - Infectious Disease Hx of Infectious Diseases: None - Past Medical History & Family History Past Medical History?: Yes - Past Social History Smoking Status: Former Smoker - CARDIAC Hx Atrial Fibrillation: Yes Hx Congestive Heart Failure: Yes Hx Hypercholesterolemia: Yes Hx Hypertension: Yes - PULMONARY Hx Pulmonary Embolism: Yes - NEUROLOGICAL Hx Neurological Disorder: No - HEENT Hx HEENT Problems: No - RENAL Hx Chronic Kidney Disease: No - ENDOCRINE/METABOLIC Hx Endocrine Disorders: No - HEMATOLOGICAL/ONCOLOGICAL Hx Blood Disorders: No - INTEGUMENTARY Hx Dermatological Problems: No - MUSCULOSKELETAL/RHEUMATOLOGICAL Hx Arthritis: Yes Hx Falls: No - GASTROINTESTINAL Hx Gastrointestinal Disorders: No - GENITOURINARY/GYNECOLOGICAL Hx Genitourinary Disorders: Yes Hx Incontinence: Yes - PSYCHIATRIC Hx Anxiety: Yes Hx Substance Use: No - SURGICAL HISTORY Hx Surgeries: Yes Other/Comment: stent placement Hx. of DVT ( on the leg) - ANESTHESIA Hx Anesthesia: Yes (Dental Procedure) Hx Anesthesia Reactions: No Meds Allergies/Adverse Reactions: Allergies Allergy/AdvReac Type Severity Reaction Status Date / Time No Known Allergies Allergy Verified 10/21/17 22:55 Physical Exam - Constitutional Appears: No Acute Distress Additional comments: mild resp distress - Head Exam Head Exam: ATRAUMATIC, NORMAL INSPECTION, NORMOCEPHALIC - Eye Exam Eye Exam: EOMI, Normal appearance, PERRL Pupil Exam: NORMAL ACCOMODATION, PERRL - Respiratory Exam Respiratory Exam: Decreased Breath Sounds, Rales, Rhonchi - Cardiovascular Exam Cardiovascular Exam: Tachycardia, REGULAR RHYTHM, +S1, +S2, Systolic Murmur Additional comments: s3 positive'2/6 ESM at apex - GI/Abdominal Exam GI & Abdominal Exam: Normal Bowel Sounds, Soft. absent: Tenderness - Back Exam Back exam: NORMAL INSPECTION - Neurological Exam Neurological exam: Alert, CN II-XII Intact, Normal Gait, Oriented x3, Reflexes Normal Results - Vital Signs Recent Vital Signs: Last Vital Signs Temp 97.7 F 10/22/17 19:52 Pulse 59 L 10/22/17 19:52 Resp 20 10/22/17 19:52 BP 142/84 10/22/17 19:52 Pulse Ox 97 10/22/17 19:52 - Labs Result Diagrams: 10/22/17 01:08 10/22/17 01:08 Labs: Laboratory Results - last 24 hr 10/22/17 10/22/17 10/22/17 01:08 01:08 01:32 WBC 7.2 RBC 4.42 Hgb 11.5 L Hct 34.6 L MCV 78.3 L MCH 26.1 L MCHC 33.3 RDW 16.5 H Plt Count 192 MPV 8.8 Neut % (Auto) 64.5 Lymph % (Auto) 28.4 [place] % (Auto) 5.9 Eos % (Auto) 0.5 Baso % (Auto) 0.7 Neut # (Auto) 4.6 Lymph # (Auto) 2.0 [place] # (Auto) 0.4 Eos # (Auto) 0.0 Baso # (Auto) 0.0 PT 15.5 H INR 1.4 APTT 33 Sodium 145 Potassium 3.9 Chloride 106 Carbon Dioxide 25 Anion Gap 18 BUN 19 Creatinine 1.7 H Est GFR ( Amer) 48 Est GFR (Non-Af Amer) 40 Random Glucose 104 Calcium 9.1 Total Bilirubin 0.3 AST 26 ALT 25 Alkaline Phosphatase 93 Total Creatine Kinase CK-MB (Mass) Troponin I < 0.0120 Total Protein 8.1 Albumin 3.9 Globulin 4.2 H Albumin/Globulin Ratio 0.9 L 10/22/17 10/22/17 10/22/17 01:50 07:16 07:54 WBC RBC Hgb Hct MCV MCH MCHC RDW Plt Count MPV Neut % (Auto) Lymph % (Auto) [place] % (Auto) Eos % (Auto) Baso % (Auto) Neut # (Auto) Lymph # (Auto) [place] # (Auto) Eos # (Auto) Baso # (Auto) PT 16.2 H INR 1.4 APTT 35 H Sodium Potassium Chloride Carbon Dioxide Anion Gap BUN Creatinine Est GFR ( Amer) Est GFR (Non-Af Amer) Random Glucose Calcium Total Bilirubin AST ALT Alkaline Phosphatase Total Creatine Kinase 80 87 CK-MB (Mass) 1.02 1.12 Troponin I < 0.0120 < 0.0120 Total Protein Albumin Globulin Albumin/Globulin Ratio 10/22/17 14:09 WBC RBC Hgb Hct MCV MCH MCHC RDW Plt Count MPV Neut % (Auto) Lymph % (Auto) [place] % (Auto) Eos % (Auto) Baso % (Auto) Neut # (Auto) Lymph # (Auto) [place] # (Auto) Eos # (Auto) Baso # (Auto) PT INR APTT Sodium Potassium Chloride Carbon Dioxide Anion Gap BUN Creatinine Est GFR ( Amer) Est GFR (Non-Af Amer) Random Glucose Calcium Total Bilirubin AST ALT Alkaline Phosphatase Total Creatine Kinase 105 CK-MB (Mass) 1.07 Troponin I < 0.0120 Total Protein Albumin Globulin Albumin/Globulin Ratio Assessment & Plan (1) Arrhythmia Assessment and Plan: rule out ventriculat tacycardia. less like to be SVT/Atrial fibrillation cardiology eval arrythmia vest interrogation Status: Acute (2) Congestive heart failure (CHF) Status: Acute (3) HTN (hypertension) Status: Acute (4) Shortness of breath Status: Acute
[2017-10-23 06:46] LABS: INR 1.3
[2017-10-23 07:00] LABS: BLOOD UREA NITROGEN 15 mg/dL (9-20); CALCIUM 9.3 mg/dl (8.6-10.4); GFR AFRICAN-AMERICAN > 60; GFR NON-AFRICAN AMERICAN > 60; MAGNESIUM 1.8 mg/dL (1.6-2.3)
[2017-10-23 11:54] LABS: INR 1.3; PROTHROMBIN TIME 14.7 SECONDS (9.7-12.2)
--- NOTE | 2017-10-23 18:52 | CP.PCM.CON ---
History of Present Illness - History of Present Illness History of Present Illness: Chart and imaging reviewed Known by recent evaluation Presented with a life vest discharge while lying on his bed; found him unconscious; he regained consciousness after the shock; the device fired a second time He denied palpitations dizziness diaphoresis No suggestion of electromagnetic external interference Denied chest pain Effort tolerance NYHA II Exam Afebrile Normal venous pressures Clear lungs Normal heart sounds No edema EKG: sinus PVC; cRBBB QRS 196ms Labs noted Past Patient History - Infectious Disease Hx of Infectious Diseases: None - Past Medical History & Family History Past Medical History?: Yes - Past Social History Smoking Status: Former Smoker - CARDIAC Hx Atrial Fibrillation: Yes Hx Congestive Heart Failure: Yes Hx Hypercholesterolemia: Yes Hx Hypertension: Yes - PULMONARY Hx Pulmonary Embolism: Yes - NEUROLOGICAL Hx Neurological Disorder: No - HEENT Hx HEENT Problems: No - RENAL Hx Chronic Kidney Disease: No - ENDOCRINE/METABOLIC Hx Endocrine Disorders: No - HEMATOLOGICAL/ONCOLOGICAL Hx Blood Disorders: No - INTEGUMENTARY Hx Dermatological Problems: No - MUSCULOSKELETAL/RHEUMATOLOGICAL Hx Arthritis: Yes Hx Falls: No - GASTROINTESTINAL Hx Gastrointestinal Disorders: No - GENITOURINARY/GYNECOLOGICAL Hx Genitourinary Disorders: Yes Hx Incontinence: Yes - PSYCHIATRIC Hx Anxiety: Yes Hx Substance Use: No - SURGICAL HISTORY Hx Surgeries: Yes Other/Comment: stent placement Hx. of DVT ( on the leg) - ANESTHESIA Hx Anesthesia: Yes (Dental Procedure) Hx Anesthesia Reactions: No Meds Allergies/Adverse Reactions: Allergies Allergy/AdvReac Type Severity Reaction Status Date / Time No Known Allergies Allergy Verified 10/21/17 22:55 - Medications Medications: Current Medications Aspirin (Ecotrin) 81 mg PO DAILY [facility] Last Admin: 10/23/17 10:34 Dose: 81 mg Donepezil HCl (Aricept) 10 mg PO [facility] Enalapril Maleate (Vasotec) 5 mg PO DAILY [facility] Last Admin: 10/23/17 17:23 Dose: 5 mg Famotidine (Pepcid) 20 mg PO DAILY [facility] Last Admin: 10/23/17 10:30 Dose: 20 mg Furosemide (Lasix) 40 mg PO DAILY [facility] Last Admin: 10/23/17 10:30 Dose: 40 mg Memantine (Namenda) 5 mg PO BID [facility] Last Admin: 10/23/17 17:25 Dose: 5 mg Rosuvastatin Calcium (Crestor) 10 mg PO [facility] Last Admin: 10/22/17 21:29 Dose: 10 mg Spironolactone (Aldactone) 25 mg PO DAILY@1600 [facility] Last Admin: 10/23/17 17:25 Dose: 25 mg Results - Vital Signs Recent Vital Signs: Last Vital Signs Temp 98.1 F 10/23/17 16:01 Pulse 65 10/23/17 16:01 Resp 20 10/23/17 16:01 BP 125/86 10/23/17 17:23 Pulse Ox 98 10/23/17 16:01 - Labs Result Diagrams: 10/22/17 01:08 10/23/17 06:26 Labs: Laboratory Results - last 24 hr 10/23/17 10/23/17 10/23/17 06:26 06:26 11:31 PT 15.0 H 14.7 H INR 1.3 1.3 Sodium 146 Potassium 3.7 Chloride 108 H Carbon Dioxide 26 Anion Gap 15 BUN 15 Creatinine 1.0 Est GFR ( Amer) > 60 Est GFR (Non-Af Amer) > 60 Random Glucose 79 Calcium 9.3 Magnesium 1.8 Assessment & Plan - Assessment and Plan (Free Text) Assessment: Mr. Bill presented with an appropriate; Life vest discharge for ventricular fibrillation There were no obvious triggers. Given discharges twice and the anticipated risk of recurrence, not discounting the lifevest He should be initiated on an amiodarone infusion and monitored in the ICU until a definitive ICD implantation DW patient issues will Discuss with Dr. Penny
--- NOTE | 2017-10-23 23:56 | CP.PCM.PN ---
Subjective - Date & Time of Evaluation Date of Evaluation: 10/23/17 Objective - Vital Signs/Intake and Output Vital Signs (last 24 hours): Temp Pulse Resp BP Pulse Ox 98.1 F 65 20 125/86 98 10/23/17 16:01 10/23/17 16:01 10/23/17 16:01 10/23/17 17:23 10/23/17 16:01 - Medications Medications: Current Medications Aspirin (Ecotrin) 81 mg PO DAILY [facility] Last Admin: 10/23/17 10:34 Dose: 81 mg Donepezil HCl (Aricept) 10 mg PO [facility] Enalapril Maleate (Vasotec) 5 mg PO DAILY [facility] Last Admin: 10/23/17 17:23 Dose: 5 mg Famotidine (Pepcid) 20 mg PO DAILY [facility] Last Admin: 10/23/17 10:30 Dose: 20 mg Furosemide (Lasix) 40 mg PO DAILY [facility] Last Admin: 10/23/17 10:30 Dose: 40 mg Memantine (Namenda) 5 mg PO BID [facility] Last Admin: 10/23/17 17:25 Dose: 5 mg Rosuvastatin Calcium (Crestor) 10 mg PO HS [facility] Last Admin: 10/23/17 22:50 Dose: 10 mg Spironolactone (Aldactone) 25 mg PO DAILY@1600 [facility] Last Admin: 10/23/17 17:25 Dose: 25 mg - Labs Labs: 10/22/17 01:08 10/23/17 06:26 PT 14.7 SECONDS (9.7-12.2) H 10/23/17 11:31 INR 1.3 10/23/17 11:31 APTT 35 SECONDS (21-34) H 10/22/17 07:54 Assessment and Plan (1) Arrhythmia Status: Acute (2) Congestive heart failure (CHF) Status: Acute (3) HTN (hypertension) Status: Acute (4) Shortness of breath Status: Acute
--- NOTE | 2017-10-24 01:34 | CP.PCM.CON ---
History of Present Illness - History of Present Illness History of Present Illness: 72 M with h/o dilated cardiomyopathy, on for last 2 months, h/o dvt, pe was on coumedin now off, h/o endovascular aortic graft, dementia brought to the hospital after the fired, patient felt the shock, so it is unlikely that patient passed out, denied any palpitations, sob, cp or dizziness was in bed about to sleep. Patient brought to the ER for initiating amiodarone loading dose. Patient denies orthopnea, pnd, exertional dyspnea, but c/o dependent edema in the legs more on left side, unchanged for past few months. PMH as above PSH as above and left knee surg Allergies nkda Meds reviewed Family history not contributory Social stopped smoking 3 months back has smoked all his life 1ppd, denies alcohol or drugs, lived with family Review of Systems - Review of Systems All systems: reviewed and no additional remarkable complaints except (HPI) Past Patient History - Infectious Disease Hx of Infectious Diseases: None - Past Medical History & Family History Past Medical History?: Yes - Past Social History Smoking Status: Former Smoker Alcohol: None Home Situation {Lives}: With Family - CARDIAC Hx Atrial Fibrillation: Yes Hx Congestive Heart Failure: Yes Hx Hypercholesterolemia: Yes Hx Hypertension: Yes - PULMONARY Hx Pulmonary Embolism: Yes - NEUROLOGICAL Hx Neurological Disorder: No - HEENT Hx HEENT Problems: No - RENAL Hx Chronic Kidney Disease: No - ENDOCRINE/METABOLIC Hx Endocrine Disorders: No - HEMATOLOGICAL/ONCOLOGICAL Hx Blood Disorders: No - INTEGUMENTARY Hx Dermatological Problems: No - MUSCULOSKELETAL/RHEUMATOLOGICAL Hx Arthritis: Yes Hx Falls: No - GASTROINTESTINAL Hx Gastrointestinal Disorders: No - GENITOURINARY/GYNECOLOGICAL Hx Genitourinary Disorders: Yes Hx Incontinence: Yes - PSYCHIATRIC Hx Anxiety: Yes Hx Substance Use: No - SURGICAL HISTORY Hx Surgeries: Yes Other/Comment: stent placement Hx. of DVT ( on the leg) - ANESTHESIA Hx Anesthesia: Yes (Dental Procedure) Hx Anesthesia Reactions: No Meds Allergies/Adverse Reactions: Allergies Allergy/AdvReac Type Severity Reaction Status Date / Time No Known Allergies Allergy Verified 10/21/17 22:55 - Medications Medications: Current Medications Aspirin (Ecotrin) 81 mg PO DAILY [facility] Last Admin: 10/23/17 10:34 Dose: 81 mg Donepezil HCl (Aricept) 10 mg PO HS [facility] Enalapril Maleate (Vasotec) 5 mg PO DAILY [facility] Last Admin: 10/23/17 17:23 Dose: 5 mg Famotidine (Pepcid) 20 mg PO DAILY [facility] Last Admin: 10/23/17 10:30 Dose: 20 mg Furosemide (Lasix) 40 mg PO DAILY [facility] Last Admin: 10/23/17 10:30 Dose: 40 mg Amiodarone HCl 900 mg/ (Dextrose) 500 mls @ 33.33 mls/hr IV .Q15H1M ONE; 1 MG/ MIN PRN Reason: Protocol Stop: 10/24/17 15:20 Amiodarone HCl 900 mg/ (Dextrose) 500 mls @ 16.66 mls/hr IV .Q24H ONE; 0.5 MG/ MIN PRN Reason: Protocol Stop: 10/25/17 00:19 Memantine (Namenda) 5 mg PO BID [facility] Last Admin: 10/23/17 17:25 Dose: 5 mg Rosuvastatin Calcium (Crestor) 10 mg PO HS [facility] Last Admin: 10/23/17 22:50 Dose: 10 mg Spironolactone (Aldactone) 25 mg PO DAILY@1600 [facility] Last Admin: 10/23/17 17:25 Dose: 25 mg Results - Vital Signs Recent Vital Signs: Last Vital Signs Temp 98.1 F 10/23/17 16:01 Pulse 65 10/23/17 16:01 Resp 20 10/23/17 16:01 BP 125/86 10/23/17 17:23 Pulse Ox 98 10/23/17 16:01 - Labs Result Diagrams: 10/22/17 01:08 10/23/17 06:26 Labs: Laboratory Results - last 24 hr 10/23/17 10/23/17 10/23/17 06:26 06:26 11:31 PT 15.0 H 14.7 H INR 1.3 1.3 Sodium 146 Potassium 3.7 Chloride 108 H Carbon Dioxide 26 Anion Gap 15 BUN 15 Creatinine 1.0 Est GFR ( Amer) > 60 Est GFR (Non-Af Amer) > 60 Random Glucose 79 Calcium 9.3 Magnesium 1.8 Assessment & Plan - Assessment and Plan (Free Text) Assessment: * Firing of life west considered appropriate for loading dose of amiodarone * H/o dilated cardiomyopathy * H/o Endovascular graft for AAA * H/o of DVT, pe was on ac now off * Dementia Plan: * IV amiodarone loading * supportive care * GI/dvt prophylaxis * See orders for detail.
[2017-10-24 06:45] LABS: INR 1.3
[2017-10-24 06:46] LABS: BASO % 0.3 % (0.0-2.0); EOS # 0.1 K/uL (0.0-0.7); EOS % 1.5 % (0.0-4.0); HEMOGLOBIN 11.8 g/dL (12.0-18.0); LYMPH # 3.3 K/uL (1.0-4.3); MEAN CELL VOLUME 77.8 fL (80.0-94.0); MEAN CORPUSCULAR HEMOGLOBIN 25.9 pg (27.0-31.0); MEAN CORPUSCULAR HGB CONC 33.2 g/dL (33.0-37.0); MEAN PLATELET VOLUME 9.3 fL (7.2-11.7); MONO # 0.6 K/uL (0.0-0.8); MONO % 6.9 % (0.0-10.0); NEUT # 4.4 K/uL (1.8-7.0); NEUT % 52.3 % (50.0-75.0); NRBC % 0.1 % (0.0-2.0); RBC 4.56 Mil/uL (4.40-5.90); RED CELL DISTRIBUTION WIDTH 16.6 % (11.5-14.5); WHITE BLOOD COUNT 8.4 K/uL (4.8-10.8)
[2017-10-24 07:32] LABS: BLOOD UREA NITROGEN 17 mg/dL (9-20); CALCIUM 9.6 mg/dl (8.6-10.4); GFR AFRICAN-AMERICAN > 60; GFR NON-AFRICAN AMERICAN 59; MAGNESIUM 1.9 mg/dL (1.6-2.3)
[2017-10-24 07:33] LABS: ALB/GLOB RATIO 0.8 (1.0-2.1); ALBUMIN 3.7 g/dL (3.5-5.0); ALT/SGPT 19 U/L (21-72); AST/SGOT 29 U/L (17-59)
[2017-10-24] MEDS ORDERED: Potassium Chloride 20 mEq ER Tab PO SCH (11:00)
[2017-10-24] MEDS: Magnesium Sulfate 1 gm in D5W 1 GM/100 ML BAG IVPB SCH ×4 (13:30→14:28)
--- NOTE | 2017-10-24 14:24 | CP.CCUPN ---
<Lj Adames - Last Filed: 10/24/17 14:38> CCU Subjective - Physician Review Subjective (Free Text): 10/24/17 14:21 Patient is seen and examined at bedside Doing well with no complaints at this time d/c amio drip and start PO amio CCU Objective - Vital Signs / Intake & Output Intake and Output (Last 8hrs): Intake & Output 10/23/17 10/24/17 10/24/17 22:59 06:59 14:59 Intake Total 249.8 250.1 Output Total 0 100 Balance 249.8 150.1 Weight 192 lb Intake: Intake, IV Amount 199.8 50.1 Left Wrist 199.8 50.1 Oral 50 200 Output: Urine 0 100 Urine, Voided 0 100 Stool 0 0 - Medications Active Medications: Active Medications Generic Name Dose Route Start Last Admin Trade Name Freq PRN Reason Stop Dose Admin Amiodarone HCl 200 mg 10/24/17 14:00 Cordarone PO TID MIKE Aspirin 81 mg 10/22/17 10:00 10/24/17 09:18 Ecotrin PO 81 mg DAILY MIKE Administration Donepezil HCl 10 mg 10/24/17 22:00 Aricept PO HS MIKE Enalapril Maleate 5 mg 10/23/17 13:45 10/24/17 09:20 Vasotec PO 5 mg DAILY MIKE Administration Famotidine 20 mg 10/22/17 10:00 10/24/17 09:19 Pepcid PO 20 mg DAILY MIKE Administration Furosemide 40 mg 10/22/17 10:00 10/24/17 09:21 Lasix PO 40 mg DAILY MIKE Administration Heparin Sodium (Porcine) 5,000 units 10/24/17 10:00 10/24/17 09:18 Heparin SC 5,000 units Q12 MIKE Administration Magnesium Sulfate/Dextrose 1 gm in 100 mls @ 300 mls/hr 10/24/17 13:45 13:51 Magnesium Sulfate 1 Gm/100 Ml D5w IVPB 10/24/17 14:34 300 mls/hr Q30M MIKE Administration Memantine 5 mg 10/22/17 10:00 10/24/17 09:19 Namenda PO 5 mg BID MIKE Administration Potassium Chloride 40 meq 10/24/17 11:00 10/24/17 13:49 K-Dur 20 Meq Er Tab PO 40 meq DAILY MIKE Administration Rosuvastatin Calcium 10 mg 10/22/17 22:00 10/23/17 22:50 Crestor PO 10 mg HS MIKE Administration Spironolactone 25 mg 10/23/17 16:00 10/23/17 17:25 Aldactone PO 25 mg DAILY@1600 MIKE Administration - Patient Studies Lab Studies: Lab Studies 10/24/17 10/24/17 10/24/17 Range/Units 06:36 06:36 06:28 WBC 8.4 (4.8-10.8) K/uL RBC 4.56 (4.40-5.90) Mil/uL Hgb 11.8 L (12.0-18.0) g/dL Hct 35.5 (35.0-51.0) % MCV 77.8 L (80.0-94.0) fL MCH 25.9 L (27.0-31.0) pg MCHC 33.2 (33.0-37.0) g/dL RDW 16.6 H (11.5-14.5) % Plt Count 221 (130-400) K/uL MPV 9.3 (7.2-11.7) fL Neut % (Auto) 52.3 (50.0-75.0) % Lymph % (Auto) 39.0 (20.0-40.0) % [place] % (Auto) 6.9 (0.0-10.0) % Eos % (Auto) 1.5 (0.0-4.0) % Baso % (Auto) 0.3 (0.0-2.0) % Neut # (Auto) 4.4 (1.8-7.0) K/uL Lymph # (Auto) 3.3 (1.0-4.3) K/uL [place] # (Auto) 0.6 (0.0-0.8) K/uL Eos # (Auto) 0.1 (0.0-0.7) K/uL Baso # (Auto) 0.0 (0.0-0.2) K/uL PT 15.0 H (9.7-12.2) SECONDS INR 1.3 Sodium 144 (132-148) mmol/L Potassium 3.7 (3.6-5.2) mmol/L Chloride 106 (98-107) mmol/L Carbon Dioxide 28 (22-30) mmol/L Anion Gap 14 (10-20) BUN 17 (9-20) mg/dL Creatinine 1.2 (0.8-1.5) mg/dL Est GFR ( Amer) > 60 Est GFR (Non-Af Amer) 59 Random Glucose 80 (75-110) mg/dL Calcium 9.6 (8.6-10.4) mg/dl Phosphorus 3.1 (2.5-4.5) mg/dL Magnesium 1.9 (1.6-2.3) mg/dL Total Bilirubin 0.7 (0.2-1.3) mg/dL AST 29 (17-59) U/L ALT 19 L D (21-72) U/L Alkaline Phosphatase 96 (38-126) U/L Total Protein 8.2 (6.3-8.3) g/dL Albumin 3.7 (3.5-5.0) g/dL Globulin 4.5 H (2.2-3.9) gm/dL Albumin/Globulin Ratio 0.8 L (1.0-2.1) Laboratory Results - last 24 hr 10/24/17 10/24/17 10/24/17 06:28 06:36 06:36 WBC 8.4 RBC 4.56 Hgb 11.8 L Hct 35.5 MCV 77.8 L MCH 25.9 L MCHC 33.2 RDW 16.6 H Plt Count 221 MPV 9.3 Neut % (Auto) 52.3 Lymph % (Auto) 39.0 [place] % (Auto) 6.9 Eos % (Auto) 1.5 Baso % (Auto) 0.3 Neut # (Auto) 4.4 Lymph # (Auto) 3.3 [place] # (Auto) 0.6 Eos # (Auto) 0.1 Baso # (Auto) 0.0 PT 15.0 H INR 1.3 Sodium 144 Potassium 3.7 Chloride 106 Carbon Dioxide 28 Anion Gap 14 BUN 17 Creatinine 1.2 Est GFR ( Amer) > 60 Est GFR (Non-Af Amer) 59 Random Glucose 80 Calcium 9.6 Phosphorus 3.1 Magnesium 1.9 Total Bilirubin 0.7 AST 29 ALT 19 L D Alkaline Phosphatase 96 Total Protein 8.2 Albumin 3.7 Globulin 4.5 H Albumin/Globulin Ratio 0.8 L Critical Care Progress Note - Nutrition Nutrition: Nutrition Category Date Time Status Heart Healthy Diet [DIET] Diets 10/22/17 Breakfast Active Assessment/Plan - Assessment and Plan (Free Text) Assessment: Pt is a 72 year old male with PMHx of CHF, dilated cardiomyopathy, hyperlipidemia, HTN, DVT, PE, and dementia who came to the ED after his lifevest activated at home. Pt transfered to the ICU for amiodarone infusion and monitoring. Neuro: Pt is alert, awake, and oriented; Dementia - Continue memantine 5 mg po BID - Donepeil 10 mg PO HS ordered by hospitalist Cardio: CHF, Hyperlipidemia, cardiomyopathy, HTN. Lifevest - Cardiology on board - Lifevest recorded torsades at home, HR and BP stable in ICU - Start potasisum 40 meq PO daily - Continue amiodarone 900mg - 500mls @33.33 mls/hr IV - Continue Spironolactone 25 mg po dialy - Continue Enalapril 5 mg po daily - Continue Crestor 10 mg PO HS - Continue Lasix 40 mg PO daily - continue ASA 81 mg PO daily - Administer Magnesium sulfate 1 gm IVPB once - Amiodarone 200 PO BID GI: - heart healthy diet MSK: - OT/PT - out of bed into chair PPX: - GI: pepcid 20 mg po daily - DVT: Heparin 5000u SC q12 Plan for patient to transfer for AICD <Kristal Walls - Last Filed: 10/24/17 15:11> CCU Objective - Vital Signs / Intake & Output Intake and Output (Last 8hrs): Intake & Output 10/24/17 10/24/17 10/24/17 06:59 14:59 22:59 Intake Total 249.8 250.1 Output Total 0 100 Balance 249.8 150.1 Weight 192 lb Intake: Intake, IV Amount 199.8 50.1 Left Wrist 199.8 50.1 Oral 50 200 Output: Urine 0 100 Urine, Voided 0 100 Stool 0 0 - Medications Active Medications: Active Medications Generic Name Dose Route Start Last Admin Trade Name Freq PRN Reason Stop Dose Admin Amiodarone HCl 200 mg 10/24/17 14:00 10/24/17 14:28 Cordarone PO Not Given TID MIKE Aspirin 81 mg 10/22/17 10:00 10/24/17 09:18 Ecotrin PO 81 mg DAILY MIKE Administration Donepezil HCl 10 mg 10/24/17 22:00 Aricept PO HS MIKE Enalapril Maleate 5 mg 10/23/17 13:45 10/24/17 09:20 Vasotec PO 5 mg DAILY MIKE Administration Famotidine 20 mg 10/22/17 10:00 10/24/17 09:19 Pepcid PO 20 mg DAILY MIKE Administration Furosemide 40 mg 10/22/17 10:00 10/24/17 09:21 Lasix PO 40 mg DAILY MIKE Administration Heparin Sodium (Porcine) 5,000 units 10/24/17 10:00 10/24/17 09:18 Heparin SC 5,000 units Q12 MIKE Administration Memantine 5 mg 10/22/17 10:00 10/24/17 09:19 Namenda PO 5 mg BID MIKE Administration Potassium Chloride 40 meq 10/24/17 11:00 10/24/17 13:49 K-Dur 20 Meq Er Tab PO 40 meq DAILY MIKE Administration Rosuvastatin Calcium 10 mg 10/22/17 22:00 10/23/17 22:50 Crestor PO 10 mg HS MIKE Administration Spironolactone 25 mg 10/23/17 16:00 10/23/17 17:25 Aldactone PO 25 mg DAILY@1600 MIKE Administration - Patient Studies Lab Studies: Lab Studies 10/24/17 10/24/17 10/24/17 Range/Units 06:36 06:36 06:28 WBC 8.4 (4.8-10.8) K/uL RBC 4.56 (4.40-5.90) Mil/uL Hgb 11.8 L (12.0-18.0) g/dL Hct 35.5 (35.0-51.0) % MCV 77.8 L (80.0-94.0) fL MCH 25.9 L (27.0-31.0) pg MCHC 33.2 (33.0-37.0) g/dL RDW 16.6 H (11.5-14.5) % Plt Count 221 (130-400) K/uL MPV 9.3 (7.2-11.7) fL Neut % (Auto) 52.3 (50.0-75.0) % Lymph % (Auto) 39.0 (20.0-40.0) % [place] % (Auto) 6.9 (0.0-10.0) % Eos % (Auto) 1.5 (0.0-4.0) % Baso % (Auto) 0.3 (0.0-2.0) % Neut # (Auto) 4.4 (1.8-7.0) K/uL Lymph # (Auto) 3.3 (1.0-4.3) K/uL [place] # (Auto) 0.6 (0.0-0.8) K/uL Eos # (Auto) 0.1 (0.0-0.7) K/uL Baso # (Auto) 0.0 (0.0-0.2) K/uL PT 15.0 H (9.7-12.2) SECONDS INR 1.3 Sodium 144 (132-148) mmol/L Potassium 3.7 (3.6-5.2) mmol/L Chloride 106 (98-107) mmol/L Carbon Dioxide 28 (22-30) mmol/L Anion Gap 14 (10-20) BUN 17 (9-20) mg/dL Creatinine 1.2 (0.8-1.5) mg/dL Est GFR ( Amer) > 60 Est GFR (Non-Af Amer) 59 Random Glucose 80 (75-110) mg/dL Calcium 9.6 (8.6-10.4) mg/dl Phosphorus 3.1 (2.5-4.5) mg/dL Magnesium 1.9 (1.6-2.3) mg/dL Total Bilirubin 0.7 (0.2-1.3) mg/dL AST 29 (17-59) U/L ALT 19 L D (21-72) U/L Alkaline Phosphatase 96 (38-126) U/L Total Protein 8.2 (6.3-8.3) g/dL Albumin 3.7 (3.5-5.0) g/dL Globulin 4.5 H (2.2-3.9) gm/dL Albumin/Globulin Ratio 0.8 L (1.0-2.1) Laboratory Results - last 24 hr 10/24/17 10/24/17 10/24/17 06:28 06:36 06:36 WBC 8.4 RBC 4.56 Hgb 11.8 L Hct 35.5 MCV 77.8 L MCH 25.9 L MCHC 33.2 RDW 16.6 H Plt Count 221 MPV 9.3 Neut % (Auto) 52.3 Lymph % (Auto) 39.0 [place] % (Auto) 6.9 Eos % (Auto) 1.5 Baso % (Auto) 0.3 Neut # (Auto) 4.4 Lymph # (Auto) 3.3 [place] # (Auto) 0.6 Eos # (Auto) 0.1 Baso # (Auto) 0.0 PT 15.0 H INR 1.3 Sodium 144 Potassium 3.7 Chloride 106 Carbon Dioxide 28 Anion Gap 14 BUN 17 Creatinine 1.2 Est GFR ( Amer) > 60 Est GFR (Non-Af Amer) 59 Random Glucose 80 Calcium 9.6 Phosphorus 3.1 Magnesium 1.9 Total Bilirubin 0.7 AST 29 ALT 19 L D Alkaline Phosphatase 96 Total Protein 8.2 Albumin 3.7 Globulin 4.5 H Albumin/Globulin Ratio 0.8 L Critical Care Progress Note - Nutrition Nutrition: Nutrition Category Date Time Status Heart Healthy Diet [DIET] Diets 10/22/17 Breakfast Active Assessment/Plan - Assessment and Plan (Free Text) Plan: PAtient with Chronic systolic heart failure had a vest which fired 2nd torsades developement. -patient admitted to ICU for amiodarone ggt -during Amiodarone ggt HR 50s-60 -titrate down iv amiodarone and start oral amiodarone -ACID placmeent pending -Patient remains hemodynamically stable. -oob to chair - Date & Time Date: 10/24/17 Time: 15:00
--- NOTE | 2017-10-24 14:32 | RAD ---
HISTORY: cardiomyopathy COMPARISON: 10/22/2017 FINDINGS: LUNGS: No active pulmonary disease. PLEURA: No significant pleural effusion identified, no pneumothorax apparent. CARDIOVASCULAR: Cardiomegaly -similar OSSEOUS STRUCTURES: Rightward thoracic convexity. VISUALIZED UPPER ABDOMEN: IVC filter OTHER FINDINGS: Multiple cardiac devices and lines project over thorax. IMPRESSION: Cardiomegaly-similar
--- NOTE | 2017-10-24 22:15 | CARD ---
APPROVED REPORT EKG Measurement Heart [id number] <Conclusion> Sinus rhythm with occasional premature ventricular complexes and premature atrial complexes Right bundle branch block Left anterior fascicular block Bifascicular block Septal infarct, age undetermined Abnormal ECG
--- NOTE | 2017-10-24 23:10 | CP.PCM.PN ---
Subjective - Date & Time of Evaluation Date of Evaluation: 10/24/17 Time of Evaluation: 18:00 - Subjective Subjective: Pt seen and examined Objective - Vital Signs/Intake and Output Vital Signs (last 24 hours): Temp Pulse Resp BP Pulse Ox 97 F L 44 L 18 150/71 100 10/24/17 20:00 10/24/17 20:50 10/24/17 20:50 10/24/17 20:50 10/24/17 20:50 Intake and Output: 10/24/17 10/25/17 18:59 06:59 Intake Total 916.9 0 Output Total 375 100 Balance 541.9 -100 - Medications Medications: Current Medications Amiodarone HCl (Cordarone) 200 mg PO BID [facility] Aspirin (Ecotrin) 81 mg PO DAILY [facility] Last Admin: 10/24/17 09:18 Dose: 81 mg Donepezil HCl (Aricept) 10 mg PO [facility] Last Admin: 10/24/17 22:36 Dose: Not Given Enalapril Maleate (Vasotec) 5 mg PO DAILY [facility] Last Admin: 10/24/17 09:20 Dose: 5 mg Famotidine (Pepcid) 20 mg PO DAILY [facility] Last Admin: 10/24/17 09:19 Dose: 20 mg Furosemide (Lasix) 40 mg PO DAILY [facility] Last Admin: 10/24/17 09:21 Dose: 40 mg Heparin Sodium (Porcine) (Heparin) 5,000 units SC Q12 [facility] Last Admin: 10/24/17 22:37 Dose: Not Given Memantine (Namenda) 5 mg PO BID [facility] Last Admin: 10/24/17 17:34 Dose: 5 mg Rosuvastatin Calcium (Crestor) 10 mg PO HS [facility] Last Admin: 10/24/17 22:36 Dose: Not Given Spironolactone (Aldactone) 25 mg PO DAILY@1600 [facility] Last Admin: 10/24/17 17:33 Dose: 25 mg - Labs Labs: 10/24/17 06:36 10/24/17 06:28 PT 15.0 SECONDS (9.7-12.2) H 10/24/17 06:36 INR 1.3 10/24/17 06:36 APTT 35 SECONDS (21-34) H 10/22/17 07:54 Assessment and Plan (1) Arrhythmia Assessment & Plan: Assessment: * Firing of life west considered appropriate for loading dose of amiodarone * H/o dilated cardiomyopathy * H/o Endovascular graft for AAA * H/o of DVT, pe was on ac now off * Dementia Plan: * IV amiodarone loading * supportive care * GI/dvt prophylaxis * See orders for detail. Status: Acute (2) Congestive heart failure (CHF) Status: Acute (3) HTN (hypertension) Status: Acute (4) Shortness of breath Status: Acute
[2017-10-25 06:29] LABS: BASO # 0.1 K/uL (0.0-0.2); BASO % 0.6 % (0.0-2.0); EOS # 0.1 K/uL (0.0-0.7); EOS % 0.9 % (0.0-4.0); HEMOGLOBIN 12.3 g/dL (12.0-18.0); LYMPH % 38.7 % (20.0-40.0); MEAN CELL VOLUME 78.5 fL (80.0-94.0); MEAN CORPUSCULAR HEMOGLOBIN 26.3 pg (27.0-31.0); MEAN CORPUSCULAR HGB CONC 33.5 g/dL (33.0-37.0); MEAN PLATELET VOLUME 9.3 fL (7.2-11.7); MONO # 0.5 K/uL (0.0-0.8); MONO % 5.8 % (0.0-10.0); NEUT # 4.2 K/uL (1.8-7.0); RBC 4.69 Mil/uL (4.40-5.90); RED CELL DISTRIBUTION WIDTH 16.1 % (11.5-14.5); WHITE BLOOD COUNT 7.8 K/uL (4.8-10.8)
[2017-10-25 06:38] LABS: INR 1.3
[2017-10-25 06:42] LABS: ALB/GLOB RATIO 0.8 (1.0-2.1); ALBUMIN 3.9 g/dL (3.5-5.0); ALT/SGPT 24 U/L (21-72); AST/SGOT 27 U/L (17-59); BLOOD UREA NITROGEN 16 mg/dL (9-20); CALCIUM 9.5 mg/dl (8.6-10.4); GFR AFRICAN-AMERICAN > 60; GFR NON-AFRICAN AMERICAN > 60
[2017-10-25 08:38] VITALS: TEMP 97.9
--- NOTE | 2017-10-25 08:53 | RAD ---
Chest x-ray single frontal view History: Congestive heart failure. Comparison: 10/24/2017 Findings: Biapical pleural thickening with upper lobe granulomatous changes. Venous congestion. Right hilar prominence. Multiple overlying external battery packs and devices. Tortuous aorta. Mild cardiomegaly. Degenerative changes in the spine and shoulders. Right paratracheal prominence. Impression: Biapical pleural thickening with upper lobe granulomatous changes. Venous congestion. Right hilar prominence. Multiple overlying external battery packs and devices. Tortuous aorta. Mild cardiomegaly.
--- NOTE | 2017-10-25 12:42 | CP.PCM.PN ---
<Kris Feliciano - Last Filed: 10/25/17 12:40> Subjective - Date & Time of Evaluation Date of Evaluation: 10/25/17 Time of Evaluation: 12:40 - Subjective Subjective: Patient seen and examined at bedside. Per nursing, no acute events occurred overnight. Patient determined to be stable and transferred out of the ICU. Objective - Vital Signs/Intake and Output Vital Signs (last 24 hours): Temp Pulse Resp BP Pulse Ox 97.9 F 68 14 160/85 H 95 10/25/17 08:00 10/25/17 10:50 10/25/17 10:50 10/25/17 10:50 10/25/17 10:50 Intake and Output: 10/25/17 10/25/17 06:59 18:59 Intake Total 0 0 Output Total 800 250 Balance -800 -250 - Medications Medications: Current Medications Amiodarone HCl (Cordarone) 200 mg PO BID [facility] Last Admin: 10/25/17 09:40 Dose: 200 mg Aspirin (Ecotrin) 81 mg PO DAILY [facility] Last Admin: 10/25/17 09:31 Dose: 81 mg Donepezil HCl (Aricept) 10 mg PO HS [facility] Last Admin: 10/24/17 22:36 Dose: Not Given Enalapril Maleate (Vasotec) 5 mg PO DAILY [facility] Last Admin: 10/25/17 09:33 Dose: 5 mg Famotidine (Pepcid) 20 mg PO DAILY [facility] Last Admin: 10/25/17 09:33 Dose: 20 mg Furosemide (Lasix) 40 mg PO DAILY [facility] Last Admin: 10/25/17 09:32 Dose: 40 mg Heparin Sodium (Porcine) (Heparin) 5,000 units SC Q12 [facility] Last Admin: 10/25/17 09:32 Dose: 5,000 units Memantine (Namenda) 5 mg PO BID [facility] Last Admin: 10/25/17 09:33 Dose: 5 mg Rosuvastatin Calcium (Crestor) 10 mg PO HS [facility] Last Admin: 10/24/17 22:36 Dose: Not Given Spironolactone (Aldactone) 25 mg PO DAILY@1600 [facility] Last Admin: 10/24/17 17:33 Dose: 25 mg - Labs Labs: 10/25/17 06:24 10/25/17 06:24 PT 15.0 SECONDS (9.7-12.2) H 10/25/17 06:24 INR 1.3 10/25/17 06:24 APTT 26 SECONDS (21-34) D 10/25/17 06:24 <Kristal Walls - Last Filed: 10/25/17 13:24> Objective - Vital Signs/Intake and Output Vital Signs (last 24 hours): Temp Pulse Resp BP Pulse Ox 97.9 F 68 14 160/85 H 95 10/25/17 08:00 10/25/17 10:50 10/25/17 10:50 10/25/17 10:50 10/25/17 10:50 Intake and Output: 10/25/17 10/25/17 06:59 18:59 Intake Total 0 0 Output Total 800 250 Balance -800 -250 - Medications Medications: Current Medications Amiodarone HCl (Cordarone) 200 mg PO BID [facility] Last Admin: 10/25/17 09:40 Dose: 200 mg Aspirin (Ecotrin) 81 mg PO DAILY [facility] Last Admin: 10/25/17 09:31 Dose: 81 mg Donepezil HCl (Aricept) 10 mg PO HS [facility] Last Admin: 10/24/17 22:36 Dose: Not Given Enalapril Maleate (Vasotec) 5 mg PO DAILY [facility] Last Admin: 10/25/17 09:33 Dose: 5 mg Famotidine (Pepcid) 20 mg PO DAILY [facility] Last Admin: 10/25/17 09:33 Dose: 20 mg Furosemide (Lasix) 40 mg PO DAILY [facility] Last Admin: 10/25/17 09:32 Dose: 40 mg Heparin Sodium (Porcine) (Heparin) 5,000 units SC Q12 [facility] Last Admin: 10/25/17 09:32 Dose: 5,000 units Memantine (Namenda) 5 mg PO BID [facility] Last Admin: 10/25/17 09:33 Dose: 5 mg Rosuvastatin Calcium (Crestor) 10 mg PO HS [facility] Last Admin: 10/24/17 22:36 Dose: Not Given Spironolactone (Aldactone) 25 mg PO DAILY@1600 [facility] Last Admin: 10/24/17 17:33 Dose: 25 mg - Labs Labs: 10/25/17 06:24 10/25/17 06:24 PT 15.0 SECONDS (9.7-12.2) H 10/25/17 06:24 INR 1.3 10/25/17 06:24 APTT 26 SECONDS (21-34) D 10/25/17 06:24 Assessment and Plan - Assessment and Plan (Free Text) Assessment: PAtient with Chronic systolic heart failure had a vest which fired 2nd torsades developement. -patient admitted to ICU for amiodarone ggt -convert ggt to oral amiodarone -ACID placement today -Patient remains hemodynamically stable. -oob to chair -transfer to [facility]
[2017-10-25 21:32] VITALS: BP 175/98; PULSE 82; RESP 15; O2SAT 97
--- NOTE | 2017-10-25 23:11 | CP.PCM.PN ---
Subjective - Date & Time of Evaluation Date of Evaluation: 10/25/17 Time of Evaluation: 18:40 - Subjective Subjective: Patient seen and examined today Objective - Vital Signs/Intake and Output Vital Signs (last 24 hours): Temp Pulse Resp BP Pulse Ox 97.9 F 82 15 175/98 H 97 10/25/17 08:00 10/25/17 11:51 10/25/17 11:51 10/25/17 11:51 10/25/17 11:00 Intake and Output: 10/25/17 10/26/17 18:59 06:59 Intake Total 0 Output Total 250 Balance -250 - Medications Medications: Current Medications Amiodarone HCl (Cordarone) 200 mg PO BID [facility] Last Admin: 10/25/17 21:40 Dose: Not Given Aspirin (Ecotrin) 81 mg PO DAILY [facility] Last Admin: 10/25/17 09:31 Dose: 81 mg Donepezil HCl (Aricept) 10 mg PO [facility] Last Admin: 10/24/17 22:36 Dose: Not Given Enalapril Maleate (Vasotec) 5 mg PO DAILY [facility] Last Admin: 10/25/17 09:33 Dose: 5 mg Famotidine (Pepcid) 20 mg PO DAILY [facility] Last Admin: 10/25/17 09:33 Dose: 20 mg Furosemide (Lasix) 40 mg PO DAILY [facility] Last Admin: 10/25/17 09:32 Dose: 40 mg Heparin Sodium (Porcine) (Heparin) 5,000 units SC Q12 [facility] Last Admin: 10/25/17 09:32 Dose: 5,000 units Memantine (Namenda) 5 mg PO BID [facility] Last Admin: 10/25/17 21:43 Dose: Not Given Rosuvastatin Calcium (Crestor) 10 mg PO HS [facility] Last Admin: 10/24/17 22:36 Dose: Not Given Spironolactone (Aldactone) 25 mg PO DAILY@1600 [facility] Last Admin: 10/25/17 21:42 Dose: Not Given - Labs Labs: 10/25/17 06:24 10/25/17 06:24 PT 15.0 SECONDS (9.7-12.2) H 10/25/17 06:24 INR 1.3 10/25/17 06:24 APTT 26 SECONDS (21-34) D 10/25/17 06:24 Assessment and Plan (1) Arrhythmia Status: Acute (2) Congestive heart failure (CHF) Status: Acute (3) HTN (hypertension) Status: Acute (4) Shortness of breath Status: Acute
== END 2017-10-25 23:50 | disposition short-term general hospital (02) | DRG 309 ==
LOC: C.ER 22:41 → C.9E 10-22 00:21 → C.6T 10-22 19:01 → C.9I 10-23 23:47 → OBSVTOIN 10-24 12:00
PROVIDERS: ADMIT Internal Medicine; ATTEND Internal Medicine
DX: I49.8 Other specified cardiac arrhythmias (principal); I50.22 Chronic systolic (congestive) heart failure; I11.0 Hypertensive heart disease with heart failure; I42.0 Dilated cardiomyopathy; E78.5 Hyperlipidemia, unspecified; F03.90 Unspecified dementia, unspecified severity, without behavioral disturbance, psychotic disturbance, mood disturbance, and anxiety; Z86.711 Personal history of pulmonary embolism; Z86.718 Personal history of other venous thrombosis and embolism; Z87.891 Personal history of nicotine dependence

== ENCOUNTER 2018-06-05 07:04 | Day surgery (SDC) | payer MEDICARE, BC ==
[2018-06-05 07:37] VITALS: BMI 25.6
[2018-06-05 08:26] LABS: INR 1.1; PROTHROMBIN TIME 11.8 SECONDS (9.7-12.2)
[2018-06-05 08:33] LABS: CALCIUM 10.4 mg/dl (8.6-10.4)
--- NOTE | 2018-06-05 08:55 | CP.SDSHP ---
Same Day Surgery H & P - History Proposed Procedure: COLONSCOPY Pre-Op Diagnosis: SEE NOTES - Previous Medical/Surgical History Cardiac: Hypertension, ASHD/CAD Endocrine/Metabolic: Other Neuro: Other Misc: Other Previous Surgical History: P.MAKER INSERTION / I V C. FILTER - Allergies Allergies: Allergies No Known Allergies Allergy (Verified 06/05/18 07:29) - Physical Exam General Appearance: N Vital Signs: Vital Signs 06/05/18 07:15 Temperature 98 F Pulse Rate 66 Respiratory 19 Rate Blood Pressure 170/72 H O2 Sat by Pulse 97 Oximetry Mental Status: Alert & Oriented x3 Neuro: Other Heart: Other Lungs: WNL - {Optional Preform as Required} Breast: WNL Abdomen: Other Rectal: Other Integument: WNL Ortho: Other ENT: WNL - Impression Pt. Evaluated Today:Candidate for Anesthesia & Procedure: Yes - Date & Time Time: 08:55 Short Stay Discharge - Short Stay Discharge Admitting Diagnosis/Reason for Visit: GI BLEEDING Disposition: HOME/ ROUTINE
[2018-06-05] MEDS ORDERED: Lactated Ringer's 500 ML IV SCH (09:00)
[2018-06-05] MEDS ORDERED: Lidocaine Hydrochloride 5 ML INJ ONE (09:01)
[2018-06-05] MEDS ORDERED: Propofol 10 mg/ml Inj (20 ML) ONE (09:01)
[2018-06-05] MEDS ORDERED: Phytonadione 10 mg/ml Inj (Adult) SC STA (09:31)
[2018-06-05 09:39] VITALS: TEMP 96.8
[2018-06-05 10:30] VITALS: O2SAT 100
[2018-06-05 11:24] VITALS: BP 150/67; PULSE 66; RESP 16
--- NOTE | 2018-06-06 15:34 | CARD ---
APPROVED REPORT Date of service: 06/05/2018 EKG Measurement Heart [id number] <Conclusion> Atrial-sensed ventricular-paced rhythm Abnormal ECG
== END 2018-06-05 11:10 | disposition home or self-care (01) ==
LOC: C.ENDO 07:04
PROVIDERS: ATTEND Specialist
DX: D12.2 Benign neoplasm of ascending colon (principal); D12.3 Benign neoplasm of transverse colon; D12.4 Benign neoplasm of descending colon; K57.30 Diverticulosis of large intestine without perforation or abscess without bleeding; K64.8 Other hemorrhoids; K64.4 Residual hemorrhoidal skin tags; K62.5 Hemorrhage of anus and rectum; I25.10 Atherosclerotic heart disease of native coronary artery without angina pectoris; Z95.810 Presence of automatic (implantable) cardiac defibrillator; I10 Essential (primary) hypertension; E78.5 Hyperlipidemia, unspecified; Z86.711 Personal history of pulmonary embolism; Z86.718 Personal history of other venous thrombosis and embolism; Z98.890 Other specified postprocedural states; Z79.02 Long term (current) use of antithrombotics/antiplatelets; Z79.82 Long term (current) use of aspirin; Z79.899 Other long term (current) drug therapy